=== PATIENT | male | born 1985 | race Caucasian/White ===

== ENCOUNTER 2019-04-03 12:25 | Emergency (ER) | payer BC ==
--- OUTSIDE RECORDS SUMMARY | 2019-04-03 12:28 | XMS REPORT ---
:1985 [facility] Address [address] [place] [id number] Care Team Providers Name Role Phone Unavailable Unavailable Unavailable Problems This patient has no known problems. Allergies, Adverse Reactions, Alerts This patient has no known allergies or adverse reactions. Medications This patient has no known medications.
--- NOTE | 2019-04-03 13:09 | RAD REPORT ---
EXAM DESCRIPTION: RAD - Chest Single View - 04/03/2019 1:03 pm CLINICAL HISTORY: CHEST PAIN Chest pain. COMPARISON: CHEST SINGLE VIEW dated 05/14/2012; CHEST SINGLE VIEW dated 09/29/2010 FINDINGS: Portable technique limits examination quality. The lungs are grossly clear. The heart is normal in size. No displaced fractures. IMPRESSION: No acute intrathoracic process suspected.
--- NOTE | 2019-04-03 13:16 | RAD REPORT ---
EXAM DESCRIPTION: US - Abdomen Exam Limited - 04/03/2019 1:00 pm CLINICAL HISTORY: ABD PAIN COMPARISON: Abdomen Exam Limited dated 07/19/2016 FINDINGS: The gallbladder has been removed. The common bile duct is normal measuring 3 mm. The liver demonstrates no findings of intrahepatic biliary dilatation. IMPRESSION: Unremarkable examination status post cholecystectomy.
[2019-04-03] MEDS ORDERED: MAGNE/ALUM HYDROXD 30 ML UCUP ONE (13:37)
[2019-04-03] MEDS ORDERED: LIDOCAINE VISCOUS 2% SOLN 15 ML UDC ONE (13:38)
[2019-04-03 13:40] LABS: Absolute Lymphocytes (CBC) 1.2 K/uL (0.7-4.9); Basophils % 0.5 % (0-1.3); Eosinophils % 0.9 % (0-4.4); Hematocrit 57.3 % (39.6-49.0); MPV 9.1 fL (7.6-11.3); Monocytes % 10.4 % (3.3-12.3); RBC Red Blood Cell Count 6.34 M/uL (4.33-5.43)
[2019-04-03 14:04] LABS: ALT/SGPT 77 U/L (12-78); AST/SGOT 38 U/L (15-37); Albumin 4.1 g/dL (3.4-5.0); Alkaline Phosphatase 70 U/L (45-117); BUN Blood Urea Nitrogen 14 mg/dL (7-18); Bicarbonate 31 mmol/L (21-32); Bilirubin Direct 0.3 mg/dL (0-0.2); Glucose Level 111 mg/dL (74-106); Lipase 109 U/L (73-393); Potassium 3.2 mmol/L (3.5-5.1); Protein, Total 8.2 g/dL (6.4-8.2); Sodium Level 136 mmol/L (136-145); Troponin (Emerg Dept Use Only) < 0.02 ng/mL (0.0-0.045)
--- NOTE | 2019-04-03 14:18 | ER ---
Nurse's Notes [facility] Name: Enma Kuo Jr Age: 34 yrs Sex: Male : 1985 Arrival Date: 04/03/2019 Time: 12:26 Bed 5 Private MD: Diagnosis: Chest pain, unspecified;Upper abdominal pain, unspecified Presentation: 04/03 12:28 Presenting complaint: Patient states: My chest has been getting real tight with la1 occasional sharp pain. has been going on for the last 2-3 days. Transition of care: patient was not received from another setting of care. Onset of symptoms was April 03, 2019. Risk Assessment: Do you want to hurt yourself or someone else? Patient reports no desire to harm self or others. Initial Sepsis Screen: Does the patient meet any 2 criteria? No. Patient's initial sepsis screen is negative. Does the patient have a suspected source of infection? No. Patient's initial sepsis screen is negative. Care prior to arrival: None. 12:28 Method Of Arrival: Ambulatory la1 12:28 Acuity: SAMUEL 2 la1 Triage Assessment: 12:36 General: Appears in no apparent distress. comfortable, Behavior is cooperative, bp appropriate for age, anxious. Pain: Complains of pain in chest. EENT: No deficits noted. Neuro: No deficits noted. Cardiovascular: Rhythm is sinus rhythm. Respiratory: No deficits noted. GI: No signs and/or symptoms were reported involving the gastrointestinal system. : No signs and/or symptoms were reported regarding the genitourinary system. Derm: No deficits noted. Musculoskeletal: No deficits noted. Historical: - Allergies: 12:27 No Known Allergies; la1 - PMHx: 12:27 Hypertension; gall stones; la1 - Immunization history:: Adult Immunizations up to date. - Social history:: Smoking status: Patient uses tobacco products, smokes one-half pack cigarettes per day. - Ebola Screening: : No symptoms or risks identified at this time. - Family history:: not pertinent. - Hospitalizations: : No recent hospitalization is reported. Screenin:41 Abuse screen: Denies threats or abuse. Denies injuries from another. Nutritional bp screening: No deficits noted. Tuberculosis screening: No symptoms or risk factors identified. Fall Risk None identified. Assessment: 12:36 General: SEE TRIAGE NOTE. bp 13:35 Reassessment: ALL CURRENT ORDERS COMPLETED, RESULTS PENDING. bp 14:43 Reassessment: PT D/C HOME AMBULATORY WITH FAMILY, DX WITH PAIN OF UNKNOWN ORIGIN. bp Vital Signs: 12:28 BP 173 / 100; Pulse 93; Resp 16; Temp 97.5; Pulse Ox 98% on R/A; Weight 129.27 kg; la1 Height 5 ft. 8 in. (172.72 cm); 14:12 BP 137 / 98; Pulse 71; Resp 18; Pulse Ox 98% ; bp 14:13 BP 137 / 98; rn 12:28 Body Mass Index 43.33 (129.27 kg, 172.72 cm) la1 ED Course: 12:26 Patient arrived in ED. as 12:27 Arm band placed on left wrist. la1 12:28 Triage completed. la1 12:33 Kb Short RN is Primary Nurse. bp 12:38 Ariel Eric MD is Attending Physician. rn 12:41 Patient has correct armband on for positive identification. Bed in low position. Call bp light in reach. Side rails up X2. property assessment monitor on. Pulse ox on. NIBP on. 12:58 X-ray completed. Portable x-ray completed in exam room. Patient tolerated procedure ml well. 13:14 XRAY Chest (1 view) In Process Unspecified. EDMS 13:14 Abdomen Exam Limited In Process Unspecified. EDMS 13:25 Inserted saline lock: 20 gauge in right antecubital area, using aseptic technique. bp Blood collected. 14:44 No provider procedures requiring assistance completed. IV discontinued, intact, bp bleeding controlled, No redness/swelling at site. Pressure dressing applied. Patient maintains SpO2 saturation greater than 95% on room air. Administered Medications: 13:30 Drug: GI Cocktail without - (Maalox Suspension 30 ml, Lidocaine Liquid 2 % 15 bp ml) Route: PO; Outcome: 14:17 Discharge ordered by . rn 14:44 Discharged to home ambulatory, with family. bp 14:44 Condition: stable 14:44 Discharge instructions given to patient, Instructed on discharge instructions, follow up and referral plans. Demonstrated understanding of instructions, follow-up care. 14:45 Patient left the ED. bp Signatures: Dispatcher [employer] EDMS Jeanine Carrington Melissa ml Nieto, Roman, MD MD rn Attema, Lee, RN RN la1 Kb Short, RN RN bp
--- NOTE | 2019-04-03 14:19 | EDPHYS ---
Physician Documentation [facility] Name: Enma Kuo Jr Age: 34 yrs Sex: Male : 1985 Arrival Date: 04/03/2019 Time: 12:26 Bed 5 Private MD: ED Physician Ariel Eric HPI: 04/03 13:06 This 34 yrs old Male presents to ER via Ambulatory with complaints of Chest rn Pain. 13:06 The patient or guardian reports chest pain that is located primarily in the substernal rn area, epigastric area. The pain radiates to both shoulders. Associated signs and symptoms: Pertinent positives: abdominal pain, Pertinent negatives: cough, diaphoresis, dizziness, shortness of breath, syncope, vomiting. The chest pain is described as a heaviness. Duration: The patient or guardian reports multiple episodes, that are intermittent, the episodes last approximately 30 minute(s). 13:14 Severity of pain: At its worst the pain was mild in the emergency department the pain rn is unchanged. The patient has not experienced similar symptoms in the past. Reports chest pain substernal, radiates to both shoulder, for 3 days, states intermittent and tight, also epigastric abd pain, no vomiting, states similar to when had gallstone pain but has had gallbladder removed. . Historical: - Allergies: 12:27 No Known Allergies; la1 - PMHx: 12:27 Hypertension; gall stones; la1 - Immunization history:: Adult Immunizations up to date. - Social history:: Smoking status: Patient uses tobacco products, smokes one-half pack cigarettes per day. - Ebola Screening: : No symptoms or risks identified at this time. - Family history:: not pertinent. - Hospitalizations: : No recent hospitalization is reported. ROS: 13:14 Constitutional: Negative for fever, chills, and weight loss, Eyes: Negative for injury, rn pain, redness, and discharge, Neck: Negative for injury, pain, and swelling, Cardiovascular: + chest pain Respiratory: Negative for shortness of breath, cough, wheezing, and pleuritic chest pain, Abdomen/GI: + epigastric abd pain Back: Negative for injury and pain, MS/Extremity: Negative for injury and deformity, Skin: Negative for injury, rash, and discoloration, Neuro: Negative for headache, weakness, numbness, tingling, and seizure. Exam: 13:14 Constitutional: This is a well developed, well nourished patient who is awake, alert, rn and in no acute distress. Head/Face: Normocephalic, atraumatic. Eyes: Pupils equal round and reactive to light, extra-ocular motions intact. Lids and lashes normal. Conjunctiva and sclera are non-icteric and not injected. Cornea within normal limits. Periorbital areas with no swelling, redness, or edema. Neck: Trachea midline, no thyromegaly or masses palpated, and no cervical lymphadenopathy. Supple, full range of motion without nuchal rigidity, or vertebral point tenderness. No Meningismus. Cardiovascular: Regular rate and rhythm with a normal S1 and S2. No gallops, murmurs, or rubs. Normal PMI, no JVD. No pulse deficits. Respiratory: Lungs have equal breath sounds bilaterally, clear to auscultation and percussion. No rales, rhonchi or wheezes noted. No increased work of breathing, no retractions or nasal flaring. Abdomen/GI: soft, + epigastric tenderness, no rebound Skin: Warm, dry with normal turgor. Normal color with no rashes, no lesions, and no evidence of cellulitis. MS/ Extremity: Pulses equal, no cyanosis. Neurovascular intact. Full, normal range of motion. Equal circumference. Neuro: Awake and alert, GCS 15, oriented to person, place, time, and situation. Cranial nerves II-XII grossly intact. Motor strength 5/5 in all extremities. Sensory grossly intact. Cerebellar exam normal. Normal gait. Vital Signs: 12:28 BP 173 / 100; Pulse 93; Resp 16; Temp 97.5; Pulse Ox 98% on R/A; Weight 129.27 kg; la1 Height 5 ft. 8 in. (172.72 cm); 14:12 BP 137 / 98; Pulse 71; Resp 18; Pulse Ox 98% ; bp 14:13 BP 137 / 98; rn 12:28 Body Mass Index 43.33 (129.27 kg, 172.72 cm) la1 MDM: 12:38 Patient medically screened. rn 14:13 Differential diagnosis: acute pericarditis, anxiety, coronary artery disease chest wall rn pain, costochondritis, esophagitis, gastroesophageal reflux disease (GERD), pleurisy, pneumonia, pneumothorax. Data reviewed: vital signs, nurses notes, lab test result(s), EKG, radiologic studies, plain films, and as a result, I will discharge patient. Counseling: I had a detailed discussion with the patient and/or guardian regarding: the historical points, exam findings, and any diagnostic results supporting the discharge/admit diagnosis, lab results, radiology results, the need for outpatient follow up, to return to the emergency department if symptoms worsen or persist or if there are any questions or concerns that arise at home. Response to treatment: the patient's symptoms have mildly improved after treatment, and as a result, I will discharge patient. Special discussion: Based on the patient's history, exam, and Dx evaluation, there is no indication for emergent intervention or inpatient Tx. It is understood by the patient/guardian that if the Sx's persist or worsen they need to return immediately for re-evaluation. Based on the patient's Hx, exam, and Dx evaluation, there is no indication for emergent surgery or inpatient Tx. It is understood by the patient/guardian that if the Sx's persist or worsen they need to return immediately for re-evaluation. I discussed with the patient/guardian in detail that at this point there is no indication for admission to the hospital. It is understood, however, that if the symptoms persist or worsen the patient needs to return immediately for re-evaluation. Based on the history and exam findings, there is no indication for further emergent testing or inpatient evaluation. I discussed with the patient/guardian the need to see the count team member for further evaluation of the symptoms. I discussed with the patient/guardian the need to see the notched blade loader for further evaluation of the symptoms. I discussed with the patient/guardian the need to see the primary care provider for further evaluation of the symptoms. 04/03 12:45 Order name: CBC with Diff; Complete Time: 14: rn 04/03 12:45 Order name: Basic Metabolic Panel; Complete Time: 14: rn 04/03 12:45 Order name: LFT's; Complete Time: 14: rn 04/03 12:45 Order name: Lipase; Complete Time: 14: rn 04/03 12:45 Order name: Troponin (emerg Dept Use Only); Complete Time: 14: rn 04/03 12:45 Order name: IV Start; Complete Time: 13:34 rn 04/03 12:45 Order name: EKG; Complete Time: 12:46 rn 04/03 12:45 Order name: EKG - Nurse/Tech; Complete Time: 12:49 rn 04/03 12:45 Order name: XRAY Chest (1 view); Complete Time: 13:25 rn 04/03 13:14 Order name: Abdomen Exam Limited; Complete Time: 13:25 EDMS Administered Medications: 13:30 Drug: GI Cocktail without - (Maalox Suspension 30 ml, Lidocaine Liquid 2 % 15 bp ml) Route: PO; Disposition: 04/03/19 14:17 Discharged to Home. Impression: Chest pain, unspecified, Upper abdominal pain, unspecified. - Condition is Stable. - Discharge Instructions: Abdominal Pain, Adult, Nonspecific Chest Pain, Pain Without a Known Cause. - Medication Reconciliation Form, Thank You Letter, Antibiotic Education, Prescription Opioid Use, Work release form, Family Work Release form. - Follow up: Private Physician; When: As needed; Reason: Recheck today's complaints, Re-evaluation by your physician. - Problem is an ongoing problem. - Symptoms have improved. Signatures: Dispatcher [employer] [facility] Ariel Eric MD MD rn Attema, Lee RN RN la1 Kb Short RN RN bp Corrections: (The following items were deleted from the chart) 13:07 12:46 Abdomen Limited+US.RAD.BRZ ordered. [facility] 14:45 14:17 04/03/2019 14:17 Discharged to Home. Impression: Chest pain, unspecified; Upper bp abdominal pain, unspecified. Condition is Stable. Forms are Medication Reconciliation Form, Thank You Letter, Antibiotic Education, Prescription Opioid Use. Follow up: Private Physician; When: As needed; Reason: Recheck today's complaints, Re-evaluation by your physician. Problem is an ongoing problem. Symptoms have improved. rn
[2019-04-03 15:00] VITALS: BP 137/98; TEMP 97.5; O2SAT 98
--- NOTE | 2019-04-03 15:01 | EKG ---
Test Date: 2019-04-03 Test Time: 12:33:32 Desizing Machine Operator: LA MEASUREMENT RESULTS: Intervals: Rate: 90 TX: 154 QRSD: 96 QT: 362 QTc: 442 [place]: P: 21 TX: 154 QRS: -75 T: 27 INTERPRETIVE STATEMENTS: Normal sinus rhythm Pulmonary disease pattern Left anterior fascicular block Abnormal ECG Compared to ECG 05/14/2012 10:56:06 Left anterior fascicular block now present Left-axis deviation no longer present Electronically Signed On 04-03-19 15:00:26 CDT by Jonathan Baptiste
== END 2019-04-03 14:45 | disposition home or self-care (01) ==
LOC: ER 12:25
DX: R07.9 Chest pain, unspecified (principal); R10.10 Upper abdominal pain, unspecified; F17.210 Nicotine dependence, cigarettes, uncomplicated
CPT/HCPCS: 36415; 71045; 76705; 80048; 80076; 83690; 84484; 85025; 93005; 99285

== ENCOUNTER 2019-05-25 06:39 | Emergency (ER) | payer BC ==
--- OUTSIDE RECORDS SUMMARY | 2019-05-25 06:41 | XMS REPORT ---
:1985 [facility] Address [address] [place] [id number] Care Team Providers Name Role Phone Unavailable Unavailable Unavailable Problems This patient has no known problems. Allergies, Adverse Reactions, Alerts This patient has no known allergies or adverse reactions. Medications This patient has no known medications.
[2019-05-25] MEDS ORDERED: IBUPROFEN 400 MG TAB ONE (06:55)
[2019-05-25] MEDS ORDERED: IBUPROFEN 200 MG TAB PO ONE (06:56)
[2019-05-25] MEDS ORDERED: HYDROCODONE/APAP 5/325 MG TAB ONE (07:23)
[2019-05-25] MEDS ORDERED: AMOX/K CLAV 875 MG TAB ONE (07:24)
--- NOTE | 2019-05-25 07:28 | ER ---
Nurse's Notes [facility] Name: Enma Kuo Jr Age: 34 yrs Sex: Male : 1985 Arrival Date: 05/25/2019 Time: 06:43 Bed 20 Private MD: Diagnosis: Streptococcal pharyngitis Presentation: 05/25 06:48 Presenting complaint: Patient states: headache, fever and body aches x 3 days. ss Transition of care: patient was not received from another setting of care. Onset of symptoms was May 23, 2019. Risk Assessment: Do you want to hurt yourself or someone else? Patient reports no desire to harm self or others. Initial Sepsis Screen: Does the patient meet any 2 criteria? HR > 90 bpm. Does the patient have a suspected source of infection? No. Patient's initial sepsis screen is negative. Care prior to arrival: None. 06:48 Method Of Arrival: Ambulatory ss 06:48 Acuity: SAMUEL 4 ss Historical: - Allergies: 06:50 No Known Allergies; ss - Home Meds: 06:50 None [Active]; ss - PMHx: 06:50 Hypertension; ss - PSHx: 06:50 Cholecystectomy; ss - Immunization history:: Adult Immunizations up to date. - Social history:: Smoking status: Patient uses tobacco products, smokes one-half pack cigarettes per day. - Ebola Screening: : Patient denies exposure to infectious person Patient denies travel to an Ebola-affected area in the 21 days before illness onset. Screenin:55 Abuse screen: Denies threats or abuse. Denies injuries from another. Nutritional rr5 screening: No deficits noted. Tuberculosis screening: No symptoms or risk factors identified. Fall Risk None identified. Total Saul Fall Scale indicates No Risk (0-24 pts). Assessment: 06:52 General: Appears in no apparent distress. uncomfortable, Behavior is calm, cooperative, rr5 appropriate for age, Reports fever for body ache. Pain: Complains of pain in head throat body Pain does not radiate. Pain currently is 10 out of 10 on a pain scale. Quality of pain is described as aching, Pain began 2-3 days ago. Is episodic. Neuro: Level of Consciousness is awake, alert, obeys commands, Oriented to person, place, time, situation, Reports headache. Cardiovascular: Capillary refill < 3 seconds Patient's skin is warm and dry. Respiratory: Reports cough that is congestion Airway is patent Respiratory effort is even, unlabored, Respiratory pattern is regular, symmetrical. GI: No signs and/or symptoms were reported involving the gastrointestinal system. : No signs and/or symptoms were reported regarding the genitourinary system. EENT: Throat is reddened has enlarged tonsils bilaterally with gag reflex present. Derm: Skin is intact, Skin temperature is warm. Musculoskeletal: Circulation, motion, and sensation intact. Capillary refill < 3 seconds. 07:46 Reassessment: PT D/C HOME AMBULATORY WITH FAMILY, DX WITH STREP THROAT. bp Vital Signs: 06:50 BP 147 / 88; Pulse 124; Resp 17; Temp 100.5(O); Pulse Ox 98% on R/A; Weight 90.72 kg; ss Height 5 ft. 6 in. (167.64 cm); Pain 10/10; 07:48 BP 127 / 87; Pulse 99; Resp 16; Temp 99.5; Pulse Ox 95% ; bp 06:50 Body Mass Index 32.28 (90.72 kg, 167.64 cm) ED Course: 06:43 Patient arrived in ED. ag3 06:45 Debra Day FNP-C is PHCP. kb 06:45 Ermias Hdz MD is Attending Physician. kb 06:49 Triage completed. ss 06:50 Arm band placed on right wrist. ss 06:51 Patient has correct armband on for positive identification. Bed in low position. Call rr5 light in reach. Side rails up X2. Pulse ox on. NIBP on. 07:05 Valorie Hall, CRISTIAN is Primary Nurse. sv 07:47 No provider procedures requiring assistance completed. Patient did not have IV access bp during this emergency room visit. Administered Medications: 06:56 Drug: Ibuprofen 600 mg Route: PO; jd3 07:24 Follow up: Response: No adverse reaction; Pain is decreased bp 07:24 Drug: [place] 5 mg-325 mg 1 tabs Route: PO; bp 07:25 Follow up: Response: Medication administered at discharge. bp 07:24 Drug: Augmentin 875 mg Route: PO; bp 07:25 Follow up: Response: Medication administered at discharge. bp Outcome: 07:27 Discharge ordered by . kb 07:47 Discharged to home ambulatory, with family. bp 07:47 Condition: stable 07:47 Discharge instructions given to patient, Instructed on discharge instructions, follow up and referral plans. medication usage, Demonstrated understanding of instructions, follow-up care, medications, Prescriptions given X 1. 07:48 Patient left the ED. bp Signatures: Debra Day, FILTER OPERATOR-C FILTER OPERATOR-Valorie Coates RN RN Leni Souza RN RN ss Aamir Helms RN RN jd3 Peltier, Brian, RN RN Rhoda Acevedo ag3 Dung Sutherland RN RN rr5
--- NOTE | 2019-05-25 07:28 | EDPHYS ---
Physician Documentation [facility] Name: Enma Kuo Jr Age: 34 yrs Sex: Male : 1985 Arrival Date: 05/25/2019 Time: 06:43 Bed 20 Private MD: ED Physician Ermias Hdz HPI: 05/25 07:20 This 34 yrs old Male presents to ER via Ambulatory with complaints of Fever. kb 07:22 The patient or guardian reports cough, flu symptoms, arthralgias, low-grade fever, kb myalgias, no appetite. 07:23 Onset: The symptoms/episode began/occurred 3 day(s) ago. Severity of symptoms: At their kb worst the symptoms were moderate, in the emergency department the symptoms are unchanged. Modifying factors: The symptoms are alleviated by nothing, the symptoms are aggravated by nothing. Associated signs and symptoms: Pertinent positives: fever, rhinorrhea, sore throat, Pertinent negatives: chest pain, diarrhea, ear ache, nausea, vomiting. The patient has not experienced similar symptoms in the past. The patient has not recently seen a physician. Pt reports fever, body aches, malaise, headache, cough and congestion for 3 days. . Historical: - Allergies: 06:50 No Known Allergies; ss - Home Meds: 06:50 None [Active]; ss - PMHx: 06:50 Hypertension; ss - PSHx: 06:50 Cholecystectomy; ss - Immunization history:: Adult Immunizations up to date. - Social history:: Smoking status: Patient uses tobacco products, smokes one-half pack cigarettes per day. - Ebola Screening: : Patient denies exposure to infectious person Patient denies travel to an Ebola-affected area in the 21 days before illness onset. ROS: 06:55 Neck: Negative for injury, pain, and swelling, Cardiovascular: Negative for chest pain, kb palpitations, and edema, Abdomen/GI: Negative for abdominal pain, nausea, vomiting, diarrhea, and constipation, Back: Negative for injury and pain, : Negative for injury, bleeding, discharge, and swelling, MS/Extremity: Negative for injury and deformity, Skin: Negative for injury, rash, and discoloration. 06:55 Constitutional: Positive for body aches, chills, fatigue, fever, malaise. 06:55 ENT: Positive for rhinorrhea, sinus congestion. 06:55 Respiratory: Positive for cough, Negative for dyspnea on exertion, hemoptysis, orthopnea, pleurisy, shortness of breath, sputum production, wheezing. 06:55 Neuro: Positive for headache. Exam: 06:53 Constitutional: This is a well developed, well nourished patient who is awake, alert, kb and in no acute distress. Head/Face: Normocephalic, atraumatic. Neck: Trachea midline, no thyromegaly or masses palpated, and no cervical lymphadenopathy. Supple, full range of motion without nuchal rigidity, or vertebral point tenderness. No Meningismus. Chest/axilla: Normal chest wall appearance and motion. Nontender with no deformity. No lesions are appreciated. Cardiovascular: Regular rate and rhythm with a normal S1 and S2. No gallops, murmurs, or rubs. Normal PMI, no JVD. No pulse deficits. Respiratory: Lungs have equal breath sounds bilaterally, clear to auscultation and percussion. No rales, rhonchi or wheezes noted. No increased work of breathing, no retractions or nasal flaring. Abdomen/GI: Soft, non-tender, with normal bowel sounds. No distension or tympany. No guarding or rebound. No evidence of tenderness throughout. Back: No spinal tenderness. No costovertebral tenderness. Full range of motion. Skin: Warm, dry with normal turgor. Normal color with no rashes, no lesions, and no evidence of cellulitis. MS/ Extremity: Pulses equal, no cyanosis. Neurovascular intact. Full, normal range of motion. Neuro: Awake and alert, GCS 15, oriented to person, place, time, and situation. Cranial nerves II-XII grossly intact. Motor strength 5/5 in all extremities. Sensory grossly intact. Cerebellar exam normal. Normal gait. 06:53 ENT: External ear(s): are unremarkable, Ear canal(s): are normal, TM's: are normal, Nose: is normal, Mouth: is normal, Posterior pharynx: Airway: normal, no evidence of obstruction, patent, Tonsils: with erythema, Uvula: normal, midline, swelling, that is mild, erythema, that is marked. Vital Signs: 06:50 BP 147 / 88; Pulse 124; Resp 17; Temp 100.5(O); Pulse Ox 98% on R/A; Weight 90.72 kg; ss Height 5 ft. 6 in. (167.64 cm); Pain 10/10; 07:48 BP 127 / 87; Pulse 99; Resp 16; Temp 99.5; Pulse Ox 95% ; bp 06:50 Body Mass Index 32.28 (90.72 kg, 167.64 cm) ss MDM: 06:45 Patient medically screened. kb 06:53 Data reviewed: vital signs, nurses notes. Data interpreted: Pulse oximetry: on room air kb is 98 %. Interpretation: normal. 07:20 Counseling: I had a detailed discussion with the patient and/or guardian regarding: the kb historical points, exam findings, and any diagnostic results supporting the discharge/admit diagnosis, lab results, the need for outpatient follow up, a family practitioner, to return to the emergency department if symptoms worsen or persist or if there are any questions or concerns that arise at home. 05/25 06:48 Order name: Strep; Complete Time: 07:20 kb 05/25 06:48 Order name: Flu; Complete Time: 07:20 kb Administered Medications: 06:56 Drug: Ibuprofen 600 mg Route: PO; jd3 07:24 Follow up: Response: No adverse reaction; Pain is decreased bp 07:24 Drug: Walton 5 mg-325 mg 1 tabs Route: PO; bp 07:25 Follow up: Response: Medication administered at discharge. bp 07:24 Drug: Augmentin 875 mg Route: PO; bp 07:25 Follow up: Response: Medication administered at discharge. bp Disposition: 09:30 Co-signature as Attending Physician, Ermias Hdz MD I agree with the assessment and kdr plan of care. Disposition: 05/25/19 07:27 Discharged to Home. Impression: Streptococcal pharyngitis. - Condition is Stable. - Discharge Instructions: Strep Throat, [id number]. - Prescriptions for Augmentin 875- 125 mg Oral Tablet - take 1 tablet by ORAL route every 12 hours for 10 days; 20 tablet. - Medication Reconciliation Form, Thank You Letter, Antibiotic Education, Prescription Opioid Use form. - Follow up: Emergency Department; When: As needed; Reason: Worsening of condition. Follow up: Private Physician; When: 2 - 3 days; Reason: Recheck today's complaints, Continuance of care, Re-evaluation by your physician. Signatures: Dispatcher [employer] EDGA Debra Day, SHORTHAND REPORTER-C SHORTHAND REPORTER-Ckb Ermias Hdz MD MD kdr Smirch, Shelby, RN RN Aamir Smith RN RN Kb Short RN RN bp Corrections: (The following items were deleted from the chart) 07:48 07:27 05/25/2019 07:27 Discharged to Home. Impression: Streptococcal pharyngitis. bp Condition is Stable. Forms are Medication Reconciliation Form, Thank You Letter, Antibiotic Education, Prescription Opioid Use. Follow up: Emergency Department; When: As needed; Reason: Worsening of condition. Follow up: Private Physician; When: 2 - 3 days; Reason: Recheck today's complaints, Continuance of care, Re-evaluation by your physician. kb
[2019-05-25 09:04] VITALS: BP 127/87; TEMP 99.5; O2SAT 95
== END 2019-05-25 07:48 | disposition home or self-care (01) ==
LOC: ER 06:39
DX: J02.0 Streptococcal pharyngitis (principal); I10 Essential (primary) hypertension; F17.210 Nicotine dependence, cigarettes, uncomplicated
CPT/HCPCS: 87081; 87804; 99283

== ENCOUNTER 2019-05-31 07:44 | Emergency (ER) | payer BC ==
--- OUTSIDE RECORDS SUMMARY | 2019-05-31 07:45 | XMS REPORT ---
:1985 [facility] Address [address] Gupta [address] [place] [id number] Care Team Providers Name Role Phone Unavailable Unavailable Unavailable Problems This patient has no known problems. Allergies, Adverse Reactions, Alerts This patient has no known allergies or adverse reactions. Medications This patient has no known medications.
[2019-05-31] MEDS ORDERED: METOCLOPRAMIDE 10 MG/2mL INJ ONE (08:50)
[2019-05-31] MEDS ORDERED: dexAMETHasone 10 MG/ML VIAL ONE (08:50)
--- NOTE | 2019-05-31 09:05 | ER ---
Nurse's Notes [facility] Name: Enma Kuo Jr Age: 34 yrs Sex: Male : 1985 Arrival Date: 05/31/2019 Time: 07:48 Bed 16 Private MD: Diagnosis: Streptococcal pharyngitis Presentation: 05/31 07:58 Presenting complaint: Patient states: Diagnosed with fever a few days ago in ER. ss Patient reports that he does not have a sore throat, but is still running a fever and having a headache. Transition of care: patient was not received from another setting of care. Onset of symptoms. Risk Assessment: Do you want to hurt yourself or someone else? Patient reports no desire to harm self or others. Initial Sepsis Screen: Does the patient meet any 2 criteria? No. Patient's initial sepsis screen is negative. Does the patient have a suspected source of infection? Yes: Other: strep. Care prior to arrival: None. 07:58 Method Of Arrival: Ambulatory 07:58 Acuity: SAMUEL 3 Triage Assessment: 07:55 Headache History: The patient has had previous headaches and this one is similar to rb1 previous episodes. 07:55 Pain: Pain began x 1 week Also complains of no other associated symptoms. rb1 Historical: - Allergies: 08:00 No Known Allergies; ss - Home Meds: 07:55 unknown antibiotics [Active]; rb1 - PMHx: 08:00 Hypertension; ss - PSHx: 08:00 Cholecystectomy; ss - Immunization history:: Adult Immunizations up to date. - Social history:: Smoking status: Patient uses tobacco products, smokes one-half pack cigarettes per day. - Ebola Screening: : Patient denies exposure to infectious person Patient denies travel to an Ebola-affected area in the 21 days before illness onset. - Family history:: not pertinent. - Hospitalizations: : No recent hospitalization is reported. Screenin:55 Abuse screen: Denies threats or abuse. Nutritional screening: No deficits noted. rb1 Tuberculosis screening: No symptoms or risk factors identified. Fall Risk None identified. Assessment: 07:55 General: Appears in no apparent distress. comfortable, Behavior is calm, cooperative, rb1 Reports fever for x 1 week. Pain: Complains of pain in Headache Pain currently is 8 out of 10 on a pain scale. Neuro: Level of Consciousness is awake, alert, obeys commands, Oriented to person, place, time, situation, Speech is normal, Pt. reports that he feels normal except for his headache, neck pain, and fever. Pt. was educated on meningitis but refused a spinal tap to rule it out.. Cardiovascular: Capillary refill < 3 seconds is brisk in bilateral fingers. Respiratory: Reports cough that is non-productive, Airway is patent Respiratory effort is even, unlabored, Respiratory pattern is regular, symmetrical. GI: No signs and/or symptoms were reported involving the gastrointestinal system. : No signs and/or symptoms were reported regarding the genitourinary system. Derm: Skin is pink, warm \T\ dry. Musculoskeletal: Range of motion: intact in all extremities. 08:54 Reassessment: Patient appears in no apparent distress at this time. No changes from rb1 previously documented assessment. Vital Signs: 08:00 BP 145 / 98; Pulse 86; Resp 16; Temp 99.0(O); Pulse Ox 97% on R/A; Weight 90.72 kg; ss Height 5 ft. 6 in. (167.64 cm); Pain 10/10; 09:00 BP 149 / 93; Pulse 86; Resp 17; Temp 98.9(O); Pulse Ox 98% on R/A; Pain 8/10; rb1 08:00 Body Mass Index 32.28 (90.72 kg, 167.64 cm) ED Course: 07:48 Patient arrived in ED. as 07:52 Ariel Eric MD is Attending Physician. rn 07:55 Patient has correct armband on for positive identification. Bed in low position. Call rb1 light in reach. Side rails up X 1. Pulse ox on. NIBP on. 07:59 Triage completed. ss 08:00 Arm band placed on right wrist. ss 08:05 Cortney Arshad, RN is Primary Nurse. rb1 08:20 Inserted saline lock: 22 gauge in left antecubital area, using aseptic technique. Blood rb1 collected. 08:22 [place] Screen Profile Sent. rb1 08:33 XRAY Chest Pa And Lat (2 Views) In Process Unspecified. EDMS 09:29 No provider procedures requiring assistance completed. IV discontinued, intact, rb1 bleeding controlled, No redness/swelling at site. Pressure dressing applied. Administered Medications: 08:50 Drug: Reglan 10 mg Route: IVP; Site: left antecubital; rb1 09:05 Follow up: Response: No adverse reaction rb1 08:50 Drug: Decadron - Dexamethasone 10 mg Route: IVP; Site: left antecubital; rb1 09:05 Follow up: Response: No adverse reaction rb1 Outcome: 09:04 Discharge ordered by . rn 09:29 Patient left the ED. rb1 09:29 Discharged to home ambulatory. rb1 09:29 Condition: stable 09:29 Discharge instructions given to patient, Instructed on discharge instructions, follow up and referral plans. medication usage, Demonstrated understanding of instructions, follow-up care, medications, Prescriptions given X 2. Signatures: Dispatcher [employer] Jeanine Campbell Roman, MD MD rn Smirch, Shelby, RN RN Cortney Bull RN RN rb1 Corrections: (The following items were deleted from the chart) 08:11 07:55 Respiratory: Airway is patent Respiratory effort is even, unlabored, Respiratory rb1 pattern is regular, symmetrical, rb1
--- NOTE | 2019-05-31 09:05 | EDPHYS ---
Physician Documentation [facility] Name: Enma Kuo Jr Age: 34 yrs Sex: Male : 1985 Arrival Date: 05/31/2019 Time: 07:48 Bed 16 Private MD: ED Physician Ariel Eric HPI: 05/31 08:07 This 34 yrs old Male presents to ER via Ambulatory with complaints of Fever, rn Headache, Strep+. 08:07 The patient reports fever, not measured (subjective). Onset: The symptoms/episode rn began/occurred 2 day(s) ago. Modifying factors: there are no obvious modifying factors. Associated signs and symptoms: Pertinent positives: cough, headache, Pertinent negatives: abdominal pain, altered mental status, chest pain, hemoptysis, runny nose. Severity of symptoms: At their worst the symptoms were moderate in the emergency department the symptoms are unchanged. The patient has not experienced similar symptoms in the past. REports seen here 2 days ago, + for strep, reports taking augmentin and not better. Still having headache, cough. Denies having sore throat or speech changes. . Historical: - Allergies: 08:00 No Known Allergies; ss - Home Meds: 07:55 unknown antibiotics [Active]; rb1 - PMHx: 08:00 Hypertension; ss - PSHx: 08:00 Cholecystectomy; ss - Immunization history:: Adult Immunizations up to date. - Social history:: Smoking status: Patient uses tobacco products, smokes one-half pack cigarettes per day. - Ebola Screening: : Patient denies exposure to infectious person Patient denies travel to an Ebola-affected area in the 21 days before illness onset. - Family history:: not pertinent. - Hospitalizations: : No recent hospitalization is reported. ROS: 08:07 Constitutional: Negative for chills, and weight loss, Eyes: Negative for injury, pain, rn redness, and discharge, ENT: Mild pharyngeal erythema, no exudate, no stridor, no masses, uvula midline Neck: Negative for swelling, Cardiovascular: Negative for chest pain, palpitations, and edema, Respiratory: + cough, neg for sob Abdomen/GI: Negative for abdominal pain, nausea, vomiting, diarrhea, and constipation, MS/Extremity: Negative for injury and deformity, Skin: Negative for injury, rash, and discoloration, Neuro: Negative for weakness, numbness, tingling, and seizure. Exam: 08:07 Constitutional: This is a well developed, well nourished patient who is awake, alert, rn and in no acute distress. Ambulatory to room without difficulty or assistance Head/Face: Normocephalic, atraumatic. Eyes: Pupils equal round and reactive to light, extra-ocular motions intact. Lids and lashes normal. Conjunctiva and sclera are non-icteric and not injected. Cornea within normal limits. Periorbital areas with no swelling, redness, or edema. ENT: Mild pharyngeal erythema, no exudate, no stridor, no masses, uvula midline Neck: No neck masses or tenderness Cardiovascular: Regular rate and rhythm. No pulse deficits. Respiratory: No increased work of breathing, no retractions or nasal flaring. Abdomen/GI: Soft, non-tender. No evidence of tenderness throughout. Skin: Warm, dry with normal turgor. Normal color with no rashes, no lesions, and no evidence of cellulitis. MS/ Extremity: Pulses equal, no cyanosis. Neurovascular intact. Full, normal range of motion. Equal circumference. Neuro: Awake and alert, GCS 15, oriented to person, place, time, and situation. Cranial nerves II-XII grossly intact. Motor strength 5/5 in all extremities. Sensory grossly intact. Cerebellar exam normal. Normal gait. Vital Signs: 08:00 BP 145 / 98; Pulse 86; Resp 16; Temp 99.0(O); Pulse Ox 97% on R/A; Weight 90.72 kg; ss Height 5 ft. 6 in. (167.64 cm); Pain 10/10; 09:00 BP 149 / 93; Pulse 86; Resp 17; Temp 98.9(O); Pulse Ox 98% on R/A; Pain 8/10; rb1 08:00 Body Mass Index 32.28 (90.72 kg, 167.64 cm) ss MDM: 07:52 Patient medically screened. rn 08:16 Refusal of service: The patient/guardian displays adequate decision making capability rn and despite a detailed discussion of alternatives, benefits, risks, and consequences refuses: Lumbar Puncture procedure. ED course: Pt denies any throat pain or change in voice.. 09:03 Differential diagnosis: viral Infection, bacterial infection, URI, bronchitis, rn pneumonia. Differential diagnosis: meningitis. Data reviewed: vital signs, nurses notes. Data reviewed: old medical records, lab test result(s), radiologic studies, plain films. Test interpretation: by ED physician or midlevel provider: plain radiologic studies, CXR neg for pneumonia or infiltrate. Counseling: I had a detailed discussion with the patient and/or guardian regarding: the historical points, exam findings, and any diagnostic results supporting the discharge/admit diagnosis, radiology results, the need for outpatient follow up, to return to the emergency department if symptoms worsen or persist or if there are any questions or concerns that arise at home. Special discussion: I discussed with the patient/guardian in detail that at this point there is no indication for admission to the hospital. It is understood, however, that if the symptoms persist or worsen the patient needs to return immediately for re-evaluation. ED course: Neg mono, neg cxr, patient still refuses LP. Better with meds. Dc home with return precautions.. 05/31 08:07 Order name: [place] Screen Profile; Complete Time: 09:03 rn 05/31 08:05 Order name: XRAY Chest Pa And Lat (2 Views) rn 05/31 08:46 Order name: IV Start; Complete Time: 08:47 rn Administered Medications: 08:50 Drug: Reglan 10 mg Route: IVP; Site: left antecubital; rb1 09:05 Follow up: Response: No adverse reaction rb1 08:50 Drug: Decadron - Dexamethasone 10 mg Route: IVP; Site: left antecubital; rb1 09:05 Follow up: Response: No adverse reaction rb1 Disposition: 05/31/19 09:04 Discharged to Home. Impression: Streptococcal pharyngitis. - Condition is Stable. - Discharge Instructions: General Headache Without Cause, Strep Throat. - Prescriptions for Zithromax Z- Earl 250 mg Oral Tablet - take 1 tablet by ORAL route as directed for 5 days Day 1 - take two (2) tablets one time. Day 2, 3, 4 , 5 take one (1) tablet once daily.; 6 tablet. Medrol (Earl) 4 mg Oral Tablets, Dose Pack - take 1 tablet by ORAL route as directed - follow package instructions; 1 packet. - Medication Reconciliation Form, Thank You Letter, Antibiotic Education, Prescription Opioid Use, Work release form form. - Follow up: Private Physician; When: As needed; Reason: Recheck today's complaints, Re-evaluation by your physician. - Problem is new. - Symptoms have improved. Signatures: Dispatcher [employer] EDMS Ariel Eric MD MD rn Smirch, Shelby, RN RN ss Barber, Rebecca, RN RN rb1 Corrections: (The following items were deleted from the chart) 08:14 08:07 Constitutional: Negative for chills, and weight loss, Eyes: Negative for injury, rn pain, redness, and discharge, ENT: Mild pharyngeal erythema, no exudate, no stridor, no masses, uvula midline Neck: Negative for swelling, Cardiovascular: Negative for chest pain, palpitations, and edema, Respiratory: + cough, neg for sob Abdomen/GI: Negative for abdominal pain, nausea, vomiting, diarrhea, and constipation, MS/Extremity: Negative for injury and deformity, Skin: Negative for injury, rash, and discoloration, Neuro: Negative for weakness, numbness, tingling, and seizure, rn 08:16 08:07 Constitutional: This is a well developed, well nourished patient who is awake, rn alert, and in no acute distress. Ambulatory to room without difficulty or assistance Head/Face: Normocephalic, atraumatic. Eyes: Pupils equal round and reactive to light, extra-ocular motions intact. Lids and lashes normal. Conjunctiva and sclera are non-icteric and not injected. Cornea within normal limits. Periorbital areas with no swelling, redness, or edema. ENT: Nares patent. No nasal discharge, no septal abnormalities noted. Tympanic membranes are normal and external auditory canals are clear. Oropharynx with no redness, swelling, or masses, exudates, or evidence of obstruction, uvula midline. Mucous membranes moist. rn 09:29 09:04 05/31/2019 09:04 Discharged to Home. Impression: Streptococcal pharyngitis. rb1 Condition is Stable. Forms are Medication Reconciliation Form, Thank You Letter, Antibiotic Education, Prescription Opioid Use. Follow up: Private Physician; When: As needed; Reason: Recheck today's complaints, Re-evaluation by your physician. Problem is new. Symptoms have improved. rn
[2019-05-31 11:34] VITALS: BP 149/93; TEMP 98.9; O2SAT 98
--- NOTE | 2019-05-31 12:56 | RAD REPORT ---
EXAM DESCRIPTION: RAD - Chest Pa And Lat (2 Views) - 05/31/2019 8:34 am CLINICAL HISTORY: Fever;Cough Chest pain. COMPARISON: Chest Single View dated 04/03/2019; CHEST SINGLE VIEW dated 05/14/2012; CHEST SINGLE VIEW dated 09/29/2010 FINDINGS: Interstitial lung markings are prominent bilaterally, raising suspicion for viral pneumoni tis and/or bronchitis. No focal consolidation typical of pneumonia seen. The heart is normal in size. No displaced fractures.
== END 2019-05-31 09:29 | disposition home or self-care (01) ==
LOC: ER 07:44
DX: J02.0 Streptococcal pharyngitis (principal); I10 Essential (primary) hypertension; F17.210 Nicotine dependence, cigarettes, uncomplicated
CPT/HCPCS: 36415; 86308; 71046; 96375; 96374; 99284; J2765; J1100

== ENCOUNTER 2019-07-06 22:58 | Emergency (ER) | payer BC ==
[2019-07-07] MEDS ORDERED: NA CHLORIDE 0.9% 1,000 ML ONE (00:13)
[2019-07-07] MEDS ORDERED: DIPHENHYDRAMINE 50 MG/ML VIAL ONE (00:13)
[2019-07-07] MEDS ORDERED: METOCLOPRAMIDE 10 MG/2mL INJ ONE (00:13)
[2019-07-07] MEDS ORDERED: dexAMETHasone 10 MG/ML VIAL ONE (00:13)
--- NOTE | 2019-07-07 01:21 | ER ---
Nurse's Notes [facility] Name: Enma Kuo Jr Age: 34 yrs Sex: Male : 1985 Arrival Date: 07/06/2019 Time: 22:59 Bed 20 Private MD: Diagnosis: Headache Presentation: 07/06 23:21 Presenting complaint: Patient states: he has had a headache for a month the pain moves bb around pain is intermittent and currently is 10/10 has used OTC medications with no relief. Transition of care: patient was not received from another setting of care. Onset of symptoms was May 2019. Risk Assessment: Do you want to hurt yourself or someone else? Patient reports no desire to harm self or others. Initial Sepsis Screen: Does the patient meet any 2 criteria? No. Patient's initial sepsis screen is negative. Does the patient have a suspected source of infection? No. Patient's initial sepsis screen is negative. Care prior to arrival: None. 23:21 Method Of Arrival: Ambulatory bb 23:21 Acuity: SAMUEL 3 bb Triage Assessment: 23:24 Headache History: Denies prior headaches. General: Appears uncomfortable, Behavior is bb calm, cooperative. Pain: Complains of pain in head Pain currently is 10 out of 10 on a pain scale. Pain began one month ago Also complains of inability to concentrate. Neuro: Level of Consciousness is awake, alert, obeys commands, Oriented to person, place, time, situation. Cardiovascular: No deficits noted. Respiratory: Respiratory effort is even, unlabored, Respiratory pattern is regular. Derm: Skin is pink, warm \\T\\ dry. Musculoskeletal: Circulation, motion, and sensation intact. Historical: - Allergies: 23:24 No Known Allergies; bb - Home Meds: 23:24 losartan 100 mg oral tab 1 tab once daily [Active]; trazodone 50 mg Oral tab 1 tab bb nightly [Active]; - PMHx: 23:24 Gall Stones; Hypertension; bb - PSHx: 23:24 Cholecystectomy; bb - Immunization history:: Adult Immunizations up to date. - Social history:: Smoking status: Patient uses tobacco products, smokes one pack cigarettes per day. Patient uses alcohol, on a daily basis. Patient/guardian denies using street drugs. - Ebola Screening: : No symptoms or risks identified at this time. Screenin:31 Abuse screen: Denies threats or abuse. Denies injuries from another. Nutritional wh screening: No deficits noted. Tuberculosis screening: No symptoms or risk factors identified. Fall Risk None identified. Assessment: 23:32 General: Appears in no apparent distress. uncomfortable, Behavior is calm, cooperative, wh appropriate for age. Pain: Complains of pain in head Pain does not radiate. Pain currently is 10 out of 10 on a pain scale. Quality of pain is described as aching, Pain began on and off for a month. Neuro: Level of Consciousness is awake, alert, obeys commands, Oriented to person, place, time, situation, Appropriate for age Reports headache in entire that is the "worst ever", since a month ago. Cardiovascular: Heart tones S1 S2. Respiratory: Airway is patent Respiratory effort is even, unlabored, Respiratory pattern is regular, symmetrical, Breath sounds are clear bilaterally. GI: Abdomen is flat, non-distended. : No signs and/or symptoms were reported regarding the genitourinary system. EENT: No signs and/or symptoms were reported regarding the EENT system. Derm: Skin is intact, is healthy with good turgor, Skin is pink, warm \\T\\ dry. normal. Musculoskeletal: Circulation, motion, and sensation intact. 07/07 00:45 Reassessment: Patient appears in no apparent distress at this time. No changes from previously documented assessment. Patient and/or family updated on plan of care and expected duration. Pain level reassessed. Patient is alert, oriented x 3, equal unlabored respirations, skin warm/dry/pink. 01:55 Reassessment: Patient appears in no apparent distress at this time. No changes from previously documented assessment. Patient and/or family updated on plan of care and expected duration. Pain level reassessed. Patient is alert, oriented x 3, equal unlabored respirations, skin warm/dry/pink. Patient states feeling better. Patient states symptoms have improved. Vital Signs: 07/06 23:24 BP 152 / 96; Pulse 90; Resp 14 S; Temp 99(O); Pulse Ox 97% on R/A; Weight 90.72 kg (R); bb Height 5 ft. 6 in. (167.64 cm) (R); Pain 07/02; 07/07 01:00 BP 137 / 76; Pulse 87; Resp 18; Pulse Ox 97% on R/A; 01:56 BP 128 / 78; Pulse 79; Resp 18; Pulse Ox 92% on R/A; 07/06 23:24 Body Mass Index 32.28 (90.72 kg, 167.64 cm) bb ED Course: 07/06 22:59 Patient arrived in ED. ds1 23:23 Triage completed. bb 23:24 Arm band placed on Patient placed in an exam room, on a stretcher, on pulse oximetry. bb Family accompanied patient. 23:31 David Patricia is Primary Nurse. 23:32 Patient has correct armband on for positive identification. Bed in low position. Call light in reach. Side rails up X 1. Pulse ox on. NIBP on. 23:55 Arnol Burkett PA is PHCP. jr8 23:55 Dharmesh Osorio MD is Attending Physician. jr8 07/07 00:12 Inserted saline lock: 20 gauge in right antecubital area, using aseptic technique. jd2 00:59 CT Head Brain wo Cont In Process Unspecified. EDMS 01:57 No provider procedures requiring assistance completed. IV discontinued, intact, wh bleeding controlled, No redness/swelling at site. Administered Medications: 00:31 Drug: NS 0.9% 1000 ml Route: IV; Rate: 1000 ml; Site: right antecubital; 01:54 Follow up: Response: No adverse reaction; IV Status: Completed infusion 00:31 Drug: Benadryl 25 mg Route: IVP; Site: right antecubital; 01:55 Follow up: Response: No adverse reaction 00:31 Drug: Decadron - Dexamethasone 10 mg Route: IVP; Site: right antecubital; 01:55 Follow up: Response: No adverse reaction 00:32 Drug: Reglan 10 mg Route: IVP; Site: right antecubital; 01:54 Follow up: Response: No adverse reaction Outcome: 01:20 Discharge ordered by . jr8 01:57 Discharged to home ambulatory, with family. 01:57 Condition: good 01:57 Discharge instructions given to patient, family, Instructed on discharge instructions, follow up and referral plans. POC Migraine and General Headache without known cause Demonstrated understanding of instructions, follow-up care, POC 01:58 Patient left the ED. Signatures: Dispatcher [employer] Vanessa Ghotra ds1 Beckie Johnson RN RN Arnol Shell PA PA jr8 Della Rogersd2 David Patricia
--- NOTE | 2019-07-07 01:21 | EDPHYS ---
Physician Documentation [facility] Name: Enma Kuo Jr Age: 34 yrs Sex: Male : 1985 Arrival Date: 07/06/2019 Time: 22:59 Bed 20 Private MD: ED Physician Dharmesh Osorio HPI: 07/07 00:10 This 34 yrs old Male presents to ER via Ambulatory with complaints of jr8 Headache. 00:10 Onset: The symptoms/episode began/occurred 1 month(s) ago. Associated signs and jr8 symptoms: Pertinent positives: Photophobia Pertinent negatives: altered mental status, Photophobia. Severity of symptoms: At its worst the pain was mild. Headache History: The patient has had previous headaches and this one is similar to previous episodes. the symptoms are aggravated by lights, noise, stress. pt reports MARCH for one month without changes. Pt is alert, oriented x4, states he came in today because he wanted the pain to go away. Historical: - Allergies: 07/06 23:24 No Known Allergies; bb - Home Meds: 23:24 losartan 100 mg oral tab 1 tab once daily [Active]; trazodone 50 mg Oral tab 1 tab bb nightly [Active]; - PMHx: 23:24 Gall Stones; Hypertension; bb - PSHx: 23:24 Cholecystectomy; bb - Immunization history:: Adult Immunizations up to date. - Social history:: Smoking status: Patient uses tobacco products, smokes one pack cigarettes per day. Patient uses alcohol, on a daily basis. Patient/guardian denies using street drugs. - Ebola Screening: : No symptoms or risks identified at this time. ROS: 07/07 00:10 Constitutional: Negative for fever, chills, and weight loss, Eyes: Negative for injury, jr8 pain, redness, and discharge, ENT: Negative for injury, pain, and discharge, Neck: Negative for injury, pain, and swelling, Cardiovascular: Negative for chest pain, palpitations, and edema, Respiratory: Negative for shortness of breath, cough, wheezing, and pleuritic chest pain, Abdomen/GI: Negative for abdominal pain, nausea, vomiting, diarrhea, and constipation, Back: Negative for injury and pain, MS/Extremity: Negative for injury and deformity, Skin: Negative for injury, rash, and discoloration. Neuro: Positive for headache, Negative for altered mental status, dizziness, hearing loss, numbness, syncope, visual changes. Exam: 00:12 Constitutional: This is a well developed, well nourished patient who is awake, alert, jr8 and in no acute distress. Head/Face: Normocephalic, atraumatic. Eyes: Pupils equal round and reactive to light, extra-ocular motions intact. Lids and lashes normal. Conjunctiva and sclera are non-icteric and not injected. Cornea within normal limits. Periorbital areas with no swelling, redness, or edema. ENT: Nares patent. No nasal discharge, no septal abnormalities noted. Tympanic membranes are normal and external auditory canals are clear. Oropharynx with no redness, swelling, or masses, exudates, or evidence of obstruction, uvula midline. Mucous membranes moist. Neck: Trachea midline, no thyromegaly or masses palpated, and no cervical lymphadenopathy. Supple, full range of motion without nuchal rigidity, or vertebral point tenderness. No Meningismus. Chest/axilla: Normal chest wall appearance and motion. Nontender with no deformity. No lesions are appreciated. Cardiovascular: Regular rate and rhythm with a normal S1 and S2. No gallops, murmurs, or rubs. Normal PMI, no JVD. No pulse deficits. Respiratory: Lungs have equal breath sounds bilaterally, clear to auscultation and percussion. No rales, rhonchi or wheezes noted. No increased work of breathing, no retractions or nasal flaring. Abdomen/GI: Soft, non-tender, with normal bowel sounds. No distension or tympany. No guarding or rebound. No evidence of tenderness throughout. 00:12 Neuro: Orientation: is normal, Mentation: is normal, Cranial nerves: CN II- XII are normal as tested, Cerebellar function: is grossly normal, Motor: is normal. Vital Signs: 07/06 23:24 BP 152 / 96; Pulse 90; Resp 14 S; Temp 99(O); Pulse Ox 97% on R/A; Weight 90.72 kg (R); bb Height 5 ft. 6 in. (167.64 cm) (R); Pain 07/02; 07/07 01:00 BP 137 / 76; Pulse 87; Resp 18; Pulse Ox 97% on R/A; wh 01:56 BP 128 / 78; Pulse 79; Resp 18; Pulse Ox 92% on R/A; 07/06 23:24 Body Mass Index 32.28 (90.72 kg, 167.64 cm) bb [facility]: 07/06 23:56 Patient medically screened. 8 07/07 01:18 Data reviewed: vital signs, nurses notes, radiologic studies, CT scan, and as a result, [facility] I will discharge patient. Data interpreted: Pulse oximetry: on room air is 97 %. Interpretation: normal. Test interpretation: by ED physician or midlevel provider:. Counseling: I had a detailed discussion with the patient and/or guardian regarding: the historical points, exam findings, and any diagnostic results supporting the discharge/admit diagnosis, the presence of at least one elevated blood pressure reading (>120/80) during this emergency department visit, radiology results, to return to the emergency department if symptoms worsen or persist or if there are any questions or concerns that arise at home. 07/07 00:03 Order name: CT Head Brain wo Cont jr8 07/07 00:03 Order name: IV; Complete Time: 00:11 [facility] Administered Medications: 00:31 Drug: NS 0.9% 1000 ml Route: IV; Rate: 1000 ml; Site: right antecubital; 01:54 Follow up: Response: No adverse reaction; IV Status: Completed infusion 00:31 Drug: Benadryl 25 mg Route: IVP; Site: right antecubital; 01:55 Follow up: Response: No adverse reaction 00:31 Drug: Decadron - Dexamethasone 10 mg Route: IVP; Site: right antecubital; 01:55 Follow up: Response: No adverse reaction 00:32 Drug: Reglan 10 mg Route: IVP; Site: right antecubital; 01:54 Follow up: Response: No adverse reaction Disposition: 02:05 Co-signature as Attending Physician, Dharmesh Osorio MD. [email or web address] Disposition: 07/07/19 01:20 Discharged to Home. Impression: Headache. - Condition is Stable. - Discharge Instructions: General Headache Without Cause, Migraine Headache, Pain Without a Known Cause. - Medication Reconciliation Form, Thank You Letter form. - Follow up: Private Physician; When: 2 - 3 days; Reason: Recheck today's complaints, Continuance of care, Re-evaluation by your physician. - Problem is an ongoing problem. - Symptoms have improved. Signatures: Dispatcher [employer] EDMS Dharmesh Osorio MD MD pkl Ballard, Brenda, RN RN Arnol Shell PA PA jr8 David Patricia Corrections: (The following items were deleted from the chart) 01:58 01:20 07/07/2019 01:20 Discharged to Home. Impression: Headache. Condition is Stable. wh Forms are Medication Reconciliation Form, Thank You Letter, Antibiotic Education, Prescription Opioid Use. Follow up: Private Physician; When: 2 - 3 days; Reason: Recheck today's complaints, Continuance of care, Re-evaluation by your physician. Problem is an ongoing problem. Symptoms have improved. jr8
[2019-07-07 03:29] VITALS: TEMP 99
[2019-07-07 03:32] VITALS: BP 128/78; O2SAT 92
--- NOTE | 2019-07-07 10:00 | RAD REPORT ---
EXAM DESCRIPTION: CT head without IV contrast CLINICAL HISTORY: Headache; mental status change TECHNIQUE: Multiple axial CT images of the brain were performed followed by sagittal and coronal rec onstructed images. The CT study is performed according to ALARA (as low as reasonably achievable) or ALARA/IMAGE GENTLY, with automatic adjustment of mA and/or kV according to patient size. Performed on: 07/07/2019 at 12:50 AM COMPARISON: None. FINDINGS: There is no evidence of mass, acute mass effect or midline shift. There are no acute extra -axial fluid collections. There is no evidence of acute intracranial hemorrhage. The cerebral sulci and ventricles are normal in size and configuration. There are no focal abnormal areas of increased or decreased attenuation. There is no significant mucosal thickening of the paranasal sinuses. The mastoid air cells are clear. The orbital contents are grossly unremarkable. No acute osseous abnormalities are identified. No focal soft tissue abnormalities are identified. IMPRESSION: 1. There is no evidence of acute intracranial pathology. Electronically signed by: Coretta Mac DO 07/07/2019 1:05 AM CDT Due to temporary technical issues with the PACS/Fluency reporting system, reports are being signed by the in house radiologist as a courtesy to ensure prompt reporting. The interpreting radiologist is f ully responsible for the content of the report.
== END 2019-07-07 01:58 | disposition home or self-care (01) ==
LOC: ER 22:58
DX: R51 Headache (principal); I10 Essential (primary) hypertension; F17.210 Nicotine dependence, cigarettes, uncomplicated
CPT/HCPCS: 96361; 70450; 96375; 96374; 99284; J2765; J1200; J1100; J7030

== ENCOUNTER 2019-07-13 19:06 | Inpatient (IN) | payer BC ==
[2019-07-13] MEDS ORDERED: dexAMETHasone 10 MG/ML VIAL ONE (19:36)
[2019-07-13] MEDS ORDERED: ONDANSETRON 4 MG/2 ML VIAL ONE (19:38)
[2019-07-13] MEDS ORDERED: FENTANYL CITR 100 MCG/2 ML ONE (19:38)
[2019-07-13 19:39] LABS: Absolute Lymphocytes (CBC) 1.6 K/uL (0.7-4.9); Basophils % 0.4 % (0-1.3); Hematocrit 47.7 % (39.6-49.0); MPV 8.6 fL (7.6-11.3); RBC Red Blood Cell Count 5.31 M/uL (4.33-5.43)
[2019-07-13 19:51] LABS: ALT/SGPT 50 U/L (12-78); AST/SGOT 17 U/L (15-37); Albumin 3.6 g/dL (3.4-5.0); Alkaline Phosphatase 56 U/L (45-117); BUN Blood Urea Nitrogen 15 mg/dL (7-18); Bicarbonate 30 mmol/L (21-32); Bilirubin Direct 0.1 mg/dL (0-0.2); Bilirubin Total 0.3 mg/dL (0.2-1.0); Glucose Level 97 mg/dL (74-106); Magnesium 2.1 mg/dL (1.8-2.4); Protein, Total 6.7 g/dL (6.4-8.2); Sodium Level 139 mmol/L (136-145); Troponin (Emerg Dept Use Only) < 0.02 ng/mL (0.0-0.045)
[2019-07-13 19:54] LABS: Protime INR 0.86
--- NOTE | 2019-07-13 19:58 | RAD REPORT ---
EXAM DESCRIPTION: CT - Ct Stroke Brain Wo Cont - 07/13/2019 7:30 pm CLINICAL HISTORY: Headache, right-sided numbness, hypertension CLINICAL HISTORY: CT head July 07 TECHNIQUE: Axial 5 millimeter thick images of the head were obtained without IV contrast. All CT scans are performed using dose optimization technique as appropriate and may include automated exposure control or mA/KV adjustment according to patient size. FINDINGS: No intracranial hemorrhage, mass, or cerebral edema. No acute infarction identifiable. No extra-axial fluid collections. Sanchez matter-white matter differentiation is preserved. Visualized portions of the mastoid air cells, paranasal sinuses, and orbits are unremarkable. Images were only initially available in the exception folder. This precluded immediate dictation of t he report. Findings were telephoned to the referring physician 1716 hours. IMPRESSION: No CT evidence of acute intracranial process. Continued, unexplained neurologic symptoms can be addressed with MR imaging.
[2019-07-13] MEDS ORDERED: ASPIRIN 81 MG CHEWABLE TABLET ONE (20:04)
--- NOTE | 2019-07-13 20:19 | EDPHYS ---
Physician Documentation [facility] Name: Enma Kuo Jr Age: 34 yrs Sex: Male : 1985 Arrival Date: 07/13/2019 Time: 19:07 Bed 7 Private MD: ED Physician Fantasma Vicente HPI: 07/13 19:36 This 34 yrs old Male presents to ER via EMS with complaints of Numbness, wa Headache. 19:36 The patient's problem is reported as a facial droop, on right, paresthesias, in right wa upper extremity, in right lower extremity, in right side of face, weakness, in the right upper extremity, in the right lower extremity. Onset: The symptoms/episode began/occurred just prior to arrival. Duration: This was a single incident. Context: the episode(s) was witnessed, by a bystander, occurred at a store, occurred while the patient was walking. The symptoms are alleviated by nothing. The symptoms are aggravated by nothing. Associated signs and symptoms: Pertinent positives: headache, numbness, weakness, Pertinent negatives: blurred vision, chest pain, confusion. Severity of symptoms: At their worst the symptoms were moderate in the emergency department the symptoms have improved moderately. Patient's baseline: Neuro: alert and fully oriented, Motor: no deficits, Ambulation: walks without assistance. The patient has not experienced similar symptoms in the past. The patient has been recently seen by a physician: today at [facility]. 34 yo M c/o severe MARCH x 2 weeks. seen at outside ER today with negative work up. given medication that helped MARCH go away. awake this evening an proceeded to go to the store. at store, sudden episode of right sided weakness, facial droop, difficulty moving R side. Severe MARCH has returned as well. denies photophobia or neck stiffness. denies h/o HAs prior to the past 2 weeks. Historical: - Allergies: 19:08 No Known Allergies; sg - Home Meds: 19:08 losartan 100 mg Oral tab 1 tab once daily [Active]; trazodone 50 mg Oral tab 1 tab sg nightly [Active]; - PMHx: 19:08 Gall Stones; Hypertension; sg - PSHx: 19:08 Cholecystectomy; sg - Immunization history:: Adult Immunizations unknown. - Social history:: Smoking status: Patient uses tobacco products. - Ebola Screening: : Patient negative for fever greater than or equal to 101.5 degrees Fahrenheit, and additional compatible Ebola Virus Disease symptoms Patient denies exposure to infectious person Patient denies travel to an Ebola-affected area in the 21 days before illness onset No symptoms or risks identified at this time. - Family history:: not pertinent. - Hospitalizations: : No recent hospitalization is reported. ROS: 19:42 Constitutional: Negative for fever, chills, and weight loss, Eyes: Negative for injury, wa pain, redness, and discharge, ENT: Negative for injury, pain, and discharge, Neck: Negative for injury, pain, and swelling, Cardiovascular: Negative for chest pain, palpitations, and edema, Respiratory: Negative for shortness of breath, cough, wheezing, and pleuritic chest pain, Abdomen/GI: Negative for abdominal pain, nausea, vomiting, diarrhea, and constipation, Back: Negative for injury and pain, : Negative for injury, bleeding, discharge, and swelling, MS/Extremity: Negative for injury and deformity, Skin: Negative for injury, rash, and discoloration. 19:42 Neuro: Positive for headache, numbness, weakness, of the right arm and right leg and face. 19:42 All other systems are negative. Exam: 19:43 Radiologist reports: [facility] 19:43 Constitutional: This is a well developed, well nourished patient who is awake, alert, and in no acute distress. Head/Face: Normocephalic, atraumatic. Eyes: Pupils equal round and reactive to light, extra-ocular motions intact. Lids and lashes normal. Conjunctiva and sclera are non-icteric and not injected. Cornea within normal limits. Periorbital areas with no swelling, redness, or edema. ENT: Nares patent. No nasal discharge, no septal abnormalities noted. Tympanic membranes are normal and external auditory canals are clear. Oropharynx with no redness, swelling, or masses, exudates, or evidence of obstruction, uvula midline. Mucous membranes moist. Neck: Trachea midline, no thyromegaly or masses palpated, and no cervical lymphadenopathy. Supple, full range of motion without nuchal rigidity, or vertebral point tenderness. No Meningismus. Chest/axilla: Normal chest wall appearance and motion. Nontender with no deformity. No lesions are appreciated. Cardiovascular: Regular rate and rhythm with a normal S1 and S2. No gallops, murmurs, or rubs. Normal PMI, no JVD. No pulse deficits. Respiratory: Lungs have equal breath sounds bilaterally, clear to auscultation and percussion. No rales, rhonchi or wheezes noted. No increased work of breathing, no retractions or nasal flaring. Abdomen/GI: Soft, non-tender, with normal bowel sounds. No distension or tympany. No guarding or rebound. No evidence of tenderness throughout. Back: No spinal tenderness. No costovertebral tenderness. Full range of motion. Skin: Warm, dry with normal turgor. Normal color with no rashes, no lesions, and no evidence of cellulitis. MS/ Extremity: Pulses equal, no cyanosis. Neurovascular intact. Full, normal range of motion. Psych: Awake, alert, with orientation to person, place and time. Behavior, mood, and affect are within normal limits. 19:43 Neuro: Orientation: is normal, Mentation: is normal, Memory: is normal, Cranial nerves: grossly normal, right lateral nystagmus, left lateral nystagmus, Motor: Strength is 3/5 in the right leg and right arm, Sensation: is normal. Vital Signs: 19:33 BP 144 / 92; Pulse 91; Resp 18; Temp 98.7; Pulse Ox 100% ; Weight 97.52 kg; Height 6 ea ft. (182.88 cm); 20:14 BP 148 / 100; Pulse 96; Resp 18; Pulse Ox 98% on R/A; ea 21:00 BP 120 / 77; Pulse 77; Resp 18; Pulse Ox 99% ; ea 22:00 BP 117 / 69; Pulse 69; Resp 18; Pulse Ox 97% on R/A; ea 19:33 Body Mass Index 29.16 (97.52 kg, 182.88 cm) ea NIH Stroke Scale Scores: 19:33 NIHSS Score: 0 ea MDM: 19:13 Patient medically screened. ar 19:46 Differential diagnosis: CVA, TIA, atypical migraine? MS?. ar 20:08 Data reviewed: vital signs, nurses notes. Physician consultation: Yordy Logan MD. ar ED course: rapid improvement to NIH scale of zero within the first hour. still with MARCH. spoke with neurologist Doreen. admit. MRI. stroke evzl. not a TPA candidate at this time with rapidity in symptom improvement to near normal. 20:10 Test interpretation: by ED physician or midlevel provider: EKG: HR 84. leftward axis. ar incomplete RBBB. . 20:14 Test interpretation: by ED physician or midlevel provider: labs noted wnl. . Physician ar consultation: Naina Jacobs MD. ED course: per Dr. Logan, admit. stroke protocol MRI. will continue to address MARCH. 07/13 19:24 Order name: UDS ar 07/13 19:24 Order name: Troponin (emerg Dept Use Only); Complete Time: 20:14 07/13 19:24 Order name: Magnesium; Complete Time: 20:14 ar 07/13 19:24 Order name: Hepatic Function; Complete Time: 20:14 ar 07/13 19:24 Order name: Basic Metabolic Panel; Complete Time: 20:14 ar 07/13 19:24 Order name: CBC with Diff; Complete Time: 20:14 ar 07/13 19:24 Order name: Protime (+inr); Complete Time: 20:14 ar 07/13 19:24 Order name: Ptt, Activated; Complete Time: 20:14 ar 07/13 20:44 Order name: CBC with Automated Diff EDMS 07/13 20:44 Order name: CBC with Automated Diff EDMS 07/13 20:44 Order name: Comprehensive Metabolic Panel EDMS 07/13 20:44 Order name: Comprehensive Metabolic Panel EDMS 07/13 20:44 Order name: Lipid Profile EDMS 07/13 20:44 Order name: Lipid Profile EDMS 07/13 19:24 Order name: CT Stroke Brain w/o Contrast; Complete Time: 20:14 ar 07/13 20:44 Order name: Magnesium EDMS 07/13 20:44 Order name: Magnesium EDMS 07/13 20:44 Order name: Phosphorus EDMS 07/13 20:44 Order name: Phosphorus EDMS 07/13 20:44 Order name: Protime (+INR) EDMS 07/13 20:44 Order name: Protime (+INR) EDMS 07/13 20:44 Order name: PTT, Activated Partial Thromb EDMS 07/13 20:44 Order name: PTT, Activated Partial Thromb EDMS 07/13 20:44 Order name: T4,Total EDMS 07/13 20:44 Order name: T4,Total [facility] 07/13 20:44 Order name: Troponin I [facility] 07/13 20:44 Order name: Troponin I [facility] 07/13 20:44 Order name: Thyroid Stimulating Hormone [facility] 07/13 20:44 Order name: Thyroid Stimulating Hormone [facility] 07/13 21:51 Order name: Urine Dipstick--Ancillary (enter results) cm6 07/13 19:24 Order name: Stroke CXR 1 View ar 07/13 19:24 Order name: EKG; Complete Time: 19:25 ar 07/13 19:24 Order name: Accucheck; Complete Time: 19:37 ar 07/13 19:24 Order name: Cardiac monitoring; Complete Time: 19:37 ar 07/13 19:24 Order name: EKG - Nurse/Tech; Complete Time: 19:37 ar 07/13 19:24 Order name: IV Saline Lock; Complete Time: 19:37 ar 07/13 19:24 Order name: Labs collected and sent; Complete Time: 19:37 ar 07/13 19:24 Order name: NPO; Complete Time: 19:37 ar 07/13 19:24 Order name: O2 Per Protocol; Complete Time: 19:37 ar 07/13 19:24 Order name: O2 Sat Monitoring; Complete Time: 19:37 ar 07/13 20:44 Order name: CONS Physician Consult [facility] 07/13 20:44 Order name: Physical Therapy Consult [facility] 07/13 20:44 Order name: Echo with Doppler [facility] 07/13 20:44 Order name: EKG Electrocardiogram [facility] 07/13 20:44 Order name: Stroke Protocol [facility] 07/13 20:45 Order name: Speech Therapy Consult [facility] 07/13 20:45 Order name: Chest Pa And Lat (2 Views) [facility] 07/13 21:50 Order name: Urine Dipstick-Ancillary (obtain specimen); Complete Time: 21:52 cm6 Administered Medications: 09:40 Drug: fentaNYL (PF) 50 mcg {Note: RASS - 0.} Route: IVP; Site: left antecubital; ca1 20:16 Follow up: Response: No adverse reaction ea 19:37 Drug: Zofran 4 mg Route: IVP; Site: left antecubital; ca1 21:00 Follow up: Response: No adverse reaction; Pain is decreased ea 19:52 Drug: Decadron - Dexamethasone 10 mg Route: IVP; Site: left antecubital; ca1 20:16 Follow up: Response: No adverse reaction ea 20:07 Drug: Aspirin Chewable Tablet 324 mg Route: PO; ea 20:16 Follow up: Response: No adverse reaction ea 20:30 Drug: NS 0.9% 1000 ml Route: IV; Rate: 1 bolus; Site: left antecubital; ea 22:29 Follow up: Response: No adverse reaction; IV Status: Completed infusion; IV Intake: ea 1000ml 20:30 Drug: TORadol 30 mg Route: IVP; Site: left antecubital; ea 21:00 Follow up: Response: No adverse reaction; Pain is decreased ea Disposition: 07/13/19 20:17 Hospitalization ordered by Naina Jacobs for Observation. Preliminary diagnosis are Acute Headache, Transient Right-Sided Weakness. - Bed requested for Telemetry/MedSurg (observation). - Status is Observation. ea - Condition is Stable. - Problem is new. - Symptoms have improved. UTI on Admission? No NIH Stroke Scale - NIH Stroke Score Date: 07/13/2019 Time: 19:33 Total Score = 0 1a. Level of Consciousness (LOC) - 0(Alert) 1b. Level of Consciousness (LOC) (Year \T\ Age) - 0(Both) 1c. LOC Commands (Open \T\ Closes Eyes/Stock Broker) - 0(Both) 2. Best Gaze (Lateral Gaze Paresis) - 0(Normal) 3. Visual Field Loss - 0(No visual loss) 4. Facial Palsy - 0(Normal) 5a. Left Arm: Motor (10-second hold) - 0(No drift) 5b. Right Arm: Motor (10-second hold) - 0(No drift) 6a. Left Leg: Motor (5-second hold - always test supine) - 0(No drift) 6b. Right Leg: Motor (5-second hold - always test supine) - 0(No drift) 7. Limb Ataxia (finger/nose \T\ heel/hernandez - test with eyes open) - 0(Absent) 8. Sensory Loss (pinprick arms/legs/face) - 0(Normal) 9. Best Language: Aphasia (description/naming/reading) - 0(No aphasia) 10. Dysarthria (speech clarity - read or repeat words) - 0(Normal) 11. Extinction and Inattention (visual/tactile/auditory/spatial/personal) - 0(No abnormality) Initials: ea Signatures: Dispatcher [employer] Lico Meredith, RN Esther Sams RN RN cg Antunez, Elena, RN RN ea Appiah, William, MD MD wa Acob, Cheryl, RN RN ca1 Jennifer Xie cm6 Corrections: (The following items were deleted from the chart) 21:04 20:17 Hospitalization Ordered by Naina Jacobs MD for Observation. Preliminary cg diagnosis is Acute Headache; Transient Right-Sided Weakness. Bed requested for Telemetry/MedSurg (observation). Status is Observation. Condition is Stable. Problem is new. Symptoms have improved. UTI on Admission? No. ar 22:28 21:04 07/13/2019 20:17 Hospitalization Ordered by Naina Jacobs MD for ea Observation. Preliminary diagnosis is Acute Headache; Transient Right-Sided Weakness. Bed requested for Telemetry/MedSurg (observation). Status is Observation. Condition is Stable. Problem is new. Symptoms have improved. UTI on Admission? No.
--- NOTE | 2019-07-13 20:19 | ER ---
Nurse's Notes [facility] Name: Enma Kuo Jr Age: 34 yrs Sex: Male : 1985 Arrival Date: 07/13/2019 Time: 19:07 Bed 7 Private MD: Diagnosis: Acute Headache;Transient Right-Sided Weakness Presentation: 07/13 18:58 Note A code stroke has been called and the pt is in CT at this time. sg 19:09 Presenting complaint: EMS states: Headache 10/10 on right side of head, reports right sg sided numbness that began 1.5 hrs ago while at [facility], pt reports having a intermittent headache for about a week but definitely worsening today, EMS report right sided facial droop upon arrival for treatment. Transition of care: patient was not received from another setting of care. Onset of symptoms was July 13, 2019. Risk Assessment: Do you want to hurt yourself or someone else? Patient reports no desire to harm self or others. Initial Sepsis Screen: Does the patient meet any 2 criteria? No. Patient's initial sepsis screen is negative. Does the patient have a suspected source of infection? No. Patient's initial sepsis screen is negative. Care prior to arrival: IV initiated. 20 GA, in the left antecubital area. 19:09 Method Of Arrival: EMS: [facility] sg 19:09 Acuity: SAMUEL 2 Triage Assessment: 19:08 Headache History: The patient has had previous headaches and this one is different than previous episodes. General: Appears uncomfortable, well groomed, well developed, well nourished, Behavior is calm, cooperative, appropriate for age, quiet. Pain: Complains of pain in right episcopal Pain currently is 10 out of 10 on a pain scale. Quality of pain is described as aching, throbbing. Neuro: Level of Consciousness is awake, alert, obeys commands, Oriented to person, place, time, situation, Electricians Top Helper are equal bilaterally Moves all extremities. Full function Speech is normal, Facial symmetry appears normal, Pupils are PERRLA. Historical: - Allergies: 19:08 No Known Allergies; sg - Home Meds: 19:08 losartan 100 mg Oral tab 1 tab once daily [Active]; trazodone 50 mg Oral tab 1 tab sg nightly [Active]; - PMHx: 19:08 Gall Stones; Hypertension; sg - PSHx: 19:08 Cholecystectomy; sg - Immunization history:: Adult Immunizations unknown. - Social history:: Smoking status: Patient uses tobacco products. - Ebola Screening: : Patient negative for fever greater than or equal to 101.5 degrees Fahrenheit, and additional compatible Ebola Virus Disease symptoms Patient denies exposure to infectious person Patient denies travel to an Ebola-affected area in the 21 days before illness onset No symptoms or risks identified at this time. - Family history:: not pertinent. - Hospitalizations: : No recent hospitalization is reported. Screenin:35 Abuse screen: Denies threats or abuse. Nutritional screening: No deficits noted. ea Tuberculosis screening: No symptoms or risk factors identified. Fall Risk 19:40 The patient has not been NPO before screening. The patient is alert, able to follow ea commands. The patient does not exhibit slurred or garbled speech The patient is not exhibiting difficulty speaking. The patient does not exhibit difficulty understanding words. The patient is able to swallow own secretions with no drooling or need for suction. Patient tolerated one teaspoon of water. No drooling, immediate coughing, gurgling, or clearing of the throat was noted. The patient tolerated 90mL of water. No drooling, immediate coughing, gurgling, or clearing of the throat was noted. The patient passed the bedside swallow screening. Oral medications may be given as ordered. Contact Physician for further diet orders. Provider notified of bedside swallow screening results: Fantasma Vicente MD. Assessment: 19:36 General: Appears in no apparent distress. Behavior is calm, cooperative, appropriate ea for age. Pain: Complains of pain in right episcopal. Neuro: Level of Consciousness is awake, alert, obeys commands, Oriented to person, place, time, situation. Neuro: Electricians Top Helper are equal bilaterally Moves all extremities. Speech is normal, Facial symmetry appears normal. Cardiovascular: Patient's skin is warm and dry. Respiratory: Airway is patent Respiratory effort is even, unlabored, Respiratory pattern is regular, symmetrical. Derm: Skin is pink, warm \T\ dry. Musculoskeletal: Circulation, motion, and sensation intact. 20:00 Reassessment: Patient and/or family updated on plan of care and expected duration. Pain ea level reassessed. Patient is alert, oriented x 3, equal unlabored respirations, skin warm/dry/pink. 21:15 Reassessment: Patient and/or family updated on plan of care and expected duration. Pain ea level reassessed. Patient is alert, oriented x 3, equal unlabored respirations, skin warm/dry/pink. 22:25 Reassessment: Patient and/or family updated on plan of care and expected duration. Pain ea level reassessed. Patient is alert, oriented x 3, equal unlabored respirations, skin warm/dry/pink. Pt admitted to fourth floor, pt left ED via stretcher per tech, pt tolerating well. Vital Signs: 19:33 BP 144 / 92; Pulse 91; Resp 18; Temp 98.7; Pulse Ox 100% ; Weight 97.52 kg; Height 6 ea ft. (182.88 cm); 20:14 BP 148 / 100; Pulse 96; Resp 18; Pulse Ox 98% on R/A; ea 21:00 BP 120 / 77; Pulse 77; Resp 18; Pulse Ox 99% ; ea 22:00 BP 117 / 69; Pulse 69; Resp 18; Pulse Ox 97% on R/A; ea 19:33 Body Mass Index 29.16 (97.52 kg, 182.88 cm) ea NIH Stroke Scale Scores: 19:33 NIHSS Score: 0 ea ED Course: 19:07 Patient arrived in ED. sg 19:08 Arm band placed on. sg 19:13 Fantasma Vicente MD is Attending Physician. wa 19:14 Triage completed. sg 19:19 NOVA Glucose Result:113. mt 19:30 CT Stroke Brain w/o Contrast In Process Unspecified. EDMS 19:32 Myra Collins, CRISTIAN is Primary Nurse. ea 19:35 Patient has correct armband on for positive identification. Bed in low position. Call ea light in reach. Side rails up X2. 20:01 Stroke CXR 1 View In Process Unspecified. EDMS 20:17 Naina Jacobs MD is Hospitalizing Provider. wa 22:25 No provider procedures requiring assistance completed. Patient admitted, IV remains in ea place. Administered Medications: 09:40 Drug: fentaNYL (PF) 50 mcg {Note: RASS - 0.} Route: IVP; Site: left antecubital; ca1 20:16 Follow up: Response: No adverse reaction ea 19:37 Drug: Zofran 4 mg Route: IVP; Site: left antecubital; ca1 21:00 Follow up: Response: No adverse reaction; Pain is decreased ea 19:52 Drug: Decadron - Dexamethasone 10 mg Route: IVP; Site: left antecubital; ca1 20:16 Follow up: Response: No adverse reaction ea 20:07 Drug: Aspirin Chewable Tablet 324 mg Route: PO; ea 20:16 Follow up: Response: No adverse reaction ea 20:30 Drug: NS 0.9% 1000 ml Route: IV; Rate: 1 bolus; Site: left antecubital; ea 22:29 Follow up: Response: No adverse reaction; IV Status: Completed infusion; IV Intake: ea 1000ml 20:30 Drug: TORadol 30 mg Route: IVP; Site: left antecubital; ea 21:00 Follow up: Response: No adverse reaction; Pain is decreased ea Intake: 22:29 IV: 1000ml; Total: 1000ml. ea Outcome: 20:17 Decision to Hospitalize by Provider. wa 20:30 Instructed on the need for admit, Demonstrated understanding of instructions. sybil 22:27 Admitted to Med/surg accompanied by yu, via stretcher, with chart, Report called to sybil Arriola RN 22:27 Condition: stable 22:28 Patient left the ED. sybil NIH Stroke Scale - NIH Stroke Score Date: 07/13/2019 Time: 19:33 Total Score = 0 1a. Level of Consciousness (LOC) - 0(Alert) 1b. Level of Consciousness (LOC) (Year \T\ Age) - 0(Both) 1c. LOC Commands (Open \T\ Closes Eyes/Putter In) - 0(Both) 2. Best Gaze (Lateral Gaze Paresis) - 0(Normal) 3. Visual Field Loss - 0(No visual loss) 4. Facial Palsy - 0(Normal) 5a. Left Arm: Motor (10-second hold) - 0(No drift) 5b. Right Arm: Motor (10-second hold) - 0(No drift) 6a. Left Leg: Motor (5-second hold - always test supine) - 0(No drift) 6b. Right Leg: Motor (5-second hold - always test supine) - 0(No drift) 7. Limb Ataxia (finger/nose \T\ heel/hernandez - test with eyes open) - 0(Absent) 8. Sensory Loss (pinprick arms/legs/face) - 0(Normal) 9. Best Language: Aphasia (description/naming/reading) - 0(No aphasia) 10. Dysarthria (speech clarity - read or repeat words) - 0(Normal) 11. Extinction and Inattention (visual/tactile/auditory/spatial/personal) - 0(No abnormality) Initials: sybil Signatures: Dispatcher [employer] Lico Meredith RN RN Jaqueline Romano mt, Elena, RN RN ea Appiah, William, MD MD wa Acob, Cheryl, RN RN ca1
[2019-07-13] MEDS ORDERED: NA CHLORIDE 0.9% 1,000 ML ONE (20:21)
[2019-07-13] MEDS ORDERED: KETOROLAC 30 MG/ML INJ ONE (20:21)
[2019-07-13] MEDS ORDERED: ACETAMINOPHEN 500 MG TAB PO PRN (20:38)
[2019-07-13] MEDS ORDERED: ONDANSETRON 4 MG/2 ML VIAL IV PRN (20:38)
--- NOTE | 2019-07-13 20:40 | RAD REPORT ---
EXAM DESCRIPTION: RAD - Chest Single View - 07/13/2019 8:00 pm CLINICAL HISTORY: Stroke protocol chest film, hypertension COMPARISON: May 31, 2019 TECHNIQUE: AP portable chest image was obtained 1916 hours . FINDINGS: Lungs are clear. Heart and vasculature are normal. No measurable pleural effusion and no p neumothorax. No acute bony abnormality seen. No acute aortic findings suspected. IMPRESSION: No acute cardiopulmonary process. No significant interval change.
[2019-07-13 22:10] LABS: Barbiturates NEGATIVE (NEGATIVE); Benzodiazepines NEGATIVE (NEGATIVE); Cocaine NEGATIVE (NEGATIVE); METHAMPHETAM NEGATIVE (NEGATIVE); Methadone NEGATIVE (NEGATIVE); Opiates NEGATIVE (NEGATIVE); Phencyclidine NEGATIVE (NEGATIVE); THC Cannibis NEGATIVE (NEGATIVE)
[2019-07-13] MEDS: NA CHLORIDE 0.9% 1,000 ML IV SCH (22:25)
[2019-07-13 22:46] VITALS: O2SAT 97
[2019-07-13 22:56] VITALS: BMI 32.8
[2019-07-13] MEDS: ATORVASTATIN 20 MG TAB PO SCH (23:34)
[2019-07-13] MEDS ORDERED: FENTANYL CITR 100 MCG/2 ML IV ONE (23:44)
[2019-07-13] MEDS ORDERED: ONDANSETRON 4 MG/2 ML VIAL IV ONE (23:44)
[2019-07-13 23:45] LABS: Urine Blood NEGATIVE (NEG); Urine Glucose NEGATIVE (NEG); Urine Protein NEGATIVE (NEG); Urine Specific Gravity 1.015 (1.005-1.030)
[2019-07-14] MEDS: TRAZODONE 50 MG TABLET PO SCH ×2 (02:00→20:38)
[2019-07-14 03:05] LABS: Urine Appearance CLEAR; Urine Bilirubin NEGATIVE (NEG); Urine Blood NEGATIVE (NEG); Urine Color YELLOW; Urine Glucose 1+ (NEG); Urine Protein NEGATIVE (NEG); Urine Urobilinogen 0.2 mg/dL (0.2-1.0); Urine pH 7.5 (5.0-7.0)
[2019-07-14 03:08] LABS: Urine Microscopic Reflex NO UMIC
[2019-07-14] MEDS ORDERED: HYDROMORPHONE HCL 0.5 MG/0.5 ML INJ IV ONE (05:24)
[2019-07-14 05:53] LABS: Absolute Lymphocytes (CBC) 0.5 K/uL (0.7-4.9); Basophils % 0.2 % (0-1.3); Lymphocytes % 6.5 % (15.3-44.8); MPV 8.6 fL (7.6-11.3); RBC Red Blood Cell Count 5.21 M/uL (4.33-5.43)
[2019-07-14 06:04] LABS: Protime INR 0.9
[2019-07-14 06:55] LABS: Blood Morphology Comment NOT SEEN (NOT SEEN); Platelet Estimate ADEQ
[2019-07-14 07:07] LABS: ALT/SGPT 90 U/L (12-78); AST/SGOT 50 U/L (15-37); Albumin 3.6 g/dL (3.4-5.0); Alkaline Phosphatase 60 U/L (45-117); BUN Blood Urea Nitrogen 15 mg/dL (7-18); Bicarbonate 24 mmol/L (21-32); Bilirubin Total 0.3 mg/dL (0.2-1.0); Glucose Level 210 mg/dL (74-106); HDL Cholesterol 40 mg/dL (40-60); LDL Cholesterol, Calculated 123 (<130); Phosphorus 1.8 mg/dL (2.5-4.9); Potassium 4.4 mmol/L (3.5-5.1); Protein, Total 6.9 g/dL (6.4-8.2); Sodium Level 139 mmol/L (136-145); T4,Total 7.4 ug/dL (4.5-12.1); Thyroid Stimulating Hormone 0.274 uIU/mL (0.360-3.740); Troponin I < 0.02 ng/mL (0.0-0.045)
--- NOTE | 2019-07-14 07:28 | P.HP ---
Certification for Inpatient Patient admitted to: Observation With expected LOS: <2 Midnights Patient will require the following post-hospital care: None Practitioner: I am a practitioner with admitting privileges, knowledge of patient current condition, hospital course, and medical plan of care. Services: Services provided to patient in accordance with Admission requirements found in Title 42 Section 412.3 of the Code of Federal Regulations Patient History Date of Service: 07/13/19 Reason for admission: Right-sided paresthesias/headache History of Present Illness: Patient is a 34-year-old gentleman who came to the hospital with right-sided paresthesias. He has come to the ER yesterday with similar complaints. His CT of the head and was given pain medication and discharge. He continued to have symptoms and he went to [facility]. Patient had a CT angiogram which was unremarkable and patient was once again discharged home. He came to our hospital with headache and right-sided paresthesias. They spoke to Neurology and decision was made to admit to the hospital for observation and schedule an MRI. When I went to see patient he is sitting in bed and was eating a candy bar & drinking a soda pop. As a started talking to him he started having some numbness of the right side of his body and a headache. At this time, will go ahead and admit for observation and get an MRI of the brain. Allergies No Known Allergies Allergy (Verified 12/29/12 17:12) Home Medications: Losartan Potassium [Cozaar*] 100 mg PO DAILY 07/14/19 Trazodone [Desyrel] 50 mg PO BEDTIME 07/14/19 - Past Medical/Surgical History Has patient received pneumonia vaccine in the past: No Diabetic: No -: Hypertension -: cholecysectomy - Family History Father Medical History: Heart disease, Hypertension Notes: chf - Social History Smoking Status: Heavy Tobacco smoker (>10 cigarettes/day) Alcohol use: Yes CD- Drugs: No Caffeine use: Yes Place of Residence: Home Review of Systems 10-point ROS is otherwise unremarkable Physical Examination - Vital Signs Temperature: 97.7 F Blood Pressure: 124/60 Pulse: 89 Respirations: 18 Pulse Ox (%): 96 - Physical Exam General: Alert, In no apparent distress, Oriented x3 HEENT: Atraumatic, PERRLA, Mucous membr. moist/pink, EOMI, Sclerae nonicteric Neck: Supple, 2+ carotid pulse no bruit, No LAD, Without JVD or thyroid abnormality Respiratory: Clear to auscultation bilaterally, Normal air movement Cardiovascular: Regular rate/rhythm, Normal S1 S2, No murmurs Gastrointestinal: Normal bowel sounds, Soft and benign, Non-distended, No tenderness Musculoskeletal: No clubbing, No swelling, No tenderness Integumentary: No rashes Neurological: Normal gait, Normal speech, Normal strength at 5/5 x4 extr, Normal tone, Sensation intact, Cranial nerves 3-12 intact, Normal affect Lymphatics: No axilla or inguinal lymphadenopathy - Studies Laboratory Data (last 24 hrs) 07/13/19 19:11: PT 10.2, INR 0.86, APTT 30.1 07/13/19 19:11: WBC 8.0, Hgb 16.6, Hct 47.7, Plt Count 168 07/13/19 19:11: Sodium 139, Potassium 4.0, BUN 15, Creatinine 1.04, Glucose 97, Magnesium 2.1, Total Bilirubin 0.3, AST 17, ALT 50, Alkaline Phosphatase 56 Assessment & Plan - Problems (Diagnosis) (1) Headache Current Visit: Yes Status: Acute (2) Paresthesia of right upper and lower extremity Current Visit: Yes Status: Acute (3) Facial paresthesia Current Visit: Yes Status: Acute - Plan Plan: 1. MRI of the brain 2. Neurology consultation 3. Anti-platelet and statin therapy 4. DVT prophylaxis 5. Lipid profile 6. Treatment of migraine headache 7. Anticipate discharge in the morning if MRI is negative Discharge Plan: Home Plan to discharge in: 24 Hours - Advance Directives Does patient have a Living Will: No Does patient have a Durable POA for Healthcare: No - Code Status/Comfort Care Code Status Assessed: Yes Code Status: Full Code Critical Care: No Time Spent Managing PTS Care (In Minutes): 50
[2019-07-14] MEDS ORDERED: INFLUENZA VACCINE (for 3y+) 0.5 ML DOSE IMVAC ONE (08:00)
[2019-07-14] MEDS ORDERED: ASPIRIN EC 81 MG TAB PO SCH (09:00)
[2019-07-14] MEDS ORDERED: ENOXAPARIN 40 MG/0.4 ML SQ SCH ×2 (09:00→17:00)
[2019-07-14] MEDS: LOSARTAN POTASSIUM 50 MG TABLET PO SCH (09:12)
--- NOTE | 2019-07-14 10:19 | P.DS ---
Admission Date: 07/13/19 Discharge Date: 07/14/19 Primary Care Provider: Jane Campbell NP Disposition: ROUTINE DISCHARGE Discharge Condition: GOOD Reason for Admission: Right-sided paresthesias/headache Consultations: Neurology-Dr. Logan Procedures: CT Brain: FINDINGS: No intracranial hemorrhage, mass, or cerebral edema. No acute infarction identifiable. No extra-axial fluid collections. Sanchez matter-white matter differentiation is preserved. Visualized portions of the mastoid air cells, paranasal sinuses, and orbits are unremarkable. Images were only initially available in the exception folder. This precluded immediate dictation of the report. Findings were telephoned to the referring physician 1716 hours. IMPRESSION: No CT evidence of acute intracranial process. MRI Brain: MRA Brain: Neck Brain: Carotid doppler: ECHO: Medical Problem List: Right-sided upper/lower extremity and right facial paresthesias along with headache suspect TIA Hypertension Hyperlipidemia Anxiety Elevated liver function Brief History of Present Illness: 34-year-old male presented to the emergency room with right-sided upper/lower and facial paresthesias. Patient also reported headache. He was initially evaluated at another facility-[facility]. He had a CT angiogram that was unremarkable and was sent home. He continued to have headache with right-sided paresthesias. At which point he came to the ER for further evaluation. Initial CT scan unremarkable. Patient was admitted for further evaluation. Hospital Course: Patient presented with right-sided upper/lower extremity and facial paresthesias with headache. Initial CT scan unremarkable. Patient was admitted for further evaluation. Workup included stroke protocol MRI of brain, echocardiogram and carotid Doppler. Neurology was consulted. At discharge patient will continue with aspirin 81 mg daily, folic acid 1 mg daily, Lipitor 40 mg daily, and continue his blood pressure medication losartan 100 mg daily. Recommend to follow up with neurology in 1-2 weeks to follow up this hospitalization. Patient with hypertension. This has remained stable. At discharge he will continue with losartan 100 mg daily. Recommend to maintain blood pressures less 150/80. Further adjustment can be done by his PCP. Patient with slight elevation in liver function. Hepatitis panel obtained. Recommend follow up with his PCP to follow up results of hepatitis screen. Since the patient will continue with statin medication, lab-liver function tests will need to be monitored closely. Further adjustment in medication may be required. This can be done with the help of his PCP. Patient with hyperlipidemia. LDL elevated. Patient will continue with Lipitor 40 mg daily. As recommended above, repeat lab-liver function tests in 1-2 weeks to monitor his progress. Further adjustment in his medication may be required. This can be done with the help his PCP. Patient had slight elevation in his blood sugar during the course of his stay. Hemoglobin A1c 5.1. No evidence of diabetes at this time. Recommend to follow his blood sugar closely as an outpatient. Patient with mild anxiety. Patient takes trazodone 50 mg at bedtime. Recommend follow up with his PCP to further monitor and address. Vital Signs/Physical Exam: Temp Pulse Resp BP Pulse Ox 97.7 F 89 16 124/60 95 07/14/19 07:35 07/14/19 07:35 07/14/19 09:13 07/14/19 07:35 07/14/19 09:13 General: Alert, In no apparent distress, Oriented x3, Cooperative HEENT: Atraumatic, Mucous membr. moist/pink Neck: Supple Respiratory: Clear to auscultation bilaterally, Normal air movement Cardiovascular: Normal pulses, Regular rate/rhythm Gastrointestinal: Normal bowel sounds, Soft and benign, Non-distended, No tenderness, No masses, No rebound, No guarding Musculoskeletal: No erythema, No tenderness, No warmth Integumentary: No tenderness/swelling, No erythema, No warmth, No cyanosis Neurological: Normal speech, Normal strength at 5/5 x4 extr, Normal tone, Normal affect Laboratory Data at Discharge: WBC 8.0 K/uL (4.3-10.9) 07/14/19 05:32 Hgb 16.3 g/dL (13.6-17.9) 07/14/19 05:32 Hct 47.0 % (39.6-49.0) 07/14/19 05:32 Plt Count 184 K/uL (152-406) 07/14/19 05:32 PT 10.7 SECONDS (9.5-12.5) 07/14/19 05:32 INR 0.90 07/14/19 05:32 APTT 31.8 SECONDS (24.3-36.9) 07/14/19 05:32 Sodium 139 mmol/L (136-145) 07/14/19 05:32 Potassium 4.4 mmol/L (3.5-5.1) 07/14/19 05:32 BUN 15 mg/dL (7-18) 07/14/19 05:32 Creatinine 1.23 mg/dL (0.55-1.3) 07/14/19 05:32 Glucose 210 mg/dL (74-106) H 07/14/19 05:32 Phosphorus 1.8 mg/dL (2.5-4.9) L 07/14/19 05:32 Magnesium 2.0 mg/dL (1.8-2.4) 07/14/19 05:32 Total Bilirubin 0.3 mg/dL (0.2-1.0) 07/14/19 05:32 AST 50 U/L (15-37) H 07/14/19 05:32 ALT 90 U/L (12-78) H 07/14/19 05:32 Alkaline Phosphatase 60 U/L (45-117) 07/14/19 05:32 Troponin I < 0.02 ng/mL (0.0-0.045) 07/14/19 05:32 Triglycerides 129 mg/dL (<150) 07/14/19 05:32 Cholesterol 189 mg/dL (<200) 07/14/19 05:32 HDL Cholesterol 40 mg/dL (40-60) 07/14/19 05:32 Cholesterol/HDL Ratio 4.73 07/14/19 05:32 Home Medications: Aspirin [Aspirin EC 81 MG] 81 mg PO DAILY #90 tablet. 07/14/19 Atorvastatin Calcium [Lipitor] 40 mg PO BEDTIME #30 tablet 07/14/19 Folic Acid 1 mg PO DAILY #90 tablet 07/14/19 Losartan Potassium [Cozaar*] 100 mg PO DAILY 07/14/19 Trazodone [Desyrel*] 50 mg PO BEDTIME 07/14/19 New Medications: Aspirin [Aspirin EC 81 MG] 81 mg PO DAILY #90 tablet. Atorvastatin Calcium [Lipitor] 40 mg PO BEDTIME #30 tablet Folic Acid 1 mg PO DAILY #90 tablet Diet: AHA Activity: Ad ramandeep Time spent managing pt's care (in minutes): 55
[2019-07-14] MEDS: NA CHLORIDE 0.9% 1,000 ML IV SCH ×2 (10:20→22:41)
--- NOTE | 2019-07-14 12:13 | EKG ---
Test Date: 2019-07-13 Test Time: 19:10:02 Breaker Up Machine Operator: KELBY MEASUREMENT RESULTS: Intervals: Rate: 84 MI: 186 QRSD: 98 QT: 348 QTc: 411 [place]: P: 23 MI: 186 QRS: -63 T: 6 INTERPRETIVE STATEMENTS: Normal sinus rhythm Incomplete right bundle branch block Left anterior fascicular block Abnormal ECG Compared to ECG 04/03/2019 12:33:32 Incomplete right bundle-branch block now present Electronically Signed On 07-14-19 12:09:23 CDT by Wayne Cummings
--- NOTE | 2019-07-14 12:58 | ECHO ---
HEIGHT: 5 ft 6 in WEIGHT: 203 lb 9.6 oz DATE OF STUDY: 07/14/[address]: Nania Jacobs MD 2-DIMENSIONAL: YES M.MODE: YES DOPPLER: YES COLOR FLOW: YES TDS: YES PORTABLE: NO DEFINITY: NO BUBBLE STUDY: NO DIAGNOSIS: STROKE CARDIAC HISTORY: CATHERIZATION: NO SURGERY: NO PROSTHETIC VALVE: NO PACEMAKER: NO MEASUREMENTS (cm) DIASTOLIC (NORMALS) SYSTOLIC (NORMALS) IVSd 1.0 (0.6-1.2) LA Diam 3.0 (1.9-4.0) LVEF 79% LVIDd 4.4 (3.5-5.7) LVIDs 2.3 (2.0-3.5) %FS 47% LVPWd 1.1 (0.6-1.2) Ao Diam 2.9 (2.0-3.7) 2 DIMENSIONAL ASSESSMENT: RIGHT ATRIUM: NORMAL LEFT ATRIUM: NORMAL RIGHT VENTRICLE: NORMAL LEFT VENTRICLE: NORMAL TRICUSPID VALVE: NORMAL MITRAL VALVE: NORMAL PULMONIC VALVE: NORMAL AORTIC VALVE: NORMAL PERICARDIAL EFFUSION: NONE AORTIC ROOT: NORMAL LEFT VENTRICULAR WALL MOTION: NORMAL DOPPLER/COLOR FLOW: NORMAL COMMENTS: NORMAL 2D ECHOCARDIOGRAM WITH DOPPLER. NO ATRIAL SEPTAL DEFECT. NO VEGETATION. NO THROMBUS. TECHNOLOGIST: Aram CARVALHO
--- NOTE | 2019-07-14 13:15 | RAD REPORT ---
EXAM DESCRIPTION: MRI - MRA Head Wo Cont - 07/14/2019 12:52 pm CLINICAL HISTORY: Right-sided weakness, slurred speech, stroke-like symptoms listen trip and an denu ded COMPARISON: None. TECHNIQUE: Axial and coronal 3D [id number] image acquisition was performed. 3D rotational images were generated with source and reconstruction images reviewed. Horizontal and vertical axis rotation al views generated using MIP protocol. FINDINGS: Basilar artery and the distal vertebral arteries show no stenosis or significant finding. Focal stenoses are present at the origin of each superior cerebellar artery. The bilateral posterior cerebral arteries show mild atherosclerotic change. Both posterior communicating arteries are present . Patient has significant stenosis at the supraclinoid termination of each internal carotid artery. Pat ient has significant atherosclerotic narrowing of each A1 segment anterior cerebral artery. Severity of disease is accentuated by motion but is still considered significant. There significant luminal na rrowing at the left anterior cerebral artery A2 branch. Approximately 70% stenosis is present at the right middle cerebral artery M1 - M2 junction. There is significant greater than 50% narrowing at multiple sites in the left middle cerebral artery M1 segmen t. Significant atherosclerotic narrowing extends into the M2 branches of the left middle cerebral art lila. Again, motion accentuates severity. Additional far peripheral bilateral middle cerebral artery s tenoses are present. IMPRESSION: No aneurysm or vascular malformation identified. Significant greater than 50% stenoses are present at the supraclinoid termination of the each interna l carotid artery as well as in the bilateral M1 -M2 middle cerebral artery branches. Significant stenosis is present at the left anterior cerebral artery A2 branch any each proximal A1 b ranch. No basilar artery or distal vertebral artery significant finding.
--- NOTE | 2019-07-14 13:33 | RAD REPORT ---
EXAM DESCRIPTION: MRI - Brain W/Wo Cont - 07/14/2019 12:52 pm CLINICAL HISTORY: Right-sided weakness, slurred speech, stroke-like symptoms COMPARISON: CT head July 13 TECHNIQUE: Sagittal and axial T1-weighted images were obtained. Axial PD/heavily T2-weighted and T2- FLAIR images were obtained along with axial DWI/ADC mapping sequences. Coronal heavily T2 weighted s equence obtained. Axial and coronal post-contrast T1-weighted images were also obtained. A 20 ml Mul tihance contrast following utilized. FINDINGS: Diffusion-weighted imaging shows a 5 millimeter area of restricted diffusion in the marisabel lateral right cerebellum. There is matching diminished signal on ADC mapping. Similar 3 millimeter si zed areas of restricted diffusion seen in the anterior and posterolateral right temporal lobe. A 3 mi llimeter focus of abnormal restricted diffusion seen in the central left occipital lobe. All have mat daniel areas of diminished signal on ADC mapping. A punctate focus of infarction is seen in the left h ead of the caudate. An 8 millimeter focus of hyperintense signal or restricted diffusion seen in the posterior left basal ganglia. Diminished signal is present on ADC mapping. The signal abnormality ext ends superiorly into the deep periventricular white matter near the left frontal parietal junction. T here is hyperintense T1 and T2 signal at this basal ganglia focus. No additional signal abnormality s een on the postcontrast imaging. No acute cortical based infarction. No cortical edema or sulcal effacement. No atrophy or chronic isc hemic change present. There is no edema or shift of midline structures. No extra-axial fluid collecti ons. Sanchez-matter/white matter junction is preserved. Signal voids are seen as a normal finding in th e major intracranial vessels. No abnormal enhancement at the infarction sites. No abnormal parenchymal or dural enhancement. Mastoid air cells and paranasal sinuses are clear. IMPRESSION: A small 9 millimeter intraparenchymal hemorrhage -hemorrhagic transformation- has develo ped at the site of acute infarction posterior margin of the left globus pallidus and putamen. Nonhemo rrhagic portion of the infarction extends superiorly into the deep periventricular white matter near the left frontal parietal junction. Additional sites of punctate nonhemorrhagic acute infarction are seen in anterolateral right cerebell um, central left occipital lobe, left head of the caudate and 2 sites in the right temporal lobe. No significant mass effect or edema. Ventricles are normal. The presence of multiple bilateral infarctions in both the anterior and posterior vascular distributi ons would indicate a shower emboli process arising outside of the brain and intracranial circulation.
--- NOTE | 2019-07-14 14:21 | P.PN ---
Subjective Date of Service: 07/14/19 Primary Care Provider: Jane Campbell NP Chief Complaint: Right-sided paresthesias/headache Subjective: Other (Still with headache and mild ataxia) Physical Examination - Vital Signs Temperature: 97.4 F Blood Pressure: 130/81 Pulse: 92 Respirations: 16 Pulse Ox (%): 95 - Physical Exam General: Alert, In no apparent distress, Oriented x3, Cooperative HEENT: Atraumatic Neck: Supple Respiratory: Clear to auscultation bilaterally, Normal air movement Cardiovascular: Normal pulses, Regular rate/rhythm Gastrointestinal: Normal bowel sounds, Soft and benign, Non-distended, No tenderness, No masses, No rebound, No guarding Musculoskeletal: No erythema, No tenderness, No warmth Integumentary: No tenderness/swelling, No erythema, No warmth, No cyanosis Neurological: Normal speech, Normal strength at 5/5 x4 extr, Normal tone, Normal affect - Studies Laboratory Data (last 24 hrs) 07/13/19 19:11: PT 10.2, INR 0.86, APTT 30.1 07/13/19 19:11: WBC 8.0, Hgb 16.6, Hct 47.7, Plt Count 168 07/13/19 19:11: Sodium 139, Potassium 4.0, BUN 15, Creatinine 1.04, Glucose 97, Magnesium 2.1, Total Bilirubin 0.3, AST 17, ALT 50, Alkaline Phosphatase 56 Medications List Reviewed: Yes Assessment & Plan Discharge Plan: Other (Inpatient rehab) Plan to discharge in: Greater than 2 days Physician Review Additional Text: Impression: Right upper/lower extremity and facial paresthesias, headaches, ataxia secondary to CVA with MRI showing small 9 mm intraparenchymal hemorrhage- hemorrhagic transformation developed at the site of acute infarct of the posterior margin of left globus pallidus and globus. Nonhemorrhagic portion of the infarct extends superiorly into the deep periventricular white matter near the left frontoparietal junction. Additional punctate nonhemorrhagic acute infarct seen in the anterior lateral right cerebellum, central left occipital lobe, left head of the caudate and 2 sites of the right temporal lobe Carotid arterial disease Hypertension Hyperlipidemia Hyperglycemia without diabetes Tobacco abuse Plan: Case discussed at length with Neurology along with patient and family members. Will stop aspirin and Lovenox at this time. Will continue with statin and blood pressure medication. Will provide SCD. Echocardiogram shows no thrombus or vegetation. Will recheck CT scan noncontrast of the head tomorrow to monitor hemorrhagic transformation. Will continue with physical therapy and occupational therapy. Patient will be a good candidate for inpatient rehab. If symptoms worsen patient may require transfer to higher level care center. Presence of multiple bilateral infarcts in both anterior and posterior vascular distribution would indicate the shower embolic process outside the brain. Will continue to investigate. Will send lab for genetic and hematological causes. Stenosis to the carotid and cerebellar arteries noted. This may need intervention in the future. Patient may end up needing chronic anti coagulation therapy in the future after hemorrhagic transformation healed. Will continue to monitor the patient closely. Patient understands plan of care. Carotid arterial disease: Significant greater than 50% stenosis present at the supra clinoid termination of each internal carotid artery as well as the bilateral M1-M 2 middle cerebral artery branches. Will continue with above plan of care. Hypertension: Continue blood pressure medication. Will monitor and adjust appropriately. Hyperlipidemia: Continue with medication. Hyperglycemia without diabetes: A1c within normal range. Continue to monitor this closely. Tobacco abuse: Continue with tobacco cessation. Time Spent Managing Pts Care (In Minutes): 65
[2019-07-14] MEDS ORDERED: ALPRAZOLAM 0.25 MG TABLET PO PRN (14:25)
--- NOTE | 2019-07-14 14:43 | RAD REPORT ---
EXAM DESCRIPTION: MRI - MRA Neck W/Wo Cont - 07/14/2019 12:52 pm CLINICAL HISTORY: TIA, right-sided weakness, stroke-like symptoms, slurred speech COMPARISON: None. TECHNIQUE: Axial and coronal 3D [id number] image acquisition was performed. 3D rotational images were generated with source and reconstruction images reviewed. Horizontal and vertical axis rotation al views generated using MIP protocol. FINDINGS: Aortic arch is 3 vessel. Innominate and left subclavian artery show atherosclerotic change at each origin. A 30- 40% stenosis is estimated. No left subclavian origin stenosis. No stenosis of the left vertebral artery. There is mild atherosclerotic change at the origin of the right vertebral artery. This is not a significant luminal narrowing on the right. Vertebral arteries are codominant. No dissection. Approximately 30- 40% stenosis is present at the origin of the right common carotid ar [place]. Beyond the origin, the common carotid artery show no significant disease. No carotid bulb narro wing. Internal carotid arteries from origin to skullbase show no suspicious finding. IMPRESSION: Atherosclerotic changes and luminal narrowing seen at the origin of the innominate arter y, left common carotid artery and right common carotid artery. Stenosis does not appear to exceed 40% . Approximately 30- 40% narrowing of the proximal right vertebral artery.
--- NOTE | 2019-07-14 15:42 | RAD REPORT ---
EXAM DESCRIPTION: USCarotid Artery Ncudrauej61/22/2019 3:30 pm CLINICAL HISTORY: tia FINDINGS: The velocity of the right internal carotid artery equals 51 cm/sec. The right ICA/CCA rati o .5 The velocity of the left internal carotid artery equals 89 cm/sec. The left ICA/CCA ratio .8 Plaque is not visualized within the carotid arteries The vertebral arteries demonstrate antegrade flow IMPRESSION: Unremarkable examination NASCET criteria used. Mild 0-49% stenosis Moderate 50-69% stenosis Severe 70-99% stenosis
[2019-07-14 15:47] LABS: Protime INR 0.87
[2019-07-14] MEDS ORDERED: LORazepam 2 MG/ML VIAL IV PRN (18:25)
[2019-07-14] MEDS: POTASS/SODIUM PHOSPHATE 1 PKT POWD.PACK PO SCH ×3 (20:38→22:39)
[2019-07-14] MEDS: ATORVASTATIN 20 MG TAB PO SCH (20:38)
--- NOTE | 2019-07-15 00:47 | CON ---
Reason For Consultation: Consultation called because of stroke. History Of Present Illness: Mr. Kuo is a 34-year-old patient with hypertension, who was admitted to [facility] with right-sided paresthesias, incoordination, and headache. The patient's symp toms initially began about 3 days ago involving his right side with some balance and incoordination p roblems along with marked headache. He was initially seen at the [facility] where head C T angiogram was unremarkable. After he was discharged home and his symptoms worsened, patient came t o [facility] and was admitted for stroke workup. The patient's symptoms have not improved s shilpa his admission and his workup did include a brain MRI stroke protocol, which identified a 9-mm in traparenchymal hemorrhagic transformation of an ischemic stroke, and there was also an acute infarcti on in the posterior margin of the left globus pallidus and putamen, and a nonhemorrhagic infarct supe riorly into the periventricular white matter region of the left frontoparietal junction. In addition , there were punctate nonhemorrhagic acute infarcts seen in the anterolateral right cerebellum, the c entral left occipital lobe, the left head of the caudate, and 2 sites in the right temporal lobe. Th e multiple strokes and stroke with hemorrhagic transformation were consistent with showering of embol ic events, likely from a cardiac source. Patient did have an echocardiogram, which did not show a th rombus. The study was normal with an ejection fraction of 79%. He has magnetic resonance angiogram of the brain identified greater than 50% stenosis in the supraclinoid termination of each internal ca rotid artery and in the M1-M2 branches bilaterally. There was also significant stenosis in the left anterior cerebral artery, A2 branch and in each proximal A1 branch bilaterally. In retrospect, tamia frazier said his father had similar strokes and actually early because of stroke and myocardia l infarction. His carotid artery ultrasound showed no evidence of hemodynamically significant stenos is. The patient was not taking aspirin prior to his stroke. He was put on aspirin and Plavix; [facility], after identification of a hemorrhagic conversion that aspirin and Plavix combination was stopped. He was put on Lipitor 40 mg at bedtime for the high-dose statin and allowed to maintain some permis sive hypertension. Past Medical History: As indicated. Allergies: NO KNOWN DRUG ALLERGIES. Past Surgical History: Cholecystectomy. Family History: As mentioned. Heart disease, hypertension, and stroke in father, at you ng age. Social History: Smokes at least 1 pack of cigarettes a day and uses alcohol. Review of Systems: Aside from mentioned above, he denies any recent fevers, chills, nausea, vomiting, myalgias, arthralg ias, headache, weight change, rash, psychiatric complaints, gastrointestinal or genitourinary issues. Physical Examination: Vital Signs: Blood pressure 127/84, pulse 89, respiratory rate 16, temperature 98.2, oxygen saturati on 96%. Weight 203 pounds, height 5 feet 6 inches, BMI 32.9. General: Mr. Kuo is resting in bed comfortably. He is in no acute distress. HEENT: He is normocephalic, atraumatic. Sclerae anicteric. Oropharynx is pink and moist. Neck: Supple. Chest: Clear. Heart: Regular. Extremities: Show no significant clubbing, cyanosis, or edema. Neurologic: He is alert and oriented to person, place, situation. He follows all commands appropria tely. He has no obvious cranial nerve deficits and 2 through 12 appear intact. His motor examinatio n, he has some dysmetria noted in the right upper extremity with difficulty with [id number] and f ine finger movement and more intact on the left side. In the lower extremity, he has moderate diffic ulty with [id number] and obvious ataxia as he moves his right leg. No ataxia noted on the left rita e. His motor strength is full in the upper and lower extremities 5/[address] Sensory exam int[address] in upper and lower extremities. His gait is ataxic and wide-based. He is able to hold onto an IV pole and maintain balance. He is unable to do normal tandem gait. His NIH Stroke Scale is 3. Laboratory Studies: Complete blood count with differential is normal. Coagulation panel shows INR i s normal at 0.87. Chemistries show slightly elevated glucose ranging up to 210. Otherwise, chloride of 108 and sodium, potassium, bicarb, BUN, creatinine unremarkable. Thyroid function studies very l ow at 0.274, and the patient was recently started on Synthroid for hypothyroidism. Cholesterol panel shows an LDL of 123 and he is on high-dose statin, HDL of 40. Liver function studies show slightly elevated AST of 50 and elevated ALT of 90, alkaline phosphate normal at 60. Urinalysis is unremarkab le except for slightly elevated glucose of 1+. Urine toxicology is negative. He had stroke in young labs pending including ARNAUD, hepatitis panel, HIV testing, prothrombin, and factor V Leiden testing. Assessment: Mr. 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 He has strokes in multiple vascular territories in both left, right, and anterior and posterior. He also has significant intracerebral arthrosclerotic disease and normal carotid dilcia dies. He does have a family history of stroke in young in his father. He has a pending stroke in yo kourtney workup. Plan: 1.We will hold off on aspirin and Plavix for the next 3-4 weeks. 2.Folic acid 1 mg daily. 3.Continue high-dose statin as indicated. 4.Patient is instructed to hydrate very well at 6-8 glasses of water at least daily. 5.He is instructed to stop drinking alcohol and smoking tobacco cigarettes. 6.He is instructed to begin physical therapy, which he may do depending on his ability to be in the hospital inpatient or outpatient depending on transportation. 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 At this point, he will be unable to continue that work until he is recertified for dr roche by a professional service. He will be followed up by Dr. Logan 1 month later if discharged or in the rehabilitation unit on the 5th floor [facility] n[facility] MANE/CHANTAL Voice ID: [id number] Report ID: [id number]
[2019-07-15 05:39] LABS: Absolute Lymphocytes (CBC) 2.1 K/uL (0.7-4.9); Basophils % 0.2 % (0-1.3); Hematocrit 44.5 % (39.6-49.0); MPV 9.1 fL (7.6-11.3); RBC Red Blood Cell Count 4.93 M/uL (4.33-5.43)
[2019-07-15 06:15] LABS: ALT/SGPT 84 U/L (12-78); AST/SGOT 28 U/L (15-37); Albumin 3.3 g/dL (3.4-5.0); Alkaline Phosphatase 53 U/L (45-117); BUN Blood Urea Nitrogen 12 mg/dL (7-18); Bicarbonate 27 mmol/L (21-32); Bilirubin Total 0.3 mg/dL (0.2-1.0); Glucose Level 122 mg/dL (74-106); Magnesium 2.1 mg/dL (1.8-2.4); Phosphorus 3.5 mg/dL (2.5-4.9); Potassium 4.1 mmol/L (3.5-5.1); Protein, Total 6.3 g/dL (6.4-8.2); Sodium Level 142 mmol/L (136-145)
--- NOTE | 2019-07-15 07:54 | RAD REPORT ---
EXAM DESCRIPTION: CT - Head Brain Wo Cont - 07/15/2019 7:35 am CLINICAL HISTORY: CVA COMPARISON: July 14, 2019 MRI TECHNIQUE: Computed axial tomography of the head was obtained. IV contrast was not requested. All CT scans are performed using dose optimization technique as appropriate and may include automated exposure control or mA/KV adjustment according to patient size. FINDINGS: 9 millimeter low-density area within the left basal ganglia unchanged from the prior exam consistent with an acute infarction. 3 millimeter infarct within the left occipital lobe is not visua lized on this exam. 4 millimeter subtle low-density area right temporal lobe unchanged compatible wit h acute infarct. An intracranial bleed is not seen . The ventricles are normal in caliber. No extra-axial fluid collection is noted. Fluid within the sinuses/ mastoids is not seen. IMPRESSION: 9 millimeter left basal ganglia acute infarct unchanged The known 3 millimeter left occipital lobe infarct not seen on this exam 4 millimeter acute right temporal lobe infarct unchanged No intracranial bleed
[2019-07-15] MEDS: LOSARTAN POTASSIUM 50 MG TABLET PO SCH (08:13)
[2019-07-15] MEDS ORDERED: NICOTINE 21 MG/PAT TD SCH (09:00)
--- NOTE | 2019-07-15 10:44 | P.PN ---
Subjective Date of Service: 07/15/19 Primary Care Provider: Jane Campbell NP Chief Complaint: Right-sided paresthesias/headache Subjective: Improving (Patient has done well. No headache, dizziness or ataxia. ) Physical Examination - Vital Signs Temperature: 97.5 F Blood Pressure: 112/85 Pulse: 95 Respirations: 19 Pulse Ox (%): 98 - Physical Exam General: Alert, In no apparent distress, Oriented x3, Cooperative HEENT: Atraumatic Neck: Supple Respiratory: Clear to auscultation bilaterally, Normal air movement Cardiovascular: Normal pulses, Regular rate/rhythm Neurological: Normal speech, Normal strength at 5/5 x4 extr, Normal tone, Normal affect - Studies Medications List Reviewed: Yes Assessment & Plan Discharge Plan: Home Plan to discharge in: 24 Hours Physician Review Additional Text: Impression: Right upper/lower extremity and facial paresthesias, headaches, ataxia secondary to CVA with MRI showing small 9 mm intraparenchymal hemorrhage- hemorrhagic transformation developed at the site of acute infarct of the posterior margin of left globus pallidus and globus. Nonhemorrhagic portion of the infarct extends superiorly into the deep periventricular white matter near the left frontoparietal junction. Additional punctate nonhemorrhagic acute infarct seen in the anterior lateral right cerebellum, central left occipital lobe, left head of the caudate and 2 sites of the right temporal lobe Carotid arterial disease Hypertension Hyperlipidemia Hyperglycemia without diabetes Tobacco abuse Plan: Right upper/lower extremity and facial paresthesias, headaches, ataxia secondary to CVA with MRI showing small 9 mm intraparenchymal hemorrhage- hemorrhagic transformation developed at the site of acute infarct of the posterior margin of left globus pallidus and globus. Nonhemorrhagic portion of the infarct extends superiorly into the deep periventricular white matter near the left frontoparietal junction. Additional punctate nonhemorrhagic acute infarct seen in the anterior lateral right cerebellum, central left occipital lobe, left head of the caudate and 2 sites of the right temporal lobe: Repeat CT scan reviewed. CT shows 9 mm left basal cannula acute infarct unchanged. Known 3 mm left occipital lobe infarct not seen on CT. 4 mm acute right temporal lobe infarct unchanged. No intracranial bleed noted. Patient has done well with physical therapy. No headache, dizziness or ataxia noted. Lab for genetic and hematological causes have been sent. Stenosis to the carotid and cerebellar arteries noted. This may need intervention in the future. Patient may end up needing chronic anti coagulation therapy in the future after hemorrhagic transformation healed. Will continue to monitor the patient closely. Likely no need for inpatient rehab. Will discuss with Neurology about possible discharge in the next 24-48 hr. Patient desires to go home. Discharge may occur as early as today but will discuss with Neurology. Patient understands plan of care. Carotid arterial disease: Significant greater than 50% stenosis present at the supra clinoid termination of each internal carotid artery as well as the bilateral M1-M 2 middle cerebral artery branches. Will continue with above plan of care. Hypertension: Continue blood pressure medication. Will monitor and adjust appropriately. Hyperlipidemia: Continue with medication. Hyperglycemia without diabetes: A1c within normal range. Continue to monitor this closely. Tobacco abuse: Continue with tobacco cessation. Patient provided nicotine patch. Time Spent Managing Pts Care (In Minutes): 55
[2019-07-15] MEDS: NA CHLORIDE 0.9% 1,000 ML IV SCH (13:00)
--- NOTE | 2019-07-15 13:36 | P.DS ---
Admission Date: 07/14/19 Discharge Date: 07/15/19 Primary Care Provider: Jane Campbell NP Disposition: ROUTINE DISCHARGE Discharge Condition: GOOD Reason for Admission: Right-sided paresthesias/headache Consultations: Neurology-Dr. Logan Procedures: ECHO: EF 79% LEFT VENTRICULAR WALL MOTION: NORMAL DOPPLER/COLOR FLOW: NORMAL COMMENTS: NORMAL 2D ECHOCARDIOGRAM WITH DOPPLER. NO ATRIAL SEPTAL DEFECT. NO VEGETATION. NO THROMBUS. Carotid doppler: FINDINGS: The velocity of the right internal carotid artery equals 51 cm/sec. The right ICA/CCA ratio .5 The velocity of the left internal carotid artery equals 89 cm/sec. The left ICA/ CCA ratio .8 Plaque is not visualized within the carotid arteries The vertebral arteries demonstrate antegrade flow IMPRESSION: Unremarkable examination CT Brain: FINDINGS: No intracranial hemorrhage, mass, or cerebral edema. No acute infarction identifiable. No extra-axial fluid collections. Sanchez matter-white matter differentiation is preserved. Visualized portions of the mastoid air cells, paranasal sinuses, and orbits are unremarkable. Images were only initially available in the exception folder. This precluded immediate dictation of the report. Findings were telephoned to the referring physician 1716 hours. IMPRESSION: No CT evidence of acute intracranial process. Follow up CT brain: FINDINGS: 9 millimeter low-density area within the left basal ganglia unchanged from the prior exam consistent with an acute infarction. 3 millimeter infarct within the left occipital lobe is not visualized on this exam. 4 millimeter subtle low-density area right temporal lobe unchanged compatible with acute infarct. An intracranial bleed is not seen . The ventricles are normal in caliber. No extra-axial fluid collection is noted. Fluid within the sinuses/ mastoids is not seen. IMPRESSION: 9 millimeter left basal ganglia acute infarct unchanged. There is a minimal bleed within the 9 millimeter left basal ganglia infarct which is less prominent than on the prior MRI. The known 3 millimeter left occipital lobe infarct not seen on this exam 4 millimeter acute right temporal lobe infarct unchanged No intracranial bleed. MRI Brain: FINDINGS: Diffusion-weighted imaging shows a 5 millimeter area of restricted diffusion in the anterolateral right cerebellum. There is matching diminished signal on ADC mapping. Similar 3 millimeter sized areas of restricted diffusion seen in the anterior and posterolateral right temporal lobe. A 3 millimeter focus of abnormal restricted diffusion seen in the central left occipital lobe. All have matching areas of diminished signal on ADC mapping. A punctate focus of infarction is seen in the left head of the caudate. An 8 millimeter focus of hyperintense signal or restricted diffusion seen in the posterior left basal ganglia. Diminished signal is present on ADC mapping. The signal abnormality extends superiorly into the deep periventricular white matter near the left frontal parietal junction. There is hyperintense T1 and T2 signal at this basal ganglia focus. No additional signal abnormality seen on the postcontrast imaging. No acute cortical based infarction. No cortical edema or sulcal effacement. No atrophy or chronic ischemic change present. There is no edema or shift of midline structures. No extra-axial fluid collections. Sanchez-matter/white matter junction is preserved. Signal voids are seen as a normal finding in the major intracranial vessels. No abnormal enhancement at the infarction sites. No abnormal parenchymal or dural enhancement. Mastoid air cells and paranasal sinuses are clear. IMPRESSION: A small 9 millimeter intraparenchymal hemorrhage -hemorrhagic transformation- has developed at the site of acute infarction posterior margin of the left globus pallidus and putamen. Nonhemorrhagic portion of the infarction extends superiorly into the deep periventricular white matter near the left frontal parietal junction. Additional sites of punctate nonhemorrhagic acute infarction are seen in anterolateral right cerebellum, central left occipital lobe, left head of the caudate and 2 sites in the right temporal lobe. No significant mass effect or edema. Ventricles are normal. The presence of multiple bilateral infarctions in both the anterior and posterior vascular distributions would indicate a shower emboli process arising outside of the brain and intracranial circulation MRA Brain: FINDINGS: Basilar artery and the distal vertebral arteries show no stenosis or significant finding. Focal stenoses are present at the origin of each superior cerebellar artery. The bilateral posterior cerebral arteries show mild atherosclerotic change. Both posterior communicating arteries are present. Patient has significant stenosis at the supraclinoid termination of each internal carotid artery. Patient has significant atherosclerotic narrowing of each A1 segment anterior cerebral artery. Severity of disease is accentuated by motion but is still considered significant. There significant luminal narrowing at the left anterior cerebral artery A2 branch. Approximately 70% stenosis is present at the right middle cerebral artery M1 - M2 junction. There is significant greater than 50% narrowing at multiple sites in the left middle cerebral artery M1 segment. Significant atherosclerotic narrowing extends into the M2 branches of the left middle cerebral artery. Again , motion accentuates severity. Additional far peripheral bilateral middle cerebral artery stenoses are present. IMPRESSION: No aneurysm or vascular malformation identified. Significant greater than 50% stenoses are present at the supraclinoid termination of the each internal carotid artery as well as in the bilateral M1 - M2 middle cerebral artery branches. Significant stenosis is present at the left anterior cerebral artery A2 branch any each proximal A1 branch. No basilar artery or distal vertebral artery significant finding. MRA Neck: FINDINGS: Aortic arch is 3 vessel. Innominate and left subclavian artery show atherosclerotic change at each origin. A 30- 40% stenosis is estimated. No left subclavian origin stenosis. No stenosis of the left vertebral artery. There is mild atherosclerotic change at the origin of the right vertebral artery. This is not a significant luminal narrowing on the right. Vertebral arteries are codominant. No dissection. Approximately 30- 40% stenosis is present at the origin of the right common carotid artery. Beyond the origin, the common carotid artery show no significant disease. No carotid bulb narrowing. Internal carotid arteries from origin to skullbase show no suspicious finding. IMPRESSION: Atherosclerotic changes and luminal narrowing seen at the origin of the innominate artery, left common carotid artery and right common carotid artery. Stenosis does not appear to exceed 40%. Approximately 30- 40% narrowing of the proximal right vertebral artery. Medical Problem List: Right upper/lower extremity and facial paresthesias, headaches, ataxia secondary to CVA with MRI showing small 9 mm intraparenchymal hemorrhage- hemorrhagic transformation developed at the site of acute infarct of the posterior margin of left globus pallidus and globus. Nonhemorrhagic portion of the infarct extends superiorly into the deep periventricular white matter near the left frontoparietal junction. Additional punctate nonhemorrhagic acute infarct seen in the anterior lateral right cerebellum, central left occipital lobe, left head of the caudate and 2 sites of the right temporal lobe Carotid arterial disease with arthrosclerotic changes and luminal narrowing seen at the origin of the innominate artery, left carotid arteries and right common carotid artery. Stenosis does not appear to exceed 40% Hypertension Hyperlipidemia Hyperglycemia without diabetes Tobacco abuse Anxiety with insomnia Brief History of Present Illness: 34-year-old male with history of hypertension presented with headache , ataxia and right upper/lower extremity and facial numbness. The patient was evaluated in the emergency room. Initial CT scan unremarkable. The patient was admitted for further evaluation. Hospital Course: Patient presented with right upper and lower ext and facial paresthesias, headaches, and ataxia. Initial CT scan was unremarkable. Patient was admitted for further evaluation. Patient seen by neurology. MRI brain showed a small 9 mm intraparenchymal hemorrhage-hemorrhagic transformation. This was at the side of an acute infarct posterior margin of the left globus pallidus and putamen. Nonhemorrhagic portion of the infarct extended superiorly into the deep periventricular white matter near the left frontoparietal junction. Additional sites of punctate nonhemorrhagic acute infarct was also seen in the anterior lateral right cerebellum, central left occipital lobe, left head of the caudate and 2 sites in the right temporal lobe. No mass effect was noted. This was consistent with symptoms. Patient was initially placed on DVT prophylaxis and aspirin. This was held for over 24 hr due to the transformation. Neurology recommended repeat CT scan of the head which showing no progression of the hemorrhagic transformation. Physical therapy worked with the patient closely. He was able to ambulate appropriately without ataxia. No need for inpatient rehab. Patient desired to go home. Case discussed at length with patient, family and neurology. At discharge patient appeared to be at his normal baseline. At discharge patient will continue with aspirin 81 mg daily, Lipitor 80 mg daily, folic acid 1 mg daily and losartan 100 mg daily. The patient will follow up with neurology in 2 weeks to follow up this hospitalization. No driving or work until that time when. Patient will have repeat CT scan noncontrast of the brain in 2 weeks. Patient will follow up with neurology at that time to further address. Genetic testing and autoimmune workup pending at this time. In 2 weeks neurology will go over results with the patient. Neurology will also determine after that time if the patient will require chronic anti coagulation therapy. Patient will likely end up on chronic anti coagulation therapy due to the distribution of the CVA. Patient understands plan of care. Neurology may end up sending patient to get reassessed prior to going back to work or driving. Patient with carotid arterial disease. MRI showed significant greater than 50% stenosis in the internal carotid arteries. Patient will continue with above plan of care and medications. Recommend follow up in 6-12 months. Patient with hypertension. This has remained stable. At discharge will continue with losartan 100 mg daily. Recommend to maintain blood pressures less than 150/80. Further adjustment to be done by his PCP. Patient with hyperlipidemia. LDL elevated. At discharge he will continue with Lipitor 80 mg daily. Recommend to recheck fasting lipid panel and liver function tests in 2-4 weeks to monitor his progress. Patient found to have elevated blood sugar during his stay. A1c within normal range. No evidence of diabetes at this time. Patient with tobacco abuse. Tobacco cessation addressed in detail. Will provide nicotine patch to help with cessation. Patient plans to quit. Patient has anxiety with insomnia. Patient was given Ativan with good results. Patient previously taking trazodone without success. At discharge will discontinue trazodone. Will give her a limited supply of Ativan to be used as needed. Will recommend melatonin daily. Recommend psychiatric evaluation as an outpatient to further evaluate and address. Vital Signs/Physical Exam: Temp Pulse Resp BP Pulse Ox 97.8 F 84 16 131/85 96 07/15/19 12:00 07/15/19 12:00 07/15/19 12:00 07/15/19 12:00 07/15/19 12:00 General: Alert, In no apparent distress, Oriented x3, Cooperative HEENT: Atraumatic Neck: Supple Respiratory: Clear to auscultation bilaterally, Normal air movement Cardiovascular: Normal pulses, Regular rate/rhythm Gastrointestinal: Normal bowel sounds, Soft and benign, Non-distended, No tenderness, No masses, No rebound, No guarding Musculoskeletal: No erythema, No tenderness, No warmth Integumentary: No tenderness/swelling, No erythema, No warmth, No cyanosis Neurological: Normal speech, Normal strength at 5/5 x4 extr, Normal tone, Normal affect Laboratory Data at Discharge: WBC 9.5 K/uL (4.3-10.9) D 07/15/19 05:15 Hgb 15.7 g/dL (13.6-17.9) 07/15/19 05:15 Hct 44.5 % (39.6-49.0) 07/15/19 05:15 Plt Count 172 K/uL (152-406) 07/15/19 05:15 PT 10.3 SECONDS (9.5-12.5) 07/14/19 14:38 INR 0.87 07/14/19 14:38 APTT 28.1 SECONDS (24.3-36.9) 07/14/19 14:38 Sodium 142 mmol/L (136-145) 07/15/19 05:15 Potassium 4.1 mmol/L (3.5-5.1) 07/15/19 05:15 BUN 12 mg/dL (7-18) 07/15/19 05:15 Creatinine 0.93 mg/dL (0.55-1.3) 07/15/19 05:15 Glucose 122 mg/dL (74-106) H 07/15/19 05:15 Phosphorus 3.5 mg/dL (2.5-4.9) D 07/15/19 05:15 Magnesium 2.1 mg/dL (1.8-2.4) 07/15/19 05:15 Total Bilirubin 0.3 mg/dL (0.2-1.0) 07/15/19 05:15 AST 28 U/L (15-37) 07/15/19 05:15 ALT 84 U/L (12-78) H 07/15/19 05:15 Alkaline Phosphatase 53 U/L (45-117) 07/15/19 05:15 Troponin I < 0.02 ng/mL (0.0-0.045) 07/14/19 05:32 Triglycerides 129 mg/dL (<150) 07/14/19 05:32 Cholesterol 189 mg/dL (<200) 07/14/19 05:32 HDL Cholesterol 40 mg/dL (40-60) 07/14/19 05:32 Cholesterol/HDL Ratio 4.73 07/14/19 05:32 Home Medications: Aspirin [Aspirin EC 81 MG] 81 mg PO DAILY #90 tablet. 07/14/19 Folic Acid 1 mg PO DAILY #90 tablet 07/14/19 Losartan Potassium [Cozaar*] 100 mg PO DAILY 07/14/19 Atorvastatin Calcium [Lipitor] 80 mg PO DAILY #30 tablet 07/15/19 Docusate [Colace Cap*] 100 mg PO DAILY #30 cap 07/15/19 LORazepam [Ativan] 0.5 mg PO BEDTIME PRN #5 tab 07/15/19 Nicotine [Nicoderm*] 21 mg TD DAILY #30 patch.td24 07/15/19 New Medications: Aspirin [Aspirin EC 81 MG] 81 mg PO DAILY #90 tablet. Atorvastatin Calcium [Lipitor] 80 mg PO DAILY #30 tablet Docusate [Colace Cap*] 100 mg PO DAILY #30 cap Folic Acid 1 mg PO DAILY #90 tablet LORazepam [Ativan] 0.5 mg PO BEDTIME PRN #5 tab PRN Reason: Insomnia Nicotine [Nicoderm*] 21 mg TD DAILY #30 patch.td24 Patient Discharge Instructions: 1. Recommend follow up with his PCP in 1 week to follow up hospitalization. 2. Patient presented with right upper and lower ext and facial paresthesias, headaches, and ataxia. Initial CT scan was unremarkable. Patient was admitted for further evaluation. Patient seen by neurology. MRI brain showed a small 9 mm intraparenchymal hemorrhage- hemorrhagic transformation. This was at the side of an acute infarct posterior margin of the left globus pallidus and putamen. Nonhemorrhagic portion of the infarct extended superiorly into the deep periventricular white matter near the left frontoparietal junction. Additional sites of punctate nonhemorrhagic acute infarct was also seen in the anterior lateral right cerebellum, central left occipital lobe, left head of the caudate and 2 sites in the right temporal lobe. No mass effect was noted. This was consistent with symptoms. Patient was initially placed on DVT prophylaxis and aspirin. This was held for over 24 hr due to the transformation. Neurology recommended repeat CT scan of the head which showing no progression of the hemorrhagic transformation. Physical therapy worked with the patient closely. He was able to ambulate appropriately without ataxia. No need for inpatient rehab. Patient desired to go home. Case discussed at length with patient, family and neurology. At discharge patient appeared to be at his normal baseline. At discharge patient will continue with aspirin 81 mg daily, Lipitor 80 mg daily, folic acid 1 mg daily and losartan 100 mg daily. The patient will follow up with neurology in 2 weeks to follow up this hospitalization. No driving or work until that time when. Patient will have repeat CT scan noncontrast of the brain in 2 weeks. Patient will follow up with neurology at that time to further address. Genetic testing and autoimmune workup pending at this time. In 2 weeks neurology will go over results with the patient. Neurology will also determine after that time if the patient will require chronic anti coagulation therapy. Patient will likely end up on chronic anti coagulation therapy due to the distribution of the CVA. Patient understands plan of care. Neurology may end up sending patient to get reassessed prior to going back to work or driving. 3. Patient with carotid arterial disease. MRI showed significant greater than 50% stenosis in the internal carotid arteries. Patient will continue with above plan of care and medications. Recommend follow up in 6-12 months. 4. Patient with hypertension. This has remained stable. At discharge will continue with losartan 100 mg daily. Recommend to maintain blood pressures less than 150/80. Further adjustment to be done by his PCP. 5. Patient with hyperlipidemia. LDL elevated. At discharge he will continue with Lipitor 80 mg daily. Recommend to recheck fasting lipid panel and liver function tests in 2-4 weeks to monitor his progress. 6. Patient found to have elevated blood sugar during his stay. A1c within normal range. No evidence of diabetes at this time. 7. Patient with tobacco abuse. Tobacco cessation addressed in detail. Will provide nicotine patch to help with cessation. Patient plans to quit. 8. Patient has anxiety with insomnia. Patient was given Ativan with good results. Patient previously taking trazodone without success. At discharge will discontinue trazodone. Will give her a limited supply of Ativan to be used as needed. Will recommend melatonin daily. Recommend psychiatric evaluation as an outpatient to further evaluate and address. Diet: AHA Activity: Fall precautions Time spent managing pt's care (in minutes): 55
[2019-07-15] MEDS ORDERED: DOCUSATE NA 100 MG CAP PO SCH (14:00)
[2019-07-15] MEDS ORDERED: LACTULOSE 20 GM/30 ML UCUP PO ONE (15:00)
[2019-07-15 16:14] VITALS: BP 128/75; TEMP 98
[2019-07-17 02:23] LABS: HBsAG Nonreactive (Nonreactive)
[2019-07-17 19:16] LABS: HIV AG/AB 4TH GEN Non-reactive (Non-reactive)
[2019-07-18 14:14] LABS: Protein C Antigen 122 % (70-140)
[2019-07-20 12:07] LABS: Prothrombin Gene Analysis Test REPORT
== END 2019-07-15 16:16 | disposition home or self-care (01) | DRG 64 ==
LOC: ER 19:06 → ERHOLD 20:39 → 4TH 22:03 → OBSVTOIN 07-14 14:24
PROVIDERS: ADMIT Hospitalist; ATTEND Hospitalist
DX: I61.0 Nontraumatic intracerebral hemorrhage in hemisphere, subcortical (principal); I63.9 Cerebral infarction, unspecified; I66.01 Occlusion and stenosis of right middle cerebral artery; I65.23 Occlusion and stenosis of bilateral carotid arteries; R27.0 Ataxia, unspecified; I10 Essential (primary) hypertension; E78.5 Hyperlipidemia, unspecified; R73.9 Hyperglycemia, unspecified; F17.210 Nicotine dependence, cigarettes, uncomplicated; F41.9 Anxiety disorder, unspecified; G47.00 Insomnia, unspecified; R29.703 NIHSS score 3
CPT/HCPCS: 36415; 70450; 70544; 70549; 70553; 71045; 80048; 80053; 80061; 80074; 80076; 80307; 81003; 81240; 81241; 82103; 82947; 83036; 83735; 84100; 84436; 84443; 84484; 85025; 85301; 85302; 85305; 85306; 85610; 85730; 86038; 86225; 86850; 87389; 92610; 93005; 93306; 93880; 96361; 96374; 96375; 97112; 97116; 97161; 97166; 99285; A9577; G0378; J1100; J1170; J1650; J2405; J3010; J7030

== ENCOUNTER 2019-07-24 17:04 | Emergency (ER) | payer BC ==
[2019-07-24] MEDS ORDERED: METOCLOPRAMIDE 10 MG/2mL INJ ONE (17:41)
[2019-07-24] MEDS ORDERED: NA CHLORIDE 0.9% 500 ML ONE (17:41)
[2019-07-24] MEDS ORDERED: DIPHENHYDRAMINE 50 MG/ML VIAL ONE (17:41)
[2019-07-24 17:54] LABS: Absolute Lymphocytes (CBC) 1.5 K/uL (0.7-4.9); Basophils % 0.6 % (0-1.3); Hematocrit 48.2 % (39.6-49.0); Lymphocytes % 23.9 % (15.3-44.8); MPV 8.9 fL (7.6-11.3); RBC Red Blood Cell Count 5.41 M/uL (4.33-5.43)
[2019-07-24 17:58] LABS: Protime INR 0.97
[2019-07-24 18:17] LABS: Albumin 3.9 g/dL (3.4-5.0); Bilirubin Total 0.7 mg/dL (0.2-1.0); Potassium 4.1 mmol/L (3.5-5.1); Protein, Total 7.2 g/dL (6.4-8.2)
--- NOTE | 2019-07-24 18:17 | RAD REPORT ---
EXAM DESCRIPTION: CT - Head Brain Wo Cont - 07/24/2019 6:09 pm CLINICAL HISTORY: HEADACHE Headache, drowsiness COMPARISON: Head Brain Wo Cont dated 07/15/2019; Ct Stroke Brain Wo Cont dated 07/13/2019 TECHNIQUE: All CT scans are performed using dose optimization technique as appropriate and may inclu de automated exposure control or mA/KV adjustment according to patient size. FINDINGS: No intracranial hemorrhage, hydrocephalus or extra-axial fluid collection.No areas of brai n edema or evidence of midline shift. The paranasal sinuses and mastoids are clear. The calvarium is intact. IMPRESSION: No acute intracranial abnormality.
[2019-07-24] MEDS ORDERED: dexAMETHasone 4 MG/ML VIAL ONE (18:46)
[2019-07-24] MEDS ORDERED: KETOROLAC 30 MG/ML INJ ONE (18:46)
--- NOTE | 2019-07-24 19:29 | ER ---
Nurse's Notes [facility] Name: Enma Kuo Jr Age: 34 yrs Sex: Male : 1985 Arrival Date: 07/24/2019 Time: 17:05 Bed 24 Private MD: Diagnosis: Headache Presentation: 07/24 17:14 Presenting complaint: Patient states: I had a stroke last month and they said I was la1 bleeding and I have had a headache since before then that is not any different but not getting better and I want to make sure I am not bleeding again, no new necrological symptoms reported. Transition of care: patient was not received from another setting of care. Onset of symptoms was July 24, 2019. Risk Assessment: Do you want to hurt yourself or someone else? Patient reports no desire to harm self or others. Initial Sepsis Screen: Does the patient meet any 2 criteria? No. Patient's initial sepsis screen is negative. Does the patient have a suspected source of infection? No. Patient's initial sepsis screen is negative. Care prior to arrival: None. 17:14 Method Of Arrival: Ambulatory la1 17:14 Acuity: SAMUEL 3 la1 Triage Assessment: 17:35 Headache History: The patient has had previous headaches and this one is similar to mg2 previous episodes. General: Appears in no apparent distress. comfortable, Behavior is calm, cooperative. Pain: Complains of pain in head. 17:35 Pain: Also complains of no other associated symptoms. mg2 Historical: - Allergies: 17:16 No Known Allergies; la1 - Home Meds: 17:35 losartan 100 mg Oral tab 1 tab once daily [Active]; trazodone 50 mg Oral tab 1 tab mg2 nightly [Active]; - PMHx: 17:16 Gall Stones; Hypertension; CVA; la1 - Immunization history:: Adult Immunizations up to date. - Social history:: Smoking status: Patient uses tobacco products, smokes one-half pack cigarettes per day. - Ebola Screening: : No symptoms or risks identified at this time. Screenin:30 Abuse screen: Denies threats or abuse. Denies injuries from another. Nutritional mg2 screening: No deficits noted. Tuberculosis screening: No symptoms or risk factors identified. Fall Risk IV access (20 points). Assessment: 17:31 General: Appears in no apparent distress. comfortable, Behavior is calm, cooperative. mg2 Pain: Complains of pain in head Pain does not radiate. Pain currently is 8 out of 10 on a pain scale. Quality of pain is described as aching, Pain began gradually, 1 month ago Is intermittent. Neuro: Level of Consciousness is awake, alert, obeys commands, Oriented to person, place, time, situation, Reports headache in left temporal and occiput. Cardiovascular: Capillary refill < 3 seconds Patient's skin is warm and dry. Respiratory: Airway is patent Respiratory effort is even, unlabored, Respiratory pattern is regular, symmetrical. GI: No signs and/or symptoms were reported involving the gastrointestinal system. : No signs and/or symptoms were reported regarding the genitourinary system. EENT: No signs and/or symptoms were reported regarding the EENT system. Derm: Skin is intact, is healthy with good turgor, Skin is pink, warm \T\ dry. normal. Musculoskeletal: Circulation, motion, and sensation intact. Capillary refill < 3 seconds. 19:30 Reassessment: Patient appears in no apparent distress at this time. Patient states mg2 feeling better. Patient states symptoms have improved. Vital Signs: 17:16 BP 143 / 88; Pulse 89; Resp 16; Temp 98.4; Pulse Ox 100% on R/A; Weight 113.4 kg; la1 Height 5 ft. 6 in. (167.64 cm); 19:30 BP 123 / 83; Pulse 72; Resp 18; Temp 98.5(O); Pulse Ox 100% on R/A; Pain 5/10; mg2 17:16 Body Mass Index 40.35 (113.40 kg, 167.64 cm) la1 ED Course: 17:05 Patient arrived in ED. as 17:15 Triage completed. la1 17:16 Arm band placed on left wrist. la1 17:17 Mo Chinchilla, CRISTIAN is Primary Nurse. mg2 17:27 Bennett Espinoza PA is PHCP. m 17:27 Ariel Eric MD is Attending Physician. [facility] 17:31 No provider procedures requiring assistance completed. Inserted saline lock: 20 gauge mg2 in right antecubital area, using aseptic technique. Blood collected. 17:34 Patient has correct armband on for positive identification. Pulse ox on. NIBP on. Door mg2 closed. Warm blanket given. 18:09 CT Head Brain wo Cont In Process Unspecified. EDMS 19:28 Yordy Logan MD is Referral Physician. jmm 19:37 IV discontinued, intact, bleeding controlled, No redness/swelling at site. Pressure mg2 dressing applied. Administered Medications: 09/22 18:50 Drug: Decadron - Dexamethasone 10 mg Route: IVP; Site: right antecubital; mg2 07/24 19:36 Follow up: Response: No adverse reaction; Marked relief of symptoms mg2 17:44 Drug: diphenhydrAMINE 12.5 mg Route: IVP; Site: right antecubital; mg2 19:36 Follow up: Response: No adverse reaction; Marked relief of symptoms mg2 17:45 Drug: Reglan 10 mg Route: IVP; Site: right antecubital; mg2 19:37 Follow up: Response: No adverse reaction; Marked relief of symptoms mg2 17:45 Drug: NS 0.9% 500 ml Route: IV; Rate: bolus; Site: right antecubital; mg2 19:36 Follow up: Response: No adverse reaction; IV Status: Completed infusion; IV Intake: mg2 500ml 18:50 Drug: Ketorolac 30 mg Route: IVP; Site: right antecubital; mg2 19:36 Follow up: Response: No adverse reaction; Marked relief of symptoms mg2 Intake: 19:36 IV: 500ml; Total: 500ml. mg2 Outcome: 19:28 Discharge ordered by . jmm 19:37 Discharged to home ambulatory. mg2 19:37 Condition: stable 19:37 Discharge instructions given to patient, Instructed on discharge instructions, follow up and referral plans. Demonstrated understanding of instructions, follow-up care. 19:37 Patient left the ED. mg2 Signatures: Dispatcher [employer] EDMS Benntet Espinoza PA PA jmm Martinez, Amelia as Attema, Lee RN RN la1 Mo Chinchilla RN RN mg2
--- NOTE | 2019-07-24 19:29 | EDPHYS ---
Physician Documentation [facility] Name: Enma Kuo Jr Age: 34 yrs Sex: Male : 1985 Arrival Date: 07/24/2019 Time: 17:05 Bed 24 Private MD: ED Physician Ariel Eric HPI: 07/24 17:15 This 34 yrs old Male presents to ER via Ambulatory with complaints of jmm Headache. 17:15 Onset: The symptoms/episode began/occurred gradually, 2 day(s) ago. Associated signs jmm and symptoms: Pertinent negatives: there are no associated signs or symptoms. Headache History: The patient has had previous headaches. This is a 34 year old male with a history of recent hemorrhagic cva that presents to the ED with complaints of generalized headache beginning 2 days ago. Patient states having a headache over the past month with weakness to his legs approx 2 weeks ago. Patient was diagnosed with hemorrhagic cva. Patient states having ongoing headaches since with a worse headache over the past 2 days. Denies weakness or numbness. Denies vision changes. . Historical: - Allergies: 17:16 No Known Allergies; la1 - Home Meds: 17:35 losartan 100 mg Oral tab 1 tab once daily [Active]; trazodone 50 mg Oral tab 1 tab mg2 nightly [Active]; - PMHx: 17:16 Gall Stones; Hypertension; CVA; la1 - Immunization history:: Adult Immunizations up to date. - Social history:: Smoking status: Patient uses tobacco products, smokes one-half pack cigarettes per day. - Ebola Screening: : No symptoms or risks identified at this time. ROS: 17:15 Constitutional: Negative for fever, chills, and weight loss, Cardiovascular: Negative jmm for chest pain, palpitations, and edema, Respiratory: Negative for shortness of breath, cough, wheezing, and pleuritic chest pain. 17:15 Neuro: Positive for headache. 17:15 All other systems are negative. Exam: 17:15 Constitutional: This is a well developed, well nourished patient who is awake, alert, jmm and in no acute distress. Head/Face: atraumatic. Eyes: EOMI, no conjunctival erythema appreciated ENT: Moist Mucus Membranes Neck: Trachea midline, Supple Chest/axilla: Normal chest wall appearance and motion. Cardiovascular: Regular rate and rhythm. No edema appreciated Respiratory: Normal respirations, no respiratory distress appreciated Abdomen/GI: Non distended, soft Back: Normal ROM 17:15 Neuro: Orientation: is normal, Mentation: is normal, Memory: is normal. 17:15 Neuro: Cerebellar function: normal finger to nose testing, heel to hernandez testing is normal, Motor: is normal, Gait: is steady. 17:15 Psych: Behavior/mood is pleasant, cooperative. Vital Signs: 17:16 BP 143 / 88; Pulse 89; Resp 16; Temp 98.4; Pulse Ox 100% on R/A; Weight 113.4 kg; la1 Height 5 ft. 6 in. (167.64 cm); 19:30 BP 123 / 83; Pulse 72; Resp 18; Temp 98.5(O); Pulse Ox 100% on R/A; Pain 5/10; mg2 17:16 Body Mass Index 40.35 (113.40 kg, 167.64 cm) la1 MDM: 17:28 Patient medically screened. [facility] 19:27 Data reviewed: vital signs, nurses notes. [facility] 19:27 Data reviewed: old medical records. Counseling: I had a detailed discussion with the [facility] patient and/or guardian regarding: the historical points, exam findings, and any diagnostic results supporting the discharge/admit diagnosis, lab results, radiology results, the need for outpatient follow up, to return to the emergency department if symptoms worsen or persist or if there are any questions or concerns that arise at home. ED course: Headache decreased in the ED. MRV reviewed with no aneurysm. I do not suspect SAH. Patient advised to follow up with Dr. Logan and given strict return precautions. Patient understood and agrees with the plan of care. . 07/24 17:36 Order name: CBC with Diff; Complete Time: 18:06 [facility] 07/24 17:36 Order name: CMP; Complete Time: 18:20 [facility] 07/24 17:36 Order name: CT Head Brain wo Cont; Complete Time: 18:30 [facility] 07/24 17:36 Order name: Ptt, Activated; Complete Time: 18:06 [facility] 07/24 17:36 Order name: PT-INR; Complete Time: 18:06 [facility] 07/24 17:36 Order name: Saline Lock; Complete Time: 17:39 [facility] Administered Medications: 09/22 18:50 Drug: Decadron - Dexamethasone 10 mg Route: IVP; Site: right antecubital; mg2 07/24 19:36 Follow up: Response: No adverse reaction; Marked relief of symptoms mg2 17:44 Drug: diphenhydrAMINE 12.5 mg Route: IVP; Site: right antecubital; mg2 19:36 Follow up: Response: No adverse reaction; Marked relief of symptoms mg2 17:45 Drug: Reglan 10 mg Route: IVP; Site: right antecubital; mg2 19:37 Follow up: Response: No adverse reaction; Marked relief of symptoms mg2 17:45 Drug: NS 0.9% 500 ml Route: IV; Rate: bolus; Site: right antecubital; mg2 19:36 Follow up: Response: No adverse reaction; IV Status: Completed infusion; IV Intake: mg2 500ml 18:50 Drug: Ketorolac 30 mg Route: IVP; Site: right antecubital; mg2 19:36 Follow up: Response: No adverse reaction; Marked relief of symptoms mg2 Disposition: 07/25 07:09 Co-signature as Attending Physician, Ariel Eric MD. rn Disposition: 07/24/19 19:28 Discharged to Home. Impression: Headache. - Condition is Stable. - Discharge Instructions: General Headache Without Cause. - Medication Reconciliation Form, Thank You Letter, Antibiotic Education, Prescription Opioid Use, Family Work Release form. - Follow up: Yordy Logan MD; When: 2 - 3 days; Reason: Recheck today's complaints, Continuance of care, Re-evaluation by your physician. Signatures: Dispatcher [employer] EDMS Bennett Espinoza PA PA [facility] Ariel Eric MD MD rn Attema, Lee, RN RN laMo Brown RN RN mg2 Corrections: (The following items were deleted from the chart) 07/24 19:37 19:28 07/24/2019 19:28 Discharged to Home. Impression: Headache. Condition is Stable. mg2 Forms are Medication Reconciliation Form, Thank You Letter, Antibiotic Education, Prescription Opioid Use. Follow up: Yordy Logan; When: 2 - 3 days; Reason: Recheck today's complaints, Continuance of care, Re-evaluation by your physician. dex
[2019-07-24 19:45] VITALS: O2SAT 100
[2019-07-24 19:47] VITALS: BP 123/83; TEMP 98.5
[2019-07-24] MEDS ORDERED: ONDANSETRON 4 MG/2 ML VIAL ONE (20:20)
== END 2019-07-24 19:37 | disposition home or self-care (01) ==
LOC: ER 17:04
DX: R51 Headache (principal); I10 Essential (primary) hypertension; Z86.73 Personal history of transient ischemic attack (TIA), and cerebral infarction without residual deficits; F17.210 Nicotine dependence, cigarettes, uncomplicated
CPT/HCPCS: 96361; 85025; 36415; 85610; 85730; 80053; 70450; 96375; 96374; 99284; J2765; J1200; J7040; J2405

== ENCOUNTER 2019-10-05 11:07 | Emergency (ER) | payer BC ==
--- OUTSIDE RECORDS SUMMARY | 2019-10-05 11:10 | XMS REPORT ---
:1985 [facility] Address [address] [place] [address] Dr. Gupta [address] [place] [id number] Care Team Providers Name Role Phone Unavailable Unavailable Unavailable Problems This patient has no known problems. Allergies, Adverse Reactions, Alerts This patient has no known allergies or adverse reactions. Medications This patient has no known medications.
[2019-10-05] MEDS ORDERED: MEPERIDINE HCL 25 MG/0.5 ML ONE (11:48)
[2019-10-05] MEDS ORDERED: NA CHLORIDE 0.9% 1,000 ML ONE (11:48)
[2019-10-05] MEDS ORDERED: METOCLOPRAMIDE 10 MG/2mL INJ ONE (11:50)
[2019-10-05 11:57] LABS: Absolute Lymphocytes (CBC) 1.2 K/uL (0.7-4.9); Basophils % 0.3 % (0-1.3); Hematocrit 50.6 % (39.6-49.0); Lymphocytes % 15.1 % (15.3-44.8); RBC Red Blood Cell Count 5.56 M/uL (4.33-5.43)
[2019-10-05 12:01] LABS: Protime INR 0.9
--- NOTE | 2019-10-05 12:01 | RAD REPORT ---
EXAM DESCRIPTION: CT - Head Brain Wo Cont - 10/05/2019 11:52 am CLINICAL HISTORY: Headache COMPARISON: July 24, 2019 TECHNIQUE: Axial 5 mm thick images of the head were obtained without IV contrast. All CT scans are performed using dose optimization technique as appropriate and may include automated exposure control or mA/KV adjustment according to patient size. FINDINGS: No intracranial hemorrhage, mass, edema or shift of mid-line structures. No acute infarcti on changes seen. No abnormal extra-axial fluid collections. Ventricles are normal. Mastoid air cells and visualized portions of the paranasal sinuses are clear. No acute bony findings. No changes from comparison. IMPRESSION: Negative non-contrast CT head examination.
[2019-10-05 12:08] LABS: Potassium 4.1 mmol/L (3.5-5.1)
--- NOTE | 2019-10-05 12:17 | ER ---
Nurse's Notes [facility] Name: Enma Kuo Jr Age: 34 yrs Sex: Male : 1985 Arrival Date: 10/05/2019 Time: 11:10 Bed 24 Private MD: Diagnosis: Headache Presentation: 10/05 11:15 Presenting complaint: Patient states: feels really shaky and has a headaches, has hx of iw stroke and wants to make sure he's not having another, symptoms started at 0600, denies weakness, states outer right leg feels slightly tingly/numb that started a couple hours ago. Transition of care: patient was not received from another setting of care. Onset of symptoms was October 05, 2019. Risk Assessment: Do you want to hurt yourself or someone else? Patient reports no desire to harm self or others. Initial Sepsis Screen: Does the patient meet any 2 criteria? No. Patient's initial sepsis screen is negative. Does the patient have a suspected source of infection? No. Patient's initial sepsis screen is negative. Care prior to arrival: None. 11:15 Method Of Arrival: Ambulatory iw 11:15 Acuity: SAMUEL 3 iw 11:15 Acuity: SAMUEL 2 iw Historical: - Allergies: 11:17 No Known Allergies; iw - Home Meds: 11:17 losartan 100 mg Oral tab 1 tab once daily [Active]; trazodone 50 mg Oral tab 1 tab iw nightly [Active]; - PMHx: 11:17 CVA; Gall Stones; Hypertension; iw - PSHx: 11:17 Cholecystectomy; iw - Immunization history:: Adult Immunizations up to date. - Social history:: Smoking status: Patient uses tobacco products, smokes one-half pack cigarettes per day. - Ebola Screening: : Patient negative for fever greater than or equal to 101.5 degrees Fahrenheit, and additional compatible Ebola Virus Disease symptoms Patient denies exposure to infectious person Patient denies travel to an Ebola-affected area in the 21 days before illness onset No symptoms or risks identified at this time. - Family history:: not pertinent. - Hospitalizations: : No recent hospitalization is reported. Screenin:25 Abuse screen: Denies threats or abuse. Denies injuries from another. Nutritional ca1 screening: No deficits noted. Tuberculosis screening: No symptoms or risk factors identified. Fall Risk IV access (20 points). Assessment: 11:25 General: Appears in no apparent distress. comfortable, Behavior is calm, cooperative, ca1 appropriate for age. Pain: Denies pain. Neuro: Level of Consciousness is awake, alert, obeys commands, Oriented to person, place, time, situation, Appropriate for age Nail Specialist are equal bilaterally Moves all extremities. Gait is steady, Speech is normal, Facial symmetry appears normal, Pupils are PERRLA, Intact Denies weakness dizziness. Cardiovascular: Heart tones S1 S2 present Capillary refill < 3 seconds Patient's skin is warm and dry. Rhythm is sinus tachycardia. Respiratory: Airway is patent Respiratory effort is even, unlabored, Respiratory pattern is regular, symmetrical, Breath sounds are clear bilaterally. GI: Abdomen is round non-distended, Bowel sounds present X 4 quads. Abd is soft and non tender X 4 quads. : No deficits noted. No signs and/or symptoms were reported regarding the genitourinary system. EENT: No deficits noted. No signs and/or symptoms were reported regarding the EENT system. Derm: No deficits noted. No signs and/or symptoms reported regarding the dermatologic system. Musculoskeletal: Circulation, motion, and sensation intact. Capillary refill < 3 seconds, Range of motion: intact in all extremities. 12:21 Reassessment: Patient appears in no apparent distress at this time. Patient and/or ca1 family updated on plan of care and expected duration. Pain level reassessed. Patient is alert, oriented x 3, equal unlabored respirations, skin warm/dry/pink. Dr. Eric at bedside. IVF to be completed before discharge. IVF still infusing. 13:03 Reassessment: Patient appears in no apparent distress at this time. Patient is alert, ca1 oriented x 3, equal unlabored respirations, skin warm/dry/pink. Pt states, " is at the parking lot to pick him up". Vital Signs: 11:17 BP 138 / 100; Pulse 107; Resp 18 S; Temp 97.9; Pulse Ox 99% on R/A; Weight 95.62 kg iw (M); Height 5 ft. 6 in. (167.64 cm); Pain 7/10; 12:21 BP 123 / 90; Pulse 82; Resp 15 S; Pulse Ox 96% on R/A; ca1 13:03 BP 130 / 87; Pulse 86; Resp 17 S; Pulse Ox 99% on R/A; ca1 11:17 Body Mass Index 34.02 (95.62 kg, 167.64 cm) iw [place] Coma Score: 12:15 Eye Response: spontaneous(4). Verbal Response: oriented(5). Motor Response: obeys rn commands(6). Total: 15. ED Course: 11:10 Patient arrived in ED. mr 11:17 Triage completed. iw 11:17 Arm band placed on. iw 11:21 Rox Hartley, RN is Primary Nurse. ca1 11:25 Patient has correct armband on for positive identification. Placed in gown. Bed in low ca1 position. Call light in reach. Side rails up X 1. casino floor person on. Pulse ox on. NIBP on. Warm blanket given. 11:29 Ariel Eric MD is Attending Physician. rn 11:45 Initial lab(s) drawn, by ak, sent to lab. Inserted saline lock: 20 gauge in right em antecubital area, using aseptic technique. Blood collected. 11:51 EKG done, by technical support specialist. reviewed by Ariel Eric MD. at1 11:53 CT Head Brain wo Cont In Process Unspecified. EDMS 13:04 No provider procedures requiring assistance completed. IV discontinued, intact, ca1 bleeding controlled, No redness/swelling at site. Pressure dressing applied. Administered Medications: 11:51 Drug: NS 0.9% 1000 ml Route: IV; Rate: 1000 ml; Site: right antecubital; ca1 13:00 Follow up: Response: No adverse reaction; IV Status: Completed infusion ca1 11:51 Drug: Demerol 25 mg {Note: RASS - 0.} Route: IVP; Site: right antecubital; ca1 12:23 Follow up: Response: No adverse reaction; Pain is decreased; RASS: Alert and Calm (0) ca1 11:56 Drug: Reglan 10 mg Route: IVP; Site: right antecubital; ca1 12:22 Follow up: Response: No adverse reaction; Nausea is decreased ca1 Outcome: 12:17 Discharge ordered by . rn 13:04 Discharged to home ambulatory. ca1 13:04 Condition: stable 13:04 Discharge instructions given to patient, Instructed on discharge instructions, follow up and referral plans. Demonstrated understanding of instructions, follow-up care, Prescriptions given X 13:07 Patient left the ED. ca1 Signatures: Dispatcher [employer] KATI Georgia CruzCleve, RN Vane Kern RN RN iw Nieto, Roman, MD MD rn Gonzales, Amanda, autocad technician EKG Tat1 Rox Hartley RN RN ca1 Corrections: (The following items were deleted from the chart) 11:48 11:17 BP 138 / 100; Pulse 107bpm; Resp 18bpm; Spontaneous; Pulse Ox 99% RA; Temp 97.9F; iw 90.72 kg; Height 5 ft. 6 in.; BMI: 32.2; Pain 7/10; iw
--- NOTE | 2019-10-05 12:18 | EDPHYS ---
Physician Documentation [facility] Name: Enma Kuo Jr Age: 34 yrs Sex: Male : 1985 Arrival Date: 10/05/2019 Time: 11:10 Bed 24 Private MD: ED Physician Ariel Eric HPI: 10/05 11:39 This 34 yrs old Male presents to ER via Ambulatory with complaints of rn Headache. 11:39 The patient complains of pain to the top of head and forehead. The patient describes rn the headache as aching. Onset: The symptoms/episode began/occurred 1 week(s) ago. Severity of symptoms: At its worst the pain was moderate, in the emergency department the pain is unchanged. The symptoms are alleviated by nothing. the symptoms are aggravated by nothing. The patient has experienced similar episodes in the past. Reports headache for 1 week, today while at work began feeling shaky, no seizure, no focal neurological complaints. reports right outer thigh feels a little numb. Reports told in past had stroke, bleeding kind, due to BP, so wanted to get CT to make sure he is not having another stroke. . Historical: - Allergies: 11:17 No Known Allergies; iw - Home Meds: 11:17 losartan 100 mg Oral tab 1 tab once daily [Active]; trazodone 50 mg Oral tab 1 tab iw nightly [Active]; - PMHx: 11:17 CVA; Gall Stones; Hypertension; iw - PSHx: 11:17 Cholecystectomy; iw - Immunization history:: Adult Immunizations up to date. - Social history:: Smoking status: Patient uses tobacco products, smokes one-half pack cigarettes per day. - Ebola Screening: : Patient negative for fever greater than or equal to 101.5 degrees Fahrenheit, and additional compatible Ebola Virus Disease symptoms Patient denies exposure to infectious person Patient denies travel to an Ebola-affected area in the 21 days before illness onset No symptoms or risks identified at this time. - Family history:: not pertinent. - Hospitalizations: : No recent hospitalization is reported. ROS: 11:39 Constitutional: Negative for fever, chills, and weight loss, Eyes: Negative for injury, rn pain, redness, and discharge, Neck: Negative for injury, pain, and swelling, Cardiovascular: Negative for chest pain, palpitations, and edema, Respiratory: Negative for shortness of breath, cough, wheezing, and pleuritic chest pain, Abdomen/GI: Negative for abdominal pain, nausea, vomiting, diarrhea, and constipation, MS/Extremity: Negative for injury and deformity, Skin: Negative for injury, rash, and discoloration, Neuro: Negative for weakness, and seizure. Exam: 11:39 Constitutional: This is a well developed, well nourished patient who is awake, alert, rn seems anxious, ambulatory to room without difficulty or assistance. Head/Face: Normocephalic, atraumatic. Eyes: Pupils equal round and reactive to light, extra-ocular motions intact. Lids and lashes normal. Conjunctiva and sclera are non-icteric and not injected. Cornea within normal limits. Periorbital areas with no swelling, redness, or edema. Cardiovascular: Tachycardic, regular Respiratory: No increased work of breathing, no retractions or nasal flaring. Abdomen/GI: Soft, non-tender MS/ Extremity: Pulses equal, no cyanosis. Neurovascular intact. Full, normal range of motion. Equal circumference. Neuro: Awake and alert, GCS 15, oriented to person, place, time, and situation. Cranial nerves II-XII grossly intact. Motor strength 5/5 in all extremities. Sensory grossly intact. Cerebellar exam normal. Normal gait. Vital Signs: 11:17 BP 138 / 100; Pulse 107; Resp 18 S; Temp 97.9; Pulse Ox 99% on R/A; Weight 95.62 kg iw (M); Height 5 ft. 6 in. (167.64 cm); Pain 7/10; 12:21 BP 123 / 90; Pulse 82; Resp 15 S; Pulse Ox 96% on R/A; ca1 13:03 BP 130 / 87; Pulse 86; Resp 17 S; Pulse Ox 99% on R/A; ca1 11:17 Body Mass Index 34.02 (95.62 kg, 167.64 cm) iw Pocahontas Coma Score: 12:15 Eye Response: spontaneous(4). Verbal Response: oriented(5). Motor Response: obeys rn commands(6). Total: 15. MDM: 11:29 Patient medically screened. rn 12:15 Differential diagnosis: hypertensive headache, intracerebral hemorrhage, migraine, rn tension headache, vasomotor headache. Data reviewed: vital signs, nurses notes, lab test result(s), radiologic studies, and as a result, I will discharge patient. Counseling: I had a detailed discussion with the patient and/or guardian regarding: the historical points, exam findings, and any diagnostic results supporting the discharge/admit diagnosis, lab results, radiology results, the need for outpatient follow up, to return to the emergency department if symptoms worsen or persist or if there are any questions or concerns that arise at home. Response to treatment: the patient's symptoms have markedly improved after treatment, and as a result, I will discharge patient. Special discussion: I discussed with the patient/guardian in detail that at this point there is no indication for admission to the hospital. It is understood, however, that if the symptoms persist or worsen the patient needs to return immediately for re-evaluation. Based on the history and exam findings, there is no indication for further emergent testing or inpatient evaluation. I discussed with the patient/guardian the need to see the neurologist for further evaluation of the symptoms. I discussed with the patient/guardian the need to see the primary care provider for further evaluation of the symptoms. ED course: CT head negative, normal neuro exam, no acute finding in blood work, will dc home with pcp and neuro f/u. Headache improved. 10/05 11:37 Order name: CBC with Diff; Complete Time: 12:15 rn 10/05 11:37 Order name: Basic Metabolic Panel; Complete Time: 12: rn 10/05 11:37 Order name: Protime (+inr); Complete Time: 12:15 rn 10/05 11:37 Order name: Ptt, Activated; Complete Time: 12:15 rn 10/05 11:37 Order name: CT Head Brain wo Cont; Complete Time: 12:15 rn 10/05 11:37 Order name: IV Start; Complete Time: 11:51 rn 10/05 11:37 Order name: EKG; Complete Time: 11:39 rn 10/05 11:37 Order name: EKG - Nurse/Tech; Complete Time: 11:52 rn Administered Medications: 11:51 Drug: NS 0.9% 1000 ml Route: IV; Rate: 1000 ml; Site: right antecubital; ca1 13:00 Follow up: Response: No adverse reaction; IV Status: Completed infusion ca1 11:51 Drug: Demerol 25 mg {Note: RASS - 0.} Route: IVP; Site: right antecubital; ca1 12:23 Follow up: Response: No adverse reaction; Pain is decreased; RASS: Alert and Calm (0) ca1 11:56 Drug: Reglan 10 mg Route: IVP; Site: right antecubital; ca1 12:22 Follow up: Response: No adverse reaction; Nausea is decreased ca1 Disposition: 10/05/19 12:17 Discharged to Home. Impression: Headache. - Condition is Stable. - Discharge Instructions: General Headache Without Cause, Hypertension. - Medication Reconciliation Form, Thank You Letter, Antibiotic Education, Prescription Opioid Use, Work release form form. - Follow up: Private Physician; When: As needed; Reason: Recheck today's complaints, Re-evaluation by your physician. - Problem is new. - Symptoms have improved. Signatures: Dispatcher [employer] EDVane Trejo, RN RN iw Ariel Eric MD MD rn Acob, CRISTIAN Gramajo RN ca1 Corrections: (The following items were deleted from the chart) 12:16 12:15 ED course: CT head negative, normal neuro exam, no acute finding in blood work, rn will dc home with pcp and neuro f/u.. rn 13:07 12:17 10/05/2019 12:17 Discharged to Home. Impression: Headache. Condition is Stable. ca1 Forms are Medication Reconciliation Form, Thank You Letter, Antibiotic Education, Prescription Opioid Use. Follow up: Private Physician; When: As needed; Reason: Recheck today's complaints, Re-evaluation by your physician. Problem is new. Symptoms have improved. rn
[2019-10-05 13:39] VITALS: TEMP 97.9
[2019-10-05 13:41] VITALS: BP 130/87; O2SAT 99
--- NOTE | 2019-10-05 14:54 | EKG ---
Test Date: 2019-10-05 Test Time: 11:48:36 Billing Services Manager: SHANIKA MEASUREMENT RESULTS: Intervals: Rate: 94 UT: 184 QRSD: 92 QT: 330 QTc: 412 Goff: P: 35 UT: 184 QRS: -65 T: 31 INTERPRETIVE STATEMENTS: Normal sinus rhythm Possible Left atrial enlargement Left anterior fascicular block Abnormal ECG Compared to ECG 07/13/2019 19:10:02 Incomplete right bundle-branch block no longer present Electronically Signed On 10-05-19 14:53:48 REGISTERED NURSE by Jonathan Baptiste
== END 2019-10-05 13:07 | disposition home or self-care (01) ==
LOC: ER 11:07
DX: R51 Headache (principal); I10 Essential (primary) hypertension; Z86.73 Personal history of transient ischemic attack (TIA), and cerebral infarction without residual deficits
CPT/HCPCS: 96361; 93005; 85025; 80048; 36415; 85610; 85730; 70450; 96375; 96374; 99284; J2765; J2175; J7030

== ENCOUNTER 2019-11-23 20:17 | Emergency (ER) | payer BC ==
--- OUTSIDE RECORDS SUMMARY | 2019-11-23 20:20 | XMS REPORT ---
:1985 [facility] Address [address] [place] [address] Dr. Gupta [address] [place] [id number] Care Team Providers Name Role Phone Unavailable Unavailable Unavailable Problems This patient has no known problems. Allergies, Adverse Reactions, Alerts This patient has no known allergies or adverse reactions. Medications This patient has no known medications.
[2019-11-23 22:41] LABS: Absolute Lymphocytes (CBC) 1.8 K/uL (0.7-4.9); Basophils % 0.4 % (0-1.3); Hematocrit 52.8 % (39.6-49.0); MPV 8.6 fL (7.6-11.3); RBC Red Blood Cell Count 5.81 M/uL (4.33-5.43)
[2019-11-23] MEDS ORDERED: MEPERIDINE HCL 25 MG/0.5 ML ONE (22:42)
[2019-11-23] MEDS ORDERED: NA CHLORIDE 0.9% 1,000 ML ONE (22:42)
[2019-11-23 22:54] LABS: BUN Blood Urea Nitrogen 13 mg/dL (7-18); Bicarbonate 29 mmol/L (21-32); Glucose Level 86 mg/dL (74-106); Sodium Level 139 mmol/L (136-145); Troponin (Emerg Dept Use Only) < 0.02 ng/mL (0.0-0.045)
--- NOTE | 2019-11-23 23:58 | ER ---
Nurse's Notes [facility] Name: Enma Kuo Jr Age: 34 yrs Sex: Male : 1985 Arrival Date: 11/23/2019 Time: 20:20 Bed 23 Private MD: Diagnosis: Headache;Dehydration Presentation: 11/22 20:48 Chief complaint: Patient states: he has been feeling light-headed and dizzy starting bb today with a bad headache got so light-headed he broke out in a sweat and felt like he was going to pass out pt has hx of CVA in the past. Coronavirus screen: The patient has NOT traveled to [place] in the past 14 days. Proceed with normal triage procedures. Ebola Screen: No symptoms or risks identified at this time. Initial Sepsis Screen: Does the patient meet any 2 criteria? No. Patient's initial sepsis screen is negative. Does the patient have a suspected source of infection? No. Patient's initial sepsis screen is negative. Risk Assessment: Do you want to hurt yourself or someone else? Patient reports no desire to harm self or others. Onset of symptoms was November 23, 2019. 20:48 Method Of Arrival: Ambulatory bb 20:48 Acuity: SAMUEL 3 bb Triage Assessment: 20:51 General: Appears in no apparent distress. Behavior is calm, cooperative. Pain: bb Complains of pain in headache Pain currently is 8 out of 10 on a pain scale. Neuro: Level of Consciousness is awake, alert, obeys commands, Oriented to person, place, time, situation, Speech is normal. Respiratory: Respiratory effort is even, unlabored, Respiratory pattern is regular. Historical: - Allergies: 20:51 No Known Allergies; bb - Home Meds: 20:51 losartan 100 mg Oral tab 1 tab once daily [Active]; aspirin 81 mg Oral chew 1 tab once bb daily [Active]; Topamax Oral [Active]; - PMHx: 20:51 CVA; Gall Stones; Hypertension; bb - PSHx: 20:51 Cholecystectomy; bb - Immunization history:: Adult Immunizations up to date. - Social history:: Smoking status: Patient reports the use of cigarette tobacco products, smokes one-half pack cigarettes per day, Patient uses alcohol, occasionally. Patient/guardian denies using street drugs. - Family history:: not pertinent. - Hospitalizations: : No recent hospitalization is reported. Screenin:52 VAN Screening: Arm Drift: Patient shows no arm weakness. Patient is VAN negative. bb 21:30 Abuse screen: Denies threats or abuse. Nutritional screening: No deficits noted. vc Tuberculosis screening: No symptoms or risk factors identified. Fall Risk None identified. Assessment: 21:30 General: Appears in no apparent distress. uncomfortable, ill, Behavior is calm, vc cooperative, appropriate for age. Pain: Denies pain. Neuro: Level of Consciousness is awake, alert, obeys commands. Cardiovascular: Capillary refill < 3 seconds Patient's skin is warm and dry. Cardiovascular: Reports diaphoresis, lightheadedness. Respiratory: Airway is patent Respiratory effort is even, unlabored, Respiratory pattern is regular, symmetrical. GI: No deficits noted. : No deficits noted. Derm: Skin temperature is warm Reports. Musculoskeletal: Circulation, motion, and sensation intact. Range of motion: intact in all extremities. 22:30 Reassessment: Patient and/or family updated on plan of care and expected duration. Pain vc level reassessed. Patient is alert, oriented x 3, equal unlabored respirations, skin warm/dry/pink. 23:30 Reassessment: Patient and/or family updated on plan of care and expected duration. Pain vc level reassessed. Patient is alert, oriented x 3, equal unlabored respirations, skin warm/dry/pink. Patient states feeling better. Vital Signs: 20:48 BP 130 / 93; Pulse 85; Resp 16 S; Temp 98.4(O); Pulse Ox 98% on R/A; Weight 86.18 kg bb (R); Height 5 ft. 6 in. (167.64 cm) (R); Pain 8/10; 23:00 BP 158 / 98; Pulse 88; Resp 15; Pulse Ox 98% on R/A; vc 23:30 BP 135 / 96; Pulse 88; Resp 16; Pulse Ox 98% on R/A; vc 20:48 Body Mass Index 30.67 (86.18 kg, 167.64 cm) ED Course: 20:20 Patient arrived in ED. jg7 20:50 Triage completed. bb 20:51 Arm band placed on Patient placed in waiting room, Patient notified of wait time. bb Family accompanied patient. 21:03 Dayanara Cm, RN is Primary Nurse. vc 21:30 Patient has correct armband on for positive identification. Bed in low position. Call vc light in reach. 22:02 Ariel Eric MD is Attending Physician. rn 22:03 CT Head Brain wo Cont In Process Unspecified. EDMS 23:41 Report given to Kaylee Mike RN. vc 23:57 Yordy Logan MD is Referral Physician. rn Administered Medications: 22:40 Drug: Demerol 25 mg Route: IVP; Site: right antecubital; vc 23:30 Follow up: Response: No adverse reaction; Pain is decreased vc 22:42 Drug: NS 0.9% 1000 ml Route: IV; Rate: 1000 ml; Site: right antecubital; vc Outcome: 23:57 Discharge ordered by . rn 11/23 00:46 Patient left the ED. mw2 Signatures: Dispatcher [employer] EDMS Beckie Johnson RN RN Ariel Eric MD MD rn [place], MyKena 2 Irma Stroud7 Dayanara Cm RN RN vc
--- NOTE | 2019-11-23 23:58 | EDPHYS ---
Physician Documentation [facility] Name: Enma Kuo Jr Age: 34 yrs Sex: Male : 1985 Arrival Date: 11/23/2019 Time: 20:20 Bed 23 Private MD: ED Physician Ariel Eric HPI: 11/22 23:52 This 34 yrs old Male presents to ER via Ambulatory with complaints of rn Dizziness, SWEATS/LIGHTHEADED. 23:52 The patient presents with dizziness. Onset: The symptoms/episode began/occurred today. rn Context: occurred at work, occurred while the patient was at rest, just prior to the episode the patient experienced no apparent symptoms. Modifying factors: The symptoms are alleviated by nothing, the symptoms are aggravated by nothing. Severity of symptoms: At their worst the symptoms were moderate in the emergency department the symptoms have improved. The patient has experienced similar episodes in the past. Reports lightheaded and dizzy, began at work, no head trauma, has hx of headaches, and CVA. No fever. + broke out in sweat. No flu like symptoms. No cough/sob/chest pain. No new neurological symptoms, now has mild headache but feels ok otherwise. Feels better. . Historical: - Allergies: 20:51 No Known Allergies; bb - Home Meds: 20:51 losartan 100 mg Oral tab 1 tab once daily [Active]; aspirin 81 mg Oral chew 1 tab once bb daily [Active]; Topamax Oral [Active]; - PMHx: 20:51 CVA; Gall Stones; Hypertension; bb - PSHx: 20:51 Cholecystectomy; bb - Immunization history:: Adult Immunizations up to date. - Social history:: Smoking status: Patient reports the use of cigarette tobacco products, smokes one-half pack cigarettes per day, Patient uses alcohol, occasionally. Patient/guardian denies using street drugs. - Family history:: not pertinent. - Hospitalizations: : No recent hospitalization is reported. ROS: 23:52 Constitutional: Negative for fever and weight loss, Eyes: Negative for injury, pain, rn redness, and discharge, ENT: Negative for injury, pain, and discharge, Neck: Negative for injury, pain, and swelling, Cardiovascular: Negative for chest pain, palpitations, and edema, Respiratory: Negative for shortness of breath, cough, wheezing, and pleuritic chest pain, Abdomen/GI: Negative for abdominal pain, nausea, vomiting, diarrhea, and constipation, MS/Extremity: Negative for injury and deformity, Skin: Negative for injury, rash, and discoloration, Neuro: Negative for weakness, numbness, tingling, and seizure. Exam: 23:52 Constitutional: This is a well developed, well nourished patient who is awake, alert, rn and in no acute distress. Head/Face: Normocephalic, atraumatic. Eyes: Pupils equal round and reactive to light, extra-ocular motions intact. Lids and lashes normal. Conjunctiva and sclera are non-icteric and not injected. Cornea within normal limits. Periorbital areas with no swelling, redness, or edema. ENT: MMM Neck: Trachea midline, no thyromegaly or masses palpated, and no cervical lymphadenopathy. Supple, full range of motion without nuchal rigidity, or vertebral point tenderness. No Meningismus. Cardiovascular: Regular rate and rhythm. No pulse deficits. Respiratory: No increased work of breathing, no retractions or nasal flaring. Abdomen/GI: soft, non-tender MS/ Extremity: Pulses equal, no cyanosis. Neurovascular intact. Full, normal range of motion. Equal circumference. Neuro: Awake and alert, GCS 15, oriented to person, place, time, and situation. Cranial nerves II-XII grossly intact. Motor strength 5/5 in all extremities. Sensory grossly intact. Cerebellar exam normal. Vital Signs: 20:48 BP 130 / 93; Pulse 85; Resp 16 S; Temp 98.4(O); Pulse Ox 98% on R/A; Weight 86.18 kg bb (R); Height 5 ft. 6 in. (167.64 cm) (R); Pain 8/10; 23:00 BP 158 / 98; Pulse 88; Resp 15; Pulse Ox 98% on R/A; vc 23:30 BP 135 / 96; Pulse 88; Resp 16; Pulse Ox 98% on R/A; vc 20:48 Body Mass Index 30.67 (86.18 kg, 167.64 cm) bb MDM: 22:02 Patient medically screened. rn 23:52 Differential diagnosis: cardiac arrhythmia, CVA, generalized weakness, rn hyperventilation, idiopathic dizziness, near-syncope, vertigo. Data reviewed: vital signs, nurses notes, lab test result(s), EKG, radiologic studies, CT scan, and as a result, I will discharge patient. Counseling: I had a detailed discussion with the patient and/or guardian regarding: the historical points, exam findings, and any diagnostic results supporting the discharge/admit diagnosis, lab results, radiology results, the need for outpatient follow up, to return to the emergency department if symptoms worsen or persist or if there are any questions or concerns that arise at home. Special discussion: I discussed with the patient/guardian in detail that at this point there is no indication for admission to the hospital. It is understood, however, that if the symptoms persist or worsen the patient needs to return immediately for re-evaluation. ED course: Pt feels better, normal vitals, neg ct head. Has f/u with Dr. Logan. No evidence of acute pathology. . 11/22 22:11 Order name: CBC with Diff; Complete Time: 23:56 rn 11/22 22:11 Order name: Basic Metabolic Panel; Complete Time: 23:56 rn 11/22 21:38 Order name: CT Head Brain wo Cont rn 11/22 22:11 Order name: Troponin (emerg Dept Use Only); Complete Time: 23:56 rn 11/22 22:11 Order name: IV Start; Complete Time: 22:56 rn 11/22 22:11 Order name: EKG; Complete Time: 22:11 rn 11/22 22:11 Order name: EKG - Nurse/Tech; Complete Time: 22:56 rn Administered Medications: 22:40 Drug: Demerol 25 mg Route: IVP; Site: right antecubital; vc 23:30 Follow up: Response: No adverse reaction; Pain is decreased vc 22:42 Drug: NS 0.9% 1000 ml Route: IV; Rate: 1000 ml; Site: right antecubital; vc Disposition: 11/23/19 23:57 Discharged to Home. Impression: Headache, Dehydration. - Condition is Stable. - Discharge Instructions: Dehydration, Adult, Migraine Headache, Near-Syncope. - Medication Reconciliation Form, Thank You Letter, Antibiotic Education, Prescription Opioid Use, Work release form, Family Work Release form. - Follow up: Yordy Logan MD; When: As needed; Reason: Recheck today's complaints, Re-evaluation by your physician. - Problem is new. - Symptoms have improved. Signatures: Dispatcher [employer] Beckie Varner RN RN bb Ariel Eric MD MD rn [place], MyKena mw2 Dayanara Cm RN RN Corrections: (The following items were deleted from the chart) 11/23 00:46 11/22 23:57 11/23/2019 23:57 Discharged to Home. Impression: Headache; Dehydration. mw2 Condition is Stable. Forms are Medication Reconciliation Form, Thank You Letter, Antibiotic Education, Prescription Opioid Use. Follow up: Yordy Logan; When: As needed; Reason: Recheck today's complaints, Re-evaluation by your physician. Problem is new. Symptoms have improved. rn
[2019-11-24 02:48] VITALS: TEMP 98.4; O2SAT 98
[2019-11-24 02:51] VITALS: BP 135/96
--- NOTE | 2019-11-24 05:51 | EKG ---
Test Date: 2019-11-23 Test Time: 22:43:06 Manager File: ZENOBIA MEASUREMENT RESULTS: Intervals: Rate: 83 VA: 180 QRSD: 88 QT: 352 QTc: 413 [place]: P: 18 VA: 180 QRS: -69 T: 7 INTERPRETIVE STATEMENTS: Normal sinus rhythm Possible Left atrial enlargement Left axis deviation Pulmonary disease pattern Abnormal ECG Compared to ECG 10/05/2019 11:48:36 Left-axis deviation now present Left anterior fascicular block no longer present Electronically Signed On 11-24-19 05:51:19 VP OF [employer] by Jonathan Baptiste
--- NOTE | 2019-11-24 13:08 | RAD REPORT ---
EXAM DESCRIPTION: CT - Head Brain Wo Cont - 11/24/2019 5:29 am CLINICAL HISTORY: 34 years Male, HEADACHE TECHNIQUE: 5 mm axial images were obtained along with 3 mm reformatted coronal and sagittal images. This exam was performed according to our departmental dose-optimization program, which includes autom ated exposure control, adjustment of the mA and/or kV according to patient size and/or use of iterati ve reconstruction technique. COMPARISON: 10/05/2019. FINDINGS: No acute abnormal extracerebral fluid collections are demonstrated. The cortical sulci, ventricles, and cisterns are within normal limits. There are no areas of altered attenuation identified to suggest acute hemorrhage, infarction, or mass lesion. The visualized portions of the paranasal sinuses and mastoid air cells are clear. IMPRESSION: 1. Normal study. Electronically signed by: David Chandler MD 11/23/2019 10:27 PM PROSTHODONTIST/EDUCATOR Due to temporary technical issues with the PACS/Fluency reporting system, reports are being signed by the in house radiologist as a courtesy to ensure prompt reporting. The interpreting radiologist is f ully responsible for the content of the report.
== END 2019-11-24 00:46 | disposition home or self-care (01) ==
LOC: ER 20:17
DX: E86.0 Dehydration (principal); R51 Headache; I10 Essential (primary) hypertension; F17.210 Nicotine dependence, cigarettes, uncomplicated; Z79.82 Long term (current) use of aspirin
CPT/HCPCS: 93005; 85025; 80048; 36415; 84484; 70450; 96374; 99283; J2175; J7030

== ENCOUNTER 2020-02-18 22:05 | Emergency (ER) | payer BC ==
--- OUTSIDE RECORDS SUMMARY | 2020-02-18 22:07 | XMS REPORT ---
:1985 Author Organization [facility] t Address [address] [place] [address] Dr. Gupta [address] [place] [id number] Care Team Providers Name Role Phone Unavailable Unavailable Unavailable Problems This patient has no known problems. Allergies, Adverse Reactions, Alerts This patient has no known allergies or adverse reactions. Medications This patient has no known medications. Procedures This patient has no known procedures. Results This patient has no known results.
[2020-02-18] MEDS ORDERED: ACETAMINOPHEN 500 MG TAB ONE (22:50)
[2020-02-18] MEDS ORDERED: METOCLOPRAMIDE 10 MG/2mL INJ ONE (22:50)
[2020-02-18] MEDS ORDERED: DIPHENHYDRAMINE 50 MG/ML VIAL ONE (22:50)
[2020-02-18 22:54] LABS: Absolute Lymphocytes (CBC) 1.5 K/uL (0.7-4.9); Basophils % 0.2 % (0-1.3); Hematocrit 54.6 % (39.6-49.0); Lymphocytes % 16.1 % (15.3-44.8); MPV 8.7 fL (7.6-11.3); RBC Red Blood Cell Count 5.97 M/uL (4.33-5.43)
[2020-02-18 22:55] LABS: Protime INR 0.97
[2020-02-18 23:13] LABS: ALT/SGPT 63 U/L (12-78); AST/SGOT 32 U/L (15-37); Albumin 4.1 g/dL (3.4-5.0); Alkaline Phosphatase 68 U/L (45-117); BUN Blood Urea Nitrogen 12 mg/dL (7-18); Bicarbonate 25 mmol/L (21-32); Bilirubin Direct 0.2 mg/dL (0-0.2); Bilirubin Total 0.8 mg/dL (0.2-1.0); Glucose Level 92 mg/dL (74-106); Magnesium 2.1 mg/dL (1.8-2.4); Phosphorus 2.4 mg/dL (2.5-4.9); Potassium 3.9 mmol/L (3.5-5.1); Sodium Level 138 mmol/L (136-145); Troponin (Emerg Dept Use Only) < 0.02 ng/mL (0.0-0.045)
[2020-02-18] MEDS ORDERED: NA CHLORIDE 0.9% 1,000 ML ONE (23:30)
[2020-02-18 23:48] LABS: Barbiturates NEGATIVE (NEGATIVE); Benzodiazepines NEGATIVE (NEGATIVE); Cocaine NEGATIVE (NEGATIVE); METHAMPHETAM NEGATIVE (NEGATIVE); Methadone NEGATIVE (NEGATIVE); Opiates NEGATIVE (NEGATIVE); Phencyclidine NEGATIVE (NEGATIVE); THC Cannibis NEGATIVE (NEGATIVE)
[2020-02-18 23:50] LABS: Urine Blood NEGATIVE (NEG); Urine Glucose NEGATIVE (NEG); Urine Protein NEGATIVE (NEG); Urine Specific Gravity >1.030 (1.005-1.030)
[2020-02-19] MEDS ORDERED: ASPIRIN 81 MG CHEWABLE TABLET ONE (00:24)
[2020-02-19 00:41] VITALS: TEMP 98.6
[2020-02-19 00:44] VITALS: BP 105/61; O2SAT 98
--- NOTE | 2020-02-19 07:36 | RAD REPORT ---
EXAM DESCRIPTION: RAD - Chest Single View - 02/18/2020 10:55 pm CLINICAL HISTORY: MALAISE, shortness of breath COMPARISON: Portable February 18, 2020 TECHNIQUE: AP portable chest image was obtained 02/18/2020 10:55 pm . FINDINGS: No focal lung parenchymal process. Interstitial pattern matches comparison. Heart and vasc ulature are normal. No measurable pleural effusion and no pneumothorax. No acute bony abnormality see n. No acute aortic findings suspected. IMPRESSION: No acute cardiopulmonary process. No significant change from comparison.
--- NOTE | 2020-02-19 16:39 | RAD REPORT ---
EXAM DESCRIPTION: CT - Head Brain Wo Cont - 02/19/2020 5:10 am CLINICAL HISTORY: 35 years Male HEADACHE TECHNIQUE: Contiguous axial CT images obtained through the brain without IV contrast. Coronal and sa gittal reformats also provided. This CT exam was performed according to our departmental dose-optimization program, which includes on e or more of the following dose reduction techniques: automated exposure control, adjustment of the m A and/or kV according to patient size, and/or use of iterative reconstruction technique. COMPARISON: No prior exams provided for comparison. FINDINGS: There is no intracranial hemorrhage, extra-axial collection, or acute transcortical infarction. The v entricles are normal in size and contour without mass-effect or midline shift. Osseous structures are normal. The paranasal sinuses and mastoid air cells are clear. IMPRESSION: No acute intracranial abnormalities. Electronically signed by: Megha Khan MD 02/18/2020 11:22 PM CDT Due to temporary technical issues with the PACS/Fluency reporting system, reports are being signed by the in house radiologist without review asa courtesy to ensure prompt reporting. The interpreting ra diologist is fully responsible for the content of the report.
--- NOTE | 2020-02-20 13:00 | EKG ---
Test Date: 2020-02-18 Test Time: 22:41:44 Certified Cytotechnologist: ANIRUDH MEASUREMENT RESULTS: Intervals: Rate: 96 SD: 166 QRSD: 86 QT: 324 QTc: 409 Embarrass: P: 18 SD: 166 QRS: -70 T: 18 INTERPRETIVE STATEMENTS: Normal sinus rhythm Possible Left atrial enlargement Pulmonary disease pattern Left anterior fascicular block Abnormal ECG Electronically Signed On 02-20-20 13:00:10 CDT by Wayne Cummings
--- NOTE | 2020-02-22 16:37 | ER ---
Nurse's Notes [facility] Name: Enma Kuo Jr Age: 35 yrs Sex: Male : 1985 Arrival Date: 02/18/2020 Time: 22:08 Bed 8 Private MD: Diagnosis: Headache;Parasthesias Presentation: 02/17 22:17 Chief complaint: Patient states: Left sided MARCH all day today. He noticed the toes on ll1 his right foot felt numb at 7pm. States the numbness is slowly travelling up his right leg into knee area now. Gait steady, no slurred speech. Smile/grasps equal. States he had a TIA that he came here for 4 to 5 months ago. Coronavirus screen: Proceed with normal triage. Patient denies a cough. Patient denies shortness of breath or difficulty breathing. Patient denies measured and/or subjective temperature greater than 100.4F prior to today's visit. Patient denies travel on a cruise ship or to a country the [facility] currently lists as an affected area. Patient denies contact with known and/or suspected case of COVID-19. Ebola Screen: Patient denies travel to an Ebola-affected area in the 21 days before illness onset. Initial Sepsis Screen: Does the patient meet any 2 criteria? HR > 90 bpm. No. Patient's initial sepsis screen is negative. Does the patient have a suspected source of infection? No. Patient's initial sepsis screen is negative. Risk Assessment: Do you want to hurt yourself or someone else? Patient reports no desire to harm self or others. Onset of symptoms was February 18, 2020. 22:17 Method Of Arrival: Ambulatory ll1 22:17 Acuity: SAMUEL 3 ll1 Historical: - Allergies: 22:20 No Known Allergies; ll1 - PMHx: 22:20 Hypertension; Gall Stones; CVA; TIA; ll1 - PSHx: 22:20 Cholecystectomy; ll1 - Immunization history:: Adult Immunizations up to date. - Social history:: Smoking status: Patient reports the use of cigarette tobacco products, smokes one-half pack cigarettes per day, Patient uses alcohol, weekly. admits to "couple of beers" a day. Patient/guardian denies using street drugs. Screenin:31 Abuse screen: Denies threats or abuse. Nutritional screening: No deficits noted. jd3 Tuberculosis screening: No symptoms or risk factors identified. Fall Risk Ambulatory Aid- None/Bed Rest/Nurse Assist (0 pts). Gait- Normal/Bed Rest/Wheelchair (0 pts) Mental Status- Oriented to own ability (0 pts). Total Saul Fall Scale indicates No Risk (0-24 pts). Assessment: 22:30 General: Appears in no apparent distress. uncomfortable, Behavior is calm, cooperative, jd3 appropriate for age. Pain: Complains of pain in head Quality of pain is described as aching, pressure. Neuro: Level of Consciousness is awake, alert, obeys commands, Oriented to person, place, time, situation, Reservations Agent are equal bilaterally Moves all extremities. Full function Gait is steady, Speech is normal, Facial symmetry appears normal, Pupils are PERRLA, Intact Reports numbness in right leg Denies weakness blurred vision paresthesias photophobia diplopia. Cardiovascular: Denies chest pain, Capillary refill < 3 seconds Patient's skin is warm and dry. Respiratory: Airway is patent Respiratory effort is even, unlabored, Respiratory pattern is regular, symmetrical, Denies cough, shortness of breath. GI: No signs and/or symptoms were reported involving the gastrointestinal system. Patient currently denies abdominal pain, diarrhea, nausea, vomiting. : No signs and/or symptoms were reported regarding the genitourinary system. EENT: No signs and/or symptoms were reported regarding the EENT system. Derm: Skin is intact, Skin is dry, Skin is normal, Skin temperature is warm. Musculoskeletal: Circulation, motion, and sensation intact. Range of motion: intact in all extremities. 23:26 Reassessment: Patient appears in no apparent distress at this time. Patient and/or jd3 family updated on plan of care and expected duration. Pain level reassessed. Patient is alert, oriented x 3, equal unlabored respirations, skin warm/dry/pink. pt reports relief from leg numbness Patient states feeling better. 02/18 00:11 Reassessment: Patient appears in no apparent distress at this time. Patient and/or jd3 family updated on plan of care and expected duration. Pain level reassessed. Patient is alert, oriented x 3, equal unlabored respirations, skin warm/dry/pink. provider at bedside discussing plan of care Patient states feeling better. Vital Signs: 02/17 22:17 BP 149 / 104; Pulse 99; Resp 18; Temp 98.6; Pulse Ox 98% ; ll1 23:26 BP 116 / 78; Pulse 80; Resp 17 S; Pulse Ox 95% on R/A; jd3 02/18 00:11 BP 105 / 61; Pulse 74; Resp 17 S; Pulse Ox 98% on R/A; jd3 Puja Coma Score: 00:15 Eye Response: spontaneous(4). Verbal Response: oriented(5). Motor Response: obeys [facility] commands(6). Total: 15. NIH Stroke Scale Scores: 02/17 22:32 NIHSS Score: 1 jd3 23: NIHSS Score: 0 jd3 ED Course: 22:08 Patient arrived in ED. cl3 22:14 Aamir Helms RN is Primary Nurse. jd3 22:14 Demarco Zavala MD is Attending Physician. mh7 22:19 Triage completed. ll1 22:20 Arm band placed on Patient placed in an exam room, on a stretcher, spoke with Dr. lissette Zavala regarding symptoms, states he does not want a stroke alert called. Charge Nurse Karol notified. 22:31 Patient has correct armband on for positive identification. Bed in low position. Call j light in reach. Side rails up X 1. Pulse ox on. NIBP on. 22:43 Inserted saline lock: 20 gauge in right forearm, using aseptic technique. Blood rr5 collected. 22:55 Chest Single View XRAY In Process Unspecified. EDMS 23:04 CT Head Brain wo Cont In Process Unspecified. EDMS 02/18 00:21 Naina Jacobs MD is Referral Physician. 7 00:21 Yordy Logan MD is Referral Physician. 7 00:30 No provider procedures requiring assistance completed. IV discontinued, intact, jd3 bleeding controlled, No redness/swelling at site. Pressure dressing applied. Administered Medications: 02/17 22:50 Drug: Tylenol 1000 mg Route: PO; jd3 23:26 Follow up: Response: No adverse reaction jd3 22:51 Drug: Benadryl 50 mg Route: IVP; Site: right forearm; jd3 23:26 Follow up: Response: No adverse reaction jd3 22:51 Drug: Reglan 10 mg Route: IVP; Site: right forearm; jd3 23:26 Follow up: Response: No adverse reaction jd3 23: Drug: NS 0.9% 1000 ml Route: IV; Rate: 1000 ml; Site: right forearm; jd3 02/18 00:30 Follow up: Response: No adverse reaction; IV Status: Completed infusion; IV Intake: jd3 1000ml 00:17 Drug: Aspirin Chewable Tablet 81 mg Route: PO; jd3 00:30 Follow up: Response: No adverse reaction jd3 Intake: 00:30 IV: 1000ml; Total: 1000ml. jd3 Outcome: 00:22 Discharge ordered by . mh7 00:30 Discharged to home ambulatory, with family. jd3 00:30 Condition: stable 00:30 Discharge instructions given to patient, Instructed on discharge instructions, follow up and referral plans. Demonstrated understanding of instructions, follow-up care. 00:33 Patient left the ED. j NIH Stroke Scale - NIH Stroke Score Date: 02/18/2020 Time: 22:32 Total Score = 1 1a. Level of Consciousness (LOC) - 0(Alert) 1b. Level of Consciousness (LOC) (Year \\T\\ Age) - 0(Both) 1c. LOC Commands (Open \\T\\ Closes Eyes/Loom Mechanic) - 0(Both) 2. Best Gaze (Lateral Gaze Paresis) - 0(Normal) 3. Visual Field Loss - 0(No visual loss) 4. Facial Palsy - 0(Normal) 5a. Left Arm: Motor (10-second hold) - 0(No drift) 5b. Right Arm: Motor (10-second hold) - 0(No drift) 6a. Left Leg: Motor (5-second hold - always test supine) - 0(No drift) 6b. Right Leg: Motor (5-second hold - always test supine) - 0(No drift) 7. Limb Ataxia (finger/nose \\T\\ heel/hernandez - test with eyes open) - 0(Absent) 8. Sensory Loss (pinprick arms/legs/face) - 1(Mild to moderate loss) 9. Best Language: Aphasia (description/naming/reading) - 0(No aphasia) 10. Dysarthria (speech clarity - read or repeat words) - 0(Normal) 11. Extinction and Inattention (visual/tactile/auditory/spatial/personal) - 0(No abnormality) Initials: j NIH Stroke Scale - NIH Stroke Score Date: 02/18/2020 Time: 23:26 Total Score = 0 1a. Level of Consciousness (LOC) - 0(Alert) 1b. Level of Consciousness (LOC) (Year \\T\\ Age) - 0(Both) 1c. LOC Commands (Open \\T\\ Closes Eyes/Loom Mechanic) - 0(Both) 2. Best Gaze (Lateral Gaze Paresis) - 0(Normal) 3. Visual Field Loss - 0(No visual loss) 4. Facial Palsy - 0(Normal) 5a. Left Arm: Motor (10-second hold) - 0(No drift) 5b. Right Arm: Motor (10-second hold) - 0(No drift) 6a. Left Leg: Motor (5-second hold - always test supine) - 0(No drift) 6b. Right Leg: Motor (5-second hold - always test supine) - 0(No drift) 7. Limb Ataxia (finger/nose \\T\\ heel/hernandez - test with eyes open) - 0(Absent) 8. Sensory Loss (pinprick arms/legs/face) - 0(Normal) 9. Best Language: Aphasia (description/naming/reading) - 0(No aphasia) 10. Dysarthria (speech clarity - read or repeat words) - 0(Normal) 11. Extinction and Inattention (visual/tactile/auditory/spatial/personal) - 0(No abnormality) Initials: andre Signatures: Dispatcher [employer] EDMS Aamir Helms RN RN jd3 Dung Sutherland RN RN rr5 Garo Hyde cl3 Chago Hyde RN RN ll1 Demarco Zavala MD MD mh7 Corrections: (The following items were deleted from the chart) 02/17 22:57 22:17 Chief complaint: Patient states: Left sided MARCH all day today. He noticed ll1 the toes on his right foot felt numb at 7pm. States the numbness is slowly travelling up his right leg into knee area now. Gait steady, no slurred speech. Smile/grasps equal. States he had a TIA that he came here for 4 to 5 moths ago. ll1 02/18 00:12 02/17 23:26 Reassessment: Patient appears in no apparent distress at this time. andre Patient and/or family updated on plan of care and expected duration. Pain level reassessed. Patient is alert, oriented x 3, equal unlabored respirations, skin warm/dry/pink. Patient states feeling better. jd3
--- NOTE | 2020-02-22 16:37 | EDPHYS ---
Physician Documentation [facility] Name: Enma Kuo Jr Age: 35 yrs Sex: Male : 1985 Arrival Date: 02/18/2020 Time: 22:08 Bed 8 Private MD: ED Physician Demarco Zavala HPI: 02/17 22:38 This 35 yrs old Male presents to ER via Ambulatory with complaints of mh7 Headache, right leg numbness. 22:39 The patient complains of pain to the left occipital area and right occipital area. The mh7 patient describes the headache as intermittent, throbbing, waxing and waning. Onset: The symptoms/episode began/occurred this morning. Associated signs and symptoms: Pertinent positives: right leg numbness, Pertinent negatives: altered mental status, dizziness, fever, malaise, nausea, neck stiffness, Photophobia rash, sinus congestion, sinus tenderness, vision changes, vision loss, vomiting, weakness, vertigo. Severity of symptoms: At its worst the pain was moderate, earlier today, in the emergency department the pain is unchanged. Headache History: The patient has had previous headaches and this one is similar to previous episodes. The symptoms are alleviated by nothing. the symptoms are aggravated by nothing. The patient has experienced similar episodes in the past, several times. Patient states that he has had a headache since this morning. He states that he started having numbness in his right leg since this evening approximately around 7 PM. He denies any neck pain, fever, nausea, vomiting, visual disturbances, dizziness, chest pain, or weakness. He has not taken any medication for his pain.. Historical: - Allergies: 22:20 No Known Allergies; ll1 - PMHx: 22:20 Hypertension; Gall Stones; CVA; TIA; ll1 - PSHx: 22:20 Cholecystectomy; ll1 - Immunization history:: Adult Immunizations up to date. - Social history:: Smoking status: Patient reports the use of cigarette tobacco products, smokes one-half pack cigarettes per day, Patient uses alcohol, weekly. admits to "couple of beers" a day. Patient/guardian denies using street drugs. ROS: 22:39 Constitutional: Negative for fever, chills, and weight loss, Eyes: Negative for injury, mh7 pain, redness, and discharge, ENT: Negative for injury, pain, and discharge, Neck: Negative for injury, pain, and swelling, Cardiovascular: Negative for chest pain, palpitations, and edema, Respiratory: Negative for shortness of breath, cough, wheezing, and pleuritic chest pain, Abdomen/GI: Negative for abdominal pain, nausea, vomiting, diarrhea, and constipation, Back: Negative for injury and pain, : Negative for injury, bleeding, discharge, and swelling, Skin: Negative for injury, rash, and discoloration, Psych: Negative for depression, anxiety, suicide ideation, homicidal ideation, and hallucinations, Allergy/Immunology: Negative for hives, rash, and allergies, Endocrine: Negative for neck swelling, polydipsia, polyuria, polyphagia, and marked weight changes, Hematologic/Lymphatic: Negative for swollen nodes, abnormal bleeding, and unusual bruising. Exam: 22:39 Constitutional: This is a well developed, well nourished patient who is awake, alert, mh7 and in no acute distress. Head/Face: Normocephalic, atraumatic. Eyes: Pupils equal round and reactive to light, extra-ocular motions intact. Lids and lashes normal. Conjunctiva and sclera are non-icteric and not injected. Cornea within normal limits. Periorbital areas with no swelling, redness, or edema. ENT: Nares patent. No nasal discharge, no septal abnormalities noted. Tympanic membranes are normal and external auditory canals are clear. Oropharynx with no redness, swelling, or masses, exudates, or evidence of obstruction, uvula midline. Mucous membranes moist. Neck: Trachea midline, no thyromegaly or masses palpated, and no cervical lymphadenopathy. Supple, full range of motion without nuchal rigidity, or vertebral point tenderness. No Meningismus. Chest/axilla: Normal chest wall appearance and motion. Nontender with no deformity. No lesions are appreciated. Cardiovascular: Regular rate and rhythm with a normal S1 and S2. No gallops, murmurs, or rubs. Normal PMI, no JVD. No pulse deficits. Respiratory: Lungs have equal breath sounds bilaterally, clear to auscultation and percussion. No rales, rhonchi or wheezes noted. No increased work of breathing, no retractions or nasal flaring. Abdomen/GI: Soft, non-tender, with normal bowel sounds. No distension or tympany. No guarding or rebound. No evidence of tenderness throughout. Back: No spinal tenderness. No costovertebral tenderness. Full range of motion. Skin: Warm, dry with normal turgor. Normal color with no rashes, no lesions, and no evidence of cellulitis. MS/ Extremity: Pulses equal, no cyanosis. Neurovascular intact. Full, normal range of motion. Neuro: Awake and alert, GCS 15, oriented to person, place, time, and situation. Cranial nerves II-XII grossly intact. Motor strength 5/5 in all extremities. Sensory grossly intact. Cerebellar exam normal. Normal gait. Psych: Awake, alert, with orientation to person, place and time. Behavior, mood, and affect are within normal limits. 22:58 ECG was reviewed by the Attending Physician. [facility] Vital Signs: 22:17 BP 149 / 104; Pulse 99; Resp 18; Temp 98.6; Pulse Ox 98% ; ll1 23:26 BP 116 / 78; Pulse 80; Resp 17 S; Pulse Ox 95% on R/A; jd3 02/18 00:11 BP 105 / 61; Pulse 74; Resp 17 S; Pulse Ox 98% on R/A; jd3 NIH Stroke Scale Scores: 02/17 22:32 NIHSS Score: 1 jd3 23:26 NIHSS Score: 0 jd3 Puja Coma Score: 02/18 00:15 Eye Response: spontaneous(4). Verbal Response: oriented(5). Motor Response: obeys [facility] commands(6). Total: 15. MDM: 02/17 22:29 Patient medically screened. [facility] 02/18 00:15 Differential diagnosis: cluster headache, cerebral vascular accident, hypertensive 7 headache, hypoglycemia, hyponatremia, intracerebral hemorrhage, migraine, tension headache, vasomotor headache, Parasthesias. Data reviewed: vital signs, nurses notes, old medical records, lab test result(s), cardiac enzymes, CBC, electrolytes, EKG, radiologic studies, CT scan, plain films. Data interpreted: property assessment monitor: rate is 74 beats/min, rhythm is normal sinus rhythm, regular, Interpretation: normal rate, normal rhythm, Pulse oximetry: on room air is 98 %. Interpretation: normal. Counseling: I had a detailed discussion with the patient and/or guardian regarding: the historical points, exam findings, and any diagnostic results supporting the discharge/admit diagnosis, the presence of at least one elevated blood pressure reading (>120/80) during this emergency department visit, lab results, radiology results, to return to the emergency department if symptoms worsen or persist or if there are any questions or concerns that arise at home, smoking cessation. Response to treatment: the patient's symptoms have resolved after treatment, the patient's blood pressure is in an acceptable range, mental status has returned to baseline, the patient no longer shows bradycardia, the patient is not short of breath, the patient is not tachycardic, the patient's pain is gone, the patient's temperature has normalized. 01:32 Refusal of service: The patient/guardian displays adequate decision making capability [facility] and despite a detailed discussion of alternatives, benefits, risks, and consequences refuses: Admission to the hospital for further work-up and treatment. ED course: Feels better, NAD, VSS, NVI, no focal neurological deficits. Denies any headache, numbness/tingling, or other complaints. Discussed all test results and findings with the patient and answered all of his questions. Offered possible admission for further care and evaluation but patient declined. He requested to be discharged from the ED. He will follow up with his doctor but agreed to return to the ED if worsening of symptoms or other concerns.. 02/17 22:33 Order name: CBC with Diff; Complete Time: 23:11 [facility] 02/17 22:33 Order name: Basic Metabolic Panel; Complete Time: 23:20 [facility] 02/17 22:33 Order name: Protime (+inr); Complete Time: 23:11 [facility] 02/17 22:33 Order name: Ptt, Activated; Complete Time: 23:11 [facility] 02/17 22:33 Order name: Troponin (emerg Dept Use Only); Complete Time: 23:20 [facility] 02/17 22:33 Order name: Alcohol Level; Complete Time: 23:20 [facility] 02/17 22:33 Order name: LFT's; Complete Time: 23:20 [facility] 02/17 22:33 Order name: Magnesium; Complete Time: 23:20 [facility] 02/17 22:33 Order name: Phosphorus; Complete Time: 23:20 [facility] 02/17 22:33 Order name: Chest Single View XRAY [facility] 02/17 22:33 Order name: CT Head Brain wo Cont 02/17 22:48 Order name: UDS; Complete Time: 23:50 7 02/17 23:29 Order name: Urine Dipstick--Ancillary (enter results); Complete Time: 23:50 mt 02/17 22:33 Order name: Urine Dipstick-Ancillary (obtain specimen); Complete Time: 23:22 7 02/17 22:33 Order name: Saline Lock; Complete Time: 22:41 7 02/17 22:33 Order name: EKG - Nurse/Tech; Complete Time: 22:41 mh7 EC/28 22:58 Rate is 96 beats/min. Rhythm is regular. QRS [place] is Normal. LA interval is normal. QRS mh7 interval is normal. QT interval is normal. No Q waves. T waves are Normal. Clinical impression: Abnormal EKG without significant change. Administered Medications: 22:50 Drug: Tylenol 1000 mg Route: PO; j 23:26 Follow up: Response: No adverse reaction [facility] 22:51 Drug: Benadryl 50 mg Route: IVP; Site: right forearm; jd3 23:26 Follow up: Response: No adverse reaction [facility] 22:51 Drug: Reglan 10 mg Route: IVP; Site: right forearm; jd3 23:26 Follow up: Response: No adverse reaction [facility] 23:26 Drug: NS 0.9% 1000 ml Route: IV; Rate: 1000 ml; Site: right forearm; d3 02/18 00:30 Follow up: Response: No adverse reaction; IV Status: Completed infusion; IV Intake: jd3 1000ml 00:17 Drug: Aspirin Chewable Tablet 81 mg Route: PO; jd3 00:30 Follow up: Response: No adverse reaction [facility] Disposition: 02/19/20 00:22 Discharged to Home. Impression: Headache, Parasthesias. - Condition is Stable. - Discharge Instructions: Neuropathic Pain, General Headache Without Cause, [id number]. - Work release form, Medication Reconciliation Form, Thank You Letter, Antibiotic Education, Prescription Opioid Use form. - Follow up: Naina Jacobs MD; When: 1 - 2 days; Reason: Worsening of condition, Recheck today's complaints. Follow up: Yordy Logan MD; When: 1 - 2 days; Reason: Worsening of condition, Recheck today's complaints. - Problem is an acute exacerbation. - Symptoms are resolved. NIH Stroke Scale - NIH Stroke Score Date: 02/18/2020 Time: 22:32 Total Score = 1 1a. Level of Consciousness (LOC) - 0(Alert) 1b. Level of Consciousness (LOC) (Year \\T\\ Age) - 0(Both) 1c. LOC Commands (Open \\T\\ Closes Eyes/Head Cleaning Porter) - 0(Both) 2. Best Gaze (Lateral Gaze Paresis) - 0(Normal) 3. Visual Field Loss - 0(No visual loss) 4. Facial Palsy - 0(Normal) 5a. Left Arm: Motor (10-second hold) - 0(No drift) 5b. Right Arm: Motor (10-second hold) - 0(No drift) 6a. Left Leg: Motor (5-second hold - always test supine) - 0(No drift) 6b. Right Leg: Motor (5-second hold - always test supine) - 0(No drift) 7. Limb Ataxia (finger/nose \\T\\ heel/hernandez - test with eyes open) - 0(Absent) 8. Sensory Loss (pinprick arms/legs/face) - 1(Mild to moderate loss) 9. Best Language: Aphasia (description/naming/reading) - 0(No aphasia) 10. Dysarthria (speech clarity - read or repeat words) - 0(Normal) 11. Extinction and Inattention (visual/tactile/auditory/spatial/personal) - 0(No abnormality) Initials: jd3 NIH Stroke Scale - NIH Stroke Score Date: 02/18/2020 Time: 23:26 Total Score = 0 1a. Level of Consciousness (LOC) - 0(Alert) 1b. Level of Consciousness (LOC) (Year \\T\\ Age) - 0(Both) 1c. LOC Commands (Open \\T\\ Closes Eyes/Head Cleaning Porter) - 0(Both) 2. Best Gaze (Lateral Gaze Paresis) - 0(Normal) 3. Visual Field Loss - 0(No visual loss) 4. Facial Palsy - 0(Normal) 5a. Left Arm: Motor (10-second hold) - 0(No drift) 5b. Right Arm: Motor (10-second hold) - 0(No drift) 6a. Left Leg: Motor (5-second hold - always test supine) - 0(No drift) 6b. Right Leg: Motor (5-second hold - always test supine) - 0(No drift) 7. Limb Ataxia (finger/nose \\T\\ heel/hernandez - test with eyes open) - 0(Absent) 8. Sensory Loss (pinprick arms/legs/face) - 0(Normal) 9. Best Language: Aphasia (description/naming/reading) - 0(No aphasia) 10. Dysarthria (speech clarity - read or repeat words) - 0(Normal) 11. Extinction and Inattention (visual/tactile/auditory/spatial/personal) - 0(No abnormality) Initials: jd3 Signatures: Dispatcher [employer] EDMS Aamir Helms RN RN jd3 Chago Hyde RN RN ll1 Demarco Zavala MD MD mh7 Corrections: (The following items were deleted from the chart) 00:33 00:23 02/19/2020 00:22 Discharged to Home. Impression: Headache; Parasthesias. jd3 Condition is Stable. Forms are Medication Reconciliation Form, Thank You Letter, Antibiotic Education, Prescription Opioid Use. Follow up: Naina Jacobs; When: 1 - 2 days; Reason: Worsening of condition, Recheck today's complaints. Follow up: Yordy Logan; When: 1 - 2 days; Reason: Worsening of condition, Recheck today's complaints. Problem is an acute exacerbation. Symptoms are resolved. mh7
== END 2020-02-19 00:33 | disposition home or self-care (01) ==
LOC: ER 22:05
DX: R20.2 Paresthesia of skin (principal); F17.210 Nicotine dependence, cigarettes, uncomplicated; I10 Essential (primary) hypertension; Z86.73 Personal history of transient ischemic attack (TIA), and cerebral infarction without residual deficits
CPT/HCPCS: 96361; 93005; 85025; 80048; 36415; 80320; 83735; 84100; 85610; 80076; 80307 ×8; 85730; 81003; 84484; 70450; 71045; 96375; 96374; 99284; J2765; J1200; J7030

== ENCOUNTER 2020-02-21 10:56 | Emergency (ER) | payer BC ==
--- OUTSIDE RECORDS SUMMARY | 2020-02-21 10:59 | XMS REPORT ---
:1985 [address] [facility] t Address [address] [place] [address] Dr. Gupta [address] [place] [id number] Care Team Providers Name Role Phone Unavailable Unavailable Unavailable Problems This patient has no known problems. Allergies, Adverse Reactions, Alerts This patient has no known allergies or adverse reactions. Medications This patient has no known medications. Procedures This patient has no known procedures. Results This patient has no known results.
[2020-02-21] MEDS ORDERED: HYDROCODONE/APAP 5/325 MG TAB ONE (11:49)
--- NOTE | 2020-02-21 12:16 | RAD REPORT ---
EXAM DESCRIPTION: RAD - Knee Left 3 View - 02/21/2020 11:53 am CLINICAL HISTORY: Left knee pain FINDINGS: No fracture or dislocation is seen. No significant bone or joint abnormality seen
[2020-02-21 13:42] VITALS: TEMP 97.7
[2020-02-21 13:47] VITALS: BP 138/98; O2SAT 100
--- NOTE | 2020-02-22 18:54 | ER ---
Nurse's Notes [facility] Name: Enma Kuo Jr Age: 35 yrs Sex: Male : 1985 Arrival Date: 02/21/2020 Time: 10:58 Bed 20 Private MD: Diagnosis: Pain in left knee Presentation: 02/20 11:10 Chief complaint: Patient states: left knee pain since yesterday , no injury. iw Coronavirus screen: Proceed with normal triage. Patient denies a cough. Patient denies shortness of breath or difficulty breathing. Patient denies measured and/or subjective temperature greater than 100.4F prior to today's visit. Patient denies travel on a cruise ship or to a country the [facility] currently lists as an affected area. Patient denies contact with known and/or suspected case of COVID-19. Ebola Screen: Patient negative for fever greater than or equal to 101.5 degrees Fahrenheit, and additional compatible Ebola Virus Disease symptoms Patient denies exposure to infectious person. Patient denies travel to an Ebola-affected area in the 21 days before illness onset. No symptoms or risks identified at this time. Initial Sepsis Screen: Does the patient meet any 2 criteria? No. Patient's initial sepsis screen is negative. Does the patient have a suspected source of infection? No. Patient's initial sepsis screen is negative. Risk Assessment: Do you want to hurt yourself or someone else? Patient reports no desire to harm self or others. Onset of symptoms was February 20, 2020. 11:10 Method Of Arrival: Ambulatory 11:10 Acuity: SAMUEL 4 iw Historical: - Allergies: 11:29 No Known Allergies; iw - Home Meds: 11:29 losartan 100 mg Oral tab 1 tab once daily [Active]; iw - PMHx: 11:29 CVA; Hypertension; TIA; Gall Stones; iw - PSHx: 11:29 Cholecystectomy; iw - Immunization history:: Adult Immunizations. - Social history:: Smoking status: Patient reports the use of cigarette tobacco products, smokes one-half pack cigarettes per day. Screenin:15 Abuse screen: Denies threats or abuse. Nutritional screening: No deficits noted. rb1 Tuberculosis screening: No symptoms or risk factors identified. Fall Risk No fall in past 12 months (0 pts). Secondary diagnosis (15 points) impaired mobility, No IV (0 pts). Ambulatory Aid- None/Bed Rest/Nurse Assist (0 pts). Gait- Impaired (20 pts.). Mental Status- Oriented to own ability (0 pts). Total Saul Fall Scale indicates Low Risk Score (25-44 pts). Fall prevention measures have been instituted. Side Rails Up X 2 Placed close to Nursing Station 1:1 attendant Assigned to Pt. Frequent Obs/Assesments occuring As available Patient and Family Educated on Fall Prevention Program and strategies. Assessment: 11:15 General: Appears in no apparent distress. comfortable, Behavior is calm, cooperative. rb1 General: Denies injury. Pain: Complains of pain in left knee Pain currently is 10 out of 10 on a pain scale. Pain began 1 day ago. Aggravated by weight bearing. Neuro: Level of Consciousness is awake, alert, obeys commands, Oriented to person, place, time, situation. Cardiovascular: Capillary refill < 3 seconds. Respiratory: Airway is patent Respiratory effort is even, unlabored, Respiratory pattern is regular, symmetrical. GI: No signs and/or symptoms were reported involving the gastrointestinal system. : No signs and/or symptoms were reported regarding the genitourinary system. Derm: Skin is pink, warm \T\ dry. Musculoskeletal: Range of motion: limited in left knee. 12:15 Reassessment: Patient appears in no apparent distress at this time. Patient and/or rb1 family updated on plan of care and expected duration. Pain level reassessed. Patient is alert, oriented x 3, equal unlabored respirations, skin warm/dry/pink. Pt. is on his telephone. 13:30 Reassessment: Patient appears in no apparent distress at this time. Patient is alert, ca1 oriented x 3, equal unlabored respirations, skin warm/dry/pink. Vital Signs: 11:10 BP 147 / 94; Pulse 91; Resp 16; Temp 97.7; Pulse Ox 98% on R/A; Weight 95.25 kg; Height iw 5 ft. 8 in. (172.72 cm); Pain 10/10; 11:45 BP 149 / 99; Pulse 77; Resp 16; Pulse Ox 97% on R/A; mh5 12:45 BP 150 / 100; Pulse 80; Resp 17; Pulse Ox 97% on R/A; rb1 13:15 BP 138 / 98; Pulse 73; Resp 15 S; Pulse Ox 100% on R/A; ca1 11:10 Body Mass Index 31.93 (95.25 kg, 172.72 cm) ED Course: 10:58 Patient arrived in ED. ag5 11:10 Cortney Arshad, RN is Primary Nurse. rb1 11:24 Ermias Hdz MD is Attending Physician. kdr 11:24 Serg Olsen NP is PHCP. pm1 11:28 Triage completed. iw 11:28 Ermias Hdz MD is Attending Physician. pm1 11:29 Arm band placed on. iw 11:43 Crutch training done. Knee immobilizer applied on left knee. mh5 11:44 Patient has correct armband on for positive identification. Bed in low position. Call 5 light in reach. satellite project site monitor on. Pulse ox on. 11:53 Knee Left 3 View XRAY In Process Unspecified. EDMS 13:31 No provider procedures requiring assistance completed. Patient did not have IV access ca1 during this emergency room visit. Administered Medications: 11:43 Drug: Hiram 5 mg-325 mg 1 tabs Route: PO; rb1 12:30 Follow up: Response: No adverse reaction; Pain is decreased rb1 Outcome: 13:03 Discharge ordered by MD. pm1 13:31 Discharged to home ambulatory. ca1 13:31 Condition: stable 13:31 Discharge instructions given to patient, Instructed on discharge instructions, follow up and referral plans. no drinking with medication, no driving heavy equipment, medication usage, Demonstrated understanding of instructions, follow-up care, medications, Prescriptions given X 1. 13:32 Patient left the ED. ca1 Signatures: Dispatcher [employer] EDMI Ermias Hdz MD MD [facility] Vane Yancey RN RN Cortney Arshad, CRISTIAN RN rb1 Serg Olsen NP CUSTOMER SUPPORT ANALYST pm1 Aury Carrington [facility] Rox Hartley RN RN ca1 Dashawn Alcaraz 5 Corrections: (The following items were deleted from the chart) 13:30 13:00 Reassessment: Patient appears in no apparent distress at this time. Patient is ca1 alert, oriented x 3, equal unlabored respirations, skin warm/dry/pink. ca1
--- NOTE | 2020-02-22 18:55 | EDPHYS ---
Physician Documentation [facility] Name: Enma Kuo Jr Age: 35 yrs Sex: Male : 1985 Arrival Date: 02/21/2020 Time: 10:58 Bed 20 Private MD: ED Physician Ermias Hdz HPI: 02/20 11:38 This 35 yrs old Male presents to ER via Ambulatory with complaints of Left pm1 Knee Pain. 11:38 The patient presents with pain, that is acute. The complaints affect the left knee. pm1 Context: The problem was sustained at home, resulted from an unknown cause, the patient can partially bear weight, Problem is a result from a previous injury: No. Onset: The symptoms/episode began/occurred yesterday, morning. Modifying factors: The symptoms are alleviated by remaining still, the symptoms are aggravated by weight bearing, bending knee. Associated signs and symptoms: Pertinent negatives calf tenderness, fever, numbness, swelling, tingling. Treatment prior to arrival includes: no previous treatment. Severity of symptoms: in the emergency department the symptoms are unchanged. The patient has not experienced similar symptoms in the past. The patient has not recently seen a physician. Historical: - Allergies: 11:29 No Known Allergies; iw - Home Meds: 11: losartan 100 mg Oral tab 1 tab once daily [Active]; iw - PMHx: 11:29 CVA; Hypertension; TIA; Gall Stones; iw - PSHx: 11:29 Cholecystectomy; iw - Immunization history:: Adult Immunizations. - Social history:: Smoking status: Patient reports the use of cigarette tobacco products, smokes one-half pack cigarettes per day. ROS: 11:38 Constitutional: Negative for fever, chills, and weight loss, Neck: Negative for injury, pm1 pain, and swelling, Cardiovascular: Negative for chest pain, palpitations, and edema, Respiratory: Negative for shortness of breath, cough, wheezing, and pleuritic chest pain, Abdomen/GI: Negative for abdominal pain, nausea, vomiting, diarrhea, and constipation, Back: Negative for injury and pain. 11:38 Skin: Negative for injury, rash, and discoloration, Neuro: Negative for headache, weakness, numbness, tingling, and seizure. 11:38 MS/extremity: Positive for pain, of the left knee, Negative for deformity, swelling. Exam: 11:38 Constitutional: This is a well developed, well nourished patient who is awake, alert, pm1 and in no acute distress. Head/Face: Normocephalic, atraumatic. Chest/axilla: Normal chest wall appearance and motion. Nontender with no deformity. No lesions are appreciated. 11:38 Skin: Warm, dry with normal turgor. Normal color with no rashes, no lesions, and no evidence of cellulitis. 11:38 Cardiovascular: Exam negative for acute changes, Rate: normal, Rhythm: regular, Pulses: no pulse deficits are appreciated. 11:38 Respiratory: Exam negative for acute changes, respiratory distress, shortness of breath. 11:38 Musculoskeletal/extremity: Extremities: grossly normal except: noted in the left knee: tenderness, Painful range of motion, There is no evidence of deformity, swelling, Circulation is intact in all extremities. Sensation intact. 11:38 Neuro: Orientation: is normal, Motor: is normal, moves all fours, Sensation: is normal, no obvious gross deficits. Vital Signs: 11:10 BP 147 / 94; Pulse 91; Resp 16; Temp 97.7; Pulse Ox 98% on R/A; Weight 95.25 kg; Height iw 5 ft. 8 in. (172.72 cm); Pain 10/10; 11:45 BP 149 / 99; Pulse 77; Resp 16; Pulse Ox 97% on R/A; mh5 12:45 BP 150 / 100; Pulse 80; Resp 17; Pulse Ox 97% on R/A; rb1 13:15 BP 138 / 98; Pulse 73; Resp 15 S; Pulse Ox 100% on R/A; ca1 11:10 Body Mass Index 31.93 (95.25 kg, 172.72 cm) iw MDM: 11:31 Patient medically screened. pm1 12:27 Data reviewed: vital signs. Data interpreted: Pulse oximetry: on room air is 97 %. pm1 Interpretation: normal. 13:03 Counseling: I had a detailed discussion with the patient and/or guardian regarding: the pm1 historical points, exam findings, and any diagnostic results supporting the discharge/admit diagnosis, radiology results, the need for outpatient follow up, for definitive care, a orthopedic surgeon, to return to the emergency department if symptoms worsen or persist or if there are any questions or concerns that arise at home. 13:05 ED course: BOOKING SUPERVISOR aware reviewed. pm1 02/20 11:38 Order name: Knee Left 3 View XRAY; Complete Time: 12:21 pm1 02/20 11:38 Order name: Knee Immobilizer; Complete Time: 11:43 pm1 02/20 11:38 Order name: Crutches; Complete Time: 11:43 pm1 Administered Medications: 11:43 Drug: Denniston 5 mg-325 mg 1 tabs Route: PO; rb1 12:30 Follow up: Response: No adverse reaction; Pain is decreased rb1 Disposition: 14:37 Co-signature as Attending Physician, Ermias Hdz MD I agree with the assessment and kdr plan of care. Disposition: 02/21/20 13:03 Discharged to Home. Impression: Pain in left knee. - Condition is Stable. - Discharge Instructions: Crutch Use, Knee Immobilizer, Knee Pain. - Prescriptions for Tylenol- Codeine #3 300-30 mg Oral Tablet - take 2 tablets by ORAL route every 6 hours As needed; 20 tablet. - Medication Reconciliation Form, Thank You Letter, Antibiotic Education, Prescription Opioid Use form. - Follow up: Emergency Department; When: As needed; Reason: Worsening of condition. Follow up: Private Physician; When: 2 - 3 days; Reason: Recheck today's complaints, Continuance of care, Re-evaluation by your physician. - Problem is new. - Symptoms have improved. Signatures: Dispatcher [employer] EDMS Ermias Hdz MD MD [facility] Vane Yancey RN RN iw Cortney Arshad RN RN rb1 Serg Olsen, TAR POT MAN TAR POT MAN pm1 Rox Hartley RN RN ca1 Corrections: (The following items were deleted from the chart) 13:32 13:03 02/21/2020 13:03 Discharged to Home. Impression: Pain in left knee. Condition is ca1 Stable. Forms are Medication Reconciliation Form, Thank You Letter, Antibiotic Education, Prescription Opioid Use. Follow up: Emergency Department; When: As needed; Reason: Worsening of condition. Follow up: Private Physician; When: 2 - 3 days; Reason: Recheck today's complaints, Continuance of care, Re-evaluation by your physician. Problem is new. Symptoms have improved. pm1
== END 2020-02-21 13:32 | disposition home or self-care (01) ==
LOC: ER 10:56
DX: M25.562 Pain in left knee (principal); F17.210 Nicotine dependence, cigarettes, uncomplicated; I10 Essential (primary) hypertension; Z86.73 Personal history of transient ischemic attack (TIA), and cerebral infarction without residual deficits
CPT/HCPCS: 99284

== ENCOUNTER 2020-07-01 04:52 | Observation (INO) | payer BC ==
[2020-07-01 05:26] LABS: Absolute Lymphocytes (CBC) 1.3 K/uL (0.7-4.9); Basophils % 0.4 % (0-1.3); Hematocrit 52.5 % (39.6-49.0); Lymphocytes % 24.3 % (15.3-44.8); MPV 9.2 fL (7.6-11.3); RBC Red Blood Cell Count 5.67 M/uL (4.33-5.43)
--- OUTSIDE RECORDS SUMMARY | 2020-07-01 05:58 | XMS REPORT | Summary of Care ---
:1985 Author Organization [facility] Address [address] [place] [address] Care Team Providers Name Role Phone Olga Campbell Primary Care Provider Encounter Details Date Type Department Care Team Description 04/28/2020 Letter (Out) [facility] Chinese Online Message s Doctor Unassigned, No [address] [facility] [place] [address] [address] [facility] [phone] [place] [address] Allergies No Known Allergiesdocumented as of this encounter (statuses as of 04/28/2020) Medications Medication Sig Dispensed Refills Start Date End Date Status ondansetron (ZOFRAN, Take 1 tablet 12 tablet 0 07/03/2016 Active HYDROCHLORIDE,) 4 mg by mouth every tablet 8 (eight) hours as needed for Nausea and Vomiting (N/V). ondansetron (ZOFRAN, Take 1 tablet 12 tablet 0 07/17/2016 Active HYDROCHLORIDE,) 4 mg by mouth every tablet 8 (eight) hours as needed for Nausea and Vomiting (N/V). acetaminophen-codeine Take 1 tablet 20 tablet 0 11/23/2017 Active 300-30 mg tablet by mouth every 4 (four) hours as needed for Pain (scale 4-6) (Cough). amLODIPine 2.5 mg tablet Take 1 tablet 15 tablet 0 07/13/2018 Active by mouth at bedtime. hydroCHLOROthiazide 25 mg Take 1 tablet 30 tablet 0 07/13/2018 Active tablet by mouth every morning. traMADOL (ULTRAM) 50 mg Take 1 tablet 15 tablet 0 12/28/2018 Active tabletIndications: Finger by mouth every pain, right, Finger 6 (six) hours injury, right, initial as needed for encounter Pain (scale 4-6). cyclobenzaprine 10 mg Take 1 tablet 15 tablet 0 02/08/2019 Active tabletIndications: Myalgia by mouth every 8 (eight) hours as needed for Muscle Spasms. ondansetron 4 mg Take 1 tablet 20 tablet 0 07/13/2019 Active disintegrating by mouth every tabletIndications: 4 (four) hours Nonintractable headache, as needed for unspecified chronicity Nausea and pattern, unspecified Vomiting headache type (N/V). ketorolac 10 mg Take 1 tablet 20 tablet 0 07/13/2019 Active tabletIndications: by mouth every Nonintractable headache, 8 (eight) unspecified chronicity hours. pattern, unspecified headache type raqwsnufwe-aipqmhdliiwtm-n Take 1 tablet 20 tablet 0 9 Active aff 50-325-40 mg by mouth every tabletIndications: 4 (four) hours Nonintractable headache, as needed for unspecified chronicity Pain (scale pattern, unspecified 4-6). headache type documented as of this encounter (statuses as of 04/28/2020) Active Problems No known active problemsdocumented as of this encounter (statuses as of 04/28/2020) Social History Tobacco Use Types Packs/Day Years Used Date Never Assessed Sex Assigned at Date Recorded Not on file documented as of this encounter Last Filed Vital Signs Not on filedocumented in this encounter Plan of Treatment Date Type Specialty Care Team Description 04/28/2020 Laboratory Only Family Medicine Lab, [facility] Pob I Health Maintenance Due Date Last Done Comments VARICELLA VACCINES (1 of 2 - 01/26/1985 2-dose childhood series) Depression Screening 1996 DTaP,Tdap,and Td Vaccines (1 - 01/26/2003 Tdap) INFLUENZA VACCINE (#1) 2020 PNEUMOCOCCAL 0-64 YEARS COMBINED Aged Out No longer eligible based on SERIES patient's age to complete this topic documented as of this encounter Results Not on filedocumented in this encounter Insurance Payer Benefit Plan Subscriber ID Effective Dates Phone Address Type / Group [facility] [id number] 2015-[place] [phone] [address] PPO/POS [place] - OUT OF t 7 [id number] [place] [address] documented as of this encounter
--- OUTSIDE RECORDS SUMMARY | 2020-07-01 05:58 | XMS REPORT | Summary of Care ---
:1985 Author Organization [facility] Address [address] [place] [id number] Care Team Providers Name Role Phone Olga Campbell Primary Care Provider Reason for Visit Reason Comments Exposure Encounter Details Date Type Department Care Team Description 04/28/2020 Laboratory Only [facility] Family Melania Johnson, DRIVER STARTING [employer]ATE [address] [place] [address] [address] Suspected Covid-19 Medicine - [place] [facility], [facility] Fam Pob I Virus Infection [address] [place] [address] (Primary D x) [place] [address] Allergies No Known Allergiesdocumented as of this [...] unspecified chronicity hours. pattern, unspecified headache type xwadrtjfqh-yrayfxlhgnyky-t Take 1 tablet 20 tablet 0 9 [...] Assigned at Date Recorded Not on file COVID-19 Exposure Response Date Recorded In the last month, have you been in contact with No / Unsure 04/28/2020 11:00 AM CDT someone who was confirmed or suspected to have Coronavirus / COVID-19? documented as of this encounter Last Filed Vital Signs Not on filedocumented in this encounter Nursing Notes Marzena Carrington MA - 04/28/2020 11:40 AM CDTHlorena Kuo Jr. is a 35 year old male here for COVID Screening with a Nasopharyngeal Swab All droplet and contact precautions taken with appropriate PPE worn while interacting with patient. ? Goggles ? N95 Mask ? Gloves ? Gown RR 18 Pulse Ox 99% Patient educated on plan of care for visit, swabbing technique, risks and benefits of test and length of time to receive results. Verbal consent obtained to perform test. CDC Fact Sheet for Patients nCoV Diagnostic Panel dated 12/06/2019 and Factsheet What to Do if Sick with COVID 19 11/16/19 provided. Patient swabbed per appropriate nasopharyngeal technique, and patient tolerated well. Patient was discharged from the testing clinic in stable condition. Marzena Carrington MA 04/28/2020 11:00 AM documented in this encounter Plan of Treatment Name Type Priority Associated Diagnoses Order S chedule COVID-19 (PCR MOLECULAR LAB Routine Suspected Covid-1 9 Virus Expected: 04/28/2020, TESTING) Infection Expires: 2020 Health Maintenance Due Date Last Done Comments VARICELLA VACCINES (1 of 2 - 01/26/1985 2-dose childhood series) Depression Screening 1996 DTaP,Tdap,and Td Vaccines ( - 01/26/2003 Tdap) INFLUENZA VACCINE (#1) 2020 PNEUMOCOCCAL 0-64 YEARS COMBINED Aged Out No longer eligible based on SERIES patient's age to complete this topic documented as of this encounter Results Not on filedocumented in this encounter Visit Diagnoses Diagnosis Suspected Covid-19 Virus Infection - Nadine trisha documented in this encounter Additional Health Concerns Infection Onset Date Last Indicated Resolved Time COVID-19 Rule Out 04/28/2020 04/28/2020 documented as of this encounter Insurance Payer Benefit Plan Subscriber ID Effective Dates Phone Address Type / Group [facility] [id number] 2014[place] [phone] [address] PPO/POS [place] - OUT OF t [id number] [place] [address] documented as of this encounter
--- OUTSIDE RECORDS SUMMARY | 2020-07-01 05:58 | XMS REPORT | Continuity of Care Document ---
:1985 Author Organization [facility] t Address [address] [place] [address] Care Team Providers Name Role Phone Lab, Fam Pob I Attending Clinician Unavailable Doctor Unassigned, Name Attending Clinician Unavailable Problems This patient has no known problems. Allergies, Adverse Reactions, Alerts This patient has no known allergies or adverse reactions. Medications This patient has no known medications. Procedures This patient has no known procedures. Encounters Start End Encounter Admission Attending Care Care Encounter Source Date/Time Date/Time Type Type Clinicians Facility Department ID 2020-04-28 2020-04-28 Laboratory Lab, [facility] [id number] 10:57:36 11:17:36 Only Fam Pob I Health [id number] [place] [id number] Professio [phone] [address]al [address] 2020-04-28 2020-04-28 Letter Doctor PETER [id number] 00:00:00 00:00:00 (Out) UnassignedVERNOIQUE [id number] [place] [facility] [id number] Results This patient has no known results.
[2020-07-01 06:09] LABS: Protime INR 0.9
[2020-07-01 06:21] LABS: Potassium 3.9 mmol/L (3.5-5.1)
--- NOTE | 2020-07-01 06:38 | EDPHYS ---
Physician Documentation [facility] Name: Enma Kuo Jr Age: 35 yrs Sex: Male : 1985 Arrival Date: 07/01/2020 Time: 04:58 Bed 7 Private MD: Fantasma Norris E ED Physician Kj Miller HPI: 07/01 05:56 This 35 yrs old Male presents to ER via EMS with complaints of Weakness - tw4 Left. 05:56 The patient presents to the emergency department with paresthesias of the left lower tw4 extremity, left upper extremity. Onset: The symptoms/episode began/occurred yesterday, 7 hour(s) ago. Context: occurred at home. Associated signs and symptoms: The patient has no apparent associated signs or symptoms. Severity of symptoms: At their worst the symptoms were moderate in the emergency department the symptoms are unchanged. The patient has not experienced similar symptoms in the past. Historical: - Allergies: 05:53 No Known Allergies; ll2 - Home Meds: 05:53 aspirin 81 mg Oral chew 1 tab once daily [Active]; losartan 100 mg Oral tab 1 tab once ll2 daily [Active]; - PMHx: 05:55 Hypertension; Gall Stones; CVA; TIA; ll2 - PSHx: 05:54 Cholecystectomy; ll2 - Immunization history:: Adult Immunizations up to date. - Social history:: Smoking status: Patient reports the use of cigarette tobacco products, denies chronic smoking, but will smoke occasionally. ROS: 05:56 Constitutional: Negative for fever, chills, and weight loss, Eyes: Negative for injury, tw4 pain, redness, and discharge, Cardiovascular: Negative for chest pain, palpitations, and edema, Respiratory: Negative for shortness of breath, cough, wheezing, and pleuritic chest pain, Abdomen/GI: Negative for abdominal pain, nausea, vomiting, diarrhea, and constipation, Back: Negative for injury and pain, MS/Extremity: Negative for injury and deformity, Skin: Negative for injury, rash, and discoloration. 05:56 Neuro: Positive for weakness, Negative for altered mental status, dizziness, gait disturbance, hearing loss, numbness, seizure activity, speech changes, syncope, near syncope, tingling. Exam: 05:56 Constitutional: This is a well developed, well nourished patient who is awake, alert, tw4 and in no acute distress. Head/Face: Normocephalic, atraumatic. Chest/axilla: Normal chest wall appearance and motion. Nontender with no deformity. No lesions are appreciated. Cardiovascular: Regular rate and rhythm with a normal S1 and S2. No gallops, murmurs, or rubs. Normal PMI, no JVD. No pulse deficits. Respiratory: Lungs have equal breath sounds bilaterally, clear to auscultation and percussion. No rales, rhonchi or wheezes noted. No increased work of breathing, no retractions or nasal flaring. Abdomen/GI: Soft, non-tender, with normal bowel sounds. No distension or tympany. No guarding or rebound. No evidence of tenderness throughout. Back: No spinal tenderness. No costovertebral tenderness. Full range of motion. Skin: Warm, dry with normal turgor. Normal color with no rashes, no lesions, and no evidence of cellulitis. MS/ Extremity: Pulses equal, no cyanosis. Neurovascular intact. Full, normal range of motion. Neuro: Awake and alert, GCS 15, oriented to person, place, time, and situation. Cranial nerves II-XII grossly intact. Motor strength 5/5 in all extremities. Sensory grossly intact. Cerebellar exam normal. Normal gait. Vital Signs: 05:19 BP 138 / 76; Pulse 84; Resp 14; Pulse Ox 97% on R/A; ll2 06:24 BP 134 / 81; Pulse 92; Resp 13; Pulse Ox 97% on R/A; ll2 06:57 BP 134 / 83; Pulse 92; Resp 13; Temp 98.7; Pulse Ox 100% on R/A; ll2 08:00 BP 139 / 81; Pulse 79; Resp 17; Pulse Ox 98% on R/A; tw2 09:06 BP 138 / 98; Pulse 75; Resp 17; Pulse Ox 97% on R/A; tw2 NIH Stroke Scale Scores: 05:29 NIHSS Score: 0 ll2 05:56 NIHSS Score: 0 tw4 MDM: 05:16 Patient medically screened. tw4 07/01 05:09 Order name: Basic Metabolic Panel; Complete Time: 06:38 ea 07/01 06:38 Interpretation: Normal except: GFR 79; BUN 5; GLUC 114; CL 108. tw4 07/01 05:09 Order name: CBC with Diff; Complete Time: 06:38 ea 07/01 06:38 Interpretation: Normal except: RBC 5.67; HCT 52.5. tw4 07/01 05:09 Order name: Protime (+inr); Complete Time: 06:38 ea 07/01 06:39 Interpretation: Within normal limits: PT 10.6. tw4 07/01 05:09 Order name: Ptt, Activated; Complete Time: 06:38 ea 07/01 06:39 Interpretation: Within normal limits: PTT 28.1. tw4 10 05:36 Order name: Glucose, Ancillary Testing; Complete Time: 06:38 EDMS 07/01 06:39 Interpretation: Abnormal: GLUC,ANCIL 130. tw4 07/01 08:42 Order name: Lipid Profile EDMS 07/01 05:09 Order name: CT Stroke Brain w/o Contrast ea 07/01 05:09 Order name: Stroke CXR 1 View ea 07/01 05:09 Order name: EKG; Complete Time: 05:11 ea 07/01 08:42 Order name: Physical Therapy Consult EDMS 07/01 08:42 Order name: Echo with Doppler EDMS 07/01 08:42 Order name: Lipid Profile EDMS 07/01 08:42 Order name: Brain Wo Cont EDMS 07/01 05:09 Order name: Accucheck; Complete Time: 05:11 ea 07/01 05:09 Order name: Cardiac monitoring; Complete Time: 05:11 ea 07/01 05:09 Order name: EKG - Nurse/Tech; Complete Time: 05:10 ea 07/01 05:09 Order name: IV Saline Lock; Complete Time: 05:10 ea 07/01 05:09 Order name: Labs collected and sent; Complete Time: 05:10 ea 07/01 05:09 Order name: NPO; Complete Time: 05:10 ea 07/01 05:09 Order name: O2 Per Protocol; Complete Time: 05:10 ea 07/01 05:09 Order name: O2 Sat Monitoring; Complete Time: 05:10 ea 07/01 05:09 Order name: Stroke Swallow Screen; Complete Time: 05:28 ea 07/01 08:42 Order name: Speech Therapy Consult EDMS 07/01 08:42 Order name: EKG Electrocardiogram EDMS Administered Medications: No medications were administered Point of Care Testing: Blood Glucose: 05:56 Blood Glucose: 130 mg/dL; ll2 Ranges: Critical Glucose Levels:Adult <50 mg/dl or >400 mg/dl <40 mg/dl or >180 mg/dl Disposition: 07/01/20 06:37 Hospitalization ordered by Naina Jacobs for Observation. Preliminary diagnosis is Transient cerebral ischemic attack, unspecified. - Bed requested for Telemetry/MedSurg (observation). - Status is Observation. tw2 - Condition is Stable. - Problem is new. - Symptoms have improved. NIH Stroke Scale - NIH Stroke Score Date: 07/01/2020 Time: 05:29 Total Score = 0 1a. Level of Consciousness (LOC) - 0(Alert) 1b. Level of Consciousness (LOC) (Year \T\ Age) - 0(Both) 1c. LOC Commands (Open \T\ Closes Eyes/Tilt Tray Driver) - 0(Both) 2. Best Gaze (Lateral Gaze Paresis) - 0(Normal) 3. Visual Field Loss - 0(No visual loss) 4. Facial Palsy - 0(Normal) 5a. Left Arm: Motor (10-second hold) - 0(No drift) 5b. Right Arm: Motor (10-second hold) - 0(No drift) 6a. Left Leg: Motor (5-second hold - always test supine) - 0(No drift) 6b. Right Leg: Motor (5-second hold - always test supine) - 0(No drift) 7. Limb Ataxia (finger/nose \T\ heel/hernandez - test with eyes open) - 0(Absent) 8. Sensory Loss (pinprick arms/legs/face) - 0(Normal) 9. Best Language: Aphasia (description/naming/reading) - 0(No aphasia) 10. Dysarthria (speech clarity - read or repeat words) - 0(Normal) 11. Extinction and Inattention (visual/tactile/auditory/spatial/personal) - 0(No abnormality) Initials: ll2 NIH Stroke Scale - NIH Stroke Score Date: 07/01/2020 Time: 05:56 Total Score = 0 1a. Level of Consciousness (LOC) - 0(Alert) 1b. Level of Consciousness (LOC) (Year \T\ Age) - 0(Both) 1c. LOC Commands (Open \T\ Closes Eyes/Tilt Tray Driver) - 0(Both) 2. Best Gaze (Lateral Gaze Paresis) - 0(Normal) 3. Visual Field Loss - 0(No visual loss) 4. Facial Palsy - 0(Normal) 5a. Left Arm: Motor (10-second hold) - 0(No drift) 5b. Right Arm: Motor (10-second hold) - 0(No drift) 6a. Left Leg: Motor (5-second hold - always test supine) - 0(No drift) 6b. Right Leg: Motor (5-second hold - always test supine) - 0(No drift) 7. Limb Ataxia (finger/nose \T\ heel/hernandez - test with eyes open) - 0(Absent) 8. Sensory Loss (pinprick arms/legs/face) - 0(Normal) 9. Best Language: Aphasia (description/naming/reading) - 0(No aphasia) 10. Dysarthria (speech clarity - read or repeat words) - 0(Normal) 11. Extinction and Inattention (visual/tactile/auditory/spatial/personal) - 0(No abnormality) Initials: tw4 Signatures: Dispatcher [employer] EDMS Joyce Sawyer, RN RN tw2 Myra Collins, CRISTIAN RN Kj Waite MD MD tw4 Mirian Thayer Lacie, RN RN ll2 Corrections: (The following items were deleted from the chart) 05:19 05:10 CT-STROKE BRAIN W/O CONTRAST+CT.RAD.BRZ ordered. [facility] EDME 05:19 05:10 Chest Single View+RAD.RAD.BRZ ordered. EDME EDME 08:45 08:42 Chest Pa And Lat (2 Views) ordered. [facility] EDME 08:51 06:37 Hospitalization Ordered by Naina Jacobs MD for Observation. Preliminary eb diagnosis is Transient cerebral ischemic attack, unspecified. Bed requested for Telemetry/MedSurg (observation). Status is Observation. Condition is Stable. Problem is new. Symptoms have improved. tw4 10:08 08:51 07/01/2020 06:37 Hospitalization Ordered by Naina Jacobs MD for tw2 Observation. Preliminary diagnosis is Transient cerebral ischemic attack, unspecified. Bed requested for Telemetry/MedSurg (observation). Status is Observation. Condition is Stable. Problem is new. Symptoms have improved. eb
--- NOTE | 2020-07-01 06:38 | ER ---
Nurse's Notes [facility] Name: Enma Kuo Jr Age: 35 yrs Sex: Male : 1985 Arrival Date: 07/01/2020 Time: 04:58 Bed 7 Private MD: Fantasma Norris E Diagnosis: Transient cerebral ischemic attack, unspecified Presentation: 07/01 05:19 Chief complaint: EMS states: pt called 911 after numbness on the left side in his leg ll2 and hand. states it started last night with a headache around 9 pm he didn't think anything of it and went to bed. pt claims he was walking with a stagger, and has a history of mini strokes so he called 911. Coronavirus screen: Client denies travel out of the [place] in the last 14 days. At this time, the client does not indicate any symptoms associated with coronavirus-19. Ebola Screen: Patient negative for fever greater than or equal to 101.5 degrees Fahrenheit, and additional compatible Ebola Virus Disease symptoms. No acute neurological deficit is noted. The patients blood glucose was checked prior to arriving to the hospital and was found to be hyperglycemic. The charge nurse has been notified. Initial Sepsis Screen: Does the patient meet any 2 criteria? No. Patient's initial sepsis screen is negative. Does the patient have a suspected source of infection? No. Patient's initial sepsis screen is negative. Risk Assessment: Do you want to hurt yourself or someone else? Patient reports no desire to harm self or others. Onset of symptoms was June 30, 2020 at 21:00. 05:19 Method Of Arrival: EMS: [facility] ll2 05:19 Acuity: SAMUEL 3 ll2 Triage Assessment: 05:58 The onset of the patients symptoms was June 30, 2020 at 21:00. General: Appears in ll2 no apparent distress. Behavior is calm, cooperative, appropriate for age. Neuro: Reports. Stroke Activation: Symptom onset > 6 hours Physician: Stroke Attending; Name: ; Notified At: ; Arrived At: Physician: Chief Stroke Resident; Name: ; Notified At: ; Arrived At: Physician: Stroke Resident; Name: ; Notified At: ; Arrived At: Physician: ED Attending; Name: ; Notified At: ; Arrived At: Physician: ED Resident; Name: ; Notified At: ; Arrived At: Historical: - Allergies: 05:53 No Known Allergies; ll2 - Home Meds: 05:53 aspirin 81 mg Oral chew 1 tab once daily [Active]; losartan 100 mg Oral tab 1 tab once ll2 daily [Active]; - PMHx: 05:55 Hypertension; Gall Stones; CVA; TIA; ll2 - PSHx: 05:54 Cholecystectomy; ll2 - Immunization history:: Adult Immunizations up to date. - Social history:: Smoking status: Patient reports the use of cigarette tobacco products, denies chronic smoking, but will smoke occasionally. Screenin:27 Abuse screen: Denies threats or abuse. Nutritional screening: No deficits noted. ll2 Tuberculosis screening: No symptoms or risk factors identified. The patient has not been NPO before screening. The patient is alert, able to follow commands. The patient does not exhibit slurred or garbled speech The patient is not exhibiting difficulty speaking. The patient does not exhibit difficulty understanding words. The patient is able to swallow own secretions with no drooling or need for suction. Patient tolerated one teaspoon of water. No drooling, immediate coughing, gurgling, or clearing of the throat was noted. The patient tolerated 90mL of water. No drooling, immediate coughing, gurgling, or clearing of the throat was noted. The patient passed the bedside swallow screening. Oral medications may be given as ordered. Contact Physician for further diet orders. Fall Risk IV access (20 points). Ambulatory Aid- None/Bed Rest/Nurse Assist (0 pts). Gait- Weak (10 pts.). Mental Status- Oriented to own ability (0 pts). Total Saul Fall Scale indicates Low Risk Score (25-44 pts). Fall prevention measures have been instituted. Side Rails Up X 2 Placed close to Nursing Station. Assessment: 05:29 Patient has been NPO before screening. The patient is alert, and able to follow ll2 commands. The patient does not exhibit slurred or garbled speech. The patient is not exhibiting difficulty speaking. The patient does not exhibit difficulty understanding words. The patient is able to swallow own secretions with no drooling or need for suction. Patient tolerated one teaspoon of water. No drooling, immediate coughing, gurgling, or clearing of the throat was noted. The patient tolerated 90mL of water. No drooling, immediate coughing, gurgling, or clearing of the throat was noted. The patient passed the bedside swallow screening. Oral medications may be given as ordered. Contact Physician for further diet orders. Provider notified of bedside swallow screening results: Joan Schmitz RN. 05:57 VAN Scoring: Arm Drift: Patients demonstrates NO arm weakness. Patient is VAN Negative. ll2 T-PA (Activase) Screening: Contraindications: Patient reports onset of signs and symptoms of stroke greater than 6 hours ago:. Pain: Complains of pain in head Pain currently is 9 out of 10 on a pain scale. Neuro: Level of Consciousness is awake, alert, obeys commands, Oriented to person, place, time, situation. 06:49 Reassessment: Patient and/or family updated on plan of care and expected duration. Pain ll2 level reassessed. Patient is alert, oriented x 3, equal unlabored respirations, skin warm/dry/pink. ERD at bedside discussing decision to hospitalize. 08:00 Reassessment: Patient appears in no apparent distress at this time. No changes from tw2 previously documented assessment. Patient and/or family updated on plan of care and expected duration. Pain level reassessed. Patient is alert, oriented x 3, equal unlabored respirations, skin warm/dry/pink. 08:29 Reassessment: Awaiting for admitting physician to place admission orders prior to ss receiving room assignment. 09:06 Reassessment: Patient appears in no apparent distress at this time. No changes from tw2 previously documented assessment. Patient and/or family updated on plan of care and expected duration. Pain level reassessed. Patient is alert, oriented x 3, equal unlabored respirations, skin warm/dry/pink. 09:53 Reassessment: pt is in MRI at this time. tw2 10:08 Reassessment: Patient appears in no apparent distress at this time. No changes from tw2 previously documented assessment. Patient and/or family updated on plan of care and expected duration. Pain level reassessed. Patient is alert, oriented x 3, equal unlabored respirations, skin warm/dry/pink. Vital Signs: 05:19 BP 138 / 76; Pulse 84; Resp 14; Pulse Ox 97% on R/A; ll2 06:24 BP 134 / 81; Pulse 92; Resp 13; Pulse Ox 97% on R/A; ll2 06:57 BP 134 / 83; Pulse 92; Resp 13; Temp 98.7; Pulse Ox 100% on R/A; ll2 08:00 BP 139 / 81; Pulse 79; Resp 17; Pulse Ox 98% on R/A; tw2 09:06 BP 138 / 98; Pulse 75; Resp 17; Pulse Ox 97% on R/A; tw2 NIH Stroke Scale Scores: 05:29 NIHSS Score: 0 ll2 05:56 NIHSS Score: 0 tw4 ED Course: 04:58 Patient arrived in ED. sg 04:58 Fantasma Norris MD is Private Physician. sg 05:16 Kj Miller MD is Attending Physician. tw4 05:19 CT Stroke Brain w/o Contrast In Process Unspecified. EDMS 05:26 Triage completed. ll2 05:28 Joan Schmitz RN is Primary Nurse. ll2 05:41 Stroke CXR 1 View In Process Unspecified. EDMS 05:56 Patient has correct armband on for positive identification. Bed in low position. Call ll2 light in reach. Side rails up X2. satellite project site monitor on. Pulse ox on. NIBP on. 05:56 Arm band placed on right wrist. EKG completed in triage. Results shown to MD. EKG done ll2 per protocol. Labs ordered per protocol. Drawn by ED staff. CT ordered. 06:34 Naina Jacobs MD is Hospitalizing Provider. tw4 09:38 IV is patent, 20 g RIGHT AC and 20 G LEFT AC. tw2 09:40 Report given to CRISTIAN Reyes. tw2 10:07 No provider procedures requiring assistance completed. Patient admitted, IV remains in tw2 place. Administered Medications: No medications were administered Point of Care Testing: Blood Glucose: 05:56 Blood Glucose: 130 mg/dL; ll2 Ranges: Outcome: 06:37 Decision to Hospitalize by Provider. tw4 10:07 Admitted to Med/surg accompanied by nurse, via wheelchair, room 203, with chart. tw2 10:07 Condition: stable 10:07 Instructed on the need for admit. 10:08 Patient left the ED. tw2 NIH Stroke Scale - NIH Stroke Score Date: 07/01/2020 Time: 05:29 Total Score = 0 1a. Level of Consciousness (LOC) - 0(Alert) 1b. Level of Consciousness (LOC) (Year \T\ Age) - 0(Both) 1c. LOC Commands (Open \T\ Closes Eyes/Mannequin Refinisher) - 0(Both) 2. Best Gaze (Lateral Gaze Paresis) - 0(Normal) 3. Visual Field Loss - 0(No visual loss) 4. Facial Palsy - 0(Normal) 5a. Left Arm: Motor (10-second hold) - 0(No drift) 5b. Right Arm: Motor (10-second hold) - 0(No drift) 6a. Left Leg: Motor (5-second hold - always test supine) - 0(No drift) 6b. Right Leg: Motor (5-second hold - always test supine) - 0(No drift) 7. Limb Ataxia (finger/nose \T\ heel/hernandez - test with eyes open) - 0(Absent) 8. Sensory Loss (pinprick arms/legs/face) - 0(Normal) 9. Best Language: Aphasia (description/naming/reading) - 0(No aphasia) 10. Dysarthria (speech clarity - read or repeat words) - 0(Normal) 11. Extinction and Inattention (visual/tactile/auditory/spatial/personal) - 0(No abnormality) Initials: ll2 NIH Stroke Scale - NIH Stroke Score Date: 07/01/2020 Time: 05:56 Total Score = 0 1a. Level of Consciousness (LOC) - 0(Alert) 1b. Level of Consciousness (LOC) (Year \T\ Age) - 0(Both) 1c. LOC Commands (Open \T\ Closes Eyes/Mannequin Refinisher) - 0(Both) 2. Best Gaze (Lateral Gaze Paresis) - 0(Normal) 3. Visual Field Loss - 0(No visual loss) 4. Facial Palsy - 0(Normal) 5a. Left Arm: Motor (10-second hold) - 0(No drift) 5b. Right Arm: Motor (10-second hold) - 0(No drift) 6a. Left Leg: Motor (5-second hold - always test supine) - 0(No drift) 6b. Right Leg: Motor (5-second hold - always test supine) - 0(No drift) 7. Limb Ataxia (finger/nose \T\ heel/hernandez - test with eyes open) - 0(Absent) 8. Sensory Loss (pinprick arms/legs/face) - 0(Normal) 9. Best Language: Aphasia (description/naming/reading) - 0(No aphasia) 10. Dysarthria (speech clarity - read or repeat words) - 0(Normal) 11. Extinction and Inattention (visual/tactile/auditory/spatial/personal) - 0(No abnormality) Initials: tw4 Signatures: Dispatcher [employer] EDLico Godinez, RN RN Leni Sweeney RN RN Joyce Sawyer RN RN tw2 Kj Miller MD MD tw4 Joan Schmitz RN RN ll2 Corrections: (The following items were deleted from the chart) 09:54 09:41 Reassessment: Patient appears in no apparent distress at this time. No tw2 changes from previously documented assessment. Patient and/or family updated on plan of care and expected duration. Pain level reassessed. Patient is alert, oriented x 3, equal unlabored respirations, skin warm/dry/pink. tw2
--- NOTE | 2020-07-01 08:35 | RAD REPORT ---
EXAM DESCRIPTION: RAD - Chest Single View - 07/01/2020 5:41 am CLINICAL HISTORY: weakness Chest pain. COMPARISON: Chest Single View dated 02/18/2020; Chest Single View dated 07/13/2019; Chest Pa And Lat (2 Views) dated 05/31/2019; Chest Single View dated 04/03/2019 FINDINGS: Portable technique limits examination quality. The lungs are grossly clear. The heart is normal in size. No displaced fractures. IMPRESSION: No acute intrathoracic process suspected.
[2020-07-01] MEDS ORDERED: ONDANSETRON 4 MG/2 ML VIAL IV PRN (08:38)
[2020-07-01] MEDS ORDERED: CLOPIDOGREL 75 MG TABLET PO SCH (09:00)
[2020-07-01] MEDS ORDERED: ASPIRIN EC 81 MG TAB PO SCH (09:00)
[2020-07-01] MEDS ORDERED: NA CHLORIDE 0.9% 1,000 ML IV SCH (09:00)
--- NOTE | 2020-07-01 10:12 | RAD REPORT ---
EXAM DESCRIPTION: Ct Stroke Brain Wo Cont ADDENDUM #1 THIS REPORT CONTAINS FINDINGS THAT MAY BE CRITICAL TO PATIENT CARE: The findings were verbally discu ssed via telephone conference with Dr. Miller July 01, 2020 5:33 AM central time. The results were acknowledged and understood. Electronically signed by: Valorie Orantes MD 07/01/2020 5:37 AM CDT End of Addendum EXAM DESCRIPTION: CT Head Without Intravenous Contrast CLINICAL HISTORY: The patient is 35 years old and is Male; WEAKNESS TECHNIQUE: Axial computed tomography images of the head/brain without intravenous contrast. Sagitt al and coronal reformatted images were created and reviewed. This CT exam was performed using one o r more of the following dose reduction techniques: automated exposure control, adjustment of the mA and/or kV according to patient size, and/or use of iterative reconstruction technique. COMPARISON: February 18, 2020. FINDINGS: Brain: Unremarkable. No hemorrhage. No significant white matter disease. No edema. Ventricles: Unremarkable. No ventriculomegaly. Bones/joints: Unremarkable. No acute skull fracture. Soft tissues: Unremarkable. Sinuses: Unremarkable as visualized. No acute sinusitis. Mastoid air cells: No significant mastoid fluid. IMPRESSION: No acute intracranial findings. No hemorrhage. Electronically signed by: Valorie Orantes MD 07/01/2020 5:32 AM CDT Due to temporary technical issues with the PACS/Fluency reporting system, reports are being signed by the in house radiologist without review as a courtesy to ensure prompt reporting. The interpreting r adiologist is fully responsible for the content of the report.
[2020-07-01 10:20] VITALS: O2SAT 97
--- NOTE | 2020-07-01 10:26 | RAD REPORT ---
EXAM DESCRIPTION: MRI - Brain Wo Cont - 07/01/2020 9:52 am CLINICAL HISTORY: tia/cva Headache, drowsiness, CVA symptomology COMPARISON: Ct Stroke Brain Wo Cont dated 07/01/2020 TECHNIQUE: Multi-sequence, multiplanar MR imaging of the brain was performed without contrast. FINDINGS: No intracranial hemorrhage, hydrocephalus or extra-axial fluid collections. No edema or sh ift of midline structures. No findings to suspect brain mass. DWI is negative for acute CVA. Midline structures are normally formed. Mild mucous retention cyst versus polyps are seen in both maxillary antra. The paranasal sinuses and mastoids are otherwise clear. IMPRESSION: Negative for acute CVA or other acute intracranial abnormality.
[2020-07-01 10:35] VITALS: TEMP 97.9; BMI 30.7
[2020-07-01] MEDS ORDERED: POTASSIUM CL SA 10 MEQ TAB PO ONE (13:00)
[2020-07-01] MEDS ORDERED: MORPHINE 4 MG/ML SYR IV PRN (13:02)
[2020-07-01 13:28] VITALS: BP 141/89
--- NOTE | 2020-07-01 16:15 | P.SSS ---
Patient History Date of Service: 07/01/20 Primary Care Provider: Dr. Norris Reason for admission: Left-sided weakness History of Present Illness: Patient is a 35-year-old gentleman with a history of hypertension and questionable TIA, who presented to the hospital with numbness in the left hand and the left lower extremity. He said he was having a headache as well. Patient does not have any weakness. He did not have a facial droop. His mentation was not altered. He decided to come into the emergency room per EMS. In the ER his CT scan was negative. Labs were unremarkable. Chest x-ray was unremarkable as well.Patient will be admitted for observation hospitalization for further workup of the TIA versus CVA. . Allergies No Known Allergies Allergy (Verified 12/29/12 17:12) Home Medications: Codeine/APAP [Tylenol #3*] 1 tab PO Q6H PRN 07/01/20 Hydrocodone 7.5/APAP 325 [[place] 7.5/325 mg*] 7.5 mg PO Q4H PRN 07/01/20 Ibuprofen 800 mg PO DAILY 07/01/20 - Past Medical/Surgical History Has patient received pneumonia vaccine in the past: Yes Diabetic: No -: Hypertension -: TIA -: cholecysectomy - Family History Father -: Heart disease, Hypertension Notes: chf - Social History Smoking Status: Current every day smoker Alcohol use: Yes CD- Drugs: No Caffeine use: Yes Place of Residence: Home Review of Systems 10-point ROS is otherwise unremarkable Physical Examination - Vital Signs Temperature: 97.9 F Blood Pressure: 141/89 Pulse: 85 Respirations: 16 Pulse Ox (%): 97 - Physical Exam General: Alert, In no apparent distress, Oriented x3 HEENT: Atraumatic, PERRLA, Mucous membr. moist/pink, EOMI, Sclerae nonicteric Neck: Supple, 2+ carotid pulse no bruit, No LAD, Without JVD or thyroid abnormality Respiratory: Clear to auscultation bilaterally, Normal air movement Cardiovascular: Regular rate/rhythm, Normal S1 S2, No murmurs Gastrointestinal: Normal bowel sounds, Soft and benign, Non-distended, No tenderness Musculoskeletal: No clubbing, No swelling, No tenderness Integumentary: No rashes Neurological: Normal gait, Normal speech, Normal strength at 5/5 x4 extr, Normal tone, Sensation intact, Cranial nerves 3-12 intact, Normal affect Lymphatics: No axilla or inguinal lymphadenopathy - Studies Laboratory Data (last 24 hrs) 07/01/20 05:50: PT 10.6, INR 0.90, APTT 28.1 07/01/20 05:50: Sodium 142, Potassium 3.9, BUN 5 L, Creatinine 1.06, Glucose 114 H 07/01/20 05:17: WBC 5.5, Hgb 17.8, Hct 52.5 H, Plt Count 166 - Diagnosis (Problem(s)) (1) Facial paresthesia Current Visit: No Status: Acute (2) Headache Current Visit: No Status: Acute Qualifiers: Intractability: intractable (3) Paresthesia of right upper and lower extremity Current Visit: No Status: Acute Treatment Summary: Patient's MRI came back negative. Clinically he is doing well. He most likely has a tension headache. Will give him pain medication and anxiolytics at discharge. He has history of TIAs so I will continue him on anti-platelet therapy and statin therapy. He is doing well physically and did not need physical therapy evaluation and his swallow eval was normal at the tolerated his lunch. He is not having any difficulty physically moving around or swallowing. He did not need DVT prophylaxis that were going to discharge him at this time. He has been in the hospital less than 12 hr. He is stable for discharge home. He will need outpatient follow with Neurology for his headaches. - Disposition Discharge Date: 07/01/20 Disposition: ROUTINE DISCHARGE Condition: GOOD Patient Discharge Instructions: OK TO DC IV AND DC HOME. FOLLOW-UP WITH PRIMARY CARE PROVIDER IN 1-2 WEEKS. FOLLOW-UP WITH NEUROLOGY IN 1-2 WEEKS. RETURN TO THE ER IF symptoms worsen. CALL or TEXT DR. ESTRADA AT [phone] IF ANY QUESTIONS REGARDING HOSPITAL STAY. PLEASE CALL THE FLOOR AT [phone] IF ANY MEDICATION OR NURSING QUESTIONS. Diet: AHA Activity: Fall precautions Critical Care: No Time Spent Managing Pts Care (In Minutes): 45
[2020-07-01] MEDS ORDERED: ATORVASTATIN 20 MG TAB PO SCH (21:00)
--- NOTE | 2020-07-03 11:17 | EKG ---
Test Date: 2020-07-01 Test Time: 04:56:37 Assistant Surveyor: LEE ANN MEASUREMENT RESULTS: Intervals: Rate: 92 MO: 168 QRSD: 94 QT: 342 QTc: 422 [place]: P: 29 MO: 168 QRS: -72 T: 24 INTERPRETIVE STATEMENTS: Normal sinus rhythm Possible Left atrial enlargement Incomplete right bundle branch block Left anterior fascicular block Abnormal ECG Compared to ECG 02/18/2020 22:41:44 Incomplete right bundle-branch block now present Electronically Signed On 07-03-20 11:13:57 CDT by Wayne Cummings
--- NOTE | 2020-07-04 09:03 | ECHO ---
HEIGHT: 5 ft 7 in WEIGHT: 196 lb 8 oz DATE OF STUDY: 07/01/[address]: Naina Jacobs MD 2-DIMENSIONAL: YES M.MODE: YES DOPPLER: YES COLOR FLOW: YES TDS: PORTABLE: DEFINITY: BUBBLE STUDY: DIAGNOSIS: STROKE CARDIAC HISTORY: CATHERIZATION: NO SURGERY: NO PROSTHETIC VALVE: NO PACEMAKER: NO MEASUREMENTS (cm) DIASTOLIC (NORMALS) SYSTOLIC (NORMALS) IVSd 1.0 (0.6-1.2) LA Diam 2.8 (1.9-4.0) LVEF 75% LVIDd 4.2 (3.5-5.7) LVIDs 2.4 (2.0-3.5) %FS 43% LVPWd 1.0 (0.6-1.2) Ao Diam 2.6 (2.0-3.7) 2 DIMENSIONAL ASSESSMENT: RIGHT ATRIUM: NORMAL LEFT ATRIUM: NORMAL RIGHT VENTRICLE: NORMAL LEFT VENTRICLE: NORMAL TRICUSPID VALVE: NORMAL MITRAL VALVE: NORMAL PULMONIC VALVE: NORMAL AORTIC VALVE: NORMAL PERICARDIAL EFFUSION: NONE AORTIC ROOT: NORMAL LEFT VENTRICULAR WALL MOTION: NORMAL DOPPLER/COLOR FLOW: NORMAL COMMENTS: NORMAL 2-DIMENSIONAL ECHOCARDIOGRAM WITH DOPPLER. NO WALL MOTION ABNORMALITY. NO EFFUSION. NO ATRIAL SEPTAL DEFECT BY COLOR DOPPLER. TECHNOLOGIST: JOSE ALEJANDRO LAGOS
== END 2020-07-01 18:35 | disposition home or self-care (01) ==
LOC: ER 04:52 → ERHOLD 08:38 → 2ND 09:41
PROVIDERS: ADMIT Hospitalist; ATTEND Hospitalist
DX: R20.2 Paresthesia of skin (principal); R51.9 Headache, unspecified; Z86.73 Personal history of transient ischemic attack (TIA), and cerebral infarction without residual deficits; I10 Essential (primary) hypertension; F17.210 Nicotine dependence, cigarettes, uncomplicated; Z20.828 Contact with and (suspected) exposure to other viral communicable diseases; R94.31 Abnormal electrocardiogram [ECG] [EKG]; I44.4 Left anterior fascicular block
CPT/HCPCS: 93005; 93306; 85025; 80048; 36415; 85610; 80061; 82947; 85730; 70450; 71045; 70551; 92610; 99285; U0002; J7030; G0378 ×2

== ENCOUNTER 2022-06-24 18:02 | Inpatient (IN) | payer BC, SELFPAY ==
--- OUTSIDE RECORDS SUMMARY | 2022-06-24 18:05 | XMS REPORT | Continuity of Care Document ---
:1985 Author Organization [facility] t Address [address] [place] [address] Care Team Providers Name Role Phone Lab, Adc Fam Pob I Attending Clinician Unavailable Michelle Velazquez Attending Clinician Doctor Unassigned, [place] Attending Clinician Unavailable Payers Payer Name Policy Type Policy Number Effective Date Expiration Date S [facility] - [id number] 2014 00:00:00 OUT OF STATE Problems Condition Condition Condition Status Onset Resolution Last Treating Co mments Source Name Details Category Date Date Treatment Clinician Date No known No known Disease Unive rs active active ity of problems problems [facility] Allergies, Adverse Reactions, Alerts Allergy Allergy Status Severity Reaction(s) Onset Inactive Treating Comm ents Source Name Type Date Date Clinician NO KNOWN Drug Active Univers ALLERGIE Class ity of S [facility] Social History Social Habit Start Date Stop Date Quantity Comments Source Exposure to SARS-CoV-2 Not sure [facility] [place] (event) [facility] Sex Assigned At Uni versity of [facility] Smoking Status Start Date Stop Date Source Unknown if ever smoked [facility] y [facility] [place] [facility] Medications Ordered Filled Start Stop Current Ordering Indication Dosage Frequency Signature Comments Components Source Medication Medication Date Date Medication? Clinician (SIG) Name Name ondansetron 2018-09 Yes [id number] 4mg Take 1 Univers 4 mg 0-21 tablet by ity of disintegrat 00:00: mouth [place] ing tablet 00 every 4 Medica l (four) Branch hours as needed for Nausea and Vomiting (N/V). ketorolac 2018-09 Yes [id number] 10mg Take 1 Un zeynep 10 mg 0-21 tablet by ity of tablet 00:00: mouth [place] 00 every 8 Medical (eight) Branch hours. butalbital- 2018-09 Yes [id number] 1{tbl} Take 1 Univers acetaminoph 0-21 tablet by ity of en-caff 00:00: mouth [place] 50-325-40 00 every 4 Medical mg tablet (four) Branch hours as needed for Pain (scale 4-6). ondansetron 2018-09 Yes [id number] 4mg Take 1 Univers 4 mg 0-21 tablet by ity of disintegrat 00:00: mouth [place] ing tablet 00 every 4 Medica l (four) Branch hours as needed for Nausea and Vomiting (N/V). ketorolac 2018-09 Yes [id number] 10mg Take 1 Un zeynep 10 mg 0-21 tablet by ity of tablet 00:00: mouth [place] 00 every 8 Medical (eight) Branch hours. butalbital- 2018-09 Yes [id number] 1{tbl} Take 1 Univers acetaminoph 0-21 tablet by ity of en-caff 00:00: mouth [place] 50-325-40 00 every 4 Medical mg tablet (four) Branch hours as needed for Pain (scale 4-6). cyclobenzap Yes [id number] 10mg Take 1 Univers rine 10 mg 5-19 tablet by ity of tablet 00:00: mouth [place] 00 every 8 Medical (eight) Branch hours as needed for Muscle Spasms. cyclobenzap Yes [id number] 10mg Take 1 Univers rine 10 mg 5-19 tablet by ity of tablet 00:00: mouth [place] 00 every 8 Medical (eight) Branch hours as needed for Muscle Spasms. traMADOL 2018- Yes [id number] 50mg Take 1 Univers (ULTRAM) 50 4-07 [id number] tablet by i ty of mg tablet 00:00: mouth [place] 00 every 6 Medical (six) Branch hours as needed for Pain (scale 4-6). traMADOL 2018- Yes [id number] 50mg Take 1 Univers (ULTRAM) 50 4-07 [id number] tablet by i ty of mg tablet 00:00: mouth [place] 00 every 6 Medical (six) Branch hours as needed for Pain (scale 4-6). amLODIPine 2017-09 Yes 2.5mg Take 1 Univ ers 2.5 mg 0-21 tablet by ity of tablet 00:00: mouth at [place] 00 bedtime. Medical Branch hydroCHLORO 2017-09 Yes 25mg Take 1 Univ ers thiazide 25 0-21 tablet by ity of mg tablet 00:00: mouth [place] 00 every Medical morning. Branch amLODIPine 2017-09 Yes 2.5mg Take 1 Univ ers 2.5 mg 0-21 tablet by ity of tablet 00:00: mouth at [place] 00 bedtime. Medical Branch hydroCHLORO 2017-09 Yes 25mg Take 1 Univ ers thiazide 25 0-21 tablet by ity of mg tablet 00:00: mouth [place] 00 every Medical morning. Branch acetaminoph Yes 1{tbl} Take 1 Un zeynep en-codeine 3-03 tablet by ity of 300-30 mg 00:00: mouth [place] tablet 00 every 4 Medical (four) Branch hours as needed for Pain (scale 4-6) (Cough). acetaminoph Yes 1{tbl} Take 1 Un zeynep en-codeine 3-03 tablet by ity of 300-30 mg 00:00: mouth [place] tablet 00 every 4 Medical (four) Branch hours as needed for Pain (scale 4-6) (Cough). ondansetron 2015-09 Yes 4mg Take 1 Univ ers (ZOFRAN, 0-25 tablet by ity of HYDROCHLORI 00:00: mouth [place] DE,) 4 mg 00 every 8 Medical tablet (eight) Branch hours as needed for Nausea and Vomiting (N/V). ondansetron 2015-09 Yes 4mg Take 1 Univ ers (ZOFRAN, 0-25 tablet by ity of HYDROCHLORI 00:00: mouth [place] DE,) 4 mg 00 every 8 Medical tablet (eight) Branch hours as needed for Nausea and Vomiting (N/V). ondansetron 2015-09 Yes 4mg Take 1 Univ ers (ZOFRAN, 0-11 tablet by ity of HYDROCHLORI 00:00: mouth [place] DE,) 4 mg 00 every 8 Medical tablet (eight) Branch hours as needed for Nausea and Vomiting (N/V). ondansetron 2015-09 Yes 4mg Take 1 Univ ers (ZOFRAN, 0-11 tablet by ity of HYDROCHLORI 00:00: mouth [place] DE,) 4 mg 00 every 8 Medical tablet (eight) Branch hours as needed for Nausea and Vomiting (N/V). Procedures This patient has no known procedures. Encounters Start End Encounter Admission Attending Care Care Encounter Source Date/Time Date/Time Type Type Clinicians Facility Department ID 2020-04-28 2020-04-28 Outpatient [address] [facility] [id number] Univers 11:40:00 11:40:00 ity of [facility] 2020-04-28 2020-04-28 Laboratory Lab, [facility] [id number] 10:57:36 11:17:36 Only Fam Pob I Health [id number] [place] [id number] Professio [phone] [place] [address] [address] 2020-04-28 2020-04-28 Laboratory Lab, [facility] Fam Pob I [facility] [id number] Univers 10:57:36 11:17:36 Only Anene, Michelle [facility] [id number] ity of [place] [id number] Abhishek as Professio [phone] Ak dical nal [address] [place] [address] Office [address] 2020-04-28 2020-04-28 Letter Doctor PETER [id number] 00:00:00 00:00:00 (Out) Unassigned, VERONIQUE [id number] [place] [facility] [phone] [facility] 2020-04-28 2020-04-28 Letter Doctor PETER [id number] Univers 00:00:00 00:00:00 (Out) Unassigned, VERONIQUE [id number] ity of [place] [facility] [id number] Abhishek as [phone] [address] Results This patient has no known results.
[2022-06-24 18:45] LABS: Absolute Lymphocytes (CBC) 1.2 K/uL (0.7-4.9); Hematocrit 53.2 % (39.6-49.0); Lymphocytes % 22.8 % (15.3-44.8); MCV 90.8 fL (80-100); MPV 8.5 fL (7.6-11.3); RBC Red Blood Cell Count 5.86 M/uL (4.33-5.43)
[2022-06-24] MEDS ORDERED: FOLIC ACID 5 MG/ML VIAL ONE (18:50)
[2022-06-24] MEDS ORDERED: NA CHLORIDE 0.9% 1,000 ML ONE (18:51)
[2022-06-24 18:52] LABS: Protime INR 0.96
--- NOTE | 2022-06-24 19:00 | RAD REPORT ---
EXAM DESCRIPTION: CT - Ct Stroke Brain Wo Cont - 06/24/2022 6:43 pm CLINICAL HISTORY: TROUBLE SPEAKING Headache, drowsiness, CVA symptomology COMPARISON: Ct Stroke Brain Wo Cont dated 07/01/2020; Head Brain Wo Cont dated 02/18/2020 TECHNIQUE: All CT scans are performed using dose optimization technique as appropriate and may inclu de automated exposure control or mA/KV adjustment according to patient size. FINDINGS: No intracranial hemorrhage, hydrocephalus or extra-axial fluid collection.No areas of brai n edema or evidence of midline shift. The paranasal sinuses and mastoids are clear. The calvarium is intact. IMPRESSION: No acute intracranial abnormality. If there is continued clinical concern for CVA, MR imaging of the brain would be recommended. The findings were discussed with doctor Grijalva in the emergency room on 06/24/2022 at 6:30 p.m. by telephone.
[2022-06-24 19:02] LABS: Potassium 4.1 mmol/L (3.5-5.1)
--- NOTE | 2022-06-24 19:02 | EDPHYS ---
Physician Documentation [facility] Name: Enma Kuo Jr Age: 37 yrs Sex: Male : 1985 Arrival Date: 06/24/2022 Time: 18:03 Bed 13 Private MD: SKYLER Physician Rad Grijalva HPI: 06/24 18:55 This 37 yrs old Male presents to ER via Ambulatory with complaints of marita Numbness, Trouble Talking. 18:55 The patient's problem is reported as dysphasia, slurred speech. Onset: The marita symptoms/episode began/occurred at 12:45. Duration: The episodes are intermittent. Context: the episode(s) was witnessed, by a friend, symptoms became apparent at 12:45. occurred at home. The symptoms are alleviated by nothing. The symptoms are aggravated by nothing. Associated signs and symptoms: Pertinent positives: weakness. Historical: - Allergies: 18:28 No Known Allergies; vg1 - PMHx: 18:28 CVA; Gall Stones; Hypertension; TIA; vg1 - PSHx: 18:28 Cholecystectomy; vg1 - Immunization history:: Client reports having NOT received the Covid vaccine. - Social history:: Smoking status: Patient reports the use of cigarette tobacco products, smokes one pack cigarettes per day. - Family history:: not pertinent. ROS: 18:55 Constitutional: Negative for fever, chills, and weight loss, Eyes: Negative for injury, marita pain, redness, and discharge, ENT: Negative for injury, pain, and discharge, Neck: Negative for injury, pain, and swelling, Cardiovascular: Negative for chest pain, palpitations, and edema, Respiratory: Negative for shortness of breath, cough, wheezing, and pleuritic chest pain, Abdomen/GI: Negative for abdominal pain, nausea, vomiting, diarrhea, and constipation, Back: Negative for injury and pain, : Negative for injury, bleeding, discharge, and swelling, MS/Extremity: Negative for injury and deformity, Skin: Negative for injury, rash, and discoloration, Neuro: Negative for headache, weakness, numbness, tingling, and seizure, Psych: Negative for depression, anxiety, suicide ideation, homicidal ideation, and hallucinations, Allergy/Immunology: Negative for hives, rash, and allergies, Endocrine: Negative for neck swelling, polydipsia, polyuria, polyphagia, and marked weight changes, Hematologic/Lymphatic: Negative for swollen nodes, abnormal bleeding, and unusual bruising. Exam: 18:55 Radiologist reports: NEG marita 18:55 Constitutional: This is a well developed, well nourished patient who is awake, alert, and in no acute distress. Head/Face: Normocephalic, atraumatic. Eyes: Pupils equal round and reactive to light, extra-ocular motions intact. Lids and lashes normal. Conjunctiva and sclera are non-icteric and not injected. Cornea within normal limits. Periorbital areas with no swelling, redness, or edema. ENT: Nares patent. No nasal discharge, no septal abnormalities noted. Tympanic membranes are normal and external auditory canals are clear. Oropharynx with no redness, swelling, or masses, exudates, or evidence of obstruction, uvula midline. Mucous membranes moist. Neck: Trachea midline, no thyromegaly or masses palpated, and no cervical lymphadenopathy. Supple, full range of motion without nuchal rigidity, or vertebral point tenderness. No Meningismus. Chest/axilla: Normal chest wall appearance and motion. Nontender with no deformity. No lesions are appreciated. Cardiovascular: Regular rate and rhythm with a normal S1 and S2. No gallops, murmurs, or rubs. Normal PMI, no JVD. No pulse deficits. Respiratory: Lungs have equal breath sounds bilaterally, clear to auscultation and percussion. No rales, rhonchi or wheezes noted. No increased work of breathing, no retractions or nasal flaring. Abdomen/GI: Soft, non-tender, with normal bowel sounds. No distension or tympany. No guarding or rebound. No evidence of tenderness throughout. Back: No spinal tenderness. No costovertebral tenderness. Full range of motion. Male : Normal genitalia with no discharge or lesions. Skin: Warm, dry with normal turgor. Normal color with no rashes, no lesions, and no evidence of cellulitis. MS/ Extremity: Pulses equal, no cyanosis. Neurovascular intact. Full, normal range of motion. Neuro: Awake and alert, GCS 15, oriented to person, place, time, and situation. Cranial nerves II-XII grossly intact. Motor strength 5/5 in all extremities. Sensory grossly intact. Cerebellar exam normal. Normal gait. Psych: Awake, alert, with orientation to person, place and time. Behavior, mood, and affect are within normal limits. 18:59 ECG was reviewed by the Attending Physician. [facility] Vital Signs: 18:07 BP 146 / 94; Pulse 83; Resp 16; Temp 99.8(O); Pulse Ox 98% on R/A; Weight 99.79 kg; vg1 Height 5 ft. 3 in. (160.02 cm); Pain 0/10; 18:47 BP 140 / 93; Pulse 73; Resp 14; Pulse Ox 94% ; bp 18:07 Body Mass Index 38.97 (99.79 kg, 160.02 cm) vg1 NIH Stroke Scale Scores: 19:04 NIHSS Score: 0 marita 20:51 NIHSS Score: 0 ke1 MDM: 18:46 Patient medically screened. marita 18:58 Differential diagnosis: CVA, TIA. Data reviewed: vital signs, nurses notes, lab test marita result(s), EKG, radiologic studies. Data interpreted: media monitor: rate is 73 beats/min, rhythm is regular, Pulse oximetry: on room air is 94 %. Test interpretation: by ED physician or midlevel provider: ECG, plain radiologic studies. Counseling: I had a detailed discussion with the patient and/or guardian regarding: the historical points, exam findings, and any diagnostic results supporting the discharge/admit diagnosis, lab results, radiology results, the need for further work-up and treatment in the hospital. 19:31 ED course: GREATER THAN 4.5 HOURS FROM ONSET, NOT A TNK PATIENT. marita 06/24 18:31 Order name: Basic Metabolic Panel bp 10 18:31 Order name: CBC with Diff bp 06/24 18:31 Order name: Protime (+inr) bp 10 18:31 Order name: Ptt, Activated bp 06/24 18:45 Order name: Glucose, Ancillary Testing; Complete Time: 18:55 EDMS 06/24 18:53 Order name: CBC with Automated Diff; Complete Time: 18:55 EDMS 06/24 18:53 Order name: Protime (+INR); Complete Time: 18:55 EDMS 06/24 18:53 Order name: PTT, Activated Partial Thromb; Complete Time: 18:55 EDMS 06/24 18:55 Order name: UDS marita 06/24 18:55 Order name: Lipid Profile marita 06/24 19:02 Order name: Basic Metabolic Panel; Complete Time: 19:04 EDMS 06/24 19:08 Order name: SARS RAPID [facility] 06/24 20:11 Order name: SARS-COV-2 Antigen Rapid; Complete Time: 20:40 EDMS 06/24 20:32 Order name: Urine Dipstick-Ancillary; Complete Time: 20:40 EDMS 06/24 18:31 Order name: CT Stroke Brain w/o Contrast bp 06/24 18:31 Order name: Stroke CXR 1 View bp 06/24 18:31 Order name: EKG; Complete Time: 18:33 bp 06/24 18:31 Order name: Accucheck; Complete Time: 18:37 bp 06/24 18:55 Order name: CT Head Angio [facility] 06/24 18:55 Order name: CT Neck Angio [facility] 06/24 19:02 Order name: CT; Complete Time: 19:04 EDMS 06/24 19:04 Order name: RAD; Complete Time: 19:08 EDMS 06/24 20:28 Order name: CT; Complete Time: 20:40 EDMS 06/24 20:30 Order name: CT; Complete Time: 20:40 EDMS 06/24 20:52 Order name: Urine Drug Screen EDMS 06/24 21:20 Order name: Lipid Profile EDMS 06/24 18:31 Order name: Cardiac monitoring; Complete Time: 18:32 bp 06/24 18:31 Order name: EKG - Nurse/Tech; Complete Time: 18:32 bp 06/24 18:31 Order name: IV Saline Lock; Complete Time: 18:37 bp 06/24 18:31 Order name: Labs collected and sent; Complete Time: 18:37 bp 06/24 18:31 Order name: NPO; Complete Time: 18:32 bp 06/24 18:31 Order name: O2 Per Protocol; Complete Time: 18:32 bp 06/24 18:31 Order name: O2 Sat Monitoring; Complete Time: 18:32 bp 06/24 18:31 Order name: Stroke Swallow Screen; Complete Time: 18:32 bp 06/24 18:47 Order name: Urine Dipstick-Ancillary (obtain specimen); Complete Time: 20:34 marita EC:59 Rate is 74 beats/min. Rhythm is regular. QRS [place] is Normal. RI interval is normal. QRS marita interval is normal. QT interval is normal. No Q waves. T waves are Normal. No ST changes noted. Clinical impression: NSR w/ Non-specific ST/T Changes and No evidence of ischemia. Interpreted by me. Reviewed by me. Administered Medications: 18:50 Drug: NS 0.9% 1000 ml Route: IV; Rate: 1 bolus; Site: right antecubital; bp 18:50 Drug: foLIC Acid 1 mg Route: IVPB; Site: right antecubital; bp 19:50 Drug: Aspirin Chewable Tablet 324 mg Route: PO; ld1 19:50 Drug: Lipitor (atorvastatin) 40 mg Route: PO; ld1 Disposition Summary: 06/24/22 19:02 Hospitalization Ordered Hospitalization Status: Observation marita Provider: Dung Eric cha Location: Telemetry/MedSurg (observation) marita Condition: Fair marita Problem: new marita Symptoms: have improved marita Bed/Room Type: Standard marita Room Assignment: 418(06/24/22 20:24) eb1 Diagnosis - Aphasia - RESOLVED marita - Transient cerebral ischemic attack, unspecified marita - Tobacco abuse counseling marita - Tobacco use marita Forms: - Medication Reconciliation Form marita - SBAR form marita NIH Stroke Scale - NIH Stroke Score Date: 06/24/2022 Time: 19:04 Total Score = 0 1a. Level of Consciousness (LOC) - 0(Alert) 1b. Level of Consciousness (LOC) (Month \T\ Age) - 0(Both) 1c. LOC Commands (Open \T\ Closes Eyes/Sheeter Operator) - 0(Both) 2. Best Gaze (Lateral Gaze Paresis) - 0(Normal) 3. Visual Field Loss - 0(No visual loss) 4. Facial Palsy - 0(Normal) 5a. Left Arm: Motor (10-second hold) - 0(No drift) 5b. Right Arm: Motor (10-second hold) - 0(No drift) 6a. Left Leg: Motor (5-second hold - always test supine) - 0(No drift) 6b. Right Leg: Motor (5-second hold - always test supine) - 0(No drift) 7. Limb Ataxia (finger/nose \T\ heel/hernandez - test with eyes open) - 0(Absent) 8. Sensory Loss (pinprick arms/legs/face) - 0(Normal) 9. Best Language: Aphasia (description/naming/reading) - 0(No aphasia) 10. Dysarthria (speech clarity - read or repeat words) - 0(Normal) 11. Extinction and Inattention (visual/tactile/auditory/spatial/personal) - 0(No abnormality) Initials: marita NIH Stroke Scale - NIH Stroke Score Date: 06/24/2022 Time: 20:51 Total Score = 0 1a. Level of Consciousness (LOC) - 0(Alert) 1b. Level of Consciousness (LOC) (Month \T\ Age) - 0(Both) 1c. LOC Commands (Open \T\ Closes Eyes/Sheeter Operator) - 0(Both) 2. Best Gaze (Lateral Gaze Paresis) - 0(Normal) 3. Visual Field Loss - 0(No visual loss) 4. Facial Palsy - 0(Normal) 5a. Left Arm: Motor (10-second hold) - 0(No drift) 5b. Right Arm: Motor (10-second hold) - 0(No drift) 6a. Left Leg: Motor (5-second hold - always test supine) - 0(No drift) 6b. Right Leg: Motor (5-second hold - always test supine) - 0(No drift) 7. Limb Ataxia (finger/nose \T\ heel/hernandez - test with eyes open) - 0(Absent) 8. Sensory Loss (pinprick arms/legs/face) - 0(Normal) 9. Best Language: Aphasia (description/naming/reading) - 0(No aphasia) 10. Dysarthria (speech clarity - read or repeat words) - 0(Normal) 11. Extinction and Inattention (visual/tactile/auditory/spatial/personal) - 0(No abnormality) Initials: ke1 Signatures: Dispatcher [employer] Rad Wade MD MD cha Attema, Lee, RESTAURANT GENERAL MANAGER-C RESTAURANT GENERAL MANAGER-Cla1 Kb Short, RN RN bp Brenda Cabrera RN RN eb1 Rubia Rowland, RN RN vg1 Sulma Conti RN RN ld1 Corrections: (The following items were deleted from the chart) 20:24 19:02 marita girard
--- NOTE | 2022-06-24 19:02 | ER ---
Nurse's Notes [facility] Name: Enma Kuo Jr Age: 37 yrs Sex: Male : 1985 Arrival Date: 06/24/2022 Time: 18:03 Bed 13 Private MD: Diagnosis: Aphasia-RESOLVED;Transient cerebral ischemic attack, unspecified;Tobacco abuse counseling;Tobacco use Presentation: 06/24 18:07 Chief complaint: Patient states: "at about noon time I noticed I was talking slow, kind vg1 of like I was drunk; my tongue also feels numb; I've had this happen before in the past; like Elissa had baby strokes". Pt denies Headache or blurred vision. 18:07 Coronavirus screen: Vaccine status: Patient reports being unvaccinated. Client denies vg1 travel out of the [place] in the last 14 days. Ebola Screen: Patient negative for fever greater than or equal to 101.5 degrees Fahrenheit, and additional compatible Ebola Virus Disease symptoms. Initial Sepsis Screen: Does the patient meet any 2 criteria? No. Patient's initial sepsis screen is negative. Does the patient have a suspected source of infection? No. Patient's initial sepsis screen is negative. Risk Assessment: Do you want to hurt yourself or someone else? Patient reports no desire to harm self or others. Onset of symptoms was June 24, 2022 at 12:00. 18:07 Method Of Arrival: Ambulatory vg1 18:07 Acuity: SAMUEL 2 vg1 Triage Assessment: 18:28 The onset of the patients symptoms was June 24, 2022 at 12:00. General: Appears in vg1 no apparent distress. uncomfortable, Behavior is calm, cooperative. Pain: Denies pain. Neuro: Level of Consciousness is awake, alert, obeys commands, Oriented to person, place, time, situation, Apprentice Cosmetologist are equal bilaterally Moves all extremities. Gait is steady, Speech is slurred, Facial symmetry appears normal. 18:28 Neuro: Reports tongue numbess. Denies blurred vision dizziness, headache. vg1 Stroke Activation: Symptom onset > 6 hours Physician: Stroke Attending; Name: ; Notified At: ; Arrived At: Physician: Chief Stroke Resident; Name: ; Notified At: ; Arrived At: Physician: Stroke Resident; Name: ; Notified At: ; Arrived At: Physician: ED Attending; Name: ; Notified At: ; Arrived At: Physician: ED Resident; Name: ; Notified At: ; Arrived At: Historical: - Allergies: 18:28 No Known Allergies; vg1 - PMHx: 18:28 CVA; Gall Stones; Hypertension; TIA; vg1 - PSHx: 18:28 Cholecystectomy; vg1 - Immunization history:: Client reports having NOT received the Covid vaccine. - Social history:: Smoking status: Patient reports the use of cigarette tobacco products, smokes one pack cigarettes per day. - Family history:: not pertinent. Screenin:36 Abuse screen: Denies threats or abuse. Denies injuries from another. Nutritional bp screening: No deficits noted. Tuberculosis screening: No symptoms or risk factors identified. Fall Risk None identified. Assessment: 18:24 Reassessment: Code Stroke at 1811. vg1 19:00 Patient has been NPO before screening. The patient is alert, and able to follow ke1 commands. The patient does not exhibit slurred or garbled speech. The patient is not exhibiting difficulty speaking. The patient does not exhibit difficulty understanding words. The patient is able to swallow own secretions with no drooling or need for suction. Patient tolerated one teaspoon of water. No drooling, immediate coughing, gurgling, or clearing of the throat was noted. The patient tolerated 90mL of water. No drooling, immediate coughing, gurgling, or clearing of the throat was noted. The patient passed the bedside swallow screening. Oral medications may be given as ordered. Contact Physician for further diet orders. Provider notified of bedside swallow screening results: Rad Grijalva MD. 19:08 Neuro: Level of Consciousness is awake, alert, Oriented to person, place, time, ke1 situation. 20:51 VAN Scoring: Arm Drift: Patients demonstrates NO arm weakness. Patient is VAN Negative. ke1 Visual Disturbance: No visual disturbance noted. Aphasia: No aphasia noted. Neglect: No neglect noted. 20:54 Neuro: Level of Consciousness is awake, alert, Oriented to person, place, time, ke1 situation. Vital Signs: 18:07 BP 146 / 94; Pulse 83; Resp 16; Temp 99.8(O); Pulse Ox 98% on R/A; Weight 99.79 kg; vg1 Height 5 ft. 3 in. (160.02 cm); Pain 0/10; 18:47 BP 140 / 93; Pulse 73; Resp 14; Pulse Ox 94% ; bp 18:07 Body Mass Index 38.97 (99.79 kg, 160.02 cm) vg1 NIH Stroke Scale Scores: 19:04 NIHSS Score: 0 marita 20:51 NIHSS Score: 0 [facility] ED Course: 18:03 Patient arrived in ED. as 18:16 Kb Short, RN is Primary Nurse. bp 18:28 Triage completed. vg1 18:28 Arm band placed on. vg1 18:36 Patient has correct armband on for positive identification. Bed in low position. Call bp light in reach. Side rails up X2. 18:36 Inserted saline lock: 20 gauge in right antecubital area, using aseptic technique. bp Blood collected. 18:46 Rad Grijalva MD is Attending Physician. marita 19:01 Dung Eric MD is Hospitalizing Provider. marita 19:50 SARS RAPID Sent. ld1 22:03 Patient admitted, IV remains in place. ld1 Administered Medications: 18:50 Drug: NS 0.9% 1000 ml Route: IV; Rate: 1 bolus; Site: right antecubital; bp 18:50 Drug: foLIC Acid 1 mg Route: IVPB; Site: right antecubital; bp 19:50 Drug: Aspirin Chewable Tablet 324 mg Route: PO; ld1 19:50 Drug: Lipitor (atorvastatin) 40 mg Route: PO; ld1 Outcome: 19:02 Decision to Hospitalize by Provider. marita 22:03 Admitted to Med/surg ld1 22:03 Condition: stable 22:03 Instructed on the need for admit. 22:03 Patient left the ED. ld1 NIH Stroke Scale - NIH Stroke Score Date: 06/24/2022 Time: 19:04 Total Score = 0 1a. Level of Consciousness (LOC) - 0(Alert) 1b. Level of Consciousness (LOC) (Month \\T\\ Age) - 0(Both) 1c. LOC Commands (Open \\T\\ Closes Eyes/Shingle Catcher) - 0(Both) 2. Best Gaze (Lateral Gaze Paresis) - 0(Normal) 3. Visual Field Loss - 0(No visual loss) 4. Facial Palsy - 0(Normal) 5a. Left Arm: Motor (10-second hold) - 0(No drift) 5b. Right Arm: Motor (10-second hold) - 0(No drift) 6a. Left Leg: Motor (5-second hold - always test supine) - 0(No drift) 6b. Right Leg: Motor (5-second hold - always test supine) - 0(No drift) 7. Limb Ataxia (finger/nose \\T\\ heel/hernandez - test with eyes open) - 0(Absent) 8. Sensory Loss (pinprick arms/legs/face) - 0(Normal) 9. Best Language: Aphasia (description/naming/reading) - 0(No aphasia) 10. Dysarthria (speech clarity - read or repeat words) - 0(Normal) 11. Extinction and Inattention (visual/tactile/auditory/spatial/personal) - 0(No abnormality) Initials: marita NIH Stroke Scale - NIH Stroke Score Date: 06/24/2022 Time: 20:51 Total Score = 0 1a. Level of Consciousness (LOC) - 0(Alert) 1b. Level of Consciousness (LOC) (Month \\T\\ Age) - 0(Both) 1c. LOC Commands (Open \\T\\ Closes Eyes/Shingle Catcher) - 0(Both) 2. Best Gaze (Lateral Gaze Paresis) - 0(Normal) 3. Visual Field Loss - 0(No visual loss) 4. Facial Palsy - 0(Normal) 5a. Left Arm: Motor (10-second hold) - 0(No drift) 5b. Right Arm: Motor (10-second hold) - 0(No drift) 6a. Left Leg: Motor (5-second hold - always test supine) - 0(No drift) 6b. Right Leg: Motor (5-second hold - always test supine) - 0(No drift) 7. Limb Ataxia (finger/nose \\T\\ heel/hernandez - test with eyes open) - 0(Absent) 8. Sensory Loss (pinprick arms/legs/face) - 0(Normal) 9. Best Language: Aphasia (description/naming/reading) - 0(No aphasia) 10. Dysarthria (speech clarity - read or repeat words) - 0(Normal) 11. Extinction and Inattention (visual/tactile/auditory/spatial/personal) - 0(No abnormality) Initials: ke1 Signatures: Rad Grijalva MD MD cha Martinez, Amelia as Peltier, Brian, RN RN Rubia Terrell RN RN vg1 Sulma Conti, RN RN ld1 Pari Morales, RN RN ke1
--- NOTE | 2022-06-24 19:03 | RAD REPORT ---
EXAM DESCRIPTION: RAD - Chest Single View - 06/24/2022 6:43 pm CLINICAL HISTORY: CODE STROKE Chest pain. COMPARISON: Chest Single View dated 04/08/2021; Chest Single View dated 07/01/2020; Chest Single View dated 02/18/2020; Chest Single View dated 07/13/2019 FINDINGS: Portable technique limits examination quality. The lungs are grossly clear. The heart is normal in size. No displaced fractures. IMPRESSION: No acute intrathoracic process suspected.
[2022-06-24] MEDS ORDERED: ASPIRIN 81 MG CHEWABLE TABLET ONE (19:45)
[2022-06-24] MEDS ORDERED: ATORVASTATIN 20 MG TAB ONE (19:45)
[2022-06-24 20:10] LABS: SARS-CoV-2 Antigen Rapid Res Negative (Negative)
--- NOTE | 2022-06-24 20:19 | P.HP ---
Certification for Inpatient Patient admitted to: Observation With expected LOS: <2 Midnights Patient will require the following post-hospital care: None Practitioner: I am a practitioner with admitting privileges, knowledge of patient current condition, hospital course, and medical plan of care. Services: Services provided to patient in accordance with Admission requirements found in Title 42 Section 412.3 of the Code of Federal Regulations Patient History Date of Service: 06/24/22 Reason for admission: Dysarthira, TIA History of Present Illness: 37-year-old male with history of hypertension, tobacco abuse presents the emergency department for dysphasia/dysarthria that has been having intermittently over the course of the last 1 to 2 weeks, he also experienced some right-sided facial numbness earlier today. He reports that today around noon he began to have some slurred speech/dysarthria similar to previous episodes over the course last 1 to 2 weeks. Upon arrival to the emergency department patient symptoms have improved significantly at my time of evaluation patient NIH score is 1 given his mild dysarthria that is present. He had a CT scan of his head without contrast which was negative for acute findings his labs were unremarkable. He was given aspirin, atorvastatin, folic acid in the emergency department. ED provider wishes to admit under observation for TIA/dysarthria. 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 moist/pink, EOMI, Sclerae nonicteric Neck: Supple, 2+ carotid pulse no bruit, No LAD, Without JVD or thyroid abnormality Respiratory: Clear to auscultation bilaterally, Normal air movement Cardiovascular: Regular rate/rhythm, Normal S1 S2 Capillary refill: <2 Seconds Gastrointestinal: Normal bowel sounds, No tenderness Musculoskeletal: No tenderness Integumentary: No rashes Neurological: Normal strength at 5/5 x4 extr, Normal tone, Normal affect, Abnormal speech - Studies Laboratory Data (last 24 hrs) 06/24/22 18:35: PT 10.6, INR 0.96, APTT 31.0 06/24/22 18:35: WBC 5.30, Hgb 18.5 H, Hct 53.2 H, Plt Count 157 06/24/22 18:35: Sodium 137, Potassium 4.1, BUN 10, Creatinine 0.99, Glucose 98 Assessment and Plan - Plan Assessment: Dysarthria/suspected TIA Hypertension with noncompliance Tobacco abuse Alcohol use Plan: Dysarthria/suspected TIA: CT head without contrast negative for acute findings labs were unremarkable. Patient reports history of similar episode approximately 2 to 3 years ago. MRI stroke protocol, echocardiogram ordered. Neurology consult in place. Patient also with significant headache that began this morning around 0600 which could be contributing, as needed pain medication ordered. Appreciate further input from neurology. Lipid panel ordered, continue aspirin, statin, folic acid for the time being. Hypertension with noncompliance: Patient reports he was previously placed on medication for blood pressure but has been noncompliant with it, he is not sure what medication he was on. Have started lisinopril 10 mg p.o. daily. Adjust as necessary. Tobacco abuse: Counseled on need for tobacco cessation given risk for CVA. NicoDerm patch supplied. Alcohol use: Counseled on need for cessation. He reports he drinks approximately 3-4 beers per day unlikely to withdrawal but will monitor. DVT PPX: Lovenox Code status: Full Discharge Plan: Home Plan to discharge in: 24 Hours - Advance Directives Does patient have a Living Will: No Does patient have a Durable POA for Healthcare: No - Code Status/Comfort Care Code Status Assessed: Yes (Full code) Critical Care: No Time Spent Managing Pts Care (In Minutes): 70
--- NOTE | 2022-06-24 20:27 | RAD REPORT ---
EXAM DESCRIPTION: CT - Head angio - 06/24/2022 8:11 pm CLINICAL HISTORY: Neuro deficit, acute, stroke suspected Headache, drowsiness, CVA symptoms COMPARISON: Ct Stroke Brain Wo Cont dated 06/24/2022; Ct Stroke Brain Wo Cont dated 07/01/2020 TECHNIQUE: CT angiography of the head was performed with MIPs. All CT scans are performed using dose optimization technique as appropriate and may include automated exposure control or mA/KV adjustment according to patient size. FINDINGS: No evidence of aneurysm is detected. No flow-limiting stenosis or vascular malformation id entified. Antegrade flow is seen in the vertebral arteries. The vertebral arteries are codominant. The visualized dural venous sinuses are patent. IMPRESSION: No significant flow abnormality is detected.
--- NOTE | 2022-06-24 20:28 | RAD REPORT ---
EXAM DESCRIPTION: CT - Neck Angio - 06/24/2022 8:11 pm CLINICAL HISTORY: Neuro deficit, acute, stroke suspected Headache, drowsiness, CVA symptomology COMPARISON: No comparisons TECHNIQUE: CT angiography of the neck vessels was performed with MIPs. All CT scans are performed using dose optimization technique as appropriate and may include automated exposure control or mA/KV adjustment according to patient size. FINDINGS: A left aortic arch is identified with normal three vessel configuration of the great vesse ls. No significant flow abnormality is seen of the common carotid bilaterally. No significant stenosis is identified involving the cervical segments of both internal carotid arteri es. Normal flow is seen within both vertebral arteries. IMPRESSION: No significant flow abnormality of the neck vessels is identified.
[2022-06-24 20:32] LABS: Urine Blood Negative (Negative); Urine Glucose Negative (Negative); Urine Protein Negative (Negative); Urine Specific Gravity 1.025 (1.005-1.030); Urine pH 6.5 (5.0-7.0)
[2022-06-24 20:51] LABS: Barbiturates NEGATIVE (NEGATIVE); Benzodiazepines NEGATIVE (NEGATIVE); Cocaine NEGATIVE (NEGATIVE); METHAMPHETAM NEGATIVE (NEGATIVE); Methadone NEGATIVE (NEGATIVE); Opiates NEGATIVE (NEGATIVE); Phencyclidine NEGATIVE (NEGATIVE); THC Cannibis NEGATIVE (NEGATIVE)
[2022-06-24] MEDS ORDERED: NICOTINE 21 MG/PAT TD PRN (22:31)
[2022-06-24] MEDS ORDERED: ONDANSETRON 4 MG/2 ML VIAL IV PRN (22:31)
[2022-06-24 22:55] VITALS: BMI 38.9
[2022-06-24] MEDS ORDERED: MELATONIN 5 MG TABLET PO PRN (23:19)
[2022-06-25] MEDS: ACETAMINOPHEN 500 MG TAB PO PRN ×2 (04:34→16:57)
[2022-06-25 04:38] LABS: Absolute Lymphocytes (CBC) 1.7 K/uL (0.7-4.9); Hematocrit 51.4 % (39.6-49.0); Lymphocytes % 31.8 % (15.3-44.8); MCV 92.5 fL (80-100); MPV 8.5 fL (7.6-11.3); RBC Red Blood Cell Count 5.56 M/uL (4.33-5.43)
[2022-06-25 05:18] LABS: Potassium 3.6 mmol/L (3.5-5.1)
[2022-06-25 05:19] LABS: Albumin 3.2 g/dL (3.4-5.0); Bilirubin Total 0.5 mg/dL (0.2-1.0); Protein, Total 6.4 g/dL (6.4-8.2)
[2022-06-25] MEDS: FOLIC ACID 1 MG TABLET PO SCH (09:19)
[2022-06-25] MEDS: ENOXAPARIN 40 MG/0.4 ML SQ SCH (09:19)
[2022-06-25] MEDS: ASPIRIN EC 81 MG TAB PO SCH (09:19)
[2022-06-25] MEDS: lisinopriL 10 MG TAB PO SCH (09:19)
--- NOTE | 2022-06-25 09:34 | RAD REPORT ---
EXAM DESCRIPTION: MRI - Brain W/Wo Cont - 06/25/2022 9:07 am CLINICAL HISTORY: TIA, dysarthria CVA symptomology, headache COMPARISON: MRA Head Wo Cont dated 06/25/2022; Brain Wo Cont dated 07/01/2020 TECHNIQUE: Multi-sequence, multiplanar MR imaging of the brain was performed with contrast. FINDINGS: No intracranial hemorrhage, hydrocephalus, or extra-axial fluid collection. No edema or sh ift of midline structures. No intracranial mass.10 mm lateral and 6 mm medial acute CVA is present ri ght basal ganglia. These are nonhemorrhagic. . The midline structures are normally formed. Mastoid air cells and paranasal sinuses are clear. Post-contrast images show no abnormal enhancement to suggest tumor or infection. IMPRESSION: There are 2 nonhemorrhagic acute infarcts present in the right basal ganglia as detailed . No pathologic post-contrast enhancement suspected.
--- NOTE | 2022-06-25 09:40 | RAD REPORT ---
EXAM DESCRIPTION: MRI - MRA Head Wo Cont - 06/25/2022 9:07 am CLINICAL HISTORY: TIA/dysphasia CVA COMPARISON: Head angio dated 06/24/2022 FINDINGS: 3D noncontrast [id number] MR angiography of the [place] was performed. No aneurysm, flow-limiting stenosis or vascular malformation is seen. Forward flow seen in codominant vertebral arteries. The visualized dural venous sinuses appear patent. IMPRESSION: No significant flow abnormality of the [place] is identified.
--- NOTE | 2022-06-25 09:53 | RAD REPORT ---
EXAM DESCRIPTION: MRI - MRA Neck W/Wo Cont - 06/25/2022 9:08 am CLINICAL HISTORY: R/O Stroke Headache, drowsiness, CVA symptomology COMPARISON: MRA Neck W/Wo Cont dated 07/14/2019; Neck Angio dated 06/24/2022 FINDINGS: Contrast enhance 2D [id number] MR angiography of the neck vessels was performed. A left aortic arch is noted with normal branching pattern present of the great vessels. No significan t carotid stenosis suspected. Antegrade flow seen in both vertebral arteries. IMPRESSION: No significant flow abnormality of the neck vessels.
--- NOTE | 2022-06-25 14:13 | EKG ---
Test Date: 2022-06-24 Test Time: 18:21:34 [place] Overseer: BARBRA MEASUREMENT RESULTS: Intervals: Rate: 74 SC: 196 QRSD: 100 QT: 368 QTc: 408 [place]: P: 42 SC: 196 QRS: -64 T: 24 INTERPRETIVE STATEMENTS: Normal sinus rhythm Left anterior fascicular block Abnormal ECG Compared to ECG 04/08/2021 06:07:53 Myocardial infarct finding no longer present Electronically Signed On 06-25-22 14:11:52 CDT by Reji Rice
[2022-06-25] MEDS ORDERED: TRAZODONE 50 MG TABLET PO PRN (17:57)
[2022-06-25] MEDS ORDERED: TRAMADOL HCL 50 MG TAB PO PRN (19:43)
[2022-06-25] MEDS ORDERED: ATORVASTATIN 80 MG TAB PO SCH (21:00)
--- NOTE | 2022-06-25 22:44 | P.PN ---
Date of Service: 06/25/22 Subjective: continues with slurred speech, tongue with some numbness back discomfort no fever/chills/nausea/vomiting +insomnia last night ROS: 10 point ROS as noted above, otherwise negative Physical Exam: Gen: NAD, AOx3 HEENT: normal conjunctiva, sclera anicteric, PERRL CV: regular rate & rhythm, no edema Pulm: non-labored respirations, clear bilaterally Abd: soft, non-tender, non-distended Neuro: slurred speech, CNII-XII grossly intact with numbness of tongue; str 5/5 in bilateral upper/lower extremities vitals reviewed Problem List Dysarthria secondary to acute basal ganglia CVA; h/o multiple CVA with hemorrhagic conversion Hypertension with noncompliance Tobacco abuse Alcohol use insomnia CT head, CTA head: negative MRI: 2 areas of acute CVA in right basal ganglia MRA head/neck - no significant flow abnormality - improved compared to prior done several years ago prior CVAs were concerning for cardioembolic origin given distribution. Neuro consulted, most likely cause is uncontrolled HTN given the location echo ordered / done early this AM, pending read; does not seem to be with bubble study review of prior echo a few years ago did not see septal defect continue aspirin, statin, folic acid continue lisinopril advised tobacco cessation speech therapy consulted DVT PPX: Lovenox Code status: Full Dispo: home, tomorro Time Spent Managing Pts Care (In Minutes): 35
[2022-06-25 23:51] VITALS: O2SAT 98
[2022-06-26 06:08] LABS: Absolute Lymphocytes (CBC) 1.7 K/uL (0.7-4.9); Hematocrit 50.7 % (39.6-49.0); Lymphocytes % 31.2 % (15.3-44.8); MCV 92.3 fL (80-100); MPV 8.6 fL (7.6-11.3); RBC Red Blood Cell Count 5.49 M/uL (4.33-5.43)
[2022-06-26 06:46] LABS: Potassium 4.1 mmol/L (3.5-5.1)
[2022-06-26 06:47] LABS: Albumin 3.1 g/dL (3.4-5.0); Bilirubin Total 0.5 mg/dL (0.2-1.0); Protein, Total 6.7 g/dL (6.4-8.2)
--- NOTE | 2022-06-26 07:04 | ECHO ---
HEIGHT: 5 ft 3 in WEIGHT: 220 lb 0 oz DATE OF STUDY: 06/25/[address]: Dung Eric MD 2-DIMENSIONAL: YES M.MODE: YES DOPPLER: YES COLOR FLOW: YES TDS: NO PORTABLE: YES DEFINITY: NO BUBBLE STUDY: YES DIAGNOSIS: TIA CARDIAC HISTORY: CATHERIZATION: SURGERY: PROSTHETIC VALVE: PACEMAKER: MEASUREMENTS (cm) DIASTOLIC (NORMALS) SYSTOLIC (NORMALS) IVSd 1.0 (0.6-1.2) LA Diam 3.0 (1.9-4.0) LVEF 63% LVIDd 4.1 (3.5-5.7) LVIDs 2.8 (2.0-3.5) %FS 33% LVPWd 1.1 (0.6-1.2) Ao Diam 2.7 (2.0-3.7) 2 DIMENSIONAL ASSESSMENT: RIGHT ATRIUM: NORMAL LEFT ATRIUM: NORMAL RIGHT VENTRICLE: NORMAL LEFT VENTRICLE: NORMAL TRICUSPID VALVE: NORMAL MITRAL VALVE: NORMAL PULMONIC VALVE: NORMAL AORTIC VALVE: NORMAL PERICARDIAL EFFUSION: NONE AORTIC ROOT: NORMAL LEFT VENTRICULAR WALL MOTION: NORMAL DOPPLER/COLOR FLOW: NORMAL COMMENTS: NORMAL LEFT VENTRICULAR EJECTION FRACTION 60-65%. NORMAL WALL MOTION. BUBBLE STUDY WAS NEGATIVE BUT THE WINDOW WAS NOT CLEAR. RECOMMEND REPEAT FOCUSED BUBBLE STUDY WITH VALSALVA. TECHNOLOGIST: Aram CARVALHO
[2022-06-26] MEDS: lisinopriL 10 MG TAB PO SCH (08:16)
[2022-06-26] MEDS: ENOXAPARIN 40 MG/0.4 ML SQ SCH (08:17)
[2022-06-26] MEDS: FOLIC ACID 1 MG TABLET PO SCH (08:17)
[2022-06-26] MEDS: ASPIRIN EC 81 MG TAB PO SCH (08:17)
--- NOTE | 2022-06-26 09:33 | P.DS ---
Admission Date: 06/26/22 Discharge Date: 06/26/22 Disposition: ROUTINE DISCHARGE Discharge Condition: GOOD Reason for Admission: Dysarthira, TIA Brief History of Present Illness: 37-year-old male with history of hypertension, tobacco abuse presents the emergency department for dysphasia/dysarthria that has been having intermittently over the course of the last 1 to 2 weeks. He also experienced some right-sided facial numbness earlier today. He reported an episode of slurred speech/dysarthria similar to previous episodes on the day of presentation. His symptoms improved upon arrival to the ED. NIH score was 1 for his mild dysarthria that is present. He had a CT scan of his head without contrast which was negative for acute findings, labs were unremarkable. He was given aspirin, atorvastatin, folic acid in the emergency department. Patient admitted for further management. Hospital Course: Diagnosis Dysarthria secondary to acute basal ganglia CVA; h/o multiple CVA with hemorrhagic conversion Hypertension with noncompliance Tobacco abuse Alcohol use insomnia CT head, CTA head: negative MRI: 2 areas of acute CVA in right basal ganglia MRA head/neck - no significant flow abnormality - improved compared to prior done several years ago Neuro consulted. Patient seen by Dr. Logan who suspect uncontrolled hypertension as the likely culprit for his CVA. Echocardiogram done-negative bubble study, normal EF. Cardiology recommend bubble study with Valsalva maneuver. Prior echo a few years ago did not show any septal defect Patient treated with aspirin, folic acid. Statin dose increased from 20 mg to 80 mg for uncontrolled hyperlipidemia. Blood pressure controlled. Patient has been normotensive on the lisinopril Smoking cessation advised. Patient passed bedside swallow eval. No speech therapy for speech evaluation. He tolerated heart healthy diet. Patient seen by PT for evaluation. He is independent and has no PT needs. Vital Signs/Physical Exam: Temp Pulse Resp BP Pulse Ox 97.0 F 60 14 120/84 96 06/26/22 08:00 06/26/22 08:16 06/26/22 08:00 06/26/22 08:16 06/26/22 08:00 General: Alert, In no apparent distress, Oriented x3 HEENT: Mucous membr. moist/pink Neck: Supple, JVD not distended Respiratory: Clear to auscultation bilaterally, Normal air movement Cardiovascular: Regular rate/rhythm, Normal S1 S2 Gastrointestinal: Normal bowel sounds, Soft and benign, Non-distended Musculoskeletal: No swelling Integumentary: No rashes, No cyanosis Neurological: Normal strength at 5/5 x4 extr, Other (Dysarthria) Laboratory Data at Discharge: WBC 5.40 K/uL (4.3-10.9) 06/26/22 05:18 Hgb 17.1 g/dL (13.6-17.9) 06/26/22 05:18 Hct 50.7 % (39.6-49.0) H 06/26/22 05:18 Plt Count 139 K/uL (152-406) L 06/26/22 05:18 PT 10.6 SECONDS (9.5-12.5) 06/24/22 18:35 INR 0.96 06/24/22 18:35 APTT 31.0 SECONDS (24.3-36.9) 06/24/22 18:35 Sodium 139 mmol/L (136-145) 06/26/22 05:18 Potassium 4.1 mmol/L (3.5-5.1) D 06/26/22 05:18 BUN 13 mg/dL (7-18) 06/26/22 05:18 Creatinine 1.06 mg/dL (0.55-1.3) 06/26/22 05:18 Glucose 98 mg/dL (74-106) 06/26/22 05:18 Total Bilirubin 0.5 mg/dL (0.2-1.0) 06/26/22 05:18 AST 14 U/L (15-37) L 06/26/22 05:18 ALT 35 U/L (12-78) 06/26/22 05:18 Alkaline Phosphatase 59 U/L (45-117) 06/26/22 05:18 Triglycerides 270 mg/dL (<150) H 06/24/22 18:35 Cholesterol 204 mg/dL (<200) H 06/24/22 18:35 HDL Cholesterol 38 mg/dL (40-60) L 06/24/22 18:35 Cholesterol/HDL Ratio 5.37 06/24/22 18:35 Home Medications: clonazePAM [Klonopin] 0.5 mg PO Q12H PRN #30 tablet 07/01/20 Aspirin [Aspirin EC 81 MG] 81 mg PO DAILY #30 tablet. 06/26/22 Atorvastatin Calcium [Lipitor] 80 mg PO BEDTIME #30 tab 06/26/22 Folic Acid 1 mg PO DAILY #30 tab 06/26/22 Trazodone [Desyrel*] 100 mg PO BEDTIME PRN PRN #20 tab 06/26/22 lisinopriL [Prinivil*] 10 mg PO DAILY #30 tab 06/26/22 New Medications: Aspirin [Aspirin EC 81 MG] 81 mg PO DAILY #30 tablet. Trazodone [Desyrel*] 100 mg PO BEDTIME PRN PRN #20 tab PRN Reason: Insomnia Folic Acid 1 mg PO DAILY #30 tab Atorvastatin Calcium [Lipitor] 80 mg PO BEDTIME #30 tab lisinopriL [Prinivil*] 10 mg PO DAILY #30 tab Physician Discharge Instructions: Referral to Outpatient Speech therapy Diet: AHA Activity: Ad ramandeep Followup: NONE,NONE [Primary Care Provider] - Reji Rice MD [ACTIVE - CAN ADMIT] - 1 Week (Echo with focused bubble study with edwin) Time spent managing pt's care (in minutes): 34
--- NOTE | 2022-06-26 10:34 | CON ---
Reason For Consultation: Consultation called because of stroke. History Of Present Illness: Mr. Kuo is a 37-year-old right-handed patient with hypertensi on, tobacco abuse, and also admits to marijuana and vaping, who has been noncompliant with his antihy pertensive medications with elevated blood pressures and comes to the hospital about 2 weeks of right -sided facial numbness that fluctuated and slurred speech. The patient did say his symptoms were wor se about 2 weeks ago, but then improved and returned again and he came to [facility]. At th e time of his evaluation in emergency room, NIH Stroke Scale was 1 because of dysarthria. They could not appreciate any asymmetries and sensory symptoms in the face, arm, and leg, and no weakness noted . Head CT scan was negative. He was out of the window for TNKs obviously and [facility] He was given aspirin, atorvastatin, and folic acid. Since hospitalization, his slurred sp eech has improved just slightly and his facial numbness has improved more significantly. Earlier today, he had a brain MRI, which identified nonhemorrhagic right basal ganglia strokes measur ing one 10 mm in the lateral aspect and one measuring 6 mm in the medial aspect of the right basal ga nglia. No hemorrhagic conversion is seen. The MRA of his head and neck showed no significant vascul ar issues. His complete blood count with differential was essentially unremarkable. Coagulation gregory el normal. Basic metabolic panel was unremarkable. Liver function studies remarkable where his trig lycerides elevated to 270, LDL cholesterol 112, total cholesterol 204, HDL cholesterol is low at 38. Urinalysis is negative. The COVID test was negative. The patient did admit that he had a COVID inf ection twice last year. Past Medical History: As noted. Allergies: NO KNOWN DRUG ALLERGIES. Medications: He was not compliant with aspirin 81 mg daily, Lipitor 20 mg at bedtime, and Klonopin 0 .5 mg every 12 hours as needed. Social History: He admits to smoking cigarettes about a pack a day and occasionally vaping and marij uana. Past Surgical History: Cholecystectomy. Review of Systems: Denies recent fevers, chills, nausea, vomiting, myalgias, arthralgias, headache, weight change, rash, or psychiatric issues. Family History: Noncontributory. Physical Examination: Vital Signs: Blood pressure 153/70, pulse 86, respiratory rate 16, temperature 97.5, oxygen saturati on 97% on room air. Weight 220 pounds. Height 5 feet 3 inches tall. General: Mr. Kuo is resting in bed. He is in no significant distress. HEENT: He is normocephalic, atraumatic. Sclerae anicteric. Oropharynx is pink and moist. Neck: Supple. Chest: Clear. Heart: Regular. Extremities: Show no clubbing, cyanosis, or edema. Neurological: He has mild dysarthria with mildly impacted labial, lingual, and guttural sounds. He has no expressive or receptive aphasias. Cranial nerves otherwise intact. Motor examination, despit e the stroke, he does not have any obvious weakness in the upper and lower extremities and no signifi cant sensory loss in upper and lower extremities. Coordination, slightly impacted on the left upper and lower extremity, compared to the right side. His gait, he was able to stand and ambulate to the restroom without significant difficulties. Assessment: Mr. Kuo is a 37-year-old patient with multiple stroke risk factors including uncontroll ed hypertension. His blood pressures ranged systolic in the 160s, at home, he said up to close to 20 0. He does smoke, and again noncompliant with medications. Plan: 1.Aspirin, Plavix, folic acid as indicated. 2.He may have some permissive hypertension for next week and attempts should be made to lower the sy stolic blood pressure to around 120 to 130 and if possible, even 115 to 120. 3.He may be discharged home in followup in Dr. Logan's clinic in 1 month. 4.He was actually told to stop smoking, using marijuana, or vaping. ALHAJI/CHANTAL Voice ID: [id number] Report ID: [id number]
[2022-06-26 13:21] VITALS: BP 122/76; TEMP 97.9
== END 2022-06-26 14:09 | disposition home or self-care (01) | DRG 66 ==
LOC: ER 18:02 → ERHOLD 19:51 → 4TH 21:43 → OBSVTOIN 06-26 07:48
PROVIDERS: ADMIT Hospitalist; ATTEND Internal Medicine
DX: I63.9 Cerebral infarction, unspecified (principal); I10 Essential (primary) hypertension; E78.5 Hyperlipidemia, unspecified; G47.00 Insomnia, unspecified; F17.210 Nicotine dependence, cigarettes, uncomplicated; R47.02 Dysphasia; R29.700 NIHSS score 0; R47.01 Aphasia; R47.1 Dysarthria and anarthria; R47.81 Slurred speech; Z91.14 Patient's other noncompliance with medication regimen; Z86.73 Personal history of transient ischemic attack (TIA), and cerebral infarction without residual deficits; Z79.82 Long term (current) use of aspirin; Z90.49 Acquired absence of other specified parts of digestive tract; Z86.16 Personal history of COVID-19; Z28.310 Unvaccinated for COVID-19; Z79.899 Other long term (current) drug therapy; Z20.822 Contact with and (suspected) exposure to COVID-19
CPT/HCPCS: 36415; 70450; 70496; 70498; 70544; 70549; 70553; 71045; 80048; 80053; 80061; 80307; 81003; 82947; 85025; 85610; 85730; 87811; 93005; 93306; 96374; 97161; 99285; A9577; G0378; J1650; J7030; Q9967

== ENCOUNTER 2022-11-22 15:30 | Emergency (ER) | payer SELFPAY ==
--- OUTSIDE RECORDS SUMMARY | 2022-11-22 15:34 | XMS REPORT | Continuity of Care Document ---
:1985 Author Organization [facility] t Address [address] [place] [address] Care Team Providers Name Role Phone Lab, Adc Vadim Pob I Attending Clinician Unavailable Michelle Velazquez Attending Clinician Doctor Unassigned, [place] Attending Clinician Unavailable Payers Payer Name Policy Type Policy Number Effective Date Expiration Date S [facility] - [id number] 2014 00:00:00 OUT OF STATE Problems Condition Condition Condition Status Onset Resolution Last Treating Co mments Source Name Details Category Date Date Treatment Clinician Date No known No known Disease Unive rs active active ity of problems problems [facility] Allergies, Adverse Reactions, Alerts Allergy Allergy Status Severity Reaction(s) Onset Inactive Treating Comm ents Source Name Type Date Date Clinician NO KNOWN Drug Active Univers ALLERGIE Class ity of S [facility] Social History Social Habit Start Date Stop Date Quantity Comments Source Exposure to SARS-CoV-2 Not sure [facility] (event) [facility] Sm[facility] Status Start Date Stop Date Source Unknown if ever smoked [facility] Medications Ordered Filled Start Stop Current Ordering Indication Dosage Frequency Signature Comments Components Source Medication Medication Date Date Medication? Clinician (SIG) Name Name ondansetron 2018-09 Yes [id number] 4mg Take 1 Univers 4 mg 0-21 tablet by ity of disintegrat 00:00: mouth [place] ing tablet 00 every 4 Medica l (four) Branch hours as needed for Nausea and Vomiting (N/V). ketorolac 2018-09 Yes [id number] 10mg Take 1 Un zeynep 10 mg 0-21 tablet by ity of tablet 00:00: mouth [place] 00 every 8 Medical (eight) Branch hours. butalbital- 2018-09 Yes [id number] 1{tbl} Take 1 Univers acetaminoph 0-21 tablet by ity of en-caff 00:00: mouth [place] 50-325-40 00 every 4 Medical mg tablet (four) Branch hours as needed for Pain (scale 4-6). ondansetron 2018-09 Yes [id number] 4mg Take 1 Univers 4 mg 0-21 tablet by ity of disintegrat 00:00: mouth [place] ing tablet 00 every 4 Medica l (four) Branch hours as needed for Nausea and Vomiting (N/V). ketorolac 2018-09 Yes [id number] 10mg Take 1 Un zeynep 10 mg 0-21 tablet by ity of tablet 00:00: mouth [place] 00 every 8 Medical (eight) Branch hours. butalbital- 2018-09 Yes [id number] 1{tbl} Take 1 Univers acetaminoph 0-21 tablet by ity of en-caff 00:00: mouth [place] 50-325-40 00 every 4 Medical mg tablet (four) Branch hours as needed for Pain (scale 4-6). cyclobenzap Yes [id number] 10mg Take 1 Univers rine 10 mg 5-19 tablet by ity of tablet 00:00: mouth [place] 00 every 8 Medical (eight) Branch hours as needed for Muscle Spasms. cyclobenzap Yes [id number] 10mg Take 1 Univers rine 10 mg 5-19 tablet by ity of tablet 00:00: mouth [place] 00 every 8 Medical (eight) Branch hours as needed for Muscle Spasms. traMADOL Yes [id number] 50mg Take 1 Univers (ULTRAM) 50 4-07 [id number] tablet by i ty of mg tablet 00:00: mouth [place] 00 every 6 Medical (six) Branch hours as needed for Pain (scale 4-6). traMADOL Yes [id number] 50mg Take 1 Univers (ULTRAM) 50 4-07 [id number] tablet by i ty of mg tablet [...] Facility Department ID 2020-04-28 2020-04-28 Outpatient R [facility] [id number] Univers 11:40:00 11:40:00 ity of [facility] 2020-04-28 2020-04-28 Laboratory Lab, [facility] [id number] 10:57:36 11:17:36 Only Fam Pob I Health [id number] [place] [id number] Professio [phone] nal [facility] [address] 2020-04-28 2020-04-28 Laboratory Lab, [facility] Fam Pob I [facility] [id number] [facility] 10:57:36 11:17:36 Only Anene, Michelle Health [id number] ity of [place] [id number] Abhishek as Professio [phone] Va dical nal [address] [place] [address] 2020-04-28 2020-04-28 Letter Doctor PETER [id number] 00:00:00 00:00:00 (Out) Unassigned, [id number] [facility] [id number] [phone] [id number] 2020-04-28 2020-04-28 Letter Doctor PETER [id number] Univers 00:00:00 00:00:00 (Out) Unassigned, VERONIQUE [id number] ity of [place] [facility] [id number] Abhishek as [phone] [facility] [address] [place] Results This patient has no known results.
--- NOTE | 2022-11-22 16:01 | RAD REPORT ---
EXAM DESCRIPTION: CT - Ct Stroke Brain Wo Cont - 11/22/2022 3:52 pm CLINICAL HISTORY: STROKE ALERT COMPARISON: Head angio dated 06/24/2022; Ct Stroke Brain Wo Cont dated 06/24/2022; Neck Angio dated 11/22/2022; Head angio dated 11/22/2022; MRA Head Wo Cont dated 06/25/2022; Brain W/Wo Cont dated 06/25/2022 TECHNIQUE: Noncontrast head CT images ad were obtained without IV contrast. Multiplanar reformats we re generated and reviewed. All CT scans are performed using dose optimization technique as appropriate and may include automated exposure control or mA/KV adjustment according to patient size. FINDINGS: No intracranial hemorrhage, mass, or edema. Midline structures are unremarkable. Normal ventricular caliber for age. Right basal ganglia and centrum semiovale foci of hypoattenuation, corresponding to acute infarcts se en on the prior MRI. Sanchez-white matter differentiation is otherwise preserved, without evidence of ac bennett infarct. No abnormal extra-axial fluid collections. Mastoid air cells are well aerated. Moderate mucosal thickening at the bases of the maxillary sinuses . No acute bony findings. IMPRESSION: No evidence of an acute intracranial process. Right basal ganglia and centrum semiovale remote infarcts.
[2022-11-22 16:11] LABS: Absolute Lymphocytes (CBC) 1.1 K/uL (0.7-4.9); Hematocrit 52.1 % (39.6-49.0); Lymphocytes % 20.9 % (15.3-44.8); MCV 90.8 fL (80-100); MPV 8.1 fL (7.6-11.3); RBC Red Blood Cell Count 5.73 M/uL (4.33-5.43)
[2022-11-22 16:16] LABS: Protime INR 0.97
--- NOTE | 2022-11-22 16:17 | RAD REPORT ---
EXAM DESCRIPTION: CT - Neck Angio - 11/22/2022 3:54 pm CLINICAL HISTORY: HEADACHE COMPARISON: Neck Angio dated 06/24/2022; Head angio dated 11/22/2022; Head angio dated 06/24/2022 TECHNIQUE: Axial CT angiography images of the head was performed with multiplanar and maximum intens ity projection reconstructions. Images performed following intravenous administration of 100mL Isovue 370. All CT scans are performed using dose optimization technique as appropriate and may include automated exposure control or mA/KV adjustment according to patient size. FINDINGS: A left aortic arch is identified with normal three vessel configuration of the great vesse ls. No significant flow abnormality is seen of the common carotid bilaterally. No significant stenosis is identified involving the cervical segments of both internal carotid arteri es. Normal flow is seen within both vertebral arteries. IMPRESSION: No significant flow abnormality of the neck vessels is identified.
--- NOTE | 2022-11-22 16:25 | RAD REPORT ---
EXAM DESCRIPTION: CT - Head angio - 11/22/2022 3:54 pm CLINICAL HISTORY: HEADACHE COMPARISON: Ct Stroke Brain Wo Cont dated 11/22/2022; Head angio dated 06/24/2022 TECHNIQUE: Axial CT angiography images of the head was performed with multiplanar and maximum intens ity projection reconstructions. Images performed following intravenous administration of 100mL Isovue 370. All CT scans are performed using dose optimization technique as appropriate and may include automated exposure control or mA/KV adjustment according to patient size. FINDINGS: No evidence of large vessel occlusion. No evidence of aneurysm or dissection flap is detec clayton. No flow-limiting stenosis or vascular malformation identified along the anterior circulation. Mi ld focal narrowing along the proximal posterior cerebral arteries bilaterally. multifocal mild-to-mod erate narrowing along the right more than left SCA. Antegrade flow is seen in the vertebral arteries. The vertebral arteries are codominant. The visualized dural venous sinuses are grossly patent. IMPRESSION: No evidence of large vessel occlusion or anterior circulation flow-limiting stenosis. Mild bilateral proximal posterior cerebral artery focal narrowing. Multifocal mild to moderate narrow ing along the right more than left SCA. The findings were communicated to Ariel Eric on 11/22/2022 at 16:15 hours.
[2022-11-22] MEDS ORDERED: MORPHINE 4 MG/ML SYR ONE (16:29)
[2022-11-22] MEDS ORDERED: METOCLOPRAMIDE 10 MG/2mL INJ ONE (16:29)
[2022-11-22 16:30] LABS: BUN Blood Urea Nitrogen 16 mg/dL (7-18); Bicarbonate 31 mmol/L (21-32); Glomerular Filtration Rate 73 ml/min (=/>90); Glucose Level 135 mg/dL (74-106); Potassium 4.2 mmol/L (3.5-5.1); Sodium Level 139 mmol/L (136-145)
[2022-11-22] MEDS ORDERED: NA CHLORIDE 0.9% 1,000 ML ONE (16:30)
[2022-11-22] MEDS ORDERED: dexAMETHasone 10 MG/ML VIAL ONE (16:30)
[2022-11-22 16:32] LABS: Troponin High Sensitivity < 3.0 pg/mL (<58.9)
--- NOTE | 2022-11-22 17:57 | RAD REPORT ---
[facility] CLINICAL HISTORY: weakness COMPARISON: Chest Single View dated 06/24/2022; Chest Single View dated 04/08/2021; Chest Single View dated 07/01/2020; Chest Single View dated 02/18/2020 TECHNIQUE: Portable AP view of the chest. FINDINGS: The lungs are clear. No pneumothorax or effusion. The cardiomediastinal contours are unrem arkable. IMPRESSION: No acute cardiopulmonary process.
[2022-11-22] MEDS ORDERED: ASPIRIN 325 MG TAB ONE (18:17)
--- NOTE | 2022-11-22 20:19 | RAD REPORT ---
EXAM DESCRIPTION: MRI - Brain Wo Cont - 11/22/2022 8:05 pm CLINICAL HISTORY: Headache COMPARISON: 06/25/[address] and CT angiogram of same day TECHNIQUE: Multiplanar multisequence MRI of the brain performed without IV contrast. FINDINGS: Motion artifact somewhat limits evaluation, despite attempts at repeat imaging. No evidence of acute infarct or other diffusion signal abnormality. Foci of encephalomalacia along th e right basal ganglia and right centrum semiovale, in the region of a known prior infarct. No evidence of acute intracranial hemorrhage or abnormal extra-axial fluid collections. Mild diffuse parenchymal volume loss. Ventricular caliber otherwise within normal for age. Midline st ructures are unremarkable. Subtle subcortical and deep white matter T2/FLAIR hyperintensities, nonspecific, but suggestive of ch ronic small vessel ischemic changes. No mass effect or midline shift. Major vascular flow voids are preserved. Mastoid air cells are well aerated. Mucous retention cysts within the basis of the maxillary sinuses bilaterally. IMPRESSION: No acute intracranial process. No evidence of ventriculomegaly or mass effect. Stable sequelae of remote ischemia along the right basal ganglia and right centrum semiovale.
--- NOTE | 2022-11-22 20:45 | EDPHYS ---
Physician Documentation [facility] Name: Enma Kuo Jr Age: 37 yrs Sex: Male : 1985 Arrival Date: 11/22/2022 Time: 15:32 Bed 18 Private MD: ED Physician Rojas Ivey HPI: 11/22 15:42 This 37 yrs old Male presents to ER via Unassigned with complaints of Headache, General rn Weakness. 15:42 Pt reports headache, left posterior head, assoc with weakness of both legs, no other rn complaints. Reports has hx of recurrent headaches, "becoming more frequent", and in past sometimes assoc with slurred speech or weakness or numbness. REports last known completely normal was 0900 this AM, headache got worse so finally came in for eval. No trauma. No vision changes. . 15:46 The patient complains of pain to the left occipital area. The patient describes the rn headache as aching. Onset: The symptoms/episode began/occurred this morning. Severity of symptoms: At its worst the pain was moderate, "similar to past headaches", in the emergency department the pain is unchanged. The symptoms are alleviated by nothing. the symptoms are aggravated by nothing. The patient has experienced similar episodes in the past. Historical: - Allergies: 15:46 No Known Allergies; aa5 - PMHx: 15:38 CVA; Gall Stones; Hypertension; TIA; aa5 - PSHx: 15:38 Cholecystectomy; aa5 - Immunization history:: Adult Immunizations unknown. - Family history:: not pertinent. - Social history:: Smoking status: unknown. - Hospitalizations: : No recent hospitalization is reported. ROS: 15:46 Constitutional: Negative for fever, chills, and weight loss, Eyes: Negative for injury, rn pain, redness, and discharge, Neck: Negative for injury, pain, and swelling, Cardiovascular: Negative for chest pain, palpitations, and edema, Respiratory: Negative for shortness of breath, cough, wheezing, and pleuritic chest pain, Abdomen/GI: Negative for abdominal pain, nausea, vomiting, diarrhea, and constipation, Back: Negative for injury and pain, MS/Extremity: Negative for injury and deformity, Skin: Negative for injury, rash, and discoloration, Neuro: Negative for numbness, tingling, and seizure. Exam: 15:46 Constitutional: This is a well developed, well nourished patient who is awake, alert, rn and in no acute distress. Head/Face: Normocephalic, atraumatic. Eyes: Pupils equal round and reactive to light, extra-ocular motions intact. Periorbital areas with no swelling, redness, or edema. Cardiovascular: Regular rate and rhythm. No pulse deficits. Respiratory: No increased work of breathing, no retractions or nasal flaring. Abdomen/GI: Soft, non-tender Skin: Warm, dry with normal turgor. Normal color with no rashes, no lesions, and no evidence of cellulitis. MS/ Extremity: Pulses equal, no cyanosis. Neurovascular intact. Full, normal range of motion. Equal circumference. Neuro: Awake and alert, GCS 15, oriented to person, place, time, and situation. Cranial nerves II-XII grossly intact. Motor strength 5/5 in all extremities. Sensory grossly intact. Cerebellar exam normal. 16:50 ECG was reviewed by the Attending Physician. rn Vital Signs: 16:34 BP 134 / 89; Pulse 84; Resp 16; Temp 98; Pulse Ox 97% ; bp 17:54 BP 147 / 93; Pulse 79; Resp 18; Pulse Ox 100% ; bp 19:05 BP 145 / 93; Pulse 81; Resp 16; Pulse Ox 95% ; bp 19:20 BP 145 / 93; Pulse 80; Resp 16 S; Pulse Ox 96% on R/A; ha1 20:20 BP 140 / 95; Pulse 75; Resp 18 S; Pulse Ox 98% on R/A; ha1 NIH Stroke Scale Scores: 17:55 NIHSS Score: 0 bp MDM: 15:38 Patient medically screened. rn 16:22 ED course: Pt states last known normal 0900 today, not TNKase candidate 2/2 outside of rn window as well as multiple previous visits for migraines/headache. No evidence of CVA or acute findings on CT/CTA. Will obtain MRI to rule out CVA. In the meantime, given fluids/pain meds to try and improve pain/headache. . 17:04 ED course: Symptoms including headache and bilateral lower ext weakness resolved now rn after headache/migraine medication/cocktail. Waiting on MRI to rule out CVA completely. . 19:21 Transition of care: After a detail discussion of the patient's case, care is rn transferred to Rojas Ivey MD. 20:45 Differential diagnosis: Headache, tumor, CVA. Data reviewed: vital signs, nurses notes, rt lab test result(s), EKG, radiologic studies. I considered the following discharge prescriptions or medication management in the emergency department Medications were administered in the Emergency Department. See MAR. Care significantly affected by the following chronic conditions: Prior history of TIA. 11/22 15:41 Order name: Basic Metabolic Panel; Complete Time: 16:37 rn 11/22 15:41 Order name: CBC with Diff; Complete Time: 16:18 rn 11/22 15:41 Order name: High Sensitivity Troponin; Complete Time: 16:37 rn 11/22 15:41 Order name: Protime (+inr); Complete Time: 16:18 rn 11/22 15:41 Order name: Ptt, Activated; Complete Time: 16:18 rn 11/22 15:41 Order name: CT Stroke Brain w/o Contrast; Complete Time: 16:18 rn 11/22 15:41 Order name: Stroke CXR 1 View; Complete Time: 19:16 rn 11/22 15:41 Order name: EKG; Complete Time: 15:42 rn 11/22 15:41 Order name: Accucheck; Complete Time: 16: rn 11/22 15:41 Order name: Cardiac monitoring; Complete Time: 16: rn 11/22 15:41 Order name: EKG - Nurse/Tech; Complete Time: 16:34 rn 11/22 15:41 Order name: IV Saline Lock; Complete Time: 16: rn 11/22 15:41 Order name: Labs collected and sent; Complete Time: 16: rn 11/22 15:41 Order name: NPO; Complete Time: 16: rn 11/22 15:41 Order name: O2 Per Protocol; Complete Time: 16:01 rn 11/22 15:41 Order name: O2 Sat Monitoring; Complete Time: 16:01 rn 11/22 15:41 Order name: Stroke Swallow Screen; Complete Time: 16:01 rn 11/22 15:41 Order name: Head Angio CT; Complete Time: 16:37 rn 11/22 15:41 Order name: Neck Angio CT; Complete Time: 16:18 rn 11/22 16:12 Order name: CREATININE WHOLE BLOOD; Complete Time: 16:18 EDMS 03/02 16:12 Order name: Glucose, Ancillary Testing; Complete Time: 16:18 EDMS 11/22 16:18 Order name: Brain Wo Cont MRI rn 11/22 20:19 Order name: MRI; Complete Time: 20:39 EDMS EC:50 Rate is 78 beats/min. Rhythm is regular. QRS is positive in lead I and negative in lead rn aVF. DC interval is normal. QRS interval is normal. QT interval is normal. No Q waves. T waves are Normal. No ST changes noted. Clinical impression: NSR w/ Non-specific ST/T Changes. Interpreted by me. Reviewed by me. Administered Medications: 16:30 Drug: NS 0.9% 1000 ml Route: IV; Rate: 1000 ml; Site: left antecubital; bp 17:58 Follow up: IV Status: Completed infusion; IV Intake: 1000ml bp 16:30 Drug: Reglan (metoCLOPramide) 10 mg Route: IVP; Site: left antecubital; bp 17:58 Follow up: Response: No adverse reaction bp 16:30 Drug: morphine 4 mg Route: IVP; Infused Over: 4 mins; Site: left antecubital; bp 17:58 Follow up: Response: No adverse reaction bp 16:30 Drug: Decadron - Dexamethasone 10 mg Route: IVP; Site: left antecubital; bp 17:58 Follow up: Response: No adverse reaction bp 18:19 Drug: Aspirin 325 mg Route: PO; bp Point of Care Testing: Blood Glucose: 16:02 Blood Glucose: 122 mg/dL; bp Ranges: Critical Glucose Levels:Adult <50 mg/dl or >400 mg/dl <40 mg/dl or >180 mg/dl Disposition Summary: 11/22/22 20:44 Discharge Ordered Location: Home rt Problem: new rt Symptoms: are resolved rt Condition: Stable rt Diagnosis - Headache rt Followup: rt - With: Yordy Logan MD - When: 5 - 6 days - Reason: Discharge Instructions: - Discharge Summary Sheet rt - General Headache Without Cause rt Forms: - Medication Reconciliation Form rt - Thank You Letter rt - Antibiotic Education rt - Prescription Opioid Use rt NIH Stroke Scale - NIH Stroke Score Date: 11/22/2022 Time: 17:55 Total Score = 0 1a. Level of Consciousness (LOC) - 0(Alert) 1b. Level of Consciousness (LOC) (Month \\T\\ Age) - 0(Both) 1c. LOC Commands (Open \\T\\ Closes Eyes/Pharmacy Technician Program Director) - 0(Both) 2. Best Gaze (Lateral Gaze Paresis) - 0(Normal) 3. Visual Field Loss - 0(No visual loss) 4. Facial Palsy - 0(Normal) 5a. Left Arm: Motor (10-second hold) - 0(No drift) 5b. Right Arm: Motor (10-second hold) - 0(No drift) 6a. Left Leg: Motor (5-second hold - always test supine) - 0(No drift) 6b. Right Leg: Motor (5-second hold - always test supine) - 0(No drift) 7. Limb Ataxia (finger/nose \\T\\ heel/hernandez - test with eyes open) - 0(Absent) 8. Sensory Loss (pinprick arms/legs/face) - 0(Normal) 9. Best Language: Aphasia (description/naming/reading) - 0(No aphasia) 10. Dysarthria (speech clarity - read or repeat words) - 0(Normal) 11. Extinction and Inattention (visual/tactile/auditory/spatial/personal) - 0(No abnormality) Initials: bp Signatures: Dispatcher [employer] EDAriel Sanders MD MD rn Calderon, Audri, RN RN aa5 Maxx Stone, QUALITY HEAD-C QUALITY HEAD-Cla1 Kb Short RN RN bp Darshana Castro RN RN ha1 Rojas Ivey MD MD rt
--- NOTE | 2022-11-22 20:45 | ER ---
Nurse's Notes [facility] Name: Enma Kuo Jr Age: 37 yrs Sex: Male : 1985 Arrival Date: 11/22/2022 Time: 15:32 Bed 18 Private MD: Diagnosis: Headache Presentation: 11/22 15:33 Chief complaint: Patient states: "I think I am having a stroke". Pt reports headache to aa5 left side of head and ben leg weakness. Speech is mildly slurred and slow at times, states he did not notice he had slurred speech. Last known well was 9 am today. 15:33 Coronavirus screen: At this time, the client does not indicate any symptoms associated aa5 with coronavirus-19. Ebola Screen: Patient denies travel to an Ebola-affected area in the 21 days before illness onset. Initial Sepsis Screen: Does the patient meet any 2 criteria? No. Patient's initial sepsis screen is negative. Does the patient have a suspected source of infection? No. Patient's initial sepsis screen is negative. Risk Assessment: Do you want to hurt yourself or someone else? Patient reports no desire to harm self or others. Onset of symptoms was November 22, 2022. 15:33 Acuity: SAMUEL 2 aa5 15:33 Method Of Arrival: Ambulatory aa5 15:33 An acute neurological deficit is present. Pre-hospital glucose is not applicable to aa5 this patient. Triage Assessment: 16:02 The onset of the patients symptoms was November 22, 2022 at 09:00. Headache History: The bp patient has had previous headaches and this one is similar to previous episodes. General: Appears distressed, Behavior is cooperative, appropriate for age, anxious. Pain: Pain currently is 6 out of 10 on a pain scale. Pain began 1 day ago. Also complains of BLE WEAKNESS. EENT: No deficits noted. Neuro: Level of Consciousness is awake, alert, obeys commands, Oriented to Appropriate for age Reports weakness in right leg and left leg. Cardiovascular: No deficits noted. Respiratory: No deficits noted. GI: No signs and/or symptoms were reported involving the gastrointestinal system. : No signs and/or symptoms were reported regarding the genitourinary system. Derm: No deficits noted. Stroke Activation: Symptom onset > 6 hours Physician: Stroke Attending; Name: ; Notified At: ; Arrived At: Physician: Chief Stroke Resident; Name: ; Notified At: ; Arrived At: Physician: Stroke Resident; Name: ; Notified At: ; Arrived At: Physician: ED Attending; Name: ; Notified At: ; Arrived At: Physician: ED Resident; Name: ; Notified At: ; Arrived At: Historical: - Allergies: 15:46 No Known Allergies; aa5 - PMHx: 15:38 CVA; Gall Stones; Hypertension; TIA; aa5 - PSHx: 15:38 Cholecystectomy; aa5 - Immunization history:: Adult Immunizations unknown. - Family history:: not pertinent. - Social history:: Smoking status: unknown. - Hospitalizations: : No recent hospitalization is reported. Screenin:00 [facility] ED Fall Risk Assessment (Adult) History of falling in the last 3 months, bp including since admission No falls in past 3 months (0 pts). Abuse screen: Denies threats or abuse. Denies injuries from another. Nutritional screening: No deficits noted. Tuberculosis screening: No symptoms or risk factors identified. Assessment: 15:40 Reassessment: Pt to CT via wheelchair accompanied by me. . aa5 16:01 Reassessment: Pt back from CT scan. iw 17:55 VAN Scoring: Arm Drift: Patients demonstrates NO arm weakness. Patient is VAN Negative. bp TNKase (Tenecteplase) Screening: Contraindications: Rapidly improving condition or minor deficit: Yes. Reassessment: No changes from previously documented assessment. Patient and/or family updated on plan of care and expected duration. Pain level reassessed. Pain: Complains of pain in head. 19:01 Reassessment: MRI PENDING Patient states symptoms have improved. bp 19:20 Reassessment: Patient and/or family updated on plan of care and expected duration. Pain ha1 level reassessed. Patient is alert, oriented x 3, equal unlabored respirations, skin warm/dry/pink. Patient denies pain at this time. Patient states symptoms have improved. General: Appears comfortable, Behavior is calm, cooperative. Neuro: Level of Consciousness is awake, alert, obeys commands, Oriented to person, place, time, situation. 20:20 Reassessment: Patient and/or family updated on plan of care and expected duration. Pain ha1 level reassessed. Patient is alert, oriented x 3, equal unlabored respirations, skin warm/dry/pink. Patient denies pain at this time. Patient states symptoms have improved. Vital Signs: 16:34 BP 134 / 89; Pulse 84; Resp 16; Temp 98; Pulse Ox 97% ; bp 17:54 BP 147 / 93; Pulse 79; Resp 18; Pulse Ox 100% ; bp 19:05 BP 145 / 93; Pulse 81; Resp 16; Pulse Ox 95% ; bp 19:20 BP 145 / 93; Pulse 80; Resp 16 S; Pulse Ox 96% on R/A; ha1 20:20 BP 140 / 95; Pulse 75; Resp 18 S; Pulse Ox 98% on R/A; ha1 NIH Stroke Scale Scores: 17:55 NIHSS Score: 0 bp ED Course: 15:32 Patient arrived in ED. am2 15:38 Ariel Eric MD is Attending Physician. rn 15:38 Arm band placed on. aa5 15:39 Kb Short, RN is Primary Nurse. bp 15:44 Triage completed. aa5 15:54 CT Stroke Brain w/o Contrast In Process Unspecified. EDMS 15:[address] In Process Unspecified. EDMS 15:[address] In Process Unspecified. EDMS 16:00 Patient has correct armband on for positive identification. Bed in low position. Call bp light in reach. Side rails up X2. 16:00 Inserted saline lock: 22 gauge in left antecubital area, using aseptic technique. Blood bp collected. 16:02 Initial lab(s) drawn, by me, sent to lab. iw 16:43 Stroke CXR 1 View In Process Unspecified. EDMS 19:26 Attending Physician role handed off by Ariel Eric MD rt 19:26 Rojas Ivey MD is Attending Physician. rt 19:38 Primary Nurse role handed off by Kb Short, RN ha1 19:38 Darshana Castro, CRISTIAN is Primary Nurse. ha1 20:44 Yordy Logan MD is Referral Physician. rt 21:10 No provider procedures requiring assistance completed. IV discontinued, intact, ha1 bleeding controlled, No redness/swelling at site. Pressure dressing applied. Administered Medications: 16:30 Drug: NS 0.9% 1000 ml Route: IV; Rate: 1000 ml; Site: left antecubital; bp 17:58 Follow up: IV Status: Completed infusion; IV Intake: 1000ml bp 16:30 Drug: Reglan (metoCLOPramide) 10 mg Route: IVP; Site: left antecubital; bp 17:58 Follow up: Response: No adverse reaction bp 16:30 Drug: morphine 4 mg Route: IVP; Infused Over: 4 mins; Site: left antecubital; bp 17:58 Follow up: Response: No adverse reaction bp 16:30 Drug: Decadron - Dexamethasone 10 mg Route: IVP; Site: left antecubital; bp 17:58 Follow up: Response: No adverse reaction bp 18:19 Drug: Aspirin 325 mg Route: PO; bp Medication: 21:11 VIS not applicable for this client. ha1 Point of Care Testing: Blood Glucose: 16:02 Blood Glucose: 122 mg/dL; bp Ranges: Intake: 17:58 IV: 1000ml; Total: 1000ml. bp Outcome: 20:44 Discharge ordered by MD. rt 21:10 Discharged to home ambulatory. ha1 21:10 Condition: stable 21:10 Discharge instructions given to patient, Instructed on discharge instructions, follow up and referral plans. Demonstrated understanding of instructions, follow-up care. 21:11 Patient left the ED. ha1 NIH Stroke Scale - NIH Stroke Score Date: 11/22/2022 Time: 17:55 Total Score = 0 1a. Level of Consciousness (LOC) - 0(Alert) 1b. Level of Consciousness (LOC) (Month \\T\\ Age) - 0(Both) 1c. LOC Commands (Open \\T\\ Closes Eyes/Solution Design Engineer) - 0(Both) 2. Best Gaze (Lateral Gaze Paresis) - 0(Normal) 3. Visual Field Loss - 0(No visual loss) 4. Facial Palsy - 0(Normal) 5a. Left Arm: Motor (10-second hold) - 0(No drift) 5b. Right Arm: Motor (10-second hold) - 0(No drift) 6a. Left Leg: Motor (5-second hold - always test supine) - 0(No drift) 6b. Right Leg: Motor (5-second hold - always test supine) - 0(No drift) 7. Limb Ataxia (finger/nose \\T\\ heel/hernandez - test with eyes open) - 0(Absent) 8. Sensory Loss (pinprick arms/legs/face) - 0(Normal) 9. Best Language: Aphasia (description/naming/reading) - 0(No aphasia) 10. Dysarthria (speech clarity - read or repeat words) - 0(Normal) 11. Extinction and Inattention (visual/tactile/auditory/spatial/personal) - 0(No abnormality) Initials: bp Signatures: Dispatcher [employer] EDMS Vane Yancey RN RN iw Ariel Eric MD MD rn Calderon, Audri, RN RN aa5 Rachana Boss am2 Kb Short RN RN bp Darshana Castro RN RN ha1 Rojas Ivey MD MD rt Corrections: (The following items were deleted from the chart) 15:45 15:33 Chief complaint: Patient states: "I think I am having a stroke". Pt aa5 reports headache to left side of head and ben leg weakness. Speech is mildly slurred and slow at times. Last known well was 9 am today. aa5
[2022-11-22 21:52] VITALS: TEMP 98
[2022-11-22 21:56] VITALS: BP 140/95; O2SAT 98
--- NOTE | 2022-11-23 14:31 | EKG ---
Test Date: 2022-11-22 Test Time: 16:38:21 Diesel Locomotive Crane Operator: AVIS MEASUREMENT RESULTS: Intervals: Rate: 78 [place]: 186 QRSD: 100 QT: 364 QTc: 414 [place]: P: 41 [place]: 186 QRS: -71 T: -4 INTERPRETIVE STATEMENTS: Normal sinus rhythm Left anterior fascicular block Abnormal ECG Compared to ECG 06/24/2022 18:21:34 No significant changes Electronically Signed On 11-23-22 14:29:04 RAISE DRILLER by Reji Rice
== END 2022-11-22 21:11 | disposition home or self-care (01) ==
LOC: ER 15:30
DX: R51.9 Headache, unspecified (principal); R53.1 Weakness
CPT/HCPCS: 36415; 70450; 70496; 70498; 70551; 71045; 80048; 82565; 82947; 84484; 85025; 85610; 85730; 93005; 96361; 96374; 96375; 99284; J1100; J2765; J7030; Q9967

== ENCOUNTER 2024-04-15 17:55 | Observation (INO) | payer OTHER, SELFPAY ==
--- OUTSIDE RECORDS SUMMARY | 2024-04-15 17:59 | XMS REPORT | Continuity of Care Document ---
Author Name Unknown Address [address] [place] [address] [facility] thconnect Address [address] [place] [address] Care Team Providers Care Welding Tester Name Role Phone MICH PINEDA Primary Care Physician Barbarav MARCIE Sanchez Attending Clinician Unavailable [facility] Attending Clinician UnavailMICHELLE Rios Attending Clinician Unavailable Clinic, [facility] Neuro Virtual Study Attending Clini palak Unavailable Dana MARQUEZ, Lolis Attending Clinician [phone] Shaina Parra MD Attending Clinician [phone] Archana Oconnor LCSW Attending Clinician Unavail able GASPER DEJESUS Attending Clinician Unavailable PRASHANTH CARR Attending Clinician Unavailabl harsha Doctor Unassigned, [place] Attending Clinician U navailable Lab, Adc Fam Pob I Attending Clinician Unavailab Michelle Bobby Attending Clinician [phone] Payers Payer Name Policy Type Policy Number Effective Date Expirati on Date Source [facility] POONAM DYE COPAY FOCUS 9 [id number] 2024 00:00:00 Problems Condition Name Condition Details Condition Category Status Onset Date Resolution Date Last Treatment Date Treating Clinician Comments Source History of CVA (cerebrova scular accident) History of CVA (cerebrova scular accident) Disease Active 09-23 00:00: 00 Miguelina Seybold - Externa l No known active problems No known active problems Disease [facility] Depression Depression Disease Active Nicolas montilla Seybold - Externa l HTN (hypertens ion) HTN (hypertens ion) Disease Active Miguelina Seybold - Externa l Hyperlipid emia Hyperlipid emia Disease Active Miguelina Seybold - Externa l Insomnia Insomnia Disease Active Shanon y Seybold - Externa l Family history of coronary artery disease in father Family history of coronary artery disease in father Disease Active Miguelina Seybold - Externa l Obesity Obesity Disease Active Miguelina Seybold - Externa l Tobacco use Tobacco use Disease Active Miguelina Seybold - Externa l Allergies, Adverse Reactions, Alerts Allergy Name Allergy Type Status Severity Reaction(s) Onset Date Inactive Date Treating Clinician Comments Source NO KNOWN ALLERGIE S Drug Class Active [facility] Social History Social Habit Start Date Stop Date Quantity Comments Source Gender identity [facility] Sexual orientation Nicolas montilla [place] - External History of tobacco use Chews Tobacco Miguelina Last - External Education 2024-03-10 00:00:00 2024-03-10 00:00:00 13 Miguelina Last - External Alcohol Comment 2024-03-10 00:00:00 2024-03-10 00:00:00 3 beers per day Miguelina Last - External Cigarettes smoked current (pack per day) - Reported 2024-03-10 00:00:00 2024-03-10 00:00:00 Miguelina Last - External Cigarette pack-years 2024-03-10 00:00:00 2024-03-10 00:00:00 Miguelina Last - External Tobacco use and exposure 2024-03-10 00:00:00 2024-03-10 00:00:00 User of smokeless tobacco Miguelina Last - External Alcoholic beverage intake 2024-03-10 00:00:00 2024-03-10 00:00:00 3.43 /d Miguelina Last - External History of Social function 2024-03-10 00:00:00 2024-03-10 00:00:00 Miguelina Last - External Exposure to SARS-CoV-2 (event) 2020-03-29 00:00:00 2020-04-28 11:00:00 Not sure [facility] Sex assigned at 1985 00:00:00 1985 00:00:00 Miguelina Smith Smoking Status Start Date Stop Date Source Tobacco smoking consumption unknown [facility] Smokes tobacco daily 2024-03-10 00:00:00 Miguelina Smith Medications Ordered Medication Name Filled Medication Name Start Date Stop Date Current Medication? Ordering Clinician Indication Dosage Frequency Signature (SIG) Comments Components Source Aspirin 81 MG oral Chewable Tablet 03-10 00:00: 00 Yes [id number] 81mg Take 1 tablet (81 mg total) by mouth daily. Miguelina waddell Lisinopril 10 MG oral Tablet 03-10 00:00: 00 Yes [id number] 10mg Take 1 tablet (10 mg total) by mouth daily. Miguelina waddell Atorvastati n Calcium (Lipitor) 40 MG oral Tablet 03-10 00:00: 00 Yes [id number] 40mg Take 1 tablet (40 mg total) by mouth nightly. Miguelina waddell Fluoxetine HCl 10 MG oral Tablet 03-10 00:00: 00 Yes [id number] 10mg Take 1 tablet (10 mg total) by mouth daily. Miguelina waddell Trazodone HCl 50 MG oral Tablet 03-10 00:00: 00 Yes [id number] 50mg Take 1 tablet (50 mg total) by mouth nightly. Miguelina waddell Melatonin 10 MG tablet 11-08 13:01: 28 11-08 00:00 :00 No 80mg Take 80 mg by mouth every night. [facility] buPROPion XL (Wellbutrin XL) 150 MG 24 hr tablet 16 00:00: 00 12-08 04:59 :00 No [id number] 150mg QD Take 1 tablet (150 mg total) by mouth 1 (one) time each day. Do not crush, chew, or split. [facility] Melatonin 10 MG tablet -10 13:26: 27 Yes 80mg Take 80 mg by mouth every night. [facility] atorvastati n (Lipitor) 80 MG tablet 10-02 13:26: 05 10-02 00:00 :00 No 80mg QD Take 80 mg by mouth 1 (one) time each day. [facility] aspirin 81 MG EC tablet 10-02 13:19: 40 Yes 81mg QD Take 81 mg by mouth 1 (one) time each day. [facility] amLODIPine (Norvasc) 5 MG tablet 10-02 00:00: 00 Yes [id number] 5mg QD Take 1 tablet (5 mg total) by mouth 1 (one) time each day. [facility] atorvastati n (Lipitor) 80 MG tablet 10-02 00:00: 00 11-08 00:00 :00 No [id number] 80mg QD Take 1 tablet (80 mg total) by mouth 1 (one) time each day. [facility] traZODone (Desyrel) 50 MG tablet 2022-09 00:00: 00 11-08 00:00 :00 No [id number] 25mg TAKE 1/2 TABLET(25 MG) BY MOUTH EVERY NIGHT [facility] traZODone (Desyrel) 50 MG tablet 2022-09 00:00: 00 08-31 05:59 :00 No [id number] 25mg Take 0.5 tablets (25 mg total) by mouth every night. [facility] amLODIPine (Norvasc) 5 MG tablet 05-29 13:38: 44 05-29 00:00 :00 No 5mg QD Take 5 mg by mouth 1 (one) time each day. [facility] amLODIPine (Norvasc) 5 MG tablet 05-29 00:00: 00 10-02 00:00 :00 No [id number] 5mg QD Take 1 tablet (5 mg total) by mouth 1 (one) time each day. [facility] gabapentin (Neurontin) 300 MG capsule 8-11 00:00: 00 11-08 00:00 :00 No [id number] 300mg [id number] 3D Take 1 capsule (300 mg total) by mouth 3 (three) times a day if needed (right leg pain). [facility] FLUoxetine (PROzac) 20 MG capsule 05-03 00:00: 00 11-08 00:00 :00 No [id number] 20mg QD Take 1 capsule (20 mg total) by mouth 1 (one) time each day. [facility] atorvastati n (Lipitor) 80 MG tablet 05-01 13:50: 38 Yes 80mg QD Take 80 mg by mouth 1 (one) time each day. [facility] aspirin 81 MG EC tablet 05-01 13:50: 38 Yes 81mg QD Take 81 mg by mouth 1 (one) time each day. [facility] Melatonin 10 MG tablet 05-01 13:50: 38 Yes 80mg Take 80 mg by mouth every night. [facility] ondansetron 4 mg disintegrat ing tablet 2018-09 00:00: 00 Yes [id number] 4mg Take 1 tablet by mouth every 4 (four) hours as needed for Nausea and Vomiting (N/V). [facility] ketorolac 10 mg tablet 2018-09 00:00: 00 Yes [id number] 10mg Take 1 tablet by mouth every 8 (eight) hours. [facility] butalbital- acetaminoph en-caff 50-325-40 mg tablet 2018-09 00:00: 00 Yes [id number] 1{tbl} Take 1 tablet by mouth every 4 (four) hours as needed for Pain (scale 4-6). [facility] cyclobenzap rine 10 mg tablet 02-08 00:00: 00 Yes [id number] 10mg Take 1 tablet by mouth every 8 (eight) hours as needed for Muscle Spasms. [facility] traMADOL (ULTRAM) 50 mg tablet 07 00:00: 00 Yes [id number] 50mg Take 1 tablet by mouth every 6 (six) hours as needed for Pain (scale 4-6). [facility] amLODIPine 2.5 mg tablet 2017-09 00:00: 00 Yes 2.5mg Take 1 tablet by mouth at bedtime. [facility] hydroCHLORO thiazide 25 mg tablet 2017-09 00:00: 00 Yes 25mg Take 1 tablet by mouth every morning. [facility] acetaminoph en-codeine 300-30 mg tablet 11-23 00:00: 00 Yes 1{tbl} Take 1 tablet by mouth every 4 (four) hours as needed for Pain (scale 4-6) (Cough). [facility] ondansetron (ZOFRAN, HYDROCHLORI DE,) 4 mg tablet 2015-09 00:00: 00 Yes 4mg Take 1 tablet by mouth every 8 (eight) hours as needed for Nausea and Vomiting (N/V). [facility] ondansetron (ZOFRAN, HYDROCHLORI DE,) 4 mg tablet 2015-09 00:00: 00 Yes 4mg Take 1 tablet by mouth every 8 (eight) hours as needed for Nausea and Vomiting (N/V). [facility] Vital Signs Vital Name Observation Time Observation Value Comments S ource Systolic blood pressure 2024-03-10 20:32:00 147 mm[Hg] Miguelina Seybo ld - External Diastolic blood pressure 2024-03-10 20:32:00 86 mm[Hg] Miguelina Rosadoybo ld - External Heart rate 2024-03-10 20:32:00 88 /min Shanon Last - External Body temperature 2024-03-10 20:32:00 36.72 Rosey Miguelina Last - External Body height 2024-03-10 20:32:00 167.6 cm Jennifer preston Seybold - External Body weight 2024-03-10 20:32:00 93.441 kg Jennifer preston Seybold - External BMI 2024-03-10 20:32:00 33.25 kg/m2 Jennifer preston Seybold - External Oxygen saturation in Arterial blood by Pulse oximetry 2024-03-10 20:32:00 97 /min Miguelina aponte - External Encounters Start Date/Time End Date/Time Encounter Type Admission Type Attending Clinicians Care Facility Care Department Encounter ID Source 2023-04-24 15:14:33 Outpatient [facility] [id number] [facility] 2024-04-27 15:00:00 2024-04-27 15:00:00 Outpatient PREZAS, MARCIE ARNOLD [id number] Miguelina [facility] 2024-03-17 15:45:00 2024-03-17 15:45:00 Outpatient STEFANIE FRASER [id number] Miguelina [facility] 2024-03-10 15:30:00 2024-03-10 15:30:00 Outpatient MARCIE VASQUEZ [id number] Miguelina [facility] 2023-12-06 12:00:00 2023-12-06 12:00:00 Outpatient [facility] [id number] [facility] 2023-11-08 10:30:00 2023-11-08 11:00:00 Office Visit Clinic, [facility] Neuro Virtual Study Lolis Cortez [facility] [address] 1.2.840.114 350.1.13.58 9.2.7.2.[id number] [facility] 2023-10-25 14:30:00 2023-10-25 14:30:00 Outpatient [facility] [id number] [facility] 2023-10-02 13:00:00 2023-10-02 13:30:00 Telemedici ne Shaina Parra [facility] [address] 1.2.840.114 350.1.13.58 9.2.7.2.[id number] [facility] 2023-10-02 00:00:00 2023-10-02 13:08:59 Patient Outreach Archana Oconnor Latonya [facility] [address] 1.2.840.114 350.1.13.58 [id number] [facility] 2023-07-31 13:30:00 2023-07-31 16:54:50 Telemedici ne Shaina Parra [facility] [address] 1.2.840.114 350.1.13.58 9.2.7.2.[id number] [facility] 2023-07-24 13:30:00 2023-07-24 13:30:00 Outpatient [facility] [id number] [facility] 2023-05-31 14:50:00 2023-05-31 14:50:00 Outpatient GASPER DEJESUS [facility] [id number] [facility] 2023-05-31 13:30:00 2023-05-31 13:30:00 Outpatient [facility] [id number] [facility] 2023-05-29 13:00:00 2023-05-29 17:55:01 Telemedici ne ITZELHarshaSHAINA MONTEIRO [facility] [address] 1.2.840.114 350.1.13.58 9.2.7.2.[id number] [facility] 2023-05-15 09:30:00 2023-05-15 09:30:00 Outpatient PRASHANTH CARR [facility] [id number] [facility] 2023-05-01 13:00:00 2023-05-01 13:00:00 Telemedici ne IRISCAYETANO SHAINA [facility] [address] 1.2.840.114 350.1.13.58 9.2.7.2.[id number] [facility] 2023-04-30 00:00:00 2023-04-30 00:00:00 Patient Outreach Archana Oconnor Latonya [facility] [address] 1.2.840.114 350.1.13.58 9.2.7.2.[id number] [facility] 2020-04-29 00:00:00 2020-04-29 00:00:00 Patient Secure Msg Doctor Unassigned, [place] [facility] 1.2.840.114 350.1.13.10 4.2.7.2.686 [id number] [facility] 2020-04-28 11:40:00 2020-04-28 11:40:00 Outpatient R [facility] [id number] [facility] 2020-04-28 10:57:36 2020-04-28 11:17:36 Laboratory Only Lab, Adc Fam Pob I [facility] 1.0.114 350.1.13.10 4.2.7.2.686 [id number] 2020-04-28 10:57:36 2020-04-28 11:17:36 Laboratory Only Lab, [facility] Fam Pob I Michelle Johnson [facility] 1..114 350.1.13.10 4.2.7.2.686 [id number] [facility] 2020-04-28 00:00:00 2020-04-28 00:00:00 Letter (Out) Doctor Unassigned, [place] [facility] 1.0.114 350.1.13.10 4.2.7.2.686 [id number] [facility] 2020-04-28 00:00:00 2020-04-28 00:00:00 Letter (Out) Doctor Unassigned, [place] [id number] 350.1.13.10 [id number] [id number]
[2024-04-15] MEDS ORDERED: TENECTEPLASE 50 MG/10 ML VIAL IV ONE (18:13)
--- NOTE | 2024-04-15 18:18 | RAD REPORT ---
EXAM DESCRIPTION: CT - Ct Stroke Brain Wo Cont - 04/15/2024 6:09 pm CLINICAL HISTORY: STROKE ALERT COMPARISON: Head angio dated 11/22/2022; Ct Stroke Brain Wo Cont dated 11/22/2022; Head Brain Wo Cont da clayton 10/05/2019 TECHNIQUE: All CT scans are performed using dose optimization technique as appropriate and may inclu de automated exposure control or mA/KV adjustment according to patient size. FINDINGS: No intracranial hemorrhage, hydrocephalus or extra-axial fluid collection.No areas of brai n edema or evidence of midline shift. Right basal ganglia infarct has increased in size from 11/23/19 23 though a appears chronic. There is some vague hypoattenuation in the left basal ganglia. The paranasal sinuses and mastoids are clear. The calvarium is intact. IMPRESSION: No acute intracranial hemorrhage or large vascular territory infarct. New but remote allan earing right basal ganglia infarct. Hypoattenuation in the left basal ganglia could represent an age indeterminate left basal ganglia lacunar infarct. MRI could confirm. Conveyed to Dr. Eric by Dr. Begum at 1813 on 04/15/24.
--- NOTE | 2024-04-15 18:36 | RAD REPORT ---
EXAM DESCRIPTION: RAD - Chest Single View - 04/15/2024 6:30 pm CLINICAL HISTORY: possible cva COMPARISON: Chest Single View dated 11/22/2022; Chest Single View dated 06/24/2022; Chest Single View d ated 04/08/2021; Chest Single View dated 07/01/2020 FINDINGS: Lines: None. Lungs: Mild increased opacities in the medial lung bases bilaterally. Probably represents some atelec tasis. Pleural: No significant pleural effusions or pneumothorax. Cardiac: Similar size and configuration. Mediastinum: Within normal limits. Bones: No acute fractures. Other: None IMPRESSION: Likely increased atelectasis in the medial lung bases. No definite acute process.
[2024-04-15] MEDS ORDERED: FOLIC ACID 5 MG/ML VIAL ONE (18:52)
[2024-04-15] MEDS ORDERED: ASPIRIN 81 MG CHEWABLE TABLET ONE (18:52)
[2024-04-15 19:02] LABS: Absolute Lymphocytes (CBC) 1.3 K/uL (0.7-4.9); Absolute Monocytes 0.4 K/uL (0.1-1.3); Absolute Neutrophil 6.2 K/uL (1.8-8.0); Basophils % 0.3 % (0-1.3); Eosinophils % 0.6 % (0-4.4); Hematocrit 52.3 % (39.6-49.0); Hemoglobin 17.7 g/dL (13.6-17.9); Lymphocytes % 15.8 % (15.3-44.8); MCH 31.2 pg (27.0-35.0); MCHC 33.9 g/dL (32.0-36.0); MCV 92.2 fL (80-100); MPV 8.3 fL (7.6-11.3); Monocytes % 5.6 % (3.3-12.3); Neutrophils % 77.7 % (41.7-73.7); Nucleated Red Blood Cells % 0.2 % (0-0); Platelets 160 thou/uL (152-406); RBC Red Blood Cell Count 5.68 M/uL (4.33-5.43)
[2024-04-15 19:10] LABS: PT Prothrombin Time 11.1 SECONDS (9.4-12.5); PTT, Activated Partial Thromb 32.1 SECONDS (24.3-36.9); Protime INR 0.99
--- NOTE | 2024-04-15 19:19 | RAD REPORT ---
EXAM DESCRIPTION: CT - Neck Angio - 04/15/2024 7:07 pm CLINICAL HISTORY: headache, slurred speech, facial droop COMPARISON: Neck Angio dated 11/22/2022; Neck Angio dated 06/24/2022 TECHNIQUE: CT angiography of the neck vessels was performed with maximum intensity reformatted image s. CAROTID STENOSIS REFERENCE USING NASCET CRITERIA: Mild - <50% stenosis. Moderate - 50-69% stenosis. Severe - 70-94% stenosis. Near occlusion - 95-99% stenosis. Occluded - 100% stenosis. All CT scans are performed using dose optimization technique as appropriate and may include automated exposure control or mA/KV adjustment according to patient size. FINDINGS: A left aortic arch is identified with normal three vessel configuration of the great vesse ls. No significant flow abnormality is seen of the common carotid bilaterally. No significant stenosis is identified involving the cervical segments of both internal carotid arteri es. Normal flow is seen within both vertebral arteries. IMPRESSION: No significant flow abnormality of the neck vessels is identified.
[2024-04-15 19:20] LABS: Anion Gap 7.1 mEq/L (5.0-15.0); BUN Blood Urea Nitrogen 9 mg/dL (7-18); Bicarbonate 30 mEq/L (21-32); Glomerular Filtration Rate 86 ml/min (=/>90); Glucose Level 115 mg/dL (74-106); Potassium 4.1 mEq/L (3.5-5.1); Sodium Level 137 mEq/L (136-145)
--- NOTE | 2024-04-15 19:27 | RAD REPORT ---
EXAM DESCRIPTION: CT - Head angio - 04/15/2024 7:07 pm CLINICAL HISTORY: right sided weakness. COMPARISON: Ct Stroke Brain Wo Cont dated 04/15/2024; Head angio dated 11/22/2022; Brain Wo Cont dated 11/22/2022 TECHNIQUE: CT angiography of the head was performed with maximum intensity reformatted images. 3D ma ximum intensity pixel (MIP) reconstructions were created All CT scans are performed using dose optimization technique as appropriate and may include automated exposure control or mA/KV adjustment according to patient size. FINDINGS: Anterior circulation: Mild calcified plaque at the right cavernous carotid . No aneurysm or large vessel occlusion. No hemo dynamically significant stenosis. No arteriovenous malformation identified. Posterior circulation: No aneurysm or large vessel occlusion. No hemodynamically significant stenosis. No arteriovenous malf ormation identified. Mucous retention cysts present in the maxillary sinuses. IMPRESSION: No large vessel occlusion. No aneurysm or hemodynamically significant stenosis.
--- NOTE | 2024-04-15 19:36 | ER ---
Nurse's Notes [facility] Name: Enma Kuo Jr Age: 39 yrs Sex: Male : 1985 Arrival Date: 04/15/2024 Time: 17:55 Bed 5 Private MD: Diagnosis: Cerebral infarction, unspecified;Paresthesia of skin;Facial weakness Presentation: 04/15 18:00 Chief complaint: Patient states: Woke up at 1400 and noticed that he was having cm10 numbness to the left side of his body, slurred speech and facial droop. Pt states that when he went to bed this morning at 0430 he was completely normal. Pt reports that he also has a headache. pt has a history of a stroke last year with right sided deficits. Coronavirus screen: Client denies travel out of the [place] in the last 14 days. Ebola Screen: Patient denies travel to an Ebola-affected area in the 21 days before illness onset. No symptoms or risks identified at this time. An acute neurological deficit is present. The charge nurse has been notified. The patient has been moved to a treatment area. Initial Sepsis Screen: Does the patient meet any 2 criteria? HR > 90 bpm. Does the patient have a suspected source of infection? No. Patient's initial sepsis screen is negative. Risk Assessment: Do you want to hurt yourself or someone else? Patient reports no desire to harm self or others. Onset of symptoms was April 15, 2024 at 04:30. 18:00 Method Of Arrival: Ambulatory cm10 18:00 Acuity: SAMUEL 2 cm10 Triage Assessment: 18:00 The onset of the patients symptoms was April 15, 2024 at 14:00. General: Appears in no cm10 apparent distress. comfortable, Behavior is calm, cooperative. Pain: Complains of pain in head. Neuro: No deficits noted. Level of Consciousness is awake, alert, obeys commands, Oriented to person, place, time, situation, Appropriate for age Speech is slurred, Facial droop on left, Numbness in left arm and left leg. Respiratory: No deficits noted. Airway is patent Respiratory effort is even, unlabored, Respiratory pattern is regular, symmetrical. Stroke Activation: Physician: ED Attending; Name: Dr. Eric; Notified At: 18:00; Arrived At: Physician: Mid-Level Provider; Name: ; Notified At: 18:00; Arrived At: Physician: [not used]; Name: ; Notified At: ; Arrived At: Physician: [not used]; Name: ; Notified At: ; Arrived At: Physician: [not used]; Name: ; Notified At: ; Arrived At: Historical: - Allergies: 18:24 No Known Allergies; cm10 - PMHx: 18:24 CVA; Gall Stones; Hypertension; TIA; cm10 - PSHx: 18:24 Cholecystectomy; cm10 - Immunization history:: Adult Immunizations up to date. - Infectious Disease History:: Denies. - Social history:: Smoking status: Patient reports the use of cigarette tobacco products, smokes one-half pack cigarettes per day. - Family history:: not pertinent. - Hospitalizations: : No recent hospitalization is reported. Screenin:39 [facility] ED Fall Risk Assessment (Adult) History of falling in the last 3 months, ld1 including since admission No falls in past 3 months (0 pts) Confusion or Disorientation No (0 pts) Intoxicated or Sedated No (0 pts) Impaired Gait No (0 pts) Mobility Assist Device Used No (0 pt) Altered Elimination No (0 pt) Score/Fall Risk Level 0 - 2 = Low Risk Oriented to surroundings, Maintained a safe environment, Educated pt \T\ family on fall prevention, incl call for assistance when getting out of bed, Assessed \T\ reinforced patient's understanding of fall precautions, Provided non-skid footwear, Hourly rounding (assess needs \T\ fall precautionary measures) done, Used ambulatory aids as needed (educated on \T\ assisted with), Used gait belt as appropriate. Abuse screen: Denies threats or abuse. Denies injuries from another. Nutritional screening: No deficits noted. Tuberculosis screening: No symptoms or risk factors identified. Assessment: 18:00 General: CODE STROKE CALLED AT 1800.. cm10 18:00 TNKase (Tenecteplase) Screening: Indications: Definite evidence of stroke, ischemic, cm10 embolic, or hypertensive: Yes. Treatment will start within 4.5 hours onset of symptoms: No. No evidence of intracranial hemorrhage or CT of head and no evidence of peripheral hemorrhage or recent CVA: No. 18:39 VAN Scoring: Arm Drift: Patients demonstrates NO arm weakness. Patient is VAN Negative. ld1 [place]gehee Swallow Protocol Exclusion Criteria: Unable to remain alert for testing: No NPO for medical/surgical reason by provider order No Head-of-bed restricted <30 degrees Tracheostomy tube present No No thin liquids due to preexisting dysphagia/baseline modified diet thickened liquids No Exclusion Criteria Result: Proceed Brief Cognitive Screen What is your name? Normal, Where are you right now? Normal, What year is it? Normal. Oral Mechanism Examination Facial Symmetry: Normal, Motion: Normal, Lip Closure: Normal, Oral Mechanism Result: Normal. 3 oz Water Swallow Challenge: Pt able to drink all water without stopping, coughing, choking or throat clearing: Yes Result: PASS MD Notified: Ariel Eric MD. General: Appears in no apparent distress. comfortable, Behavior is calm, cooperative, appropriate for age. Pain: Denies pain. Neuro: Level of Consciousness is awake, alert, obeys commands, Oriented to person, place, time, situation, Design Printing Machine Setter are equal bilaterally Moves all extremities. Gait is steady, Speech is normal, Facial droop on right, Reports numbness in left arm and left leg. Cardiovascular: Capillary refill < 3 seconds Patient's skin is warm and dry. Rhythm is sinus rhythm. Respiratory: Airway is patent Respiratory effort is even, unlabored. GI: Abdomen is round non-distended. : No signs and/or symptoms were reported regarding the genitourinary system. EENT: No signs and/or symptoms were reported regarding the EENT system. Derm: No signs and/or symptoms reported regarding the dermatologic system. Musculoskeletal: No signs and/or symptoms reported regarding the musculoskeletal system. 18:50 Reassessment: Initial labs drawn by alonzo FOSTER, blood left at bedside. Labs sent at this ld1 time. 20:19 Reassessment: Patient appears in no apparent distress at this time. Patient and/or tm6 family updated on plan of care and expected duration. Pain level reassessed. Patient is alert, oriented x 3, equal unlabored respirations, skin warm/dry/pink. 20:37 Reassessment: Reassessment: report faxed to [facility], confirmed by Terry. Patient given tm6 sandwich, chips, and drink. Vital Signs: 18:00 BP 154 / 102; Pulse 95; Resp 18; Temp 97.5; Pulse Ox 98% on R/A; Weight 92 kg; cm10 18:39 BP 136 / 100; Pulse 88; Resp 18; Pulse Ox 95% on R/A; ld1 20:18 BP 134 / 88; Pulse 73; Pulse Ox 99% on R/A; tm6 NIH Stroke Scale Scores: 18:00 NIHSS Score: 3 cm10 18:47 NIHSS Score: 3 internal combustion engineer Course: 17:56 Patient arrived in ED. im 18:04 Ariel Eric MD is Attending Physician. rn 18:09 CT Stroke Brain w/o Contrast In Process Unspecified. EDMS 18:15 Initial lab(s) drawn, by me, sent to lab. Inserted saline lock: 18 gauge in right cm10 antecubital area, using aseptic technique. Blood collected. Flushed with 10 mL NS. 18:24 Triage completed. cm10 18:25 Arm band placed on Patient placed in an exam room, on a stretcher, on pulse oximetry. cm10 18:32 Stroke CXR 1 View In Process Unspecified. EDMS 18:39 Sulma Santana, RN is Primary Nurse. ld1 18:39 Patient has correct armband on for positive identification. Placed in gown. Bed in low ld1 position. Call light in reach. Side rails up X2. conveyor monitor on. Pulse ox on. NIBP on. Door closed. Noise minimized. Warm blanket given. 19:07 CT Neck Angio In Process Unspecified. EDMS 19:09 Head angio In Process Unspecified. EDMS 19:35 Gabriel Maxwell MD is Hospitalizing Provider. rn 20:40 Attending Physician role handed off by Ariel Eric MD sp4 20:40 Solomon Cazares MD is Attending Physician. sp4 Administered Medications: 18:55 Drug: Aspirin PO Chewable Tablet 324 mg PO once; 81 mg tablets x 4 Route: PO; ld1 18:55 Drug: foLIC Acid IVPB 1 mg IVPB once Route: IVPB; Site: right antecubital; ld1 20:47 Drug: Nicoderm CQ Transdermal Patch 21 mg/24 hr 1 patches Transdermal once Route: kd3 Transdermal; Site: affected area; 20:47 Drug: LORazepam PO 1 mg PO once Route: PO; kd3 Medication: 18:39 VIS not applicable for this client. ld1 Outcome: 19:35 Decision to Hospitalize by Provider. rn 21:17 Patient left the ED. kd3 NIH Stroke Scale - NIH Stroke Score Date: 04/15/2024 Time: 18:00 Total Score = 3 10. Dysarthria (speech clarity - read or repeat words) - 1(Mild to Moderate) 11. Extinction and Inattention (visual/tactile/auditory/spatial/personal) - 0(No abnormality) 1a. Level of Consciousness (LOC) - 0(Alert) 1b. Level of Consciousness (LOC) (Month \T\ Age) - 0(Both) 1c. LOC Commands (Open \T\ Closes Eyes/Cathead Worker) - 0(Both) 2. Best Gaze (Lateral Gaze Paresis) - 0(Normal) 3. Visual Field Loss - 0(No visual loss) 4. Facial Palsy - 1(Minor Paralysis) 5a. Left Arm: Motor (10-second hold) - 0(No drift) 5b. Right Arm: Motor (10-second hold) - 0(No drift) 6a. Left Leg: Motor (5-second hold - always test supine) - 0(No drift) 6b. Right Leg: Motor (5-second hold - always test supine) - 0(No drift) 7. Limb Ataxia (finger/nose \T\ heel/hernandez - test with eyes open) - 0(Absent) 8. Sensory Loss (pinprick arms/legs/face) - 1(Mild to moderate loss) 9. Best Language: Aphasia (description/naming/reading) - 0(No aphasia) Initials: cm10 NIH Stroke Scale - NIH Stroke Score Date: 04/15/2024 Time: 18:47 Total Score = 3 10. Dysarthria (speech clarity - read or repeat words) - 1(Mild to Moderate) 11. Extinction and Inattention (visual/tactile/auditory/spatial/personal) - 0(No abnormality) 1a. Level of Consciousness (LOC) - 0(Alert) 1b. Level of Consciousness (LOC) (Month \T\ Age) - 0(Both) 1c. LOC Commands (Open \T\ Closes Eyes/Cathead Worker) - 0(Both) 2. Best Gaze (Lateral Gaze Paresis) - 0(Normal) 3. Visual Field Loss - 0(No visual loss) 4. Facial Palsy - 1(Minor Paralysis) 5a. Left Arm: Motor (10-second hold) - 0(No drift) 5b. Right Arm: Motor (10-second hold) - 0(No drift) 6a. Left Leg: Motor (5-second hold - always test supine) - 0(No drift) 6b. Right Leg: Motor (5-second hold - always test supine) - 0(No drift) 7. Limb Ataxia (finger/nose \T\ heel/hernandez - test with eyes open) - 0(Absent) 8. Sensory Loss (pinprick arms/legs/face) - 1(Mild to moderate loss) 9. Best Language: Aphasia (description/naming/reading) - 0(No aphasia) Initials: rn Signatures: Dispatcher [employer] EDAriel Sanders MD MD rn Sulma Santana RN RN ld1 Luz Rapp RN RN kd3 Solomon Cazares MD MD sp4 Alia Sarmiento Clarissa RN RN cm10 Oh Ly RN RN tm6 Corrections: (The following items were deleted from the chart) 18:42 18:39 Kimberly Swallow Protocol Brief Cognitive Screen What is your name? Normal, ld1 Where are you right now? Normal, What year is it? Normal. Oral Mechanism Examination Facial Symmetry: Normal, Motion: Normal, Lip Closure: Normal, Oral Mechanism Result: Normal. 3 oz Water Swallow Challenge: Pt able to drink all water without stopping, coughing, choking or throat clearing: Yes Result: PASS Notified: Ariel Eric MD ld1 20:38 20:37 Reassessment: tm6 tm6
--- NOTE | 2024-04-15 19:36 | EDPHYS ---
Physician Documentation [facility] Name: Enma Kuo Jr Age: 39 yrs Sex: Male : 1985 Arrival Date: 04/15/2024 Time: 17:55 Bed 5 Private MD: ED Physician Solomon Cazares HPI: 04/15 18:47 This 39 yrs old Male presents to ER via Ambulatory with complaints of Slurred Speech, rn Facial Droop, Numbness - of left side. 18:47 The patient presents to the emergency department with a speech or higher order brain rn function problem, paresthesias of the left lower extremity, left upper extremity. Onset: The symptoms/episode began/occurred this morning. Severity of symptoms: At their worst the symptoms were moderate in the emergency department the symptoms are unchanged. The patient has experienced similar episodes in the past. No knownPatient reports mole was 430 this morning. Went to bed and woke up later in day with slurred speech and left-sided numbness. Has had a stroke before, told has PFO. States is supposed to take blood thinners but does not. No recent injury or bleeding.. Historical: - Allergies: 18:24 No Known Allergies; cm10 - PMHx: 18:24 CVA; Gall Stones; Hypertension; TIA; cm10 - PSHx: 18:24 Cholecystectomy; cm10 - Immunization history:: Adult Immunizations up to date. - Infectious Disease History:: Denies. - Social history:: Smoking status: Patient reports the use of cigarette tobacco products, smokes one-half pack cigarettes per day. - Family history:: not pertinent. - Hospitalizations: : No recent hospitalization is reported. ROS: 18:47 Constitutional: Negative for fever, chills, and weight loss, Cardiovascular: Negative rn for chest pain, palpitations, and edema, Respiratory: Negative for shortness of breath, cough, wheezing, and pleuritic chest pain, Abdomen/GI: Negative for abdominal pain, nausea, vomiting, diarrhea, and constipation, Back: Negative for injury and pain, MS/Extremity: Negative for injury and deformity, Skin: Negative for injury, rash, and discoloration, Neuro: Positive for slurred speech and left arm/leg numbness Exam: 18:47 Constitutional: This is a well developed, well nourished patient who is awake, alert, rn and in no acute distress. Head/Face: Normocephalic, atraumatic. Cardiovascular: Regular rate and rhythm. No pulse deficits. Respiratory: No increased work of breathing, no retractions or nasal flaring. Abdomen/GI: Soft, non-tender MS/ Extremity: Pulses equal, no cyanosis. Neurovascular intact. Full, normal range of motion. Equal circumference. Neuro: Awake and alert, GCS 15, oriented to person, place, time, and situation. Right lower facial droop present. Decree sensation to left arm and left leg. No drift or weakness. Coordination normal Vital Signs: 18:00 BP 154 / 102; Pulse 95; Resp 18; Temp 97.5; Pulse Ox 98% on R/A; Weight 92 kg; cm10 18:39 BP 136 / 100; Pulse 88; Resp 18; Pulse Ox 95% on R/A; ld1 20:18 BP 134 / 88; Pulse 73; Pulse Ox 99% on R/A; tm6 NIH Stroke Scale Scores: 18:00 NIHSS Score: 3 cm10 18:47 NIHSS Score: 3 rn MDM: 18:04 Patient medically screened. rn 18:13 ED course: Pt states onset 2pm. rn 18:21 ED course: Spoke again with the patient given tight time window for TNK, spouse is in rn the room and states she feels like she noticed some slurred speech yesterday. When pressed, patient states the last time was 100% normal was 430 this morning and was already feeling symptoms upon awakening, became more evident at 2 PM.. 18:22 ED course: Consulted with Dr. Logan, states likely beyond the window because of rn radiographic finding of left basal ganglia stroke already seen. Does not recommend giving TNK at this time due to radiographic finding and high risk of bleeding.. 19:06 ED course: Patient not TNK candidate due to outside of window upon presentation, states rn last known normal 4:30 in the morning which is approximately 15 hours prior to presentation. Also has formed cerebral infarction on CT imaging already. Discussed this with patient and family member or significant other in the room and they understand.. 19:33 Data reviewed: vital signs, nurses notes, lab test result(s), EKG, radiologic studies, rn CT scan, and as a result, I will admit patient. Consideration of Admission/Observation Patient was admitted/placed on observation. Escalation of care including admission/observation considered. Independent interpretation of the following test(s) in the Emergency Department computing architect: rate is 82 beats/min, Rhythm is normal sinus rhythm, regular, with no ectopy, Interpretation: normal rate, normal rhythm. Care significantly affected by the following chronic conditions: Hypertension, CVA. Counseling: I had a detailed discussion with the patient and/or guardian regarding the historical points, exam findings, and any diagnostic results supporting the discharge/admit diagnosis, lab results, radiology results, the need for further work-up and treatment in the hospital. ED course: Patient with possible cerebral infarction on CT head without contrast. CT angio head and neck negative for LVO. Patient was outside of TNK window upon presentation, will admit for stroke workup to hospitalist service.. 04/15 18:06 Order name: Basic Metabolic Panel 04/15 18:06 Order name: CBC with Diff; Complete Time: 19:27 04/15 18:06 Order name: High Sensitivity Troponin 04/15 18:06 Order name: Protime (+inr); Complete Time: 19:27 04/15 18:06 Order name: Ptt, Activated; Complete Time: 19:27 04/15 20:08 Order name: Urinalysis w/ reflexes [facility] 04/15 20:08 Order name: CBC with Automated Diff [facility] 04/15 20:08 Order name: CBC with Automated Diff [facility] 04/15 20:08 Order name: Comprehensive Metabolic Panel [facility] 04/15 20:08 Order name: Comprehensive Metabolic Panel [facility] 04/15 18:06 Order name: CT Neck Angio; Complete Time: 19:27 04/15 18:06 Order name: CT Stroke Brain w/o Contrast; Complete Time: 18:41 04/15 18:06 Order name: Stroke CXR 1 View; Complete Time: 18:41 04/15 19:02 Order name: Head angio; Complete Time: 19:27 [facility] 04/15 18:06 Order name: EKG; Complete Time: 18:07 04/15 20:08 Order name: CONS Physician Consult [facility] 04/15 20:08 Order name: Physical Therapy Consult [facility] 04/15 18:06 Order name: Accucheck; Complete Time: 18:25 04/15 18:06 Order name: Cardiac monitoring; Complete Time: 18:25 rn 04/15 18:06 Order name: EKG - Nurse/Tech; Complete Time: 18:25 rn 04/15 18:06 Order name: IV Saline Lock; Complete Time: 18:25 rn 04/15 18:06 Order name: Labs collected and sent; Complete Time: 18:25 rn 04/15 18:06 Order name: NPO; Complete Time: 18:25 rn 04/15 18:06 Order name: O2 Per Protocol; Complete Time: 18:25 rn 04/15 18:06 Order name: O2 Sat Monitoring; Complete Time: 18:25 rn 04/15 18:06 Order name: Stroke Swallow Screen; Complete Time: 18:25 rn Administered Medications: 18:55 Drug: Aspirin PO Chewable Tablet 324 mg PO once; 81 mg tablets x 4 Route: PO; ld1 18:55 Drug: foLIC Acid IVPB 1 mg IVPB once Route: IVPB; Site: right antecubital; ld1 20:47 Drug: Nicoderm CQ Transdermal Patch 21 mg/24 hr 1 patches Transdermal once Route: kd3 Transdermal; Site: affected area; 20:47 Drug: LORazepam PO 1 mg PO once Route: PO; kd3 Disposition Summary: 04/15/24 19:35 Hospitalization Ordered Notes: Hospitalization Status: Inpatient Admission rn Provider: Gabriel Maxwell rn Location: Telemetry/[facility] (Inpatient) rn Condition: Stable rn Problem: new rn Symptoms: are unchanged rn Bed/Room Type: Standard rn Room Assignment: 230(04/15/24 20:25) ty Diagnosis - Cerebral infarction, unspecified rn - Paresthesia of skin rn - Facial weakness rn Forms: - Medication Reconciliation Form rn - SBAR form rn - Leadership Thank You Letter rn NIH Stroke Scale - NIH Stroke Score Date: 04/15/2024 Time: 18:00 Total Score = 3 10. Dysarthria (speech clarity - read or repeat words) - 1(Mild to Moderate) 11. Extinction and Inattention (visual/tactile/auditory/spatial/personal) - 0(No abnormality) 1a. Level of Consciousness (LOC) - 0(Alert) 1b. Level of Consciousness (LOC) (Month \T\ Age) - 0(Both) 1c. LOC Commands (Open \T\ Closes Eyes/Heel Attacher Wood) - 0(Both) 2. Best Gaze (Lateral Gaze Paresis) - 0(Normal) 3. Visual Field Loss - 0(No visual loss) 4. Facial Palsy - 1(Minor Paralysis) 5a. Left Arm: Motor (10-second hold) - 0(No drift) 5b. Right Arm: Motor (10-second hold) - 0(No drift) 6a. Left Leg: Motor (5-second hold - always test supine) - 0(No drift) 6b. Right Leg: Motor (5-second hold - always test supine) - 0(No drift) 7. Limb Ataxia (finger/nose \T\ heel/hernandez - test with eyes open) - 0(Absent) 8. Sensory Loss (pinprick arms/legs/face) - 1(Mild to moderate loss) 9. Best Language: Aphasia (description/naming/reading) - 0(No aphasia) Initials: cm10 NIH Stroke Scale - NIH Stroke Score Date: 04/15/2024 Time: 18:47 Total Score = 3 10. Dysarthria (speech clarity - read or repeat words) - 1(Mild to Moderate) 11. Extinction and Inattention (visual/tactile/auditory/spatial/personal) - 0(No abnormality) 1a. Level of Consciousness (LOC) - 0(Alert) 1b. Level of Consciousness (LOC) (Month \T\ Age) - 0(Both) 1c. LOC Commands (Open \T\ Closes Eyes/Heel Attacher Wood) - 0(Both) 2. Best Gaze (Lateral Gaze Paresis) - 0(Normal) 3. Visual Field Loss - 0(No visual loss) 4. Facial Palsy - 1(Minor Paralysis) 5a. Left Arm: Motor (10-second hold) - 0(No drift) 5b. Right Arm: Motor (10-second hold) - 0(No drift) 6a. Left Leg: Motor (5-second hold - always test supine) - 0(No drift) 6b. Right Leg: Motor (5-second hold - always test supine) - 0(No drift) 7. Limb Ataxia (finger/nose \T\ heel/hernandez - test with eyes open) - 0(Absent) 8. Sensory Loss (pinprick arms/legs/face) - 1(Mild to moderate loss) 9. Best Language: Aphasia (description/naming/reading) - 0(No aphasia) Initials: rn Signatures: Dispatcher [employer] EDAriel Sanders MD MD rn Sulma Santana, RN RN ld1 Luz Rapp RN RN kd3 Solomon Cazares MD MD sp4 Toyin Carrington RN RN cm10 Rico Cuellar ty Corrections: (The following items were deleted from the chart) 20:25 19:35 corina ty
[2024-04-15 19:49] LABS: Troponin High Sensitivity < 3.0 pg/mL (<58.9)
[2024-04-15] MEDS ORDERED: ONDANSETRON 4 MG/2 ML VIAL IV PRN (20:01)
[2024-04-15] MEDS ORDERED: ACETAMINOPHEN 325 MG TABLET PO PRN (20:01)
--- NOTE | 2024-04-15 20:08 | P.HP ---
Certification for Inpatient Patient admitted to: Inpatient With expected LOS: >2 Midnights Practitioner: I am a practitioner with admitting privileges, knowledge of patient current condition, hospital course, and medical plan of care. 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 Patient states that he experienced numbness and tingling of the left lower extremity and left upper extremity along with the left side of the face associated with slurring of speech started at 4:00 in the morning yesterday. He went to bed and woke up later in the day with slurred speech and left-sided numbness. Patient has a history of CVA in the past. Does not take any anticoagulant at this time. As per the patient patient was told that he had a PFO . Patient continues to have left-sided numbness and was brought to ER. Denies any chest pain or shortness of breath. Denies any palpitation. Denies any headache. No nausea vomiting or diarrhea. No sick contacts. Patient was assessed in the ER and was admitted for CVA workup Allergies No Known Allergies Allergy (Verified 12/29/12 17:12) Home medications list reviewed: Yes Home Medications: clonazePAM [Klonopin] 0.5 mg PO Q12H PRN #30 tablet 07/01/20 Aspirin [Aspirin EC 81 MG] 81 mg PO DAILY #30 tablet. 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, lives with family - Family History Family History: Reviewed- Non-Contributory - Family History Father -: Heart disease, Hypertension Notes: chf - Social History Smoking Status: Never smoker Alcohol use: Yes CD- Drugs: No Caffeine use: Yes Review of Systems 10-point ROS is otherwise unremarkable Physical Examination - Vital Signs Temperature: 97.5 F Blood Pressure: 152/102 Pulse: 78 Respirations: 18 Pulse Ox (%): 94 - Physical Exam General: Alert, In no apparent distress, Oriented x3 HEENT: Atraumatic, Normocephalic Neck: Supple, No Thyromegaly Respiratory: Clear to auscultation bilaterally Cardiovascular: No edema, Regular rate/rhythm, Normal S1 S2 Capillary refill: <2 Seconds Gastrointestinal: Soft and benign, W/out hepatosplenomegaly Musculoskeletal: No clubbing, No swelling Integumentary: No rashes, No breakdown Neurological: Other (Alert, Awake , Left side numbness +) Lymphatics: No axilla or inguinal lymphadenopathy - Studies Laboratory Data (last 24 hrs) 04/15/24 04/15/24 04/15/24 18:56 18:56 18:56 WBC 7.90 Hgb 17.7 Hct 52.3 H Plt Count 160 PT 11.1 INR 0.99 APTT 32.1 Sodium 137 Potassium 4.1 BUN 9 Creatinine 1.11 Glucose 115 H Assessment and Plan - Plan CVA/TIA No focal weakness Numbness of left-sided body Started on aspirin and statin Continue Plavix CT CTA findings noted IMPRESSION: No acute intracranial hemorrhage or large vascular territory infarct. New but remote appearing right basal ganglia infarct. Hypoattenuation in the left basal ganglia could represent an age indeterminate left basal ganglia lacunar infarct. MRI brain ordered Monitor neuro vital signs Monitor under telemetry Will get an echocardiogram to rule out PFO Hypertension Antihypertensives titrated Continue home medications and titrate as needed Hyperlipidemia Continue statin GI/DVT prophylaxis Advanced directive full code Discharge Plan: Home Plan to discharge in: 48 Hours - Advance Directives Does patient have a Living Will: No Does patient have a Durable POA for Healthcare: No - Code Status/Comfort Care Code Status: Full Code Time Spent Managing Pts Care (In Minutes): 48
[2024-04-15] MEDS ORDERED: NICOTINE 21 MG/PAT TD ONE (20:41)
[2024-04-15] MEDS ORDERED: LORAZEPAM 1 MG TABLET ONE (20:42)
[2024-04-15] MEDS: TRAZODONE 50 MG TABLET PO PRN (22:49)
[2024-04-15] MEDS: POLYETHYL GLY 3350 17 GM/DOSE PO PRN (22:49)
[2024-04-15] MEDS: NA CHLORIDE 0.9% 1,000 ML IV SCH (22:49)
[2024-04-16] MEDS ORDERED: clonazePAM 0.5 MG TAB PO PRN (05:43)
[2024-04-16 06:23] LABS: Absolute Eosinophils 0.1 K/uL (0-0.5); Absolute Lymphocytes (CBC) 1.7 K/uL (0.7-4.9); Absolute Monocytes 0.4 K/uL (0.1-1.3); Absolute Neutrophil 3.4 K/uL (1.8-8.0); Basophils % 0.4 % (0-1.3); Eosinophils % 2.2 % (0-4.4); Hematocrit 50.7 % (39.6-49.0); Lymphocytes % 31.1 % (15.3-44.8); MCH 30.9 pg (27.0-35.0); MCHC 33.5 g/dL (32.0-36.0); MCV 92.3 fL (80-100); MPV 8.8 fL (7.6-11.3); Monocytes % 6.7 % (3.3-12.3); Neutrophils % 59.6 % (41.7-73.7); Nucleated Red Blood Cells % 0.4 % (0-0); Platelets 140 thou/uL (152-406); RBC Red Blood Cell Count 5.49 M/uL (4.33-5.43)
[2024-04-16 06:29] LABS: Albumin 3.5 g/dL (3.4-5.0); Anion Gap 8.8 mEq/L (5.0-15.0); Bilirubin Total 0.7 mg/dL (0.2-1.0); Globulin 3.4 g/dL (2.3-3.5); Potassium 3.8 mEq/L (3.5-5.1); Protein, Total 6.9 g/dL (6.4-8.2)
[2024-04-16] MEDS: FOLIC ACID 1 MG TABLET PO SCH (09:39)
[2024-04-16] MEDS: lisinopriL 10 MG TAB PO SCH (09:39)
[2024-04-16] MEDS: ASPIRIN EC 81 MG TAB PO SCH (09:39)
[2024-04-16] MEDS: DOCUSATE NA 100 MG CAP PO SCH (09:39)
[2024-04-16] MEDS: POTASSIUM CL SA 10 MEQ TAB PO ONE (09:39)
[2024-04-16 10:03] LABS: LDL, Direct 89 mg/dL (100-129)
--- NOTE | 2024-04-16 12:08 | RAD REPORT ---
EXAM DESCRIPTION: MRI - Brain Wo Cont - 04/16/2024 9:00 am CLINICAL HISTORY: CVA COMPARISON: 04/15/[address] TECHNIQUE: Multiplanar multisequence MRI of the brain performed without IV contrast. FINDINGS: No evidence of acute infarct or other diffusion signal abnormality. No evidence of acute intracranial hemorrhage or abnormal extra-axial fluid collections. Mild diffuse parenchymal volume loss. Ventricular caliber otherwise within normal for age. Midline st ructures are unremarkable. Bilateral basal ganglia small regions of encephalomalacia, most sizable in the right putamen, were th ere is associated hemosiderin staining. No mass effect or midline shift. Major vascular flow voids are preserved. Mastoid air cells and paranasal sinuses are clear. IMPRESSION: No acute intracranial process. No evidence of ventriculomegaly or mass effect. Bilateral basal ganglia areas of encephalomalacia suggesting sequelae of remote ischemia.
--- NOTE | 2024-04-16 13:15 | EKG ---
Test Date: 2024-04-15 Test Time: 18:20:14 Civil Design Technician: HOMER MEASUREMENT RESULTS: Intervals: Rate: 92 CA: 182 QRSD: 92 QT: 342 QTc: 422 Riva: P: 28 CA: 182 QRS: -82 T: 13 INTERPRETIVE STATEMENTS: Normal sinus rhythm Left anterior fascicular block Abnormal ECG Compared to ECG 11/22/2022 16:38:21 No significant changes Electronically Signed On 04-16-24 13:14:18 CDT by Reji Rice
--- NOTE | 2024-04-16 15:34 | P.DS ---
Admission Date: 04/15/24 Discharge Date: 04/16/24 Disposition: ROUTINE DISCHARGE Discharge Condition: FAIR Reason for Admission: Left-sided numbness - Problems (1) TIA (transient ischemic attack) Current Visit: Yes Status: Acute (2) History of CVA (cerebrovascular accident) Current Visit: Yes Status: Acute (3) Hypertension Current Visit: Yes Status: Acute Brief History of Present Illness: 39 yrs old Male with past medical history of CVA, hypertension, and TIA was brought to ER with slurred speech, facial droop and numbness of the left side of the body. Patient states that he experienced numbness and tingling of the left lower extremity and left upper extremity along with the left side of the face associated with slurring of speech for 1 day duration. Patient was hospitalized a couple of years ago for TIA, had an echocardiogram with bubble study done which was negative. Patient was assessed in the ER and was admitted for CVA workup Hospital Course: Patient was placed under observation on the medical floor, started on aspirin, Lipitor. Patient's symptoms resolved during the hospital stay. His speech was no longer slurred and he stated the numbness has completely resolved. MRI of the brain done did not show any acute disease but demonstrated bilateral basal ganglia areas of encephalomalacia indicating a remote acute infarct. Echocardiogram was done. Patient evaluated for speech and PT and found to have no further needs. Patient blood pressure stable. He is deemed stable for discharge. Vital Signs/Physical Exam: Temp Pulse Resp BP Pulse Ox 97.2 F 68 15 116/74 96 04/16/24 12:00 04/16/24 12:00 04/16/24 12:00 04/16/24 12:00 04/16/24 12:00 Laboratory Data at Discharge: WBC 5.60 thou/uL (4.3-10.9) 04/16/24 05:35 Hgb 17.0 g/dL (13.6-17.9) 04/16/24 05:35 Hct 50.7 % (39.6-49.0) H 04/16/24 05:35 Plt Count 140 thou/uL (152-406) L 04/16/24 05:35 PT 11.1 SECONDS (9.4-12.5) 04/15/24 18:56 INR 0.99 04/15/24 18:56 APTT 32.1 SECONDS (24.3-36.9) 04/15/24 18:56 Sodium 137 mEq/L (136-145) 04/16/24 05:35 Potassium 3.8 mEq/L (3.5-5.1) 04/16/24 05:35 BUN 7 mg/dL (7-18) 04/16/24 05:35 Creatinine 0.95 mg/dL (0.70-1.30) 04/16/24 05:35 Glucose 112 mg/dL (74-106) H 04/16/24 05:35 Total Bilirubin 0.7 mg/dL (0.2-1.0) 04/16/24 05:35 AST 16 U/L (15-37) 04/16/24 05:35 ALT 36 U/L (16-61) 04/16/24 05:35 Alkaline Phosphatase 57 U/L (45-117) 04/16/24 05:35 LDL Cholesterol Direct Cancelled 04/16/24 05:35 Home Medications: clonazePAM [Klonopin] 0.5 mg PO Q12H PRN #30 tablet 07/01/20 Atorvastatin Calcium [Lipitor] 80 mg PO BEDTIME #30 tab 06/26/22 Trazodone [Desyrel*] 100 mg PO BEDTIME PRN PRN #20 tab 06/26/22 Aspirin [Aspirin EC 81 MG] 81 mg PO DAILY #30 tablet. 04/16/24 Clopidogrel Bisulfate [Plavix] 75 mg PO DAILY #30 tab 04/16/24 Folic Acid 1 mg PO DAILY #30 tab 04/16/24 lisinopriL [Prinivil*] 10 mg PO DAILY #30 tab 04/16/24 New Medications: Aspirin [Aspirin EC 81 MG] 81 mg PO DAILY #30 tablet. Folic Acid 1 mg PO DAILY #30 tab Clopidogrel Bisulfate [Plavix] 75 mg PO DAILY #30 tab lisinopriL [Prinivil*] 10 mg PO DAILY #30 tab Diet: AHA Activity: Fall precautions Followup: NONE,NONE [Primary Care Provider] - 1-2 Weeks Time spent managing pt's care (in minutes): 29
[2024-04-16] MEDS: ENOXAPARIN 30 MG/0.3 ML SQ SCH (16:00)
[2024-04-16] MEDS ORDERED: ENOXAPARIN 30 MG/0.3 ML SQ SCH (17:00)
[2024-04-16 19:41] VITALS: BP 128/74; TEMP 97.2; O2SAT 99; BMI 32.5
[2024-04-16] MEDS ORDERED: ATORVASTATIN 80 MG TAB PO SCH (21:00)
--- NOTE | 2024-04-17 08:12 | ECHO ---
HEIGHT: 5 ft 6 in WEIGHT: 202 lb 0 oz DATE OF STUDY: 04/16/[address]: Tirso Maxwell DO 2-DIMENSIONAL: YES M.MODE: YES DOPPLER: YES COLOR FLOW: YES TDS: NO PORTABLE: YES DEFINITY: NO BUBBLE STUDY: NO DIAGNOSIS: CEREBRAL VASCULAR ACCIDENT CARDIAC HISTORY: CATHERIZATION: SURGERY: PROSTHETIC VALVE: PACEMAKER: MEASUREMENTS (cm) DIASTOLIC (NORMALS) SYSTOLIC (NORMALS) IVSd 1.0 (0.6-1.2) LA Diam 3.0 (1.9-4.0) LVEF 67% LVIDd 4.1 (3.5-5.7) LVIDs 2.6 (2.0-3.5) %FS 36% LVPWd 1.2 (0.6-1.2) Ao Diam 3.1 (2.0-3.7) 2 DIMENSIONAL ASSESSMENT: RIGHT ATRIUM: NORMAL LEFT ATRIUM: NORMAL RIGHT VENTRICLE: NORMAL LEFT VENTRICLE: NORMAL TRICUSPID VALVE: NORMAL MITRAL VALVE: NORMAL PULMONIC VALVE: NORMAL AORTIC VALVE: NORMAL PERICARDIAL EFFUSION: NONE AORTIC ROOT: NORMAL LEFT VENTRICULAR WALL MOTION: NORMAL DOPPLER/COLOR FLOW: NORMAL COMMENTS: 1. NORMAL LEFT VENTRICULAR SYSTOLIC FUNCTION. EJECTION FRACTION 60-65%. NORMAL WALL MOTION. 2. NORMAL DIASTOLIC FUNCTION. TECHNOLOGIST: MILTON MORRIS
== END 2024-04-16 19:00 | disposition home or self-care (01) ==
LOC: ER 17:55 → ERHOLD 20:01 → INTOOBSV 20:01 → 2ND 21:09
PROVIDERS: ADMIT Family Medicine; ATTEND Internal Medicine
DX: G45.9 Transient cerebral ischemic attack, unspecified (principal); R20.0 Anesthesia of skin; I10 Essential (primary) hypertension; E78.5 Hyperlipidemia, unspecified; R47.81 Slurred speech; R29.810 Facial weakness; Z86.73 Personal history of transient ischemic attack (TIA), and cerebral infarction without residual deficits
CPT/HCPCS: 93005; 93306; 85025 ×2; 80048; 36415; 83721; 85610; 85730; 84484; 80053; 70496; 70498; 70450; 71045; 70551; 92523; 97161; 96374; 99285; Q9967; J3101; J7030; G0378

== ENCOUNTER 2024-04-28 23:31 | Emergency (ER) | payer OTHER ==
--- OUTSIDE RECORDS SUMMARY | 2024-04-28 23:34 | XMS REPORT | Continuity of Care Document ---
Author Name Unknown Address [address] [place] [address] [facility] Address [address] [place] [address] Care Team Providers Care Color Shop Helper Name Role Phone None, None Primary Care Physician [phone] MARCIE VASQUEZ Attending Clinician Unavailable [facility] Attending Clinician UnavailMICHELLE Rios Attending Clinician Unavailable Clinic, [facility] Neuro Virtual Study Attending Viola cid Unavailable Lolis Cortez MD Attending Clinician [phone] Shaina Parra MD Attending Clinician [phone] Archana Oconnor LCSW Attending Clinician Unavail able GASPER DEJESUS Attending Clinician Unavailable PRASHANTH CARR Attending Clinician Unavailabl e Doctor Unassigned, [place] Attending Clinician U navailable Lab, Adc Fam Pob I Attending Clinician Unavailab Michelle Bobby Attending Clinician [phone] Payers Payer Name Policy Type Policy Number Effective Date Expirati on Date Source [facility] 9 [id number] 2024 00:00:00 Problems Condition Name Condition Details Condition Category Status Onset Date Resolution Date Last Treatment Date Treating Clinician Comments Source History of CVA (cerebrova scular accident) History of CVA (cerebrova scular accident) Disease Active 09-23 00:00: 00 Miguelina Rosadovincentold - Externa l No known active problems No known active problems Disease [facility] Depression Depression Disease Active Nicolas montilla Seybold - Externa l HTN (hypertens ion) HTN (hypertens ion) Disease Active Miguelina Seybold - Externa l Hyperlipid emia Hyperlipid emia Disease Active Migueilna Seybold - Externa l Insomnia Insomnia Disease Active Shanon an Seybold - Externa l Family history of [...] NO KNOWN ALLERGIE S Drug Class Active [facility] Social History Social Habit Start Date Stop Date Quantity Comments Source Gender identity [facility] Sexual orientation Nicolas montilla Berhane - External History of tobacco use Chews [...] (event) 2020-03-29 00:00:00 2020-04-28 11:00:00 Not sure [facility] Sex assigned at 1985 00:00:00 1985 00:00:00 Miguelina Smith Smoking Status Start Date Stop Date Source Tobacco smoking consumption unknown [facility] Smokes tobacco daily 2024-03-10 00:00:00 Miguelina Smith Medications Ordered Medication Name Filled Medication Name Start Date Stop Date Current Medication? Ordering Clinician Indication Dosage Frequency Signature (SIG) Comments Components Source Aspirin 81 MG oral Chewable Tablet 03-10 00:00: 00 Yes [id number] 81mg Take 1 tablet (81 mg total) by mouth daily. Miguelina waddell Lisinopril 10 MG oral Tablet 03-10 00:00: 00 Yes [id number] 10mg Take 1 tablet (10 mg total) by mouth daily. Miguelina waddell Atorvastati n Calcium (Lipitor) 40 MG oral Tablet 03-10 00:00: 00 Yes [id number] 40mg Take 1 tablet (40 mg total) by mouth nightly. Miguelina waddell Fluoxetine HCl 10 MG oral Tablet 03-10 00:00: 00 Yes [id number] 10mg Take 1 tablet (10 mg total) by mouth daily. Miguelina waddell Trazodone HCl 50 MG oral Tablet 03-10 00:00: 00 Yes [id number] 50mg Take 1 tablet (50 mg total) by mouth nightly. Miguelina waddell Melatonin 10 MG tablet 16 13:01: 28 11-08 00:00 :00 No 80mg Take 80 mg by mouth every night. [facility] buPROPion XL (Wellbutrin XL) 150 MG 24 hr tablet 11-08 00:00: 00 12-08 04:59 :00 No [id number] 150mg QD Take 1 tablet (150 mg total) by mouth 1 (one) time each day. Do not crush, chew, or split. [facility] Melatonin 10 MG tablet -10 13:26: 27 Yes 80mg Take 80 mg by mouth every night. [facility] atorvastati n (Lipitor) 80 MG tablet 10-02 13:26: 05 10-02 00:00 :00 No 80mg QD Take 80 mg by mouth 1 (one) time each day. [facility] aspirin 81 MG EC tablet 10-02 13:19: 40 Yes 81mg QD Take 81 mg by mouth 1 (one) time each day. [facility] amLODIPine (Norvasc) 5 MG tablet 10-02 00:00: 00 Yes [id number] 5mg QD Take 1 tablet (5 mg total) by mouth 1 (one) time each day. [facility] atorvastati n (Lipitor) 80 MG tablet 10-02 00:00: 00 11-08 00:00 :00 No [id number] 80mg QD Take 1 tablet (80 mg total) by mouth 1 (one) time each day. [facility] traZODone (Desyrel) 50 MG tablet 2022-09 00:00: 00 11-08 00:00 :00 No [id number] 25mg TAKE 1/2 TABLET(25 MG) BY MOUTH EVERY NIGHT [facility] traZODone (Desyrel) 50 MG tablet 2022-09 00:00: 00 08-31 05:59 :00 No [id number] 25mg Take 0.5 tablets (25 mg total) by mouth every night. [facility] amLODIPine (Norvasc) 5 MG tablet 05-29 13:38: 44 05-29 00:00 :00 No 5mg QD Take 5 mg by mouth 1 (one) time each day. [facility] amLODIPine (Norvasc) 5 MG tablet 05-29 00:00: 00 10-02 00:00 :00 No [id number] 5mg QD Take 1 tablet (5 mg total) by mouth 1 (one) time each day. [facility] gabapentin (Neurontin) 300 MG capsule 8-11 00:00: 00 11-08 00:00 :00 No [id number] 300mg [id number] 3D Take 1 capsule (300 mg total) by mouth 3 (three) times a day if needed (right leg pain). [facility] FLUoxetine (PROzac) 20 MG capsule 05-03 00:00: 00 11-08 00:00 :00 No [id number] 20mg QD Take 1 capsule (20 mg total) by mouth 1 (one) time each day. [facility] atorvastati n (Lipitor) 80 MG tablet 05-01 13:50: 38 Yes 80mg QD Take 80 mg by mouth 1 (one) time each day. [facility] aspirin 81 MG EC tablet 05-01 13:50: 38 Yes 81mg QD Take 81 mg by mouth 1 (one) time each day. [facility] Melatonin 10 MG tablet 05-01 13:50: 38 Yes 80mg Take 80 mg by mouth every night. [facility] ondansetron 4 mg disintegrat ing tablet 2018-09 00:00: 00 Yes [id number] 4mg Take 1 tablet by mouth every 4 (four) hours as needed for Nausea and Vomiting (N/V). [facility] ketorolac 10 mg tablet 2018-09 00:00: 00 Yes [id number] 10mg Take 1 tablet by mouth every 8 (eight) hours. [facility] butalbital- acetaminoph en-caff 50-325-40 mg tablet 2018-09 00:00: 00 Yes [id number] 1{tbl} Take 1 tablet by mouth every 4 (four) hours as needed for Pain (scale 4-6). [facility] cyclobenzap rine 10 mg tablet 02-08 00:00: 00 Yes [id number] 10mg Take 1 tablet by mouth every 8 (eight) hours as needed for Muscle Spasms. [facility] traMADOL (ULTRAM) 50 mg tablet 12-28 00:00: 00 Yes [id number] 50mg Take 1 tablet by mouth every 6 (six) hours as needed for Pain (scale 4-6). [facility] amLODIPine 2.5 mg tablet 2017-09 00:00: 00 Yes 2.5mg Take 1 tablet by mouth at bedtime. [facility] hydroCHLORO thiazide 25 mg tablet 2017-09 0-21 00:00: 00 Yes 25mg Take 1 tablet by mouth every morning. [facility] acetaminoph en-codeine 300-30 mg tablet 11-23 00:00: 00 Yes 1{tbl} Take 1 tablet by mouth every 4 (four) hours as needed for Pain (scale 4-6) (Cough). [facility] ondansetron (ZOFRAN, HYDROCHLORI DE,) 4 mg tablet 2015-09 0 00:00: 00 Yes 4mg Take 1 tablet by mouth every 8 (eight) hours as needed for Nausea and Vomiting (N/V). [facility] ondansetron (ZOFRAN, HYDROCHLORI DE,) 4 mg tablet 2015-09 0 00:00: 00 Yes 4mg Take 1 tablet by mouth every 8 (eight) hours as needed for Nausea and Vomiting (N/V). [facility] Vital Signs Vital Name Observation Time Observation Value Comments S ource Systolic blood pressure 2024-03-10 20:32:00 147 mm[Hg] Miguelina Platao ld - External Diastolic blood pressure 2024-03-10 20:32:00 86 mm[Hg] Miguelina aponte - External Heart rate 2024-03-10 20:32:00 88 /min Shanon Last - External Body temperature 2024-03-10 20:32:00 36.72 Rosey Miguelina Last - External Body height 2024-03-10 20:32:00 167.6 cm Jennifer preston Seybold - External Body weight 2024-03-10 20:32:00 93.441 kg Jennifer preston Seybold - External BMI 2024-03-10 20:32:00 33.25 kg/m2 Jennifer Last - External Oxygen saturation in Arterial blood by Pulse oximetry 2024-03-10 20:32:00 97 /min Miguelina aponte - External Encounters Start Date/Time End Date/Time Encounter Type Admission Type Attending Clinicians Care Facility Care Department Encounter ID Source 2023-04-24 15:14:[address] [facility] [id number] [facility] 2024-04-27 15:00:00 2024-04-27 15:00:00 Outpatient PREZAS, MARCIE ARNOLD [id number] Miguelina [facility] 2024-04-19 00:00:00 2024-04-19 00:00:00 Outpatient PREZAEdie, MARCIE ARNOLD [id number] Miguelina Rosadoyadi 2024-03-17 15:45:00 2024-03-17 15:45:00 Outpatient STEFANIE FRASER [id number] [facility] 2024-03-10 15:30:00 2024-03-10 15:30:00 Outpatient PREZAS, MARCIE ARNOLD [id number] Miguel[facility] 2023-12-06 12:00:00 2023-12-06 12:00:[address] [facility] [id number] [facility] 2023-11-08 10:30:00 2023-11-08 11:00:00 Office Visit Clinic, [facility] Neuro Virtual Study Lolis Cortez [facility] [id number] 1.2.840.114 350.1.13.58 9.2.7.2.686 [id number] [facility] 2023-10-25 14:30:00 2023-10-25 14:30:[address] [facility] [id number] [facility] 2023-10-02 13:00:00 2023-10-02 13:30:00 Telemedici ne Shaina Parra [facility] [id number] 1.2.840.114 350.1.13.58 [id number] [id number] [facility] 2023-10-02 00:00:00 2023-10-02 13:08:59 Patient Outreach Archana Oconnor Latonya [facility] [id number] 1.2.840.114 350.1.13.58 [id number] [id number] [facility] 2023-07-31 13:30:00 2023-07-31 16:54:50 [facility] [id number] 1.2.840.114 350.1.13.58 9.2.7.2.686 [id number] [facility] 2023-07-24 13:30:00 2023-07-24 13:30:[address] [facility] [id number] [facility] 2023-05-31 14:50:00 2023-05-31 14:50:00 Outpatient GASPER DEJESUS [facility] [id number] [facility] 2023-05-31 13:30:00 2023-05-31 13:30:[address] [facility] [id number] [facility] 2023-05-29 13:00:00 2023-05-29 17:55:01 Telemedici SHAINA De Leon [facility] [id number] 1.2840.114 350.1.13.58 9.2.7.2.686 [id number] [facility] 2023-05-15 09:30:00 2023-05-15 09:30:00 Outpatient PRASHANTH CARR [facility] [id number] [facility] 2023-05-01 13:00:00 2023-05-01 13:00:00 Telemedici SHAINA De Leon [facility] [id number] 1.2.840.114 350.1.13.58 9.2.7.2.686 [id number] [facility] 2023-04-30 00:00:00 2023-04-30 00:00:00 Patient Outreach Archana Oconnor Latonya [facility] [id number] 1.2.840.114 350.1.13.58 9.2.7.2.686 [id number] [facility] 2020-04-29 00:00:00 2020-04-29 00:00:00 Patient Secure Msg Doctor Unassigned, [place] [facility] 1.2.840.114 350.1.13.10 4.2.7.2.686 [id number] [facility] 2020-04-28 11:40:00 2020-04-28 11:40:00 Outpatient R [facility] [id number] [facility] 2020-04-28 10:57:36 2020-04-28 11:17:36 Laboratory Only Lab, [facility] Fam Po I [facility] [address] 1.0.114 350.1.13.10 4.2.7.2.686 [id number] 2020-04-28 10:57:36 2020-04-28 11:17:36 Laboratory Only Lab, [facility] Fam Pob I Alex Michelle [facility] [address] 1.0114 350.1.13.10 4.2.7.2.686 [id number] [facility] 2020-04-28 00:00:00 2020-04-28 00:00:00 Letter (Out) Doctor Unassigned, [place] [facility] 1.20.114 350.1.13.10 4.2.7.2.686 [id number] 2020-04-28 00:00:00 2020-04-28 00:00:00 Letter (Out) Doctor Unassigned, [place] [facility] 1.2840.114 350.1.13.10 4.2.7.2.686 [id number] [facility]
--- NOTE | 2024-04-28 23:49 | EDPHYS ---
Physician Documentation [facility] Name: Enma Kuo Jr Age: 39 yrs Sex: Male : 1985 Arrival Date: 04/28/2024 Time: 23:31 Bed IW1 Private MD: ED Physician Angelica Cruz HPI: 04/28 23:46 This 39 yrs old Male presents to ER via Ambulatory with complaints of Toothache. sp3 23:46 39-year-old male with history of CVA on Eliquis, hypertension now presents to the ED sp3 with left mandibular molar tooth ache for 3 days. Patient is she called his brother to pull it out whom he refused. Who presents to the ED for evaluation, and intervention. He denies fever, vomiting, posterior oropharynx swelling tongue swelling, chest pain, shortness of breath, or any other signs or symptoms on ROS at this time.. Historical: - Allergies: 23:43 No Known Allergies; cm10 - PMHx: 23:43 CVA; CVA; Gall Stones; Hypertension; TIA; cm10 - PSHx: 23:43 Cholecystectomy; cm10 - Immunization history:: Adult Immunizations up to date. - Infectious Disease History:: Denies. - Social history:: Smoking status: Patient reports the use of cigarette tobacco products, smokes one-half pack cigarettes per day. ROS: 23:47 Constitutional: Negative for fever, chills, and weight loss, Eyes: Negative for injury, sp3 pain, redness, and discharge, Neck: Negative for injury, pain, and swelling, Cardiovascular: Negative for chest pain, palpitations, and edema, Respiratory: Negative for shortness of breath, cough, wheezing, and pleuritic chest pain, Abdomen/GI: Negative for abdominal pain, nausea, vomiting, diarrhea, and constipation, Back: Negative for injury and pain, MS/Extremity: Negative for injury and deformity, Skin: Negative for injury, rash, and discoloration, Neuro: Negative for headache, weakness, numbness, tingling, and seizure, 23:47 All other systems are negative, Exam: 23:48 Constitutional: This is a well developed, well nourished patient who is awake, alert, sp3 and in no acute distress. Head/Face: Normocephalic, atraumatic. Eyes: Pupils equal round and reactive to light, extra-ocular motions intact. Lids and lashes normal. Conjunctiva and sclera are non-icteric and not injected. Cornea within normal limits. Periorbital areas with no swelling, redness, or edema. Neck: Trachea midline, no thyromegaly or masses palpated, and no cervical lymphadenopathy. Supple, full range of motion without nuchal rigidity, or vertebral point tenderness. No Meningismus. Chest/axilla: Normal chest wall appearance and motion. Nontender with no deformity. No lesions are appreciated. Cardiovascular: Regular rate and rhythm with a normal S1 and S2. No gallops, murmurs, or rubs. Normal PMI, no JVD. No pulse deficits. Respiratory: Lungs have equal breath sounds bilaterally, clear to auscultation and percussion. No rales, rhonchi or wheezes noted. No increased work of breathing, no retractions or nasal flaring. 23:48 ENT: Left molar mandibular pain and general dental decay.. Vital Signs: 23:42 BP 138 / 97; Pulse 88; Resp 16; Temp 96.9; Pulse Ox 99% on R/A; Weight 90.72 kg; Height cm10 5 ft. 6 in. ; Pain 10/10; 23:42 Body Mass Index 32.28 (90.72 kg, 167.64 cm) cm10 23:42 Pain Scale: Adult cm10 MDM: 23:46 Patient medically screened. sp3 23:48 Data reviewed: vital signs, nurses notes. ED course: Will treat with Augmentin and 1 sp3 dose of oral [place] prior to discharge. Follow-up with dentist in the morning.. Administered Medications: 23:53 Drug: HYDROcodone-acetaminophen PO 5 mg-325 mg 2 tabs PO once Route: PO; cm10 23:54 Follow up: Response: Medication administered at discharge. cm10 23:53 Drug: Amoxicillin-Clavulanate PO 875 mg PO once Route: PO; cm10 23:54 Follow up: Response: Medication administered at discharge. cm10 Disposition Summary: 04/28/24 23:49 Discharge Ordered Notes: Location: Home sp3 Condition: Stable sp3 Diagnosis - Dental abscess, dental pain sp3 Followup: sp3 - With: Private Physician - When: Upon discharge from the Emergency Department - Reason: Continuance of care Discharge Instructions: - Discharge Summary Sheet sp3 - Dental Abscess sp3 Forms: - Medication Reconciliation Form sp3 - Antibiotic Education sp3 - Prescription Opioid Use sp3 - Patient Portal Instructions sp3 - Leadership Thank You Letter sp3 Prescriptions: - Augmentin 875-125 mg Oral Tablet - take 1 tablet ORAL route every 12 hours for 10 days; 20 tablet; Refills: 0, sp3 Product Selection Permitted - Diclofenac Sodium 75 mg Oral Tablet Sustained Release - take 1 tablet ORAL route 2 times per day; 30 tablet; Refills: 0, Product sp3 Selection Permitted Signatures: Angelica Cruz MD MD sp3 Toyin Carrington RN RN cm10
--- NOTE | 2024-04-28 23:49 | ER ---
Nurse's Notes [facility] Name: Enma Kuo Jr Age: 39 yrs Sex: Male : 1985 Arrival Date: 04/28/2024 Time: 23:31 Bed IW1 Private MD: Diagnosis: Dental abscess, dental pain Presentation: 04/28 23:42 Chief complaint: Patient states: toothache on bottom left side onset 1 month ago. pt cm10 states pain got worse today. Coronavirus screen: Client denies travel out of the [place] in the last 14 days. At this time, the client does not indicate any symptoms associated with coronavirus-19. Ebola Screen: Patient denies travel to an Ebola-affected area in the 21 days before illness onset. No symptoms or risks identified at this time. Initial Sepsis Screen: Does the patient meet any 2 criteria? No. Patient's initial sepsis screen is negative. Does the patient have a suspected source of infection? No. Patient's initial sepsis screen is negative. Risk Assessment: Do you want to hurt yourself or someone else? Patient reports no desire to harm self or others. Onset of symptoms was April 28, 2024. 23:42 Method Of Arrival: Ambulatory cm10 23:42 Acuity: SAMUEL 4 cm10 Triage Assessment: 23:44 General: Appears in no apparent distress. comfortable, Behavior is calm, cooperative. cm10 Pain: Complains of pain in lower left third molar Pain currently is 10 out of 10 on a pain scale. EENT: Reports pain in lower left third molar. Neuro: No deficits noted. Level of Consciousness is awake, alert, obeys commands, Oriented to person, place, time, situation, Appropriate for age. Respiratory: No deficits noted. Airway is patent Respiratory effort is even, unlabored, Respiratory pattern is regular, symmetrical. Historical: - Allergies: 23:43 No Known Allergies; cm10 - PMHx: 23:43 CVA; CVA; Gall Stones; Hypertension; TIA; cm10 - PSHx: 23:43 Cholecystectomy; cm10 - Immunization history:: Adult Immunizations up to date. - Infectious Disease History:: Denies. - Social history:: Smoking status: Patient reports the use of cigarette tobacco products, smokes one-half pack cigarettes per day. Screenin:44 [facility] ED Fall Risk Assessment (Adult) History of falling in the last 3 months, cm10 including since admission No falls in past 3 months (0 pts) Confusion or Disorientation No (0 pts) Intoxicated or Sedated No (0 pts) Impaired Gait No (0 pts) Mobility Assist Device Used No (0 pt) Altered Elimination No (0 pt) Score/Fall Risk Level 0 - 2 = Low Risk Oriented to surroundings, Maintained a safe environment, Hourly rounding (assess needs \T\ fall precautionary measures) done. Abuse screen: Denies threats or abuse. Denies injuries from another. Nutritional screening: No deficits noted. Tuberculosis screening: No symptoms or risk factors identified. Vital Signs: 23:42 BP 138 / 97; Pulse 88; Resp 16; Temp 96.9; Pulse Ox 99% on R/A; Weight 90.72 kg; Height cm10 5 ft. 6 in. ; Pain 10/10; 23:42 Body Mass Index 32.28 (90.72 kg, 167.64 cm) cm10 23:42 Pain Scale: Adult cm10 ED Course: 23:35 Patient arrived in ED. [id number] 23:43 Angelica Cruz MD is Attending Physician. sp3 23:43 Triage completed. cm10 23:44 Arm band placed on Patient placed in waiting room. cm10 23:45 Patient has correct armband on for positive identification. Provided Education on: ER cm10 process and procedures.. 23:45 No provider procedures requiring assistance completed. Patient did not have IV access cm10 during this emergency room visit. Administered Medications: 23:53 Drug: HYDROcodone-acetaminophen PO 5 mg-325 mg 2 tabs PO once Route: PO; cm10 23:54 Follow up: Response: Medication administered at discharge. cm10 23:53 Drug: Amoxicillin-Clavulanate PO 875 mg PO once Route: PO; cm10 23:54 Follow up: Response: Medication administered at discharge. cm10 Medication: 23:44 VIS not applicable for this client. cm10 Outcome: 23:49 Discharge ordered by . sp3 23:54 Discharged to home ambulatory, with significant other, cm10 23:54 Condition: good 23:54 Discharge instructions given to patient, Instructed on discharge instructions, follow up and referral plans. medication usage, Demonstrated understanding of instructions, follow-up care, medications, Prescriptions given X 2, 23:55 Patient left the ED. cm10 Signatures: Angelica Cruz MD MD sp3 Ronda Nielsen [email or web address] Toyin Carrington, CRISTIAN RN cm10
[2024-04-28] MEDS ORDERED: AMOX/K CLAV 875 MG TAB ONE (23:52)
[2024-04-28] MEDS ORDERED: HYDROCODONE/APAP 5/325 MG TAB ONE (23:53)
[2024-04-29 10:13] VITALS: BP 138/97; TEMP 96.9; O2SAT 99
== END 2024-04-28 23:55 | disposition home or self-care (01) ==
LOC: ER 23:31
DX: K04.7 Periapical abscess without sinus (principal)